=== PATIENT | female | born 2000 | race Caucasian/White ===

== ENCOUNTER 2023-01-20 19:03 | Emergency (ER) | payer MEDICAID, SELFPAY ==
[2023-01-20 19:04] VITALS: BP 133/85; PULSE 84; RESP 16; TEMP 36.4; O2SAT 100; BMI 35.6
--- NOTE | 2023-01-20 19:19 | EX.ED.DYSGE1 ---
HPI History of Present Illness Chief Complaint: Abd Pain Informant: patient Narrative Narrative: Patient presents with abdominal cramping for 2 days and positive home . Patient is currently G6, P3. She had 1 blighted ovum and 1 miscarriage. Her last menstrual period was about 21 December. She states she is taken multiple urine test at home that were positive. She has not yet seen her OB but is seeing Fara at [place]. She has had a virtual visit. She states for couple days she has been getting abdominal cramping. She points mostly to the epigastrium but then says she sometimes gets that lower also. No bleeding. No discharge. She does urinate frequently but it is not burning. She states that is typical with . She has some mild nausea off and on but is eating well and is not had any vomiting. No fevers. No back pain. PFSH PFSH Medical History no medical history Allergy/AdvReac Type Severity Reaction Status Date / Time latex Allergy Mild Hives Verified 01/20/23 19:06 Social History Smoking Status: Never smoker ROS ROS ED ROS Narrative A complete review of systems was performed and is negative except as documented in the history of present illness. Some specific details below. Constitutional: No recent fevers or chills. No malaise ENT: No difficulty swallowing. No swelling. No pain. No GERD symptoms. CV: No chest pain or palpitations. Respiratory: No dyspnea. No hemoptysis. No difficulty taking breaths. GI: Please see history of present illness. : She has had frequency but no dysuria or hematuria. Musculoskeletal: No recent trauma. No pains. Skin: No rash. Nondiaphoretic. Neuro: No weakness or numbness. Endocrine: No polyuria or polydipsia. EXAM Physical Exam Narrative Exam Narrative: CONSTITUTIONAL: Patient is nontoxic in appearance. The patient looks comfortable. She is looking at her phone while sitting on the bed when I walk in the room. HEENT: No notable trauma. Mucous membranes moist. No sinus tenderness. No indication of pain with swallowing. EYES: No conjunctival injection. No icterus. CARDIOVASCULAR: Regular rate. Regular rhythm. No notable murmur. No JVD. RESPIRATORY: No respiratory distress. Breathing is unlabored. No wheezes. No rhonchi. No rales. No pain with a deep breath. GASTROINTESTINAL: Not distended. Bowel sounds are normal. She has minimal to no epigastric tenderness but no rebound or guarding. No right upper quadrant tenderness. When I press in the epigastrium she mostly states that that is where it hurts but there is no objective indication of tenderness. She states right now she is not really having much symptoms. GENITOURINARY: No tenderness over the bladder. No CVA tenderness. I do not get any suprapubic tenderness. MUSCULOSKELETAL: Atraumatic. No peripheral edema. No cord. No tenderness along the deep venous system. No asymmetry. NEUROLOGICAL: Patient is alert and appropriate. SKIN: No noted rashes. No diaphoresis. PSYCHIATRIC: Patient is calm. Mood is appropriate. Const Vital Signs: 01/20/23 19:04 Temperature 97.5 F L Temperature Source Temporal Pulse Rate 84 Respiratory Rate 16 Blood Pressure 133/85 H Blood Pressure Mean 101 Pulse Ox 100 Oxygen Delivery Method Room Air MDM MDM MDM Narrative Medical decision making narrative: Patient's urinalysis shows no acute process. Her quantitative beta hCG was only 132. Her pelvic ultrasound showed a cyst on the right. Nothing in the uterus. This cannot rule out ectopic. Patient states she has had a cyst there forever. She is comfortable. I do not think she needs to come in for possible ectopic at this time. I think she needs a recheck of her quantitative hormone level and recheck in her doctor's office. She sees Dr. Radha lynch up in [place]. I recommend she call the office in the morning to be reseen within the next few days. We discussed reasons to return and signs to look for. Most of the patient's pain is actually epigastric. It waxes and wanes. This may very be gastritis. We discussed dietary changes Lab Data Labs: Laboratory Results - last 24 hr 01/20/23 01/20/23 20:00 20:05 HCG, Quant 132 H Urine Color Yellow Urine Clarity Sl. Cloudy Urine pH 6.0 Ur Specific [place] 1.025 Urine Protein 15 H Urine Glucose (UA) Normal Urine Ketones Negative Urine Occult Blood Negative Urine Nitrite Negative Urine Bilirubin 1 H Urine Urobilinogen 8 H Ur Leukocyte Esterase 100 H Urine RBC 0-5 SEEN Urine WBC 0-5 SEEN Ur Squamous Epith Cells 0-5 SEEN Urine Bacteria 1+ Urine Mucus 1+ Radiography Diagnostic Testing: Clinical Impression(s) from Imaging Studies Obstetrics Ultrasound 01/20/23 20:51 IMPRESSION: Possible small intrauterine gestational sac and a 3.5 cm simple cyst right ovary. Differential diagnosis includes an early intrauterine with a theca lutein cyst, ectopic with a pseudogestational sac, or incomplete . Correlation with serial beta hCG measurements is recommended. Electronically Signed: Forrest Hill MD at 21:59 EDT , Discharge Plan Triage Chief Complaint: Abd Pain ED Provider: Joey Urban Dx/Rx/DC Orders Clinical Impression: Early stage of , Abdominal pain Instructions: 1st Trimester, ED Abdominal Pain Unkn Cause Fem Primary Care Provider: YUMIKO SMITH Referrals: YUMIKO SMITH [Other] Activity Restrictions/Additional Instructions: Call your OB physician in the morning for recheck in the next few days. Disposition Disposition: Home, Self Care
[2023-01-20 20:14] LABS: Color, Urine Yellow (Yellow); Glucose, Dipstick Normal (Normal); Ketone-Dipstick Negative (Negative); Leukocyte Esterase-Dipstick 100 /ul (Negative); Nitrite-Dipstick Negative (Negative); Occult Blood-Urine Negative /ul (Negative); Protein-Dipstick 15 mg/dl (Negative); Specific Gravity, Urine 1.025 (1.002-1.030); Urine Clarity Sl. Cloudy (Clear); Urine Urobilinogen 8 mg/dl (Normal)
[2023-01-20 20:17] LABS: Urine Bilirubin Dipstick 1 mg/dL (Negative)
[2023-01-20 20:36] LABS: Bacteria 1+ /hpf (None Seen); Mucous, Urine 1+ /hpf (<or=2+); Red Blood Cells-Urine 0-5 SEEN /hpf (0-5); Squamous Epithelial Cells - UA 0-5 SEEN /hpf (5-10); White Blood Cells 0-5 SEEN /hpf (0-5)
[2023-01-20 20:46] LABS: hCG Titer Quant., Serum 132 mIU/mL (1-3)
--- NOTE | 2023-01-20 20:51 | US_ITS ---
STUDY: FIRST TRIMESTER OBSTETRICAL ULTRASOUND REASON FOR EXAM: Female, 22 years old cramps mild LMP: 12/21/2022 TECHNIQUE: Transvaginal TECHNICAL QUALITY: Adequate. PRIOR ULTRASOUND: None. FINDINGS: There is visualization of a single gestational sac in a normal intrauterine position. The mean sac diameter (MSD) measures 6 mm, indicating an estimated gestational age (EGA) of 5 weeks, 2 days. The gestational sac shape is within normal limits. There is no demonstrated yolk sac.. The placenta is non-visualized. There is no demonstrated embryo ( pole). m. The estimated gestation age (EGA) by LMP is 4 weeks, 2 days. The estimated date of delivery (ARYA) by LMP is 09/27/2023. The estimated gestation age (EGA) by US is 5 weeks, 2 days. The estimated date of delivery (ARYA) by US is 09/20/2023. The uterus measures 8.9 x 4.5 x 5.8 cm. There is no demonstrated uterine fibroid. The cervix is closed. The right ovary measures 4.0 x 3.3 x 3.8 cm. 3.5 cm oval anechoic mass with increased through transmission of the right ovary. There is no visualized right adnexal mass or complex lesion. The left ovary measures 3.4 x 2.4 x 2.2 cm. There is no left ovarian cyst. There is no visualized left adnexal mass or complex lesion. There is no fluid in the cul de sac. US/Transvaginal w/Preg US IMPRESSION: Possible small intrauterine gestational sac and a 3.5 cm simple cyst right ovary. Differential diagnosis includes an early intrauterine with a theca lutein cyst, ectopic with a pseudogestational sac, or incomplete . Correlation with serial beta hCG measurements is recommended. Electronically Signed: Forrest Hill MD at 21:59 EDT ,
== END 2023-01-20 22:48 | disposition home or self-care (01) ==
PROVIDERS: Emergency Provider Emergency Medicine; Visit Provider Emergency Medicine
DX: O99.891 Other specified diseases and conditions complicating pregnancy (principal); R10.9 Unspecified abdominal pain; Z3A.00 Weeks of gestation of pregnancy not specified
CPT/HCPCS: 76817; 81001; 84702; 99282; A4216

== ENCOUNTER → 2023-02-17 | Outpatient (CLI) | payer MEDICAID, SELFPAY ==
[2023-02-21 06:06] LABS: Chlamydia By Nucleic Acid AMP Negative (Negative); Gonococcus By Nucleic Acid AMP Negative (Negative)
[2023-02-25 10:04] LABS: HPV Reflexed? NOT INDICATED
== END | disposition home or self-care (01) ==
LOC: LABSPEC 16:22
PROVIDERS: Referring Provider Obstetrics & Gynecology; Visit Provider Obstetrics & Gynecology
DX: O09.90 Supervision of high risk pregnancy, unspecified, unspecified trimester (principal); Z3A.00 Weeks of gestation of pregnancy not specified
CPT/HCPCS: 87491; 87591; 88175; G0145

== ENCOUNTER → 2023-03-09 | Outpatient (CLI) | payer MEDICAID, SELFPAY ==
[2023-03-09 13:16] LABS: Absolute Lymphocyte Count 2.51 X10^3/uL (0.83-4.51); Absolute Neutrophil Count 6.7 X10^3/uL (2.0-7.7); Basophil# 0.03 X10^3/uL; Basophil% 0.3 % (0-1); Eosinophil# 0.29 X10^3/uL; Hematocrit 38.3 % (37-47); Hemoglobin 13.2 g/dL (12.0-15.0); Lymphocyte # 2.51 X10^3/ul (0.83-4.51); Lymphocyte % 25.6 % (19-41); Mean Corp Hgb Conc 34.5 g/dL (32-36); Mean Platelet Vol. 9.8 fl (6.2-12.0); Monocyte# 0.22 X10^3/uL; Monocyte% 2.2 % (0-10); NRBC Flagged by Analyzer 0 % (0-5); Neutrophil # 6.72 X10^3/uL (2.7-7.7); Neutrophil % 68.7 % (47-70); Platelet Count 307 K/mm3 (150-450); RBC Distribution Width CV 11.9 % (11.6-14.6); RBC Distribution Width SD 38.2 fl (35.1-43.9); White Blood Count 9.8 K/mm3 (4.4-11.0)
[2023-03-09 13:37] LABS: NATERA MAILED SPECIMEN
[2023-03-09 13:43] LABS: Glucose Challenge Gest 1H 50g 136 mg/dL (70-140)
[2023-03-09 14:22] LABS: HIV - WCH Non-Reactive (Nonreactive); Hepatitis B Surface Antigen Non-Reactive (Nonreactive); Hepatitis C Antibody Non-Reactive (Nonreactive); Rubella IgG Reactive (Nonreactive); Syphilis Antibodies Non-reactive
== END | disposition home or self-care (01) ==
LOC: LAB 11:31
PROVIDERS: Referring Provider Obstetrics & Gynecology; Visit Provider Obstetrics & Gynecology
DX: Z02.1 Encounter for pre-employment examination (principal); O09.299 Supervision of pregnancy with other poor reproductive or obstetric history, unspecified trimester; Z3A.00 Weeks of gestation of pregnancy not specified
CPT/HCPCS: 36415; 82950; 85025; 86703; 86762; 86780; 86803; 86850; 86900; 86901; 87340

== ENCOUNTER → 2023-03-18 | Outpatient (CLI) | payer MEDICAID, SELFPAY | END | disposition home or self-care (01) | LOC: LABSPEC 12:21 | PROVIDERS: Referring Provider Advanced Practice Midwife; Visit Provider Advanced Practice Midwife | DX: Z34.90 Encounter for supervision of normal pregnancy, unspecified, unspecified trimester (principal) | CPT/HCPCS: 87077; 87086; 87088 ==

== ENCOUNTER → 2023-03-21 | Outpatient (CLI) | payer MEDICAID, SELFPAY ==
[2023-03-21 10:45] LABS: Glucose GTT-Gestation. Fasting 89 mg/dL (<105)
[2023-03-21 11:54] LABS: Glucose GTT-Gestational 2 Hr 125 mg/dL (<165)
[2023-03-21 11:59] LABS: Glucose GTT-Gestational 1 Hr 141 mg/dL (<190)
[2023-03-21 13:14] LABS: Glucose GTT-Gestational 3 Hr 116 L (<145)
== END | disposition home or self-care (01) ==
PROVIDERS: Referring Provider Obstetrics & Gynecology; Visit Provider Obstetrics & Gynecology
DX: Z13.1 Encounter for screening for diabetes mellitus (principal)
CPT/HCPCS: 36415; 82951; 82952

== ENCOUNTER → 2023-06-08 | Outpatient (CLI) | payer MEDICAID, SELFPAY | END | disposition home or self-care (01) | PROVIDERS: Visit Provider Obstetrics & Gynecology | DX: N89.8 Other specified noninflammatory disorders of vagina (principal) | CPT/HCPCS: 87070; 87205 ==

== ENCOUNTER → 2023-07-07 | Outpatient (CLI) | payer MEDICAID, SELFPAY ==
--- OUTSIDE RECORDS SUMMARY | 2023-07-07 11:54 | XMS RPT_ITS | CCD ---
Author Name Unknown Address [address] [place] [address] Organization [facility] Care Team Providers Care Finance Administrator Name Role Phone SARAH AVILES Unavailable Unavailable AMEE PARKER Unavailable Unavailable AMEE PARKER Unavailable Unavailable MYLA STINSON Unavailable Unavailable MARIA DE JESUS BRANHAM Admitting Unavailable MARIA DE JESUS BRANHAM Attending Unavailable AA UNKNOWN PCP, UNKNOWN Primary Care Unavaila ble Kem Malik Primary Care Provider [phone] Kem Malik Primary Care Provider Kem Malik DO Primary Care Provider Unavailable Primary Care Provider Unavailabl e SILVERIO CARTER Attending Unavailable HOMER RICO Consulting Unavailable SILVERIO CARTER Admitting Unavailable DICK MARTINEZ Admitting Unavailable DICK MARTINEZ Attending Unavailable PROVIDER, UNKNOWN Referring Unavailable MARIBELL SAN Attending Unavailable No, PCP Primary Care Unavailable Rosemarie Mcmullen Attending Unavailable No, PCP Primary Care Unavailable PROVIDER, UNKNOWN Referring Unavailable PROVIDER, UNKNOWN Referring Unavailable No, PCP Primary Care Unavailable Anshu Bashir Attending Unavailable PROVIDER, UNKNOWN Referring Unavailable [facility] Attending Unavailable No, PCP Primary Care Unavailable No, PCP Primary Care Unavailable PROVIDER, UNKNOWN Referring Unavailable Usama Plata Attending Unavailable SOPHIA ARZATE Attending Unavailable No, PCP Primary Care Unavailable PROVIDER, UNKNOWN Referring Unavailable MARIBELL SAN Attending Unavailable No, PCP Primary Care Unavailable PROVIDER, UNKNOWN Referring Unavailable Abdulaziz ARMENTA MD, Stephen J Primary [facility] Provider Estella Herzog MD Unavailable Chucho Coburn Unavailable Unavailable Unavailable Nile Milan, Rafael Dane Jonh Referring Unava naeem Dowd Jr, Rafael Dane Jonh Attending Unava Dr. Chucho Strickland Primary Care Unavailable AUDU, [facility] Primary Care Unavailable SUBICHIN II, [facility] Primary Care Unavailab le AUDU, [facility] Primary Care Unavailable SUBICHIN II, [facility] Primary Care Unavailab le AUDU, [facility] Primary Care Unavailable VALENTIN CHAMBERS Referring Unavailable AUDU, [facility] Primary [facility]available [facility] Provider Estella Herzog MD Unavailable AUDU, YUMIKO Attending Unavailable AUDU, [facility] Primary Care Unavailable AUDU, YUMIKO Attending Unavailable AUDU, [facility] Primary Care Unavailable INA DENG Attending Unavailable INA DENG Attending Unavailable AUDU, [facility] Primary Care Unavailable AUDU, YUMIKO Attending Unavailable AUDU, [facility] Primary Care Unavailable ESTELLA HERZOG Attending Unavailable AUDU, [facility] Primary Care Unavailable LIZZIE SDALER Attending Unavailable AUDU, [facility] Primary Care Unavailable AUDU, YUMIKO Attending Unavailable AUDU, [facility] Primary Care Unavailable AUDU, YUMIKO Attending Unavailable AUDU, [facility] Primary Care Unavailable AUDU, YUMIKO Attending Unavailable AUDU, YUMIKO Referring Unavailable AUDU, [facility] Primary Care Unavailable SOPHIA ARZATE Attending Unavailable AUDU, [facility] Primary Care Unavailable Dennise Rehman Unavailable [phone] Emerson Jacinto MD Primary Care Provider [phone] NO PRIMARY CARE, Primary Care Unavailable HUNTER OZUNA Attending Unavailabl e DENNISE VIDES Referring Unavailable EMERSON JACINTO Primary Care Unavailable EMERSON JACINTO Attending Unavailable KATELYNN NIÑO Referring Unavailab le JACINTO, EMERSON A Primary Care Unavailable EMERSON JACINTO Attending Unavailable EMEROSN JACINTO Referring Unavailable NO PRIMARY CARE, Primary Care Unavailable JENNIFER DAY Attending Unavailable LENNY ROJAS Referring Unavailabl e NO PRIMARY CARE, Primary Care Unavailable LENNY ROJAS Referring Unavailabl e KATELYNN NIÑO Attending Unavailab le NO PRIMARY CARE, Primary Care Unavailable JENNIFER DAY Attending Unavailable DENNISE VIDES Referring Unavailable NO PRIMARY CARE, Primary Care Unavailable DENNISE VIDES Referring Unavailable STEVIE OZUNA Attending Unavailable Allergies Allergy Classification Reported Allergen(s) Allergy Type Date of Onset Reaction(s) Facility Cinnamon Preparation (1 source) Cinnamon Preparation Drug Allergy 2 Swelling [facility] Latex (1 source) Latex Substance Allergy 7 Hives [facility] (20 sources) cinnamon preparation; Translations: [CINNAMON] Drug Allergy 2 Swelling, Other: See Comments [facility] Repository (20 sources) Latex; Translations: [LATEX] Propensity to adverse reactions (disorder) 7 Hives, Anaphylaxis, Swelling [facility] Repository Medications Current Medications Medication Drug Class(es) Dates Sig (Normalized) Sig (Original) acetaminophen 325 mg oral tablet (4 sources) Start: 03-28-2022 acetaminophen (TYLENOL) tablet 650 mg Completed/Discontinued Medications Medication Drug Class(es) Dates Sig (Normalized) Sig (Original) [id number] 200 actuat albuterol 0.09 mg/actuat metered dose inhaler (3 sources) beta2-Adrenergic Agonist Start: 12-15-2021 take 2 puff(s) by inhalation every four hours as needed 2 puff, Inhalation, EVERY 4 HOURS PRN, Starting on Tue12/15/21 at 1657, Until Discontinued, Wheezing, Shortness of Breath, cough Initiate RT Bronchodilator Protocol: No Problems Active Problems Problem Classification Problem Date Documented Da te Episodic/Chronic Administrative/social admission (5 sources) Worried well; Translations: [Patient encounter status] Onset: 12-28-2022 12-28-2022 Episodic Anxiety disorders (3 sources) Anxiety disorder, unspecified; Translations: [Anxiety] Onset: 03-28-2022 Chronic Diabetes mellitus without complication (20 sources) Abnormal glucose level; Translations: [Abnormal glucose complicating ] Onset: 03-12-2020 Resolved: 09-08-2020 03-12-2020 Episodic Disorders of teeth and jaw (1 source) Infection of tooth; Translations: [Dental infection] Episodic External cause codes: Fall (1 source) Fall; Translations: [Fall, initial encounter] Headache; including migraine (2 sources) Headache; including migraine; Translations: [Headache, unspecified] Onset: 08-30-2021 Mood disorders (20 sources) Episodic mood disorder; Translations: [Unspecified mood [affective] disorder] Onset: 10-29-2014 Resolved: 08-04-2021 01-13-2021 Chronic Mood disorders (14 sources) Mood disorders; Translations: [Depression, unspecified] Onset: 09-07-2022 Resolved: 09-07-2022 OB-related trauma to perineum and vulva (2 sources) Second degree perineal laceration during delivery; Translations: [Second degree perineal laceration during delivery] Onset: 03-28-2022 Episodic Open wounds of extremities (3 sources) Puncture wound of left foot; Translations: [Puncture wound without foreign body, left foot, initial encounter] Onset: 04-25-2023 04-25-2023 Episodic Other complications of ; puerperium affecting management of mother (2 sources) Obesity complicating childbirth; Translations: [Obesity complicating childbirth] Onset: 03-28-2022 Chronic Other complications of ; puerperium affecting management of mother (2 sources) Abnormality in heart rate and rhythm complicating labor and delivery; Translations: [Abnlt in heart rate and rhythm comp labor and delivery] Onset: 03-28-2022 Episodic Other complications of ; puerperium affecting management of mother (2 sources) Smoking (tobacco) complicating childbirth; Translations: [Smoking (tobacco) complicating childbirth] Onset: 03-28-2022 Episodic Other complications of ; puerperium affecting management of mother (2 sources) Other mental disorders complicating childbirth; Translations: [Other mental disorders complicating childbirth] Onset: 03-28-2022 Episodic Other complications of (6 sources) Maternal obesity complicating , childbirth and the puerperium, antepartum; Translations: [Obesity affecting , antepartum] Onset: 03-10-2020 Resolved: 09-08-2020 03-10-2020 Episodic Other complications of (6 sources) Supervision of with other poor reproductive or obstetric history, unspecified trimester; Translations: [History of delivery by vacuum extraction, currently ] Onset: 03-10-2020 Resolved: 09-08-2020 03-10-2020 Episodic Other complications of (2 sources) Maternal care for abnormalities of the heart rate or rhythm, unspecified trimester, not applicable or unspecified; Translations: [Matern care for abnlt fetl hrt rate or rhym, unsp tri, unsp] Onset: 03-28-2022 Episodic Other complications of (2 sources) related conditions, unspecified, third trimester; Translations: [ related conditions, unspecified, third trimester] Onset: 02-28-2022 Episodic Other complications of (2 sources) Smoking (tobacco) complicating , third trimester; Translations: [Smoking (tobacco) complicating , third trimester] Onset: 02-28-2022 Episodic Other complications of (3 sources) Patient encounter status; Translations: [ with inconclusive viability, not applicable or unspecified] 02-03-2023 Episodic Other complications of (2 sources) with inconclusive viability, not applicable or unspecified; Translations: [ with inconclusive viability, not applicable or unspecified] Onset: 02-03-2023 Episodic Other complications of (1 source) ultrasound scan abnormal; Translations: [Abnormal ultrasonic finding on screening of mother] 06-27-2023 Episodic Other complications of (1 source) History of gynecological disorder; Translations: [Supervision of with other poor reproductive or obstetric history, unspecified trimester] Onset: 04-14-2023 04-19-2023 Episodic Other female genital disorders (4 sources) Abnormal uterine and vaginal bleeding, unspecified; Translations: [ABNORMAL UTERINE VAGINAL BLEED UNS] Onset: 01-08-2019 Chronic Other female genital disorders (1 source) Vaginal bleeding; Translations: [Abnormal uterine and vaginal bleeding, unspecified] Chronic Other female genital disorders (1 source) Vulval irritation; Translations: [Other specified noninflammatory disorders of vulva and perineum] Episodic Other female genital disorders (1 source) H/O: miscarriage; Translations: [Recurrent loss] Onset: 04-14-2023 04-14-2023 Episodic Other gastrointestinal disorders (2 sources) Irritable bowel syndrome without diarrhea; Translations: [Irritable bowel syndrome without diarrhea] Onset: 06-23-2021 Chronic Other nutritional; endocrine; and metabolic disorders (20 sources) Obesity; Translations: [Obesity, unspecified] Onset: 09-05-2012 01-13-2021 Chronic Other nutritional; endocrine; and metabolic disorders (2 sources) Body mass index (BMI) 35.0-35.9, adult; Translations: [Body mass index (BMI) 35.0-35.9, adult] Onset: 10-05-2022 Chronic Other upper respiratory disease (1 source) Pain in throat Onset: 10-28-2022 Episodic Other upper respiratory infections (6 sources) Sore throat symptom; Translations: [Acute pharyngitis, unspecified] Onset: 04-12-2023 Episodic Otitis media and related conditions (1 source) Acute secretory otitis media; Translations: [Other acute nonsuppurative otitis media, right ear] Episodic Residual codes; unclassified (2 sources) 38 weeks gestation of ; Translations: [38 weeks gestation of ] Onset: 03-28-2022 Episodic Residual codes; unclassified (2 sources) 34 weeks gestation of ; Translations: [34 weeks gestation of ] Onset: 02-28-2022 Episodic Residual codes; unclassified (1 source) Family history of stroke; Translations: [Family history of stroke] Episodic Residual codes; unclassified (2 sources) Gestation period, 16 weeks; Translations: [16 weeks gestation of ] Onset: 04-25-2023 04-25-2023 Episodic Residual codes; unclassified (1 source) 16 weeks gestation of ; Translations: [16 weeks gestation of ] Onset: 04-25-2023 Episodic Sprains and strains (1 source) Low back strain; Translations: [Strain of lumbar region, initial encounter] Episodic Substance-related disorders (20 sources) Smoker; Translations: [Nicotine dependence, unspecified, uncomplicated] Onset: 08-04-2021 08-04-2021 Chronic Superficial injury; contusion (1 source) Tick bite; Translations: [Insect bite (nonvenomous), right knee, initial encounter] Episodic Unclassified (1 source) Unknown / UNK(Unknown) Onset: 04-20-2017 Unclassified (2 sources) Error (VOID this visit); Translations: [Error (VOID this visit)] Onset: 10-15-2022 Unclassified (2 sources) New Patient; Translations: [New Patient] Onset: 10-15-2022 Urinary tract infections (5 sources) Urinary tract infectious disease; Translations: [Acute cystitis] Onset: 04-25-2021 Episodic Viral infection (2 sources) Viral disease; Translations: [Viral infection, unspecified] Onset: 10-29-2022 Episodic Past or Other Problems Problem Classification Problem Date Documented Date Episodic/Chronic Abdominal pain (10 sources) Right lower quadrant pain; Translations: [Left lower quadrant pain] Onset: 04-14-2016 Resolved: 09-08-2020 06-18-2017 Episodic Allergic reactions (4 sources) Latex allergy status; Translations: [Allergy to other foods] Onset: 06-23-2021 Episodic Biliary tract disease (20 sources) Common bile duct calculus; Translations: [Calculus of bile duct without cholangitis or cholecystitis without obstruction] Onset: 12-06-2012 Resolved: 08-04-2021 01-13-2021 Episodic Early or threatened labor (20 sources) False labor; Translations: [Threatened premature labor - not delivered ] Onset: 01-25-2022 Resolved: 06-10-2022 06-17-2017 Episodic Fluid and electrolyte disorders (2 sources) Dehydration; Translations: [Dehydration] Onset: 08-30-2021 Episodic Genitourinary symptoms and ill-defined conditions (1 source) Dysuria Onset: 04-20-2017 Episodic Hemorrhage during ; abruptio placenta; placenta previa (14 sources) Antepartum hemorrhage; Translations: [Antepartum hemorrhage, unspecified, unspecified trimester] Resolved: 09-08-2020 09-08-2020 Episodic Inflammatory diseases of female pelvic organs (3 sources) Bacterial vaginosis; Translations: [BV (bacterial vaginosis)] Resolved: 06-18-2017 06-18-2017 Episodic Mycoses (20 sources) Candidiasis; Translations: [Candidiasis, unspecified] Onset: 09-02-2021 09-02-2021 Episodic Nausea and vomiting (2 sources) Nausea; Translations: [Nausea] Onset: 08-30-2021 Episodic Nonmalignant breast conditions (3 sources) Lump in left breast; Translations: [Unspecified lump in the left breast, unspecified quadrant] Onset: 09-07-2022 Episodic Other aftercare (2 sources) Other detention (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; Translations: [Other detention (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] Onset: 08-30-2021 Episodic Other complications of ; puerperium affecting management of mother (1 source) Retained placenta and membranes; Translations: [Third-stage hemorrhage] Onset: 10-23-2020 10-23-2020 Episodic Other complications of ; puerperium affecting management of mother (12 sources) Third-stage hemorrhage; Translations: [Retained placenta without hemorrhage, delivered, with mention of complication] Onset: 10-23-2020 Resolved: 06-19-2021 10-23-2020 Episodic Other complications of (13 sources) Maternal obesity complicating , childbirth and the puerperium, antepartum; Translations: [Obesity complicating , unspecified trimester] Onset: 03-10-2020 Resolved: 09-08-2020 09-08-2020 Chronic Other complications of (20 sources) Obesity complicating , unspecified trimester; Translations: [Obesity complicating , childbirth, or the puerperium, antepartum condition or complication] Onset: 09-16-2021 Resolved: 06-10-2022 09-16-2021 Chronic Other complications of (20 sources) High risk ; Translations: [Supervision of young multigravida, first trimester] Onset: 03-21-2020 Resolved: 02-25-2022 04-21-2020 Episodic Other complications of (20 sources) H/O: previous delivery by vacuum extraction; Translations: [Supervision of with other poor reproductive or obstetric history, unspecified trimester] Onset: 03-10-2020 Resolved: 06-10-2022 09-08-2020 Episodic Other complications of (13 sources) Abdominal pain in ; Translations: [Other specified related conditions, second trimester] Resolved: 09-08-2020 09-08-2020 Episodic Other complications of (20 sources) Short cervical length in ; Translations: [Cervical shortening, second trimester] Onset: 12-18-2021 Resolved: 06-10-2022 Episodic Other complications of (15 sources) Heartburn; Translations: [Other specified related conditions, third trimester] Onset: 01-25-2022 Resolved: 06-10-2022 Episodic Other complications of (15 sources) Low maternal weight gain; Translations: [Low weight gain in , second trimester] Onset: 01-06-2022 Resolved: 06-10-2022 Episodic Other complications of (15 sources) Hyperemesis gravidarum; Translations: [Vomiting of , unspecified] Onset: 01-25-2022 Resolved: 06-10-2022 Episodic Other complications of (14 sources) Uterine size for dates discrepancy; Translations: [Uterine size-date discrepancy, third trimester] Onset: 01-06-2022 Resolved: 06-10-2022 01-06-2022 Episodic Other complications of (4 sources) Headache; Translations: [Other specified related conditions, second trimester] Onset: 01-06-2022 Resolved: 01-25-2022 01-25-2022 Episodic Other complications of (4 sources) Uterine contractions problem; Translations: [Other specified related conditions, unspecified trimester] Onset: 01-25-2022 Resolved: 01-25-2022 01-25-2022 Episodic Other complications of (12 sources) Hip pain; Translations: [Other specified related conditions, third trimester] Onset: 01-25-2022 Resolved: 06-10-2022 02-10-2022 Episodic Other complications of (12 sources) dysrhythmia; Translations: [Maternal care for abnormalities of the heart rate or rhythm, unspecified trimester, not applicable or unspecified] Onset: 03-28-2022 Resolved: 06-10-2022 Episodic Other complications of (2 sources) Cervical shortening, unspecified trimester; Translations: [Cervical shortening, unspecified trimester] Onset: 12-19-2021 Episodic Other complications of (2 sources) Cervical shortening, second trimester; Translations: [Cervical shortening, second trimester] Onset: 12-18-2021 Episodic Other complications of (2 sources) Other specified related conditions, first trimester; Translations: [Oth related conditions, first trimester] Onset: 08-30-2021 Episodic Other complications of (2 sources) Smoking (tobacco) complicating , first trimester; Translations: [Smoking (tobacco) complicating , first trimester] Onset: 08-30-2021 Episodic Other female genital disorders (20 sources) Abnormal uterine bleeding; Translations: [Abnormal uterine and vaginal bleeding, unspecified] Onset: 12-12-2018 Resolved: 09-08-2020 12-12-2018 Chronic Other female genital disorders (17 sources) Vaginal discharge; Translations: [Other specified noninflammatory disorders of vagina] Onset: 01-25-2022 Resolved: 06-10-2022 Episodic Other female genital disorders (20 sources) Finding of measures of cervix; Translations: [Incompetence of cervix uteri] Onset: 12-04-2021 Resolved: 06-10-2022 Episodic Other nutritional; endocrine; and metabolic disorders (9 sources) Weight loss; Translations: [Abnormal weight loss] Onset: 10-05-2022 10-05-2022 Episodic Other nutritional; endocrine; and metabolic disorders (2 sources) Abnormal weight gain; Translations: [Abnormal weight gain] Onset: 09-07-2022 Episodic Other and delivery including normal (20 sources) Term ; Translations: [Vaginal delivery] Onset: 06-17-2017 Resolved: 06-10-2022 06-17-2017 Episodic Ovarian cyst (14 sources) Cyst of left ovary; Translations: [Unspecified ovarian cyst, left side] Onset: 12-06-2012 Resolved: 06-19-2021 01-13-2021 Episodic Polyhydramnios and other problems of amniotic cavity (15 sources) Premature rupture of membranes; Translations: [Premature rupture of membranes, unspecified as to length of time between rupture and onset of labor, unspecified weeks of gestation] Onset: 09-07-2020 Resolved: 09-08-2020 09-08-2020 Episodic Residual codes; unclassified (3 sources) Past history of procedure; Translations: [Status post vacuum-assisted vaginal delivery] Onset: 06-18-2017 Resolved: 06-19-2017 06-19-2017 Episodic Residual codes; unclassified (17 sources) Gestation period, 30 weeks; Translations: [30 weeks gestation of ] Resolved: 09-08-2020 07-21-2020 Episodic Residual codes; unclassified (14 sources) Gestation period, 29 weeks; Translations: [29 weeks gestation of ] Onset: 01-28-2022 Resolved: 06-10-2022 Episodic Residual codes; unclassified (2 sources) 24 weeks gestation of ; Translations: [24 weeks gestation of ] Onset: 12-18-2021 Episodic Residual codes; unclassified (2 sources) 8 weeks gestation of ; Translations: [8 weeks gestation of ] Onset: 08-30-2021 Episodic Residual codes; unclassified (2 sources) Other specified postprocedural states; Translations: [Other specified postprocedural states] Onset: 06-23-2021 Episodic Residual codes; unclassified (2 sources) Acquired absence of other specified parts of digestive tract; Translations: [Acquired absence of other specified parts of digestive tract] Onset: 04-25-2021 Episodic Residual codes; unclassified (2 sources) Family history of ischemic heart disease and other diseases of the circulatory system; Translations: [Family history of ischemic heart disease and other diseases of the circulatory system] Onset: 09-07-2022 Episodic Unclassified (3 sources) Patient encounter status; Translations: [Screen for STD (sexually transmitted disease)] Onset: 12-12-2018 Resolved: 01-11-2019 01-11-2019 Results Test Name Value Interpretation Reference Range Facil ity Vital Signs Date Time Vital Sign Value Performing Clinician Doris pickard 04-25-2023 09:44-0400 Body height 157.5 cm Lizzie Aguero NP Work Phone: [facility] [employer] 04-25-2023 09:44-0400 Body mass index (BMI) [Ratio] 36.4 kg/m2 Lizzie Aguero NP Work Phone: [employer] 04-25-2023 09:44-0400 Body temperature 97.2 [degF] Lizzie Aguero NP Work Phone: [facility] [employer] 04-25-2023 09:44-0400 Body weight 90.27 kg Lizzie Aguero NP Work Phone: [facility] [employer] 04-25-2023 09:44-0400 Diastolic blood pressure 76 mm[Hg] Lizzie Payam ENTRY LEVEL PROJECT ENGINEER - [employer] EX[employer] OPERATIONS AGENT Work Phone: [facility] [employer] 04-25-2023 09:44-0400 Heart rate 91 /min Lizzie Payam ENTRY LEVEL PROJECT ENGINEER - [employer] OPERATIONS AGENT Work Phone: [facility] [employer] 04-25-2023 09:44-0400 SaO2% (BldA) [Mass fraction] 98 % Lizzie Payam ENTRY LEVEL PROJECT ENGINEER - [employer] EXPORT OPERATIONS AGENT Work Phone: [facility] [employer] 04-25-2023 09:44-0400 Systolic blood pressure 118 mm[Hg] Lizzie Payam ENTRY LEVEL PROJECT ENGINEER - [employer] EX[employer] OPERATIONS AGENT Work Phone: [facility] [employer] 04-12-2023 09:26-0400 Body height 157.5 cm Yumiko Mendez MD Work Phone: [facility] [employer] 04-12-2023 09:26-0400 Body mass index (BMI) [Ratio] 36.21 kg/m2 Yumiko Mendez MD Work Phone: [facility] [employer] 04-12-2023 09:26-0400 Body temperature 96.91 [degF] Yumiko Mendez MD Work Phone: [employer] 04-12-2023 09:26-0400 Body weight 89.81 kg Yumiko Mendez MD Work Phone: [facility] [employer] 04-12-2023 09:26-0400 Diastolic blood pressure 66 mm[Hg] Yumiko Mendez MD Work Phone: [facility] [employer] 04-12-2023 09:26-0400 Heart rate 106 /min Yumiko Mendez MD Work Phone: [employer] 04-12-2023 09:26-0400 Respiratory rate 16 /min Yumiko Mendez MD Work Phone: [facility] [employer] 04-12-2023 09:26-0400 SaO2% (BldA) [Mass fraction] 98 % Yumiko Mendez MD Work Phone: [facility] [employer] 04-12-2023 09:26-0400 Systolic blood pressure 121 mm[Hg] Yumiko Mendez MD Work Phone: [facility] [employer] 02-03-2023 13:02-0400 Body mass index (BMI) [Ratio] 36.65 kg/m2 [facility] Deng ENTRY LEVEL PROJECT ENGINEER - CNM Work Phone: [facility] [employer] 02-03-2023 13:02-0400 Body weight 90.9 kg Ina Deng ENTRY LEVEL PROJECT ENGINEER - CNM Work Phone: [facility] [employer] 02-03-2023 13:02-0400 Diastolic blood pressure 75 mm[Hg] Ina Deng ENTRY LEVEL PROJECT ENGINEER - CNM Work Phone: [facility] [employer] 02-03-2023 13:02-0400 Heart rate 101 /min Ina Deng ENTRY LEVEL PROJECT ENGINEER - CNM Work Phone: [facility] [employer] 02-03-2023 13:02-0400 Systolic blood pressure 106 mm[Hg] Ina Deng ENTRY LEVEL PROJECT ENGINEER - CNM Work Phone: [facility] [employer] 01-25-2023 11:13-0400 Body height 157.5 cm Yumiko Mendez MD Work Phone: [facility] [employer] 01-25-2023 11:13-0400 Body mass index (BMI) [Ratio] 36.43 kg/m2 Yumiko Mendez MD Work Phone: [facility] [employer] 01-25-2023 11:13-0400 Body temperature 97.7 [degF] Yumiko Mendez MD Work Phone: [facility] [employer] 01-25-2023 11:13-0400 Body weight 90.36 kg Yumiko Mendez MD Work Phone: [facility] [employer] 01-25-2023 11:13-0400 Diastolic blood pressure 80 mm[Hg] Yumiko Mendez MD Work Phone: [facility] [employer] 01-25-2023 11:13-0400 Heart rate 101 /min Yumiko Mendez MD Work Phone: [facility] 01-25-2023 11:13-0400 SaO2% (BldA) [Mass fraction] 96 % Yumiko Mendez MD Work Phone: [facility] [employer] 01-25-2023 11:13-0400 Systolic blood pressure 124 mm[Hg] Yumiko Mendez MD Work Phone: [facility] 12-28-2022 11:05-0400 Body mass index (BMI) [Ratio] 36.1 kg/m2 Yumiko Mendez MD Work Phone: [facility] [employer] 12-28-2022 11:05-0400 Body temperature 97.3 [degF] Yumiko Mendez MD Work Phone: [facility] [employer] 12-28-2022 11:05-0400 Body weight 89.54 kg Yumiko Mendez MD Work Phone: [facility] 12-28-2022 11:05-0400 Diastolic blood pressure 74 mm[Hg] Yumiko Mendez MD Work Phone: [facility] 12-28-2022 11:05-0400 Heart rate 103 /min Yumiko Mendez MD Work Phone: [facility] [employer] 12-28-2022 11:05-0400 SaO2% (BldA) [Mass fraction] 96 % Yumiko Mendez MD Work Phone: [facility] [employer] 12-28-2022 11:05-0400 Systolic blood pressure 104 mm[Hg] Yumiko Mendez MD Work Phone: [facility] [employer] 10-15-2022 11:42-0400 Body height 157.5 cm Estella Herzog MD Work Phone: [facility] [employer] 10-15-2022 11:42-0400 Body mass index (BMI) [Ratio] 36.23 kg/m2 Estella Herzog MD Work Phone: [facility] [employer] 10-15-2022 11:42-0400 Body temperature 95.9 [degF] Estella Herzog MD Work Phone: [facility] [employer] 04-07-2023 11:42-0400 Body weight 89.86 kg Estella Herzog MD Work Phone: [facility] [employer] 10-15-2022 11:42-0400 Diastolic blood pressure 66 mm[Hg] Estella Herzog MD Work Phone: [facility] [employer] 10-15-2022 11:42-0400 Heart rate 69 /min Estella Herzog MD Work Phone: [facility] [employer] 10-15-2022 11:42-0400 Respiratory rate 16 /min Estella Herzog MD Work Phone: [facility] [employer] 10-15-2022 11:42-0400 SaO2% (BldA) [Mass fraction] 99 % Estella Herzog MD Work Phone: [facility] [employer] 10-15-2022 11:42-0400 Systolic blood pressure 104 mm[Hg] Estella Herzog MD Work Phone: [facility] [employer] 09-29-2022 15:35-0400 Body height 157.5 cm Yumiko Mendez MD Work Phone: [facility] [employer] 09-29-2022 15:35-0400 Body mass index (BMI) [Ratio] 35.85 kg/m2 Yumiko Mendez MD Work Phone: [facility] [employer] 09-29-2022 15:35-0400 Body weight 88.91 kg Yumiko Mendez MD Work Phone: [facility] [employer] 03-29-2022 08:33-0400 Body temperature 97.7 [degF] Lee Chaudhari MD Work Phone: [facility] 03-29-2022 08:33-0400 Diastolic blood pressure 71 mm[Hg] Lee Chaudhari MD Work Phone: [facility] 03-29-2022 08:33-0400 Heart rate 84 /min Lee Chaudhari MD Work Phone: [facility] 03-29-2022 08:33-0400 Respiratory rate 18 /min Lee Chaudhari MD Work Phone: [facility] 03-29-2022 08:33-0400 Systolic blood pressure 97 mm[Hg] Lee Chaudhari MD Work Phone: [facility] 03-29-2022 05:47-0400 SaO2% (BldA) [Mass fraction] 99 % Lee Chaudhari MD Work Phone: [facility] 03-28-2022 06:10-0400 Body height 152.4 cm Lee Chaudhari MD Work Phone: [facility] 03-28-2022 06:10-0400 Body mass index (BMI) [Ratio] 39.06 kg/m2 Lee Chaudhari MD Work Phone: [facility] 03-28-2022 06:10-0400 Body weight 90.72 kg Lee Chaudhari MD Work Phone: [facility] 02-28-2022 20:10-0400 Body height 152.4 cm Sophiachelsey Cissell ENTRY LEVEL PROJECT ENGINEER - SESSIONS CLERK Work Phone: [facility] 02-28-2022 20:10-0400 Body mass index (BMI) [Ratio] 38.47 kg/m2 Sophia Olenafell ENTRY LEVEL PROJECT ENGINEER - SESSIONS CLERK Work Phone: [facility] 02-28-2022 20:10-0400 Body weight 89.36 kg Sophiachelsey Cissell ENTRY LEVEL PROJECT ENGINEER - SESSIONS CLERK Work Phone: [facility] 01-28-2022 17:56-0400 Body height 152.4 cm Silverio Carter MD Work Phone: [facility] [employer] 01-28-2022 17:56-0400 Body mass index (BMI) [Ratio] 37.89 kg/m2 Silverio Carter MD Work Phone: [facility] [employer] 01-28-2022 17:56-0400 Body temperature 98.1 [degF] Silverio Carter MD Work Phone: [facility] 01-28-2022 17:56-0400 Body weight 88 kg Silverio Carter MD Work Phone: [facility] [employer] 01-28-2022 17:56-0400 Diastolic blood pressure 54 mm[Hg] Silverio Carter MD Work Phone: [facility] [employer] 01-28-2022 17:56-0400 Heart rate 94 /min Silverio Carter MD Work Phone: [facility] [employer] 01-28-2022 17:56-0400 Respiratory rate 18 /min Silverio Carter MD Work Phone: [facility] [employer] 01-28-2022 17:56-0400 Systolic blood pressure 109 mm[Hg] Silverio Carter MD Work Phone: [facility] 01-25-2022 19:40-0400 Heart rate 82 /min Shala Noble MD Work Phone: [facility] 01-25-2022 16:28-0400 Body height 152.4 cm Shala Noble MD Work Phone: [facility] 01-25-2022 16:28-0400 Body mass index (BMI) [Ratio] 37.89 kg/m2 Shala Noble MD Work Phone: [facility] 01-25-2022 16:28-0400 Body temperature 98.2 [degF] Shala Noble MD Work Phone: [facility] 01-25-2022 16:28-0400 Body weight 88 kg Shala Noble MD Work Phone: [facility] 01-25-2022 16:28-0400 Diastolic blood pressure 67 mm[Hg] Shala Noble MD Work Phone: [facility] 01-25-2022 16:28-0400 Respiratory rate 18 /min Shala Noble MD Work Phone: [facility] 01-25-2022 16:28-0400 Systolic blood pressure 110 mm[Hg] Shala Noble MD Work Phone: [facility] 12-24-2021 18:03-0400 Body temperature 98.2 [degF] Dick Nance MD Work Phone: [facility] 12-24-2021 18:03-0400 Diastolic blood pressure 62 mm[Hg] Dick Nance MD Work Phone: [facility] 12-24-2021 18:03-0400 Heart rate 100 /min Dick Nance MD Work Phone: [facility] 12-24-2021 18:03-0400 Respiratory rate 18 /min Dick Nance MD Work Phone: [facility] 12-24-2021 18:03-0400 Systolic blood pressure 106 mm[Hg] Dick Nance MD Work Phone: [facility] 12-20-2021 22:00-0400 Heart rate 74 /min Lee Chaudhari MD Work Phone: [facility] 12-20-2021 20:52-0400 Body height 152.4 cm Lee Chaudhari MD Work Phone: [facility] 12-20-2021 20:52-0400 Body mass index (BMI) [Ratio] 36.91 kg/m2 Lee Chaudhari MD Work Phone: [facility] 12-20-2021 20:52-0400 Body temperature 98.6 [degF] Lee Chaudhari MD Work Phone: [facility] 12-20-2021 20:52-0400 Body weight 85.73 kg Lee Chaudhari MD Work Phone: [facility] 12-20-2021 20:52-0400 Diastolic blood pressure 61 mm[Hg] Lee Chaudhari MD Work Phone: [facility] 12-20-2021 20:52-0400 Respiratory rate 16 /min Lee Chaudhari MD Work Phone: [facility] 12-20-2021 20:52-0400 Systolic blood pressure 115 mm[Hg] Lee Chaudhari MD Work Phone: [facility] 12-19-2021 12:39-0400 Body temperature 97.9 [degF] Maribell San MD Work Phone: [facility] 12-19-2021 12:39-0400 Diastolic blood pressure 66 mm[Hg] Maribell San MD Work Phone: [facility] 12-19-2021 12:39-0400 Heart rate 110 /min Maribell San MD Work Phone: [facility] 12-19-2021 12:39-0400 Respiratory rate 20 /min Maribell San MD Work Phone: [facility] 12-19-2021 12:39-0400 SaO2% (BldA) [Mass fraction] 96 % Maribell San MD Work Phone: [facility] 12-19-2021 12:39-0400 Systolic blood pressure 119 mm[Hg] Maribell San MD Work Phone: [facility] 12-15-2021 16:14-0400 Body temperature 98.01 [degF] Stuart Barajas MD Work Phone: [facility] 12-15-2021 16:14-0400 Diastolic blood pressure 66 mm[Hg] Stuart Barajas MD Work Phone: [facility] 12-15-2021 16:14-0400 Heart rate 110 /min Stuart Barajas MD Work Phone: [facility] 12-15-2021 16:14-0400 Respiratory rate 16 /min Stuart Barajas MD Work Phone: [facility] 12-15-2021 16:14-0400 Systolic blood pressure 113 mm[Hg] Stuart Barajas MD Work Phone: [facility] 11-16-2021 23:19-0400 Body height 152.4 cm Sha Ramos MD Work Phone: [facility] 11-16-2021 23:19-0400 Body mass index (BMI) [Ratio] 37.5 kg/m2 Sha Ramos MD Work Phone: [facility] 11-16-2021 23:19-0400 Body temperature 97.39 [degF] Sha Ramos MD Work Phone: [facility] 11-16-2021 23:19-0400 Body weight 87.09 kg Sha Ramos MD Work Phone: [facility] 11-16-2021 23:19-0400 Diastolic blood pressure 68 mm[Hg] Sha Ramos MD Work Phone: [facility] 11-16-2021 23:19-0400 Heart rate 81 /min Sha Ramos MD Work Phone: [facility] 11-16-2021 23:19-0400 Respiratory rate 18 /min Sha Ramos MD Work Phone: [facility] 11-16-2021 23:19-0400 SaO2% (BldA) [Mass fraction] 100 % Sha Ramos MD Work Phone: [facility] 11-16-2021 23:19-0400 Systolic blood pressure 107 mm[Hg] Sha Ramos MD Work Phone: [facility] 06-23-2021 21:40-0500 Body temperature 98.71 [degF] Auroranavin West DO Work Phone: [facility] 06-23-2021 21:40-0500 Diastolic blood pressure 71 mm[Hg] Auroranavin West DO Work Phone: [facility] 06-23-2021 21:40-0500 Heart rate 86 /min Auroranavin West DO Work Phone: [facility] 06-23-2021 21:40-0500 Respiratory rate 14 /min Aurora West DO Work Phone: [facility] 06-23-2021 21:40-0500 SaO2% (BldA) [Mass fraction] 99 % Auroranavin West DO Work Phone: [facility] 06-23-2021 21:40-0500 Systolic blood pressure 102 mm[Hg] Aurora West DO Work Phone: [facility] 04-25-2021 21:14-0400 Diastolic blood pressure 67 mm[Hg] Usama Plata MD Work Phone: [facility] Work Phone: 04-25-2021 21:14-0400 Heart rate 61 /min Usama Plata MD Work Phone: [facility] Work Phone: 04-25-2021 21:14-0400 Respiratory rate 16 /min Usama Plata MD Work Phone: [facility] Work Phone: 04-25-2021 21:14-0400 SaO2% (BldA) [Mass fraction] 100 % Usama Plata MD Work Phone: [facility] Work Phone: 04-25-2021 21:14-0400 Systolic blood pressure 94 mm[Hg] Usama Plata MD Work Phone: [facility] Work Phone: 04-25-2021 20:15-0400 Body height 152.4 cm Usama Plata MD Work Phone: [facility] Work Phone: 04-25-2021 20:15-0400 Body mass index (BMI) [Ratio] 37.69 kg/m2 Usama Plata MD Work Phone: [facility] Work Phone: 04-25-2021 20:15-0400 Body temperature 98.01 [degF] Usama Plata MD Work Phone: [facility] Work Phone: 04-25-2021 20:15-0400 Body weight 87.54 kg Usama Plata MD Work Phone: [facility] Work Phone: 02-06-2021 20:38-0400 Body height 152.4 cm Sangita Rangel MD Work Phone: [facility] Work Phone: 02-06-2021 20:38-0400 Body mass index (BMI) [Ratio] 36.13 kg/m2 Sangita Rangel MD Work Phone: [facility] Work Phone: 02-06-2021 20:38-0400 Body temperature 98.01 [degF] Sangita Rangel MD Work Phone: [facility] Work Phone: 02-06-2021 20:38-0400 Body weight 83.92 kg Sangita Rangel MD Work Phone: [facility] Work Phone: 02-06-2021 20:38-0400 Diastolic blood pressure 69 mm[Hg] Sangita Rangel MD Work Phone: [facility] Work Phone: 02-06-2021 20:38-0400 Heart rate 93 /min Sangita Rangel MD Work Phone: [facility] Work Phone: 02-06-2021 20:38-0400 Respiratory rate 20 /min Sangita Rangel MD Work Phone: [facility] Work Phone: 02-06-2021 20:38-0400 SaO2% (BldA) [Mass fraction] 97 % Sangita Rangel MD Work Phone: [facility] Work Phone: 02-06-2021 20:38-0400 Systolic blood pressure 104 mm[Hg] Sangita Rangel MD Work Phone: [facility] Work Phone: 09-08-2020 08:06-0500 Body Temperature 98.49 [degF] Alexia Valeria [employer] Work Phone: 09-08-2020 08:06-0500 BP Diastolic 65 mm[Hg] Alexia O'Winchester [employer] Work Phone: 09-08-2020 08:06-0500 BP Systolic 104 mm[Hg] Alexia MOSS Work Phone: 09-08-2020 08:06-0500 Pulse (Heart Rate) 87 /min Alexia MOSS Work Phone: 09-08-2020 08:06-0500 Pulse Oximetry 97 % Alexia MOSS Work Phone: 09-08-2020 08:06-0500 Respiratory Rate 16 /min Alexia MOSS Work Phone: 09-07-2020 07:09-0500 BMI (Body Mass Index) 38.67 kg/m2 Alexia MOSS Work Phone: 09-07-2020 07:09-0500 Body weight 89.81 kg Alexia MOSS Work Phone: 09-07-2020 07:09-0500 Height 152.4 cm Alexia MOSS Work Phone: 09-06-2020 01:50-0500 BMI (Body Mass Index) 38.67 kg/m2 Amee HOOKSA Work Phone: 09-06-2020 01:50-0500 Body Temperature 98.2 [degF] Amee HOOKSA Work Phone: 09-06-2020 01:50-0500 Body weight 89.81 kg Amee HOOKSA Work Phone: 09-06-2020 01:50-0500 BP Diastolic 70 mm[Hg] Amee HOOKSA Work Phone: 09-06-2020 01:50-0500 BP Systolic 114 mm[Hg] Amee HOOKSA Work Phone: 09-06-2020 01:50-0500 Height 152.4 cm Amee HOOKSA Work Phone: 09-06-2020 01:50-0500 Pulse (Heart Rate) 105 /min Amee HOOKSA Work Phone: 09-06-2020 01:50-0500 Respiratory Rate 18 /min Amee MOSS Work Phone: 07-20-2020 23:05-0500 Body Temperature 97.9 [degF] [facility] [place] [place] 07-20-2020 23:05-0500 BP Diastolic 64 mm[Hg] [facility] [place] 07-20-2020 23:05-0500 BP Systolic 115 mm[Hg] [facility] [place] 07-20-2020 23:05-0500 Pulse (Heart Rate) 89 /min Robert Adame [employer] [facility] [place] 07-20-2020 23:05-0500 Respiratory Rate 16 /[facility] [place] [place] 07-20-2020 21:32-0500 BMI (Body Mass Index) 38.08 kg/m2 Robert Adame [facility] [place] 07-20-2020 21:32-0500 Body weight 88.45 kg [facility] 07-20-2020 21:32-0500 Height 152.4 cm [facility] [place] 07-20-2020 21:32-0500 Pulse Oximetry 99 % Robert Adame [facility] [place] 06-23-2020 15:25-0500 Pulse (Heart Rate) 92 /min Amee Nava [facility] [place] [place] 06-23-2020 14:52-0500 BP Diastolic 65 mm[Hg] [facility] [place] 06-23-2020 14:52-0500 BP Systolic 96 mm[Hg] Amee [facility] [place] 06-23-2020 14:51-0500 Body Temperature 97.9 [degF] Amee Adame [facility], [place] 06-23-2020 14:49-0500 BMI (Body Mass Index) 36.91 kg/m2 [facility]e [facility] [place] 06-23-2020 14:49-0500 Body weight 85.73 kg Amee Adame [facility] 06-23-2020 14:49-0500 Height 152.4 cm Ameekelly Parker [facility] 01-21-2020 02:03-0400 Pulse (Heart Rate) 52 /min [facility] [place] 01-20-2020 23:30-0400 BMI (Body Mass Index) 36.13 kg/m2 Kem Adame [facility] 01-20-2020 23:30-0400 Body weight 83.92 kg [facility] [place] 01-20-2020 23:30-0400 BP Diastolic 66 mm[Hg] [facility] [place] 01-20-2020 23:30-0400 BP Systolic 124 mm[Hg] [facility] [place] 01-20-2020 23:30-0400 Height 152.4 cm [facility] [place] 01-20-2020 23:29-0400 Body Temperature 97.7 [degF] [facility] [place] 01-20-2020 23:29-0400 Pulse Oximetry 98 % [facility] [place] 01-20-2020 23:29-0400 Respiratory Rate 16 /min [facility] [place] 03-28-2019 19:54-0400 BMI (Body Mass Index) 34.18 kg/m2 Kem Adame [facility], [place] 03-28-2019 19:54-0400 Body Temperature 98.01 [degF] [facility] [place] 03-28-2019 19:54-0400 Body weight 79.38 kg [facility] [place] 03-28-2019 19:54-0400 BP Diastolic 77 mm[Hg] [facility] [place] 03-28-2019 19:54-0400 BP Systolic 128 mm[Hg] [facility] [place] 03-28-2019 19:54-0400 Height 152.4 cm [facility] [place] [place] 03-28-2019 19:54-0400 Pulse (Heart Rate) 77 /min Kem Malik [facility], [place] 03-28-2019 19:54-0400 Pulse Oximetry 98 % Kem Adame [facility] , [place] 03-28-2019 19:54-0400 Respiratory Rate 16 /min Kem Adame [facility], [place] 03-08-2019 13:08-0400 BMI (Body Mass Index) 34.18 kg/m2 Lee Yin [facility] [place] 03-08-2019 13:08-0400 Body Temperature 97.39 [degF] Lee Yin [place], [place] 03-08-2019 13:08-0400 Body weight 79.38 kg Lee Yin [place], [place] 03-08-2019 13:08-0400 BP Diastolic 78 mm[Hg] [place] Yin [place] 03-08-2019 13:08-0400 BP Systolic 99 mm[Hg] Lee Yin [place] 03-08-2019 13:08-0400 Height 152.4 cm Lee [place] 03-08-2019 13:08-0400 Pulse (Heart Rate) 97 /min Lee Yin [place], [place] 03-08-2019 13:08-0400 Pulse Oximetry 97 % Lee Yin [place] 03-08-2019 13:08-0400 Respiratory Rate 16 /min Lee [place] Encounters Encounter Date Encounter Type Care Provider Facility Start: 06-27-2023 End: 06-28-2023 ambulatory [facility] Start: 06-27-2023 End: 06-27-2023 ambulatory [facility] Start: 06-27-2023 End: 06-27-2023 Subsequent hospital visit by physician Emerson Jacinto MD Work Phone: [facility] Procedures Date Procedure Procedure Detail Performing Clinician Start: 09-29-2022 Us breast uni real t cristina with image limited Yumiko Mendez MD Work Phone: Start: 07-09-2022 STREP A MOLECULAR (POC) Tarsha Garrett APRN.CNP Work Phone: Start: 03-28-2022 Antibody screen Lee Chaudhari MD Work Phone: Start: 03-28-2022 Blood count complete automated Shante Yanez DO Work Phone: Start: 03-28-2022 Blood typing serologic abo Shante Yanez DO Work Phone: Start: 03-28-2022 ADD ON LAB TEST Shante Yanez DO Work Phone: Start: 03-28-2022 Culture bacterial quanttative colony count urine Shante Yanez DO Work Phone: Start: 03-28-2022 Urnls dip stick/tabl et rgnt auto w/o microscopy Shante Yanez DO Work Phone: Start: 01-28-2022 DISCHARGE PATIENT PAO [facility] Start: 01-28-2022 MONITORING CHANDRAKANT CARTER Start: 01-28-2022 Iadna multiple organ isms amplified probe tq SILVERIO CARTER Start: 01-28-2022 PLACE IN OUTPATIENT IN A BED SILVERIO CARTER Start: 01-28-2022 IP CONSULT TO MATERN AL MEDICINE/ SILVERIO CARTER Start: 01-28-2022 Ftl fibronectin cerv icovag secretions semi-saad SILVERIO CARTER Start: 01-28-2022 Urinalysis microscop ic only SILVERIO CARTER Start: 01-28-2022 Urnls dip stick/tabl et rgnt auto w/o microscopy SILVERIO CARTER Start: 01-28-2022 Urinalysis microscop ic only Silverio Carter MD Work Phone: Start: 01-28-2022 Urnls dip stick/tabl et rgnt auto w/o microscopy Silverio Carter MD Work Phone: Start: 01-28-2022 POCT AMNISURE Silverio Elise MD Work Phone: Start: 01-28-2022 POCT AMNISURE SILVERIO ELISE Start: 12-20-2021 Urnls dip stick/tabl et rgnt auto w/o microscopy Kiara Drake MD Work Phone: Start: 06-24-2021 Us transvaginal Aurora West DO Work Phone: Start: 06-24-2021 Basic metabolic pane l calcium total Aurora West DO Work Phone: Start: 06-19-2021 Level iv surg pathol ogy gross&microscopic exam SILVERIO CARTER Start: 06-19-2021 DISCHARGE PATIENT PAO CARTER Start: 06-19-2021 DIET NPO SILVERIO CARTER Start: 06-19-2021 INSERT PERIPHERAL IV JA JUSTYNA [facility] Start: 06-19-2021 TREATMENT CONSENT PAO CARTER Start: 06-19-2021 Continuous pulse oximetry SILVERIO CARTER Start: 06-19-2021 BEDREST SILVERIO CARTER Start: 06-19-2021 ENCOURAGE DEEP BREAT RAMANDEEP AND COUGHING SILVERIO CARTER Start: 06-19-2021 INITIATE OXYGEN THER APY PROTOCOL SILVERIO SNYDERIEN Start: 06-19-2021 NOTIFY PHYSICIAN (SPECIFY) SILVERIO GOSIA Start: 06-19-2021 NURSING COMMUNICATION Lupe BUTTERFIELD GOSIA Start: 06-19-2021 VITAL SIGNS SILVERIO CARTER Start: 06-19-2021 Blood count complete automated SILVERIO CARTER Start: 06-19-2021 TYPE AND SCREEN SILVERIO CARTER Start: 06-19-2021 BEDREST SILVERIO CARTER Start: 06-19-2021 Continuous pulse oximetry SILVERIO CARTER Start: 06-19-2021 ENCOURAGE DEEP BREAT RAMANDEEP AND COUGHING SILVERIO SNYDERIEN Start: 06-19-2021 INITIATE OXYGEN THER APY PROTOCOL SILVERIO SNYDERIEN Start: 06-19-2021 NASAL CANNULA OXYGEN JA EGRRYXUAN [facility] Start: 06-19-2021 NOTIFY PHYSICIAN (SPECIFY) SILVERIO GOSIA Start: 06-19-2021 NURSING COMMUNICATION Lupe BUTTERFIELD GOSIA Start: 06-19-2021 VITAL SIGNS SILVERIO [facility] Start: 06-19-2021 COVID-19, RAPID SILVERIO [facility] Start: 04-25-2021 Blood count complete auto&auto difrntl wbc Usama Plata MD Work Phone: Start: 04-25-2021 Urnls dip stick/tabl et rgnt auto w/o microscopy Usama Plata MD Work Phone: Start: 02-06-2021 Urnls dip stick/tabl et rgnt auto w/o microscopy Sangita Rangel MD Work Phone: Start: 09-07-2020 Blood count complete automated Jai Cronin Work Phone: Start: 09-07-2020 Blood typing serologic abo Jai Cronin Work Phone: Start: 09-07-2020 US OB LIMITED - UNIT PERFORMED Jai Cronin Work Phone: Start: 08-28-2020 GBS, EXTERNAL RESULT Hi storical Provider Start: 01-29-2020 Microscopic observat ion [Identifier] in Cervix by Cyto stain Usama Plata MD Work Phone: Start: 01-21-2020 Blood count complete auto&auto difrntl wbc Sergio Barney Work Phone: Start: 01-21-2020 Comprehensive metabo lic panel Sergio Barney Work Phone: Start: 01-21-2020 Urinalysis microscop ic only Sergio Barney Work Phone: Start: 01-21-2020 Urnls dip stick/tabl et rgnt auto w/o microscopy Sergio Barney Work Phone: Start: 03-08-2019 Urine test visual color cmprsn meths Lee Yin Work Phone: Start: 03-08-2019 Urnls dip stick/tabl et rgnt auto w/o microscopy Lee Yin Work Phone: Plan of Treatment Date Care Activity Detail Author Start: 2048 Zoster Vaccines (1 of 2) Zoster Vaccines (1 of 2) [facility] Start: 02-11-2032 DTaP/Tdap/Td vaccine (10 - Td or Tdap) DTaP/Tdap/Td vaccine (10 - Td or Tdap) [facility] Start: 02-11-2032 DTaP/Tdap/Td Vaccines (10 - Td or Tdap) DTaP/Tdap/Td Vaccines (10 - Td or Tdap) [facility] Start: 08-07-2030 DTaP/Tdap/Td vaccine (9 - Td or Tdap) DTaP/Tdap/Td vaccine (9 - Td or Tdap) [facility] Start: 04-12-2027 DTaP/Tdap/Td vaccine (8 - Td) DTaP/Tdap/Td vaccine (8 - Td) [place], [place] Start: 04-07-2023 End: 04-07-2023 Patient encounter procedure 04/07/2023 Office Visit Internal Medicine Yumiko Mendez MD [address] [place] [address] [facility] Internal Medicine Start: 03-11-2023 Influenza vaccination [facility] Start: 03-07-2023 Depresssion Monitoring Depresssion Monitoring [facility] Start: 02-18-2023 End: 02-18-2023 Patient encounter procedure 02/18/2023 2:20 PM EDT Office Visit [facility] Obstetrics & Gynecology [address] [place] [id number] Sophia Arzate, ENTRY LEVEL PROJECT ENGINEER - SESSIONS CLERK [address] [place] [address] [facility] Obstetrics & Gynecology Start: 02-18-2023 End: 02-18-2023 Professional / ancillary services management 02/18/2023 1:30 PM EDT Ancillary Procedure [facility] Obstetrics & Gynecology [address] [place] [phone] [facility] Obstetrics & Gynecology Start: 02-03-2023 End: 02-04-2024 hCG, quantitative hCG, quantitative Lab Routine Encounter to determine viability of , single or unspecified fetus Expected: 02/03/2023 (Approximate), Expires: 02/04/[address] [facility] Work Phone: Immunizations Immunization Date Immunization Notes Care Provider Cade chaves 02-10-2022 tetanus toxoid, redu edinson diphtheria toxoid, and acellular pertussis vaccine, adsorbed Sophia Arzate ENTRY LEVEL PROJECT ENGINEER - SESSIONS CLERK Work Phone: [facility] 09-07-2020 diphtheria, tetanus toxoids and acellular pertussis vaccine, unspecified formulation [facility] Work Phone: 09-07-2020 measles, mumps and rubella virus vaccine [facility] Work Phone: 08-07-2020 tetanus toxoid, redu edinson diphtheria toxoid, and acellular pertussis vaccine, adsorbed Sangita Rangel MD Work Phone: [facility] Work Phone: 06-13-2020 influenza virus vaccine, unspecified formulation Sangita Rangel MD Work Phone: [facility] Work Phone: 04-12-2017 tetanus toxoid, redu edinson diphtheria toxoid, and acellular pertussis vaccine, adsorbed Sangita Rangel MD Work Phone: [facility] Work Phone: 01-01-2011 human papilloma viru s vaccine, quadrivalent Sangita Rangel MD Work Phone: [facility] Work Phone: 01-01-2011 meningococcal polysaccharide (groups A, C, Y and W-135) diphtheria toxoid conjugate vaccine (MCV4P) Sangita Rangel MD Work Phone: [facility] Work Phone: 01-01-2011 tetanus toxoid, redu edinson diphtheria toxoid, and acellular pertussis vaccine, adsorbed Sangita Rangel MD Work Phone: [facility] Work Phone: 01-01-2011 HPV, unspecified formulation Yumiko Mendez MD Work Phone: [facility] 03-18-2004 diphtheria, tetanus toxoids and acellular pertussis vaccine Sangita Rangel MD Work Phone: [facility] Work Phone: 03-18-2004 measles, mumps and rubella virus vaccine Sangita Rangle MD Work Phone: [facility] Work Phone: 03-18-2004 poliovirus vaccine, inactivated Sangita Rangel MD Work Phone: [facility] Work Phone: 04-18-2000 diphtheria, tetanus toxoids and acellular pertussis vaccine Emerson Jacinto MD Work Phone: [facility] 04-18-2000 diphtheria, tetanus toxoids and acellular pertussis vaccine, unspecified formulation Sangita Rangel MD Work Phone: [facility] Work Phone: 04-18-2000 haemophilus influenz ae type b vaccine, PRP-T conjugate Sangita Rangel MD Work Phone: [facility] Work Phone: 04-18-2000 hepatitis A vaccine, pediatric/adolescent dosage, 2 dose schedule Sangita Rangel MD Work Phone: [facility] Work Phone: 04-18-2000 hepatitis B vaccine, pediatric or pediatric/adolescent dosage Sangita Rangel MD Work Phone: [facility] Work Phone: 04-18-2000 hepatitis A and hepatitis B vaccine Yumiko Mendez MD Work Phone: [facility] 12-29-1999 measles, mumps and rubella virus vaccine Sangita Rangel MD Work Phone: [facility] Work Phone: 12-29-1999 varicella virus vaccine Ar Rangel MD Work Phone: [facility] Work Phone: 06-22-1999 diphtheria, tetanus toxoids and acellular pertussis vaccine Emerson Jacinto MD Work Phone: [facility] 06-22-1999 diphtheria, tetanus toxoids and acellular pertussis vaccine, unspecified formulation Sangita Rangel MD Work Phone: [facility] Work Phone: 06-22-1999 poliovirus vaccine, inactivated Sangita Rangel MD Work Phone: [facility] Work Phone: 05-12-1999 diphtheria, tetanus toxoids and acellular pertussis vaccine Emerson Jacinto MD Work Phone: [facility] 05-12-1999 diphtheria, tetanus toxoids and acellular pertussis vaccine, unspecified formulation Sangita Rangel MD Work Phone: [facility] Work Phone: 05-12-1999 haemophilus influenz ae type b vaccine, PRP-T conjugate Sangita Rangel MD Work Phone: [facility] Work Phone: 05-12-1999 poliovirus vaccine, inactivated Sangita Rangel MD Work Phone: [facility] Work Phone: 02-06-1999 diphtheria, tetanus toxoids and acellular pertussis vaccine Emerson Jacinto MD Work Phone: [facility] 02-06-1999 diphtheria, tetanus toxoids and acellular pertussis vaccine, unspecified formulation Sangita Rangel MD Work Phone: [facility] Work Phone: 02-06-1999 haemophilus influenz ae type b conjugate and Hepatitis B vaccine Sangita Rangel MD Work Phone: [facility] Work Phone: 02-06-1999 haemophilus influenz ae type b vaccine, PRP-T conjugate Sangita Rangel MD Work Phone: [facility] Work Phone: 02-06-1999 hepatitis B vaccine, pediatric or pediatric/adolescent dosage Sangita Rangel MD Work Phone: [facility] Work Phone: 02-06-1999 poliovirus vaccine, inactivated Sangita Rangel MD Work Phone: [facility] Work Phone: 1998 hepatitis B vaccine, pediatric or pediatric/adolescent dosage Sangita Rangel MD Work Phone: [facility] Work Phone: NEGATED: Highlighted row has not occurred!06-19-2017 measles, mumps and rubella virus vaccine Lee Yin [facility] Payers Date Payer Category Payer Private Health Insurance 2022 Private Health Insurance [id number] 2016 Medicaid [id number] 2016 Private Health Insurance [facility] xxxxxxxxx 2016-Present [phone] [address] [place] [address] xxxxxxxxx [id number] 2016 Private Health Insurance [facility] [id number] 2016-Present [phone] [address] [place] [address] [id number] 1998 Unknown [id number]. 598 1998 Unknown [id number] [id number]. 204 1998 Unknown [id number] [id number]. 204 1998 Unknown [id number] [id number]. 668 1998 Unknown [id number] 2.16.840.1.914689.3.579.2. 668 1998 Unknown [id number] 2.16.840.1.849423.3.579.2. 668 1998 Unknown [id number] [id number]. 668 1998 Unknown [id number] 2.16.840.1.754451.3.579.2. 1998 Unknown [id number] 2.16.840.1.646022.3.579.2. 668 1998 Unknown [id number] 2.16.840.1.199102.3.579.2. 1998 Unknown [id number] 2.16840.1.745006.3.579.2. 356 1998 Unknown [id number] 2.840.1.752985.3.579.2 1998 Unknown [id number] 2.16840.1.362697.3.579.2. 9 1998 Unknown [id number] 2.16840.1.441475.3.579.2. 1998 Unknown [id number] 2.16840.1.599533.3.579.2. 1998 Unknown [id number] 2.16840.1.831414.3.579.2. 1998 Unknown [id number] [id number]. 479 1998 Unknown [id number]. 479 1959 Medicaid [id number] Unknown [facility] Social History Date Type Detail Facility Start: 03-28-2019 End: 06-27-2023 Tobacco smoking status NHIS Current every day smoker [place], [place] Start: 06-07-2011 History of tobacco use Cigarette Smo ker [place] Start: 03-28-2019 End: 06-27-2023 Cigarettes smoked current (pack per day) [facility] Start: 03-28-2019 End: 06-27-2023 Alcohol intake No [place] Start: 1998 [facility] Assigned [facility] Start: 01-21-2020 End: 06-27-2023 Tobacco use and exposure [facility] Start: 01-21-2020 End: 04-25-2023 Alcohol intake Current non-drinker of alcohol (finding) [place] Start: 11-06-2021 End: 02-03-2023 Exposure to SARS-CoV-2 (event) Not sure [place] Start: 01-03-2020 Wendi [place] Start: 10-05-2021 History SDOH Alcohol Frequency 1 [employer] Work Phone: Start: 10-05-2021 History SDOH Social Connections Phone 5 [employer] Work Phone: Start: 10-05-2021 History SDOH Social Connections Adventism 3 [facility] Work Phone: Start: 10-05-2021 History SDOH Social Connections Membership 2 [facility] Work Phone: Start: 10-05-2021 History SDOH Social Connections Living 7 [facility] Work Phone: Start: 10-05-2021 History SDOH Physica l Activity DPW 0 [facility] Work Phone: Adolescent depressio n screening assessment 17 [facility] [employer] Within the last year , have you been afraid of your partner or ex-partner? No [facility] How often to you hav e a drink containing alcohol? Never [facility] How hard is it for y ou to pay for the very basics like food, housing, medical care, and heating Not very hard [facility] Do you feel stress - tense, restless, nervous, or anxious, or unable to sleep at night because your mind is troubled all the time - these days [OSQ] Not at all [facility] (I/We) worried wheth er (my/our) food would run out before (I/we) got money to buy more. Never true [facility] Start: 06-27-2023 Alcohol intake Ex-drinker (finding) [facility] Start: 10-29-2014 Alcohol Comment last use was awhile ago [facility] Clinical Notes 04-20-2017 to 04-25-2023 TIGRE Luciano NP - 04/25/2023 9:40 AM EDTPatient InstructionsSergio Mendez MD - 04/12/2023 9:40 AM Amando Deng APRN - [facility] - 02/03/2023 1:00 PM EDTPatient Instructions Note Date & Type Note Facility 04-25-2023 History of Presen t illness Narrative Images from the original note were not included. [facility] [facility] [facility] [address] [place] [facility] [address] Dept: [phone] Dept Loc: [phone] Subjective Lauren Chowdary is a 22 y.o. year old who presents to the office with the following complaint(s): Chief Complaint Patient presents with Foot Injury Stepped on something and went into left foot yesterday. Subjective HPI: A 22-year-old female who is 16 weeks comes in to be seen today with complaints of a puncture wound to the plantar surface of the left foot. Patient states that yesterday, she did buy a bed off of [employer] and when returning home, stepped on something that fell off the bed. The patient states she is not sure what it was but immediately wash the area with alcohol and applied Neosporin. Patient states it did bleed pretty well. She states the area is sore now. She was unsure if possibly she needed antibiotics. The patient is up-to-date on her tetanus shot. No other complaints at this time. Review of Systems Constitutional: Negative for activity change, chills and fever. Musculoskeletal: Negative for arthralgias and myalgias. Skin: Positive for wound. Neurological: Negative for weakness and numbness. Allergies Allergen Reactions Cinnamon Swelling Other reaction(s): Other: See Comments Throat swells Throat swelling Latex Anaphylaxis, Hives and Swelling Current Outpatient Medications on File Prior to Visit Medication Sig Dispense Refill Vit-Fe Fumarate-FA ( Vitamins) 28-0.8 MG tablet Take 1 tablet by mouth daily. 30 tablet 12 [DISCONTINUED] fluticasone (Flonase) 50 MCG/ACT nasal spray Administer 2 sprays into each nostril daily. Shake gently. Before first use, prime pump. After use, clean tip and replace cap. (Patient not taking: Reported on 04/25/2023) 16 g 5 [DISCONTINUED] guaiFENesin (Mucinex) 600 MG 12 hr tablet Take 2 tablets (1,200 mg) by mouth 2 times daily. Do not crush, chew, or split. (Patient not taking: Reported on 04/25/2023) 120 tablet 11 [DISCONTINUED] sertraline (Zoloft) 25 MG tablet Take 1 tablet (25 mg) by mouth daily. (Patient not taking: Reported on 04/25/2023) 30 tablet 11 No current facility-administered medications on file prior to visit. Patient Active Problem List Diagnosis Vaginal delivery Obesity, unspecified Chrissy infection Smoker Depression Weight loss Social History Tobacco Use Smoking status: Every Day Packs/day: .5 Types: Cigarettes Start date: 06/07/2011 Smokeless tobacco: Never Substance Use Topics Alcohol use: No Objective Objective BP 118/76 (BP Location: Left arm, Patient Position: Sitting, BP Cuff Size: Adult) Pulse 91 Temp 36.2 C (97.2 F) (Infrared) Ht 5' 2 (1.575 m) Wt 199 lb (90.3 kg) LMP 12/21/2022 (Exact Date) SpO2 98% BMI 36.40 kg/m Physical Exam Vitals and nursing note reviewed. Constitutional: General: She is awake. She is not in acute distress. Appearance: Normal appearance. She is not ill-appearing, toxic-appearing or diaphoretic. HENT: Head: Normocephalic and atraumatic. Eyes: Conjunctiva/sclera: Conjunctivae normal. Pulmonary: Effort: Pulmonary effort is normal. Musculoskeletal: General: Normal range of motion. Cervical back: Normal range of motion and neck supple. Feet: Skin: General: Skin is warm. Neurological: General: No focal deficit present. Mental Status: She is alert and oriented to person, place, and time. Psychiatric: Mood and Affect: Mood normal. Behavior: Behavior is cooperative. Assessment/Plan 1. Puncture wound of left foot, initial encounter - amoxicillin-clavulanate (Augmentin) 875-125 MG tablet; Take 1 tablet by mouth 2 times daily for 7 days., Starting Tue04/25/2023, Until Tue05/02/2023, Normal 2. 16 weeks gestation of Patient was informed that based on evaluation today, there is no signs of infection but we will send over prescription for Augmentin. Patient was advised to hold off on starting this medication right away for this may not need antibiotics. We did review signs of infection which if any of these do occur, she is to start the antibiotics. Patient was informed that it is normal for the area to be sore due to the fact that there was a puncture through soft tissue. Patient states understanding and agrees this plan of care. Patient given educational materials - see patient instructions. Discussed use, benefit, and side effects of prescribed medications. All patient questions answered. Pt voiced understanding and agrees with treatmentplan.Follow up as directed. Rolando was used to dictate this note. TIGRE Luciano NP 04/25/2023 10:06 AM documented in this encounter [facility] 04-25-2023 Instructions TIGRE Luciano NP - 04/25/2023 9:40 AM EDT In the medical field, there is always a level of diagnostic uncertainty, even if this uncertainty is low. For this reason, it is important to immediately go to the emergency department if you have any new symptoms, worsening symptoms, change of symptoms, or if you have any other concerns. They would be happy to evaluate you. Otherwise, please take your medications as prescribed and follow-up as recommended. The following attachments cannot be sent through Care Everywhere.Wound Care Discharge Instructions (Spanish)documented in this encounter [facility] 04-12-2023 History of Presen t illness Narrative Images from the original note were not included. . [facility] [address] [facility] [address] Dept: [phone] Dept Visit type: Established patient Reason for Visit: Illness (Sinus pressure, drainage, headache, sore throat since yesterday. About 14 weeks so wanted to get ahead of it.) Assessment and Plan 1. Viral upper respiratory tract infection - fluticasone (Flonase) 50 MCG/ACT nasal spray; Administer 2 sprays into each nostril daily. Shake gently. Before first use, prime pump. After use, clean tip and replace cap., Starting Tue04/12/2023, Until Tue04/11/2024, Normal - guaiFENesin (Mucinex) 600 MG 12 hr tablet; Take 2 tablets (1,200 mg) by mouth 2 times daily. Do not crush, chew, or split., Starting Tue04/12/2023, Until Tue04/11/2024, Normal Advised to cont with conservative measures including fluids and meds as above. If not improved in 7-10 days, may be bacterial in nature and may need abx. No follow-ups on file. Subjective Illness Associated symptoms include congestion, headaches and a sore throat. Pertinent negatives include no ear pain, rhinorrhea, fever, coughing, shortness of breath or wheezing. 22-year-old patient with past medical history as below presents with acute concerns of URI symptoms. URI symptoms -Patient is 14 weeks , currently having issues with sinus congestion, headache, sore throat. Not having any other major concerns otherwise. Review of systems as below. - hasn't been doing anything over the counter, no fevers, chills. Review of Systems Constitutional: Negative for chills and fever. HENT: Positive for congestion and sore throat. Negative for ear pain, postnasal drip, rhinorrhea, sneezing and trouble swallowing. Respiratory: Negative for cough, shortness of breath and wheezing. Neurological: Positive for headaches. All other systems reviewed and are negative. Allergies Allergen Reactions Cinnamon Swelling Other reaction(s): Other: See Comments Throat swells Throat swelling Latex Anaphylaxis, Hives and Swelling Outpatient Medications Prior to Visit Medication Sig Dispense Refill Vit-Fe Fumarate-FA ( Vitamins) 28-0.8 MG tablet Take 1 tablet by mouth daily. 30 tablet 12 sertraline (Zoloft) 25 MG tablet Take 1 tablet (25 mg) by mouth daily. 30 tablet 11 No facility-administered medications prior to visit. Past Medical History: Diagnosis Date Anxiety Blighted ovum 06/2021 for D/C 06/19/21 Choledocholithiasis 12/06/2012 Cholelithiases 12/06/2012 Depression 2014 Episodic mood disorder (HCC) 10/29/2014 IBS (irritable bowel syndrome) Social History Tobacco Use Smoking status: Every Day Packs/day: .5 Types: Cigarettes Start date: 06/07/2011 Smokeless tobacco: Never Substance Use Topics Alcohol use: No Past Surgical History: Procedure Laterality Date CHOLECYSTECTOMY 2012 DILATION AND CURETTAGE OF UTERUS N/A 06/19/2021 SUCTION DILATATION AND CURETTAGE performed by Dick Martinez MD at [facility] OR DILATION AND CURETTAGE OF UTERUS 06/19/21, 10/29 DILATION AND CURETTAGE OF UTERUS Family History Problem Relation Name Age of Onset Heart attack Mother Stroke Mother No Known Problems Father Breast cancer Other 50 Maternal great aunt Breast cancer Maternal Great-Grandmother 50 Breast cancer Paternal Great-Grandmother Objective BP 121/66 Pulse 106 Temp 36.1 C (96.9 F) Resp 16 Ht 5' 2 (1.575 m) Wt 198 lb (89.8 kg) LMP 12/21/2022 (Exact Date) SpO2 98% BMI 36.21 kg/m Physical Exam Vitals reviewed. Constitutional: General: She is not in acute distress. Appearance: Normal appearance. She is not ill-appearing or toxic-appearing. HENT: Head: Normocephalic. Right Ear: Ear canal and external ear normal. There is no impacted cerumen. Left Ear: Ear canal and external ear normal. There is no impacted cerumen. Ears: Comments: Retracted TM bilaterally Nose: Nose normal. No congestion. Mouth/Throat: Mouth: Mucous membranes are moist. Pharynx: Oropharynx is clear. No oropharyngeal exudate. Eyes: General: Right eye: No discharge. Left eye: No discharge. Cardiovascular: Rate and Rhythm: Normal rate. Pulmonary: Effort: Pulmonary effort is normal. No respiratory distress. Neurological: Mental Status: She is alert. Data Reviewed and Summarized Labs: Imaging/Testing: Yumiko Mendez MD documented in this encounter [facility] 02-03-2023 History of Presen t illness Narrative Lauren Chowdary 02/03/2025 22 y.o. 02/03/2023 HPI - She is here regarding no period and positive urine test at home. Patient's last menstrual period was 12/21/2022 (exact date). EDC based on LMP: 09/27/23 Estimated weeks gestation: 6.2 weeks Vaginal bleeding: no Pelvic pain: no Currently taking a vitamin: no, rx sent Has nausea and/or vomiting: yes, mid. Declines meds Fatigue: yes Breast tenderness: yes Smoking: yes, 1/2 ppd. Trying to to quit. Review of Systems Constitutional: Negative for activity change, appetite change and unexpected weight change. HENT: Negative for drooling and facial swelling. Gastrointestinal: Negative for abdominal distention, abdominal pain, constipation, diarrhea, nausea and vomiting. Genitourinary: Negative for menstrual problem, pelvic pain and vaginal bleeding. Skin: Negative for color change, pallor, rash and wound. Psychiatric/Behavioral: Negative for agitation, behavioral problems and confusion. Past Medical History: Diagnosis Date Anxiety Blighted ovum 06/2021 for D/C 06/19/21 Choledocholithiasis 12/06/2012 Cholelithiases 12/06/2012 Depression 2014 Episodic mood disorder (HCC) 10/29/2014 IBS (irritable bowel syndrome) Past Surgical History: Procedure Laterality Date CHOLECYSTECTOMY 2012 DILATION AND CURETTAGE OF UTERUS N/A 06/19/2021 SUCTION DILATATION AND CURETTAGE performed by Dick Martinez MD at [facility] OR DILATION AND CURETTAGE OF UTERUS 06/19/21, 10/29 DILATION AND CURETTAGE OF UTERUS MEDICATIONS: Current Outpatient Medications Medication Sig Dispense Refill Vit-Fe Fumarate-FA ( Vitamins) 28-0.8 MG tablet Take 1 tablet by mouth daily. 30 tablet 12 sertraline (Zoloft) 25 MG tablet Take 1 tablet (25 mg) by mouth daily. 30 tablet 11 No current facility-administered medications for this visit. ALLERGIES: Allergies as of 02/03/2023 - Reviewed 02/03/2023 Allergen Reaction Noted Cinnamon Swelling 06/15/2012 Latex Anaphylaxis, Hives, and Swelling 03/04/2017 PHYSICAL EXAM Vitals: 02/03/23 1302 BP: 106/75 BP Location: Left arm Patient Position: Sitting BP Cuff Size: Adult Pulse: 101 Weight: 200 lb 6.4 oz (90.9 kg) Body mass index is 36.65 kg/m . Physical Exam Constitutional: Appearance: She is well-developed. HENT: Head: Normocephalic. Pulmonary: Effort: Pulmonary effort is normal. Skin: General: Skin is warm and dry. Neurological: Mental Status: She is alert and oriented to person, place, and time. Psychiatric: Behavior: Behavior normal. Thought Content: Thought content normal. Judgment: Judgment normal. Assessment: Diagnosis Plan 1. Encounter to determine viability of , single or unspecified fetus hCG, quantitative US OB transvaginal Vit-Fe Fumarate-FA ( Vitamins) 28-0.8 MG tablet hCG, quantitative Plan: PNV recommended and prescribed if needed HCG ordered Dating and viability US ordered NOB process reviewed. Lauren was seen today for amenorrhea. Diagnoses and all orders for this visit: Encounter to determine viability of , single or unspecified fetus (Primary) - hCG, quantitative; Future - US OB transvaginal; Future - Vit-Fe Fumarate-FA ( Vitamins) 28-0.8 MG tablet; Take 1 tablet by mouth daily. - hCG, quantitative Follow up in about 2 weeks (around 02/17/2023) for Dating/Viability us and fu. documented in this encounter [facility] 01-25-2023 History of Presen t illness Narrative Images from the original note were not included. . [facility] [address] [place] [address] [address] [facility] [address] Dept: [phone] Dept Visit type: Established patient Reason for Visit: Follow-up Assessment and Plan 1. Depression, unspecified depression type - sertraline (Zoloft) 25 MG tablet; Take 1 tablet (25 mg) by mouth daily., Starting 01/25/2023, Normal We will continue Zoloft to 25 mg daily and discontinue Wellbutrin 150 mg daily given . Depression is currently well controlled we will continue to follow closely and advised patient to let us know if she starts to worsen and we can increase her Zoloft. No follow-ups on file. Subjective HPI 22-year-old here for follow-up of depression medications. Depression -Was doing well on the Wellbutrin as well as the Zoloft but stopped taking the Wellbutrin after she found out she was . No other concerns at this time. 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 Psychiatric/Behavioral: Negative for dysphoric mood. The patient is not nervous/anxious. Allergies Allergen Reactions Cinnamon Swelling Other reaction(s): Other: See Comments Throat swells Throat swelling Latex Anaphylaxis, Hives and Swelling Outpatient Medications Prior to Visit Medication Sig Dispense Refill sertraline (Zoloft) 25 MG tablet Take 1 tablet (25 mg) by mouth daily. 30 tablet 6 buPROPion XL (Wellbutrin XL) 150 MG 24 hr tablet Take 1 tablet (150 mg) by mouth every morning. Do not crush, chew, or split. (Patient not taking: Reported on 01/25/2023) 30 tablet 1 No facility-administered medications prior to visit. Past Medical History: Diagnosis Date Anxiety Blighted ovum 06/2021 for D/C 06/19/21 Choledocholithiasis 12/06/2012 Cholelithiases 12/06/2012 Depression 2014 Episodic mood disorder (HCC) 10/29/2014 IBS (irritable bowel syndrome) Social History Tobacco Use Smoking status: Every Day Packs/day: 0.50 Types: Cigarettes Start date: 06/07/2011 Smokeless tobacco: Never Substance Use Topics Alcohol use: No Past Surgical History: Procedure Laterality Date CHOLECYSTECTOMY 2012 DILATION AND CURETTAGE OF UTERUS N/A 06/19/2021 SUCTION DILATATION AND CURETTAGE performed by Dick Martinez MD at [facility] OR DILATION AND CURETTAGE OF UTERUS 06/19/21, 10/29 DILATION AND CURETTAGE OF UTERUS Family History Problem Relation Name Age of Onset Heart attack Mother Stroke Mother No Known Problems Father Breast cancer Other 50 Maternal great aunt Breast cancer Maternal Great-Grandmother 50 Breast cancer Paternal Great-Grandmother Objective BP 124/80 (BP Location: Left arm, Patient Position: Sitting, BP Cuff Size: Adult) Pulse 101 Temp 36.5 C (97.7 F) Ht 5' 2 (1.575 m) Wt 199 lb 3.2 oz (90.4 kg) SpO2 96% BMI 36.43 kg/m Physical Exam Vitals reviewed. Constitutional: General: She is not in acute distress. Appearance: Normal appearance. HENT: Head: Normocephalic and atraumatic. Right Ear: External ear normal. Left Ear: External ear normal. Cardiovascular: Rate and Rhythm: Normal rate. Pulmonary: Effort: Pulmonary effort is normal. No respiratory distress. Musculoskeletal: General: No deformity. Normal range of motion. Cervical back: Normal range of motion. No rigidity. Skin: General: Skin is warm and dry. Neurological: Mental Status: She is alert. Psychiatric: Mood and Affect: Mood normal. Behavior: Behavior normal. Thought Content: Thought content normal. Judgment: Judgment normal. Data Reviewed and Summarized Labs: Imaging/Testing: Yumiko Mendez MD documented in this encounter [facility] 12-28-2022 History of Presen t illness Narrative Images from the original note were not included. . [facility] [address] [place] [address] [address] [facility] [address] Dept: [phone] Dept Visit type: Established patient Reason for Visit: Follow-up (6 month follow up/ work physical ) Assessment and Plan 1. Physical exam, pre-employment 2. Persistent depressive disorder - buPROPion XL (Wellbutrin XL) 150 MG 24 hr tablet; Take 1 tablet (150 mg) by mouth every morning. Do not crush, chew, or split., Starting 12/28/2022, Until 02/26/2023, Normal Preemployment physical completed. Patient's paperwork was filled out. Borderline controlled depression, will change patient to Wellbutrin 150 mg daily and have her follow-up in 4 weeks. Wellbutrin was the best option at this point for the patient given patient's desire to lose weight as well as desire to cease using tobacco products. And over possible side effects to monitor for and will see patient in 4 weeks and adjust accordingly. Follow up in about 4 weeks (around 01/25/2023). Subjective HPI 22-year-old patient with past medical history as below presents today to discuss preemployment physical and also wants to discuss her depression. Preemployment physical Patient is up-to-date on her MMR, Tdap as well as her TB screen. Depression Patient states that is currently uncontrolled on Zoloft 25 mg daily and she would like to try something else at this time. Patient is also a smoker and would like to cut back and is also working on lifestyle modification to help her lose weight. Review of Systems Constitutional: Negative for activity change, appetite change, fatigue and unexpected weight change. Respiratory: Negative for cough and shortness of breath. Psychiatric/Behavioral: Positive for dysphoric mood. Negative for sleep disturbance. The patient is not nervous/anxious. Allergies Allergen Reactions Cinnamon Swelling Other reaction(s): Other: See Comments Throat swells Throat swelling Latex Anaphylaxis, Hives and Swelling Outpatient Medications Prior to Visit Medication Sig Dispense Refill sertraline (Zoloft) 25 MG tablet Take 1 tablet (25 mg) by mouth daily. 30 tablet 6 No facility-administered medications prior to visit. Past Medical History: Diagnosis Date Anxiety Blighted ovum 06/2021 for D/C 06/19/21 Choledocholithiasis 12/06/2012 Cholelithiases 12/06/2012 Depression 2014 Episodic mood disorder (HCC) 10/29/2014 IBS (irritable bowel syndrome) Social History Tobacco Use Smoking status: Every Day Packs/day: 0.50 Types: Cigarettes Start date: 06/07/2011 Smokeless tobacco: Never Substance Use Topics Alcohol use: No Past Surgical History: Procedure Laterality Date CHOLECYSTECTOMY 2012 DILATION AND CURETTAGE OF UTERUS N/A 06/19/2021 SUCTION DILATATION AND CURETTAGE performed by Dick Martinez MD at [facility] OR DILATION AND CURETTAGE OF UTERUS 06/19/21, 10/29 DILATION AND CURETTAGE OF UTERUS Family History Problem Relation Name Age of Onset Heart attack Mother Stroke Mother No Known Problems Father Breast cancer Other 50 Maternal great aunt Breast cancer Maternal Great-Grandmother 50 Breast cancer Paternal Great-Grandmother Objective BP 104/74 (BP Location: Right arm, Patient Position: Sitting, BP Cuff Size: Large adult) Pulse 103 Temp 36.3 C (97.3 F) Wt 197 lb 6.4 oz (89.5 kg) SpO2 96% BMI 36.10 kg/m Physical Exam Vitals reviewed. Constitutional: General: She is not in acute distress. Appearance: Normal appearance. She is not ill-appearing or toxic-appearing. HENT: Head: Normocephalic and atraumatic. Right Ear: External ear normal. Left Ear: External ear normal. Cardiovascular: Rate and Rhythm: Normal rate. Pulmonary: Effort: Pulmonary effort is normal. No respiratory distress. Musculoskeletal: General: No deformity. Normal range of motion. Cervical back: Normal range of motion. No rigidity. Skin: General: Skin is warm and dry. Neurological: Mental Status: She is alert. Psychiatric: Mood and Affect: Mood normal. Behavior: Behavior normal. Thought Content: Thought content normal. Judgment: Judgment normal. Data Reviewed and Summarized Labs: Imaging/Testing: Yumiko Mendez MD documented in this encounter [facility] 12-04-2022 Note HNO ID: [id number] Author: Aurora Pablo PA-C Service: ? Author Type: Physician Carpentry Instructor Type: Progress Notes Filed: 12/04/2022 12:16 PM Note Text: This note was created using Xetalriter. Subjective Lauren Chowdary is a 22 year old female. HPI Patient presents with an abscess on her right inner thigh over the past 2 weeks. She states she has tried boil ease and it has not been improving. Denies any history of MRSA. No drainage from the area. Has become more painful. No fever. Review of Systems Skin: Right inner thigh abscess All other systems reviewed and are negative. PAST MEDICAL HISTORY Diagnosis Date IBS (irritable bowel syndrome) NEGATIVE MEDICAL HISTORY Current Outpatient Medications Medication Sig Dispense Refill sertraline (ZOLOFT) 25 mg tablet Take 25 mg by mouth. sulfamethoxazole-trimethoprim (BACTRIM DS) 800-160 mg per tablet Take 1 tablet by mouth twice daily for 7 days. 14 tablet 0 21/IRON FU/FOLIC ACID ( COMPLETE ORAL) Take 1 tablet by mouth once daily. (Patient not taking: Reported on 07/09/2022) No current facility-administered medications for this visit. PAST SURGICAL HISTORY Procedure Laterality Date CHOLECYSTECTOMY 2013 CHOLECYSTECTOMY HX NONE FAMILY HISTORY Family history unknown: Yes Social History Tobacco Use Smoking status: Every Day Packs/day: 0.50 Years: 7.00 Pack years: 3.50 Types: Cigarettes Smokeless tobacco: Never Vaping Use Vaping Use: Never used Substance Use Topics Alcohol use: No Drug use: No Objective BP 108/64 Pulse 67 Temp 37 ?C (98.6 ?F) (Tympanic) Resp 16 Wt 89.5 kg (197 lb 6.4 oz) LMP 11/22/2022 (Exact Date) SpO2 95% BMI 36.10 kg/m? Physical Exam Vitals reviewed. Constitutional: Appearance: Normal appearance. HENT: Head: Normocephalic and atraumatic. Genitourinary: Comments: Patient has an area of fluctuance and erythema with tenderness to palpation to the right inner thigh. No drainage. No lymphangitic streaking. Neurological: Mental Status: She is alert. Procedure: Abscess IANDD Verbal permission given after discussing risk and benefit with patient 5 cc of 0.25% bupivacaine injected locally to provide anesthetic. 2 cm incision with an 11 blade scalpel made in the area of most fluctuance. Copious amount of purulent drainage expressed. Irrigated with normal saline. Area prodded with blunt dissection to break loculations. Covered with gauze and Coban. Patient tolerated procedure well, no immediate complications. Assessment and Plan ASSESSMENT/PLAN: 1. Abscess - ICD9: 682.9, ICD10: L02.91 -Area was drained thoroughly here. Placed on Bactrim for 7 days. Discussed warm soaks over the next several days. If not improving follow-up with PCP. Patient agreeable. - ABSCESS AND WOUND CULTURE WITH GRAM STAIN Aurora Pablo PA-C [facility] 11-25-2022 Note HNO ID: [id number] Author: Valentin Chambers APRN.SESSIONS CLERK Service: ? Author Type: Nurse Practitioner Type: Progress Notes Filed: 11/25/2022 6:40 PM Note Text: Subjective HPI HPI Lauren Chowdary is a 21 year old female who presents today for CC of left leg pain, lump. This started 1 day ago. Has tried noting for relief. Symptoms are worsened by touching area. Risk factors strong fam hx of blood clots, patient is a smoker. Denies numbness/tingling of left leg. Denies injury. .Patient presents with: Pain: Pt reported (LT) upper leg pain, swelling x 1 day, denied injury. PAST MEDICAL HISTORY Diagnosis Date IBS (irritable bowel syndrome) NEGATIVE MEDICAL HISTORY PAST SURGICAL HISTORY Procedure Laterality Date CHOLECYSTECTOMY 2013 CHOLECYSTECTOMY HX NONE ALLERGIES Cinnamon and Latex MEDICATIONS sertraline (ZOLOFT) 25 mg tablet Take 25 mg by mouth. 21/IRON FU/FOLIC ACID ( COMPLETE ORAL) Take 1 tablet by mouth once daily. (Patient not taking: Reported on 07/09/2022) FAMILY HISTORY Family history unknown: Yes Social History Tobacco Use Smoking status: Every Day Packs/day: 0.50 Years: 7.00 Pack years: 3.50 Types: Cigarettes Smokeless tobacco: Never Vaping Use Vaping Use: Never used Substance Use Topics Alcohol use: No Drug use: No Review of Systems Constitutional: Negative for fever. Gastrointestinal: Negative for nausea and vomiting. Skin: Negative for itching and rash. Objective Blood pressure 126/70, pulse 78, temperature 36.7 ?C (98.1 ?F), temperature source Tympanic, resp. rate 18, weight 89.4 kg (197 lb), last menstrual period 11/22/2022, SpO2 97 %, not currently . Physical Exam Constitutional: General: She is not in acute distress. Appearance: She is not toxic-appearing or diaphoretic. HENT: Head: Normocephalic and atraumatic. Cardiovascular: Pulses: Dorsalis pedis pulses are 2+ on the left side. Posterior tibial pulses are 2+ on the left side. Pulmonary: Effort: Pulmonary effort is normal. No accessory muscle usage or respiratory distress. Musculoskeletal: Legs: Neurological: Mental Status: She is alert and oriented to person, place, and time. ASSESSMENT/PLAN: 1. Leg pain, posterior, left - ICD9: 729.5, ICD10: M79.605 (primary diagnosis) Ultrasound negative F/u with pcp if s/s persist. - US LEG VEIN DVT UNL VAS LAB 2. Family history of DVT - ICD9: V17.49, ICD10: Z82.49 Negative today - US LEG VEIN DVT UNL VAS LAB Valentin Chambers APRN.NYLA [facility] 10-20-2022 History of Presen t illness Narrative Patient complains of sore throat times concern for last 2 to 3 days. No sick contacts, no complaints of fever, cough, chest pain, shortness of breath, nausea or vomiting. [facility] Work Phone: 10-15-2022 History of Presen t illness Narrative Patient ID: Lauren Chowdary is a 21 y.o. female. Referring Physician: No referring provider defined for this encounter. Primary Care Provider: Yumiko Mendez MD Assessment and plan 21W, has given three times, most recently 917 2021. No personal history of thrombosis or anti coagulation. Highly unlikely patient has thrombophilia, so would not recommend thrombophilia testing or anti coagulation in this setting. Can see patient anytime if there are additional questions. FU pending. I wore a face mask and goggle and gloves for the entire interview. 31 minutes reviewing previous notes, test results and face to face with the patient discussing the diagnosis and importance of compliance with the treatment plan as well as documenting on the day of the visit. Subjective HPI 21W referred by Wayne Mendez 227 2022 in regards to family history of thrombosis. Was told she needed tests done Of note, gave three times, most recently 917 2021. Also 2020 and 2016. Discussed at length with the patient, no antecedent hematologic or oncologic history. Has never been on anti coagulation. Of note left sided breast us 321 2022 was wnl. 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 Tobacco use. Has mother's brca 1/2 testing in regards to mother's maternal great aunt with history of breast cancer in her 30s - no mutations. Mother also had cryptogenic cva as per screen shot on patient's phone. Son Deborah is with her today. Review of Systems Constitutional: Negative. HENT: Negative. Eyes: Negative. Respiratory: Negative. Cardiovascular: Negative. Endocrine: Negative. Genitourinary: Negative. Neurological: Negative. Hematological: Negative. Objective BSA: There is no height or weight on file to calculate BSA. LMP 09/27/2022 Physical Exam Constitutional: Appearance: Normal appearance. HENT: Head: Normocephalic and atraumatic. Nose: Nose normal. Mouth/Throat: Pharynx: Oropharynx is clear. Eyes: Extraocular Movements: Extraocular movements intact. Pupils: Pupils are equal, round, and reactive to light. Cardiovascular: Rate and Rhythm: Normal rate. Pulses: Normal pulses. Heart sounds: Normal heart sounds. Pulmonary: Effort: Pulmonary effort is normal. Abdominal: General: Abdomen is flat. Palpations: Abdomen is soft. Musculoskeletal: General: Normal range of motion. Cervical back: Normal range of motion. Skin: General: Skin is warm and dry. Neurological: General: No focal deficit present. Mental Status: She is alert. Performance Status: Asymptomatic Pain Scale: 0 Lab Results Component Value Date WBC 11.3 (H) 03/28/2022 HGB 12.4 03/28/2022 CREATININE 0.41 (L) 08/30/2021 AST 23 08/30/2021 Assessment/Plan Cancer Staging No matching staging information was found for the patient. There are no diagnoses linked to this encounter. [No matching plan found] documented in this encounter [facility] 09-29-2022 Telephone encount er Note thanks [facility] 09-29-2022 Miscellaneous Notes Formattin g of this note might be different from the original. thanks Order change Name of caller: Susy Contact phone number: [phone] Relationship to Patient: [facility] Provider: Dr. Mendez Practice: [facility] Chief Complaint/Reason for Call: Susy states she would like the patient's US BREAST LIMITED (L) orders revised and refaxed to her at fax number: [phone] by this afternoon, 09/29/22. Susy states the patient's orders are written for Mass of (L) Breast, Unspecified Quadrant; however, the patient has Medicaid insurance. Susy states it is a Medicaid requirement the patient's orders be written for a specific quadrant or abnormal mammogram. Susy states the patient is scheduled to come in today, 09/29/22, at 3:00p. Please contact Susy and advise. Best time of day caller can be reached: Any Patient advised that office/PCP has 24-48 business hours to return their call: No documented in this encounter [facility] 09-29-2022 Telephone encount er Note Order change [facility] 09-29-2022 Telephone encount er Note Name of caller: Susy Contact phone number: [phone] Relationship to Patient: [facility] Provider: Dr. Mendez Practice: [facility] Chief Complaint/Reason for Call: Susy states she would like the patient's BI US BREAST LIMITED (L) orders revised and refaxed to her at fax number: [phone] by this afternoon, 09/29/22. Susy states the patient's orders are written for Mass of (L) Breast, Unspecified Quadrant; however, the patient has Medicaid insurance. Susy states it is a Medicaid requirement the patient's orders be written for a specific quadrant or abnormal mammogram. Susy states the patient is scheduled to come in today, 09/29/22, at 3:00p. Please contact Susy and advise. Best time of day caller can be reached: Any Patient advised that office/PCP has 24-48 business hours to return their call: No [facility] 07-09-2022 Note HNO ID: [id number] Author: Tarsha Garrett APRN.SESSIONS CLERK Service: ? Author Type: Nurse Practitioner Type: Progress Notes Filed: 07/09/2022 2:29 PM Note Text: Subjective Sore Throat Associated symptoms include abdominal pain, congestion and headaches. Pertinent negatives include no diarrhea or vomiting. Lauren Chowdary is a 21 year old female who presents with 2 days of nausea, sore throat, stomach ache, headache. She has not had a fever. She has not taken any medication. She has a daughter who is ill currently, and son with viral URI symptoms. Review of Systems Constitutional: Negative for chills and fever. HENT: Positive for congestion and sore throat. Respiratory: Negative. Cardiovascular: Negative. Gastrointestinal: Positive for abdominal pain and nausea. Negative for diarrhea and vomiting. Skin: Negative. Neurological: Positive for headaches. There were no vitals taken for this visit. PAST MEDICAL HISTORY Diagnosis Date NEGATIVE MEDICAL HISTORY PAST SURGICAL HISTORY Procedure Laterality Date CHOLECYSTECTOMY 2012 NONE ALLERGIES Cinnamon and Latex MEDICATIONS amoxicillin (AMOXIL) 875 mg tablet Take 1 tablet by mouth twice daily for 7 days. 21/IRON FU/FOLIC ACID ( COMPLETE ORAL) Take 1 tablet by mouth once daily. (Patient not taking: Reported on 07/09/2022) FAMILY HISTORY Family history unknown: Yes Social History Tobacco Use Smoking status: Every Day Packs/day: 0.50 Years: 7.00 Pack years: 3.50 Types: Cigarettes Smokeless tobacco: Never Substance Use Topics Alcohol use: No Drug use: No Objective Physical Exam Vitals and nursing note reviewed. Constitutional: Appearance: She is obese. HENT: Right Ear: Ear canal and external ear normal. Tympanic membrane is injected and erythematous. Left Ear: Tympanic membrane, ear canal and external ear normal. Nose: Nose normal. Mouth/Throat: Pharynx: Uvula midline. No oropharyngeal exudate or posterior oropharyngeal erythema. Cardiovascular: Rate and Rhythm: Normal rate and regular rhythm. Heart sounds: Normal heart sounds. Pulmonary: Effort: Pulmonary effort is normal. No respiratory distress. Breath sounds: Normal breath sounds. No wheezing or rales. Skin: General: Skin is warm and dry. Findings: No erythema or rash. Neurological: Mental Status: She is alert. ASSESSMENT/PLAN: 1. Sore throat - ICD9: 462, ICD10: J02.9 (primary diagnosis) - suspect viral - Alere Strep Test NEGATIVE, no culture pending - Discussed supportive care treatment with fluids, rest and analgesia. - STREP A MOLECULAR (POC) 2. Other acute nonsuppurative otitis media of right ear, recurrence not specified - ICD9: 381.00, ICD10: H65.191 - Will begin treatment with as per antibiotic as written, see orders - Supportive care with plenty of fluids, rest, and analgesia prn. - AMOXICILLIN 875 MG TABLET 3. Viral illness - ICD9: 079.99, ICD10: B34.9 - Discussed viral etiology and rationale for treatment. - Symptomatic treatment with prn analgesia - Supportive care with fluids and rest - Follow-up with your PCP in 3-5 days if symptoms have not improved or sooner if symptoms worsen - Discussed red flags and need for immediate medical evaluation if any occur. - Discussed supportive care treatment with fluids, rest and analgesia. - Discussed expected course of illness Tarsha Garrett APRN.[facility] 07-09-2022 History of Presen t illness Narrative Subjective Sore Throat Associated symptoms include abdominal pain, congestion and headaches. Pertinent negatives include no diarrhea or vomiting. Lauren Chowdary is a 21 year old female who presents with 2 days of nausea, sore throat, stomach ache, headache. She has not had a fever. She has not taken any medication. She has a daughter who is ill currently, and son with viral URI symptoms. Review of Systems Constitutional: Negative for chills and fever. HENT: Positive for congestion and sore throat. Respiratory: Negative. Cardiovascular: Negative. Gastrointestinal: Positive for abdominal pain and nausea. Negative for diarrhea and vomiting. Skin: Negative. Neurological: Positive for headaches. There were no vitals taken for this visit. PAST MEDICAL HISTORY Diagnosis Date NEGATIVE MEDICAL HISTORY PAST SURGICAL HISTORY Procedure Laterality Date CHOLECYSTECTOMY 2012 NONE ALLERGIES Cinnamon and Latex MEDICATIONS amoxicillin (AMOXIL) 875 mg tablet Take 1 tablet by mouth twice daily for 7 days. 21/IRON FU/FOLIC ACID ( COMPLETE ORAL) Take 1 tablet by mouth once daily. (Patient not taking: Reported on 07/09/2022) FAMILY HISTORY Family history unknown: Yes Social History Tobacco Use Smoking status: Every Day Packs/day: 0.50 Years: 7.00 Pack years: 3.50 Types: Cigarettes Smokeless tobacco: Never Substance Use Topics Alcohol use: No Drug use: No Objective Physical Exam Vitals and nursing note reviewed. Constitutional: Appearance: She is obese. HENT: Right Ear: Ear canal and external ear normal. Tympanic membrane is injected and erythematous. Left Ear: Tympanic membrane, ear canal and external ear normal. Nose: Nose normal. Mouth/Throat: Pharynx: Uvula midline. No oropharyngeal exudate or posterior oropharyngeal erythema. Cardiovascular: Rate and Rhythm: Normal rate and regular rhythm. Heart sounds: Normal heart sounds. Pulmonary: Effort: Pulmonary effort is normal. No respiratory distress. Breath sounds: Normal breath sounds. No wheezing or rales. Skin: General: Skin is warm and dry. Findings: No erythema or rash. Neurological: Mental Status: She is alert. ASSESSMENT/PLAN: 1. Sore throat - ICD9: 462, ICD10: J02.9 (primary diagnosis) - suspect viral - Alere Strep Test NEGATIVE, no culture pending - Discussed supportive care treatment with fluids, rest and analgesia. - STREP A MOLECULAR (POC) 2. Other acute nonsuppurative otitis media of right ear, recurrence not specified - ICD9: 381.00, ICD10: H65.191 - Will begin treatment with as per antibiotic as written, see orders - Supportive care with plenty of fluids, rest, and analgesia prn. - AMOXICILLIN 875 MG TABLET 3. Viral illness - ICD9: 079.99, ICD10: B34.9 - Discussed viral etiology and rationale for treatment. - Symptomatic treatment with prn analgesia - Supportive care with fluids and rest - Follow-up with your PCP in 3-5 days if symptoms have not improved or sooner if symptoms worsen - Discussed red flags and need for immediate medical evaluation if any occur. - Discussed supportive care treatment with fluids, rest and analgesia. - Discussed expected course of illness Tarsha Garrett APRN.SESSIONS CLERK documented in this encounter [facility] 07-09-2022 Instructions Tarsha Garrett APRN.NYLA - 07/09/2022 2:05 PM EST ASSESSMENT/PLAN: 1. Sore throat - ICD9: 462, ICD10: J02.9 (primary diagnosis) - suspect viral - Alere Strep Test NEGATIVE, no culture pending - Discussed supportive care treatment with fluids, rest and analgesia. - STREP A MOLECULAR (POC) 2. Other acute nonsuppurative otitis media of right ear, recurrence not specified - ICD9: 381.00, ICD10: H65.191 - Will begin treatment with as per antibiotic as written, see orders - Supportive care with plenty of fluids, rest, and analgesia prn. - AMOXICILLIN 875 MG TABLET 3. Viral illness - ICD9: 079.99, ICD10: B34.9 - Discussed viral etiology and rationale for treatment. - Symptomatic treatment with prn analgesia - Supportive care with fluids and rest - offered COVID/flu testing, patient declined. - Follow-up with your PCP in 3-5 days if symptoms have not improved or sooner if symptoms worsen - Discussed red flags and need for immediate medical evaluation if any occur. - Discussed supportive care treatment with fluids, rest and analgesia. - Discussed expected course of illness Tarsha Garrett, TIGRE.SESSIONS CLERK OTITIS MEDIA GENERAL INFORMATION: Otitis media is an infection of the middle ear. The middle ear sits behind the eardrum. This infection may be caused by a virus or bacteria and often follows a cold. Children often have repeat ear infections. Otitis media is not contagious. INSTRUCTIONS: 1. An antibiotic has been prescribed. It should be taken exactly as prescribed. Do not stop the medicine even if the symptoms go away. 2. Cgwb-[id number]-[id number] pain medication may be taken or other pain medication as prescribed by the doctor. 3. Nothing should be placed in the ear unless instructed by your doctor. 4. The patient may return to school/daycare or work when the temperature is normal (98.6 F or 37 C). 5. The patient should not swim while the ear is infected. CONTACT YOUR DOCTOR IF YOU OR YOUR CHILD: 1. Does not feel better within 36 hours. 2. Develops a temperature over 102E F (39E C). 3. Starts vomiting or has diarrhea. 4. Develops drainage from the affected ear. 5. Has any new problem that may be related to the medicine prescribed. RETURN TO THE ED IF: 1. You or your child has a severe headache or pain around the ear. 2. You or your child notice swelling around the ear. 3. You or your child has a seizure (convulsion), twitching of the facial muscles, or passes out. 4. You or your child is dizzy, has a stiff neck, or cannot walk or talk normally. 5. Your child becomes more irritable or listless (not interested in his or her surroundings, does not get soothed by you holding him or her). documented in this encounter [facility] 03-29-2022 Note Obstetric Discharge Summary Admitting Diagnosis IUP 38 weeks OB History 5 Para 3 Term 3 0 AB 2 Living 3 SAB 2 IAB 0 Ectopic 0 Molar Multiple 0 Live Births 3 Reasons for Admission on 03/28/2022 5:55 AM Abnormal heart rate affecting [[id number]] No comment available Induction of Labor Procedures None Intrapartum Procedures Delivery Date: 03/28/22 Delivery Time: 1754 Delivery Method: Vaginal, Spontaneous Spontaneous Vaginal Delivery: See Labor and Delivery Summary Procedures None /Operative Complications Complications: None Data This patient has no babies on file. Discharge With Mother Complications: No Discharge Diagnosis Term delivered vaginally Discharge Information Discharge Medication List as of 03/29/2022 6:44 PM START taking these medications Details ibuprofen (ADVIL;MOTRIN) 600 MG tablet Take 1 tablet by mouth every 8 hours as needed for Pain, Disp-50 tablet, R-1Normal CONTINUE these medications which have NOT CHANGED Details [facility] Bel[facility] Starting 02/10/2022, Disp-1 each, R-0, Print famotidine (PEPCID) 20 MG tablet Take 1 tablet by mouth in the morning and 1 tablet before bedtime., Disp-60 tablet, R-3Normal Progesterone [address] 200 mg vaginally daily, Disp-30 suppository, R-2Normal metoclopramide (REGLAN) 10 MG tablet Take 1 tablet by mouth every 6 hours as needed (headache), Disp-30 tablet, R-0Normal MV & Min w/FA-DHA ( ADULT GUMMY/DHA/FA) 0.4-25 MG CHEW Take by mouth daily 1 gummy Historical Med No discharge procedures on file. Discharge to: Home Follow up in 2 weeks at office. Accompanied by . Discharge Date: 03/29/22 Time: Comments [facility] 03-29-2022 History of Presen t illness Narrative Discharge instructions given to patient and family member. No questions at this time. Patient comfortable, discharged via wheelchair. Department of Obstetrics and Gynecology Labor and Delivery Attending Post Progress Note SUBJECTIVE: No complaints OBJECTIVE: Vitals: BP 97/71 Pulse 84 Temp 97.7 F (36.5 C) (Oral) Resp 18 Ht 5' (1.524 m) Wt 200 lb (90.7 kg) LMP (LMP Unknown) SpO2 99% Unknown BMI 39.06 kg/m DATA: CBC: Lab Results Component Value Date/Time WBC 11.3 03/28/2022 06:54 AM WBC 9.3 06/19/2021 02:45 PM RBC 3.99 03/28/2022 06:54 AM HGB 12.4 03/28/2022 06:54 AM HCT 35.7 03/28/2022 06:54 AM MCV 89.4 03/28/2022 06:54 AM RDW 13.7 03/28/2022 06:54 AM PLT 181 03/28/2022 06:54 AM ASSESSMENT & PLAN: Active Problems: Abnormal heart rate affecting Vaginal delivery Plan: PPD #1 s/p Patient viewed [facility] discharge / education video. Oriented to A Guide to Caring for Yourself and Baby booklet. Verbalizes understanding of video content and denies any questions. Comfortable without epidural Cat one tracing Contractions q 3-4 minutes 3cm 80 -2 vertex Amniotomy clear fluid Epidural prn Continue care documented in this encounter [facility] Work Phone: 02-28-2022 History of Presen t illness Narrative Images from the original note were not included. Department of Obstetrics and Gynecology Labor and Delivery Triage Note CHIEF COMPLAINT:Contractions HISTORY OF PRESENT ILLNESS: The patient is a 21 y.o. 34w2d. OB History 6 Para 2 Term 2 0 AB 2 Living 2 SAB 2 IAB 0 Ectopic 0 Molar Multiple 0 Live Births 2 Patient presents with a chief complaint as above. denies DFM/VB/LOF/CTX Estimated Due Date: Estimated Date of Delivery: 04/09/22 PAST MEDICAL HISTORY: Past Medical History: Diagnosis Date Anxiety Blighted ovum 06/2021 for D/C 06/19/21 Choledocholithiasis 12/06/2012 Cholelithiases 12/06/2012 Depression 2014 Episodic mood disorder (HCC) 10/29/2014 IBS (irritable bowel syndrome) PAST SURGICAL HISTORY: Past Surgical History: Procedure Laterality Date CHOLECYSTECTOMY 2012 DILATION AND CURETTAGE 06/19/21, 10/29 DILATION AND CURETTAGE OF UTERUS DILATION AND CURETTAGE OF UTERUS N/A 06/19/2021 SUCTION DILATATION AND CURETTAGE performed by Dick Martinez MD at [facility] OR SOCIAL HISTORY: reports that she has been smoking cigarettes. She started smoking about 10 years ago. She has a 5.00 pack-year smoking history. She has never used smokeless tobacco. She reports that she does not drink alcohol and does not use drugs. MEDICATIONS: Prior to Admission medications Medication Sig Start Date End Date Taking? Authorizing Provider Mom to be Belts MISC by Does not apply route 02/10/22 TIGRE Jason CNP famotidine (PEPCID) 20 MG tablet Take 1 tablet by mouth in the morning and 1 tablet before bedtime. 01/25/22 TIGRE Jason CNP Progesterone [address] 200 mg vaginally daily 01/25/22 TIGRE Jason CNP metoclopramide (REGLAN) 10 MG tablet Take 1 tablet by mouth every 6 hours as needed (headache) 01/06/22 TIGRE Jason CNP MV & Min w/FA-DHA ( ADULT GUMMY/DHA/FA) 0.4-25 MG CHEW Take by mouth daily 1 safia Calixto MD CARE: Complicated by: see above REVIEW OF SYSTEMS: Pertinent items are noted in HPI. APPEARANCE: Pain: no PHYSICAL EXAM: Vital Signs: VS wnl-reviewed/Respirations normal effort Vitals: 02/28/222009 Weight: 197 lb (89.4 kg) Height: 5' (1.524 m) Abdomen/Uterus: gravid/non-tender heart rate: Category I Cervix: 1-2, 50% Contraction frequency: 0 minutes Membranes: Intact GENERAL LABS: No results found for this or any previous visit (from the past 24 hour(s)). TRIAGE COURSE: pt watched for 1hr 45 m, no change; no contractions seen on monitor; pt wishes to go home IMPRESSION: Not in labor DISCUSSED WITH PNC PROVIDER: Dr. Boss DISPOSITION: Discharge to Home documented in this encounter [facility] Work Phone: 02-28-2022 Hospital Discharg e instructions Rachelle Stewart RN - 02/28/2022 10:41 PM EDT Discharge instructions: Antepartum (Before Labor) Call your doctor if you experience: Signs of Labor: Uterine contractions that are regular (you can time them and they don't stop after an hour) and 5 minutes apart if this is your first baby or 10 minutes apart if you have had a baby before. Leaking water or gush of fluid from vagina. Intermittent low backache that is not relieved with rest/heat/ice. Abdominal or menstrual like cramping that is constant or heavier and comes and goes. Vaginal pressure. Signs of Infection: Chills and/or fever (temperature greater than 100.4). Abnormal vaginal discharge with or without an odor. Burning, pain or difficulty with urination. Abdominal tenderness or pain. Flank Pain (pain on one side of the body between the upper belly area (abdomen) and the back). Signs of Distress: Any vaginal bleeding that is heavier than a menstrual period or bleeding like the first day of your period. Decrease or absence of baby movement/kicks. Increase or change in vaginal discharge. Vomiting or diarrhea for several hours. Signs of Pre-Eclampsia: Call if headache not relieved by rest/tylenol. Blurred vision or spots in vision. Nausea, or pain in right upper or middle abdomen. Swelling of face, hands, legs or feet not decreased with rest on left side. Your Care Instructions: Increase water 10 -12 glasses a day. Keep office appointment as scheduled. Count Your Baby's Kicks A common method of checking your baby's movement is to count the number of kicks or moves you feel in 1 hour. Ten movements (such as kicks, flutters, or rolls) in 1 hour are normal. Some doctors suggest that you count in the morning until you get to 10 movements. Then you can quit for that day and start again the next day. Pick your baby's most active time of day to count. This may be any time from morning to evening. If you do not feel 10 movements in an hour, your baby may be sleeping. Wait for the next hour and count again. Call your doctor now or seek immediate medical care if you feel fewer than 10 movements in a 2-hour period, depending on when you usually feel the baby move the most. Pelvic rest {IS:} recommended: No sexual intercourse. No lifting. Nothing is to be inserted into the vagina (tampons/douching/sex). No nipple stimulation. Failure to comply may lead to an increased risk of (early) delivery, and a premature baby. documented in this encounter [employer] Work Phone: 01-28-2022 History of Presen t illness Narrative Care of patient taken over. Patient still wanting to leave even after speaking with Dr Barlow. AMA papers signed. Discharge instructions explained in detail and patient understood. Patient ambulated off the floor independently with her . Called to see the patient regarding her desire to sign out AMA. She reports her children are over an hour away and she cannot leave them overnight with anyone else. She had presented initially with some cramping and a yellow discharge. She is known to have a short cervix was on progesterone but stopped it because she could not tolerate it. She has been instructed to present to the hospital immediately if she has any changes in contractions, bleeding, leaking of fluid. She expressed understanding and wishes to leave. Pt notes she can not stay, she lives an hour away and her mother has her children and she must go get them. Talked with dr barlow pt wanting to leave ama. She went in to talk with pt. Pt off efm 13 min broken tracing adjust efm PT HERE WITH C/O ABD PAIN ACROSS LOWER ABD AND LOWER BACK CONSTANT. 12/18 PT 29 WEEKS PREV VAGINAL DELIVERY, PT HAS SHORT CERVIX AND HAS YELLOW MUCOUS NOTED TODAY. BABY MOVING ,NO BLEEDING NOTED documented in this encounter [employer] Phone: 01-28-2022 Hospital Discharg e instructions Jana Dubois RN - 01/28/2022 7:46 PM EDT Drink plenty of fluids Resume normal activity unless otherwise instructed Call your physician if you experience any of the following: Leakage of fluid Vaginal bleeding Cramping/ Contractions Decreased movement Your baby should move at least 10 times in 2 hours documented in this encounter [employer] Phone: 01-25-2022 History of Presen t illness Narrative Images from the original note were not included. Department of Obstetrics and Gynecology Labor and Delivery Triage Note CHIEF COMPLAINT: r/o PTL HISTORY OF PRESENT ILLNESS: The patient is a 21 y.o. 29w3d. OB History 5 Para 2 Term 2 0 AB 2 Living 2 SAB 2 IAB 0 Ectopic 0 Molar Multiple 0 Live Births 2 Patient presents with a chief complaint as above. Patient states that she was seen at OB office today and cervix was dilated to 0-1 from closed 01/06. Patient states she has had intermittent cramping, but doesn't feel like contractions. Denies DFM/VB/LOF/CTX Estimated Due Date: Estimated Date of Delivery: 04/09/22 PAST MEDICAL HISTORY: Past Medical History: Diagnosis Date Anxiety Blighted ovum 06/2021 for D/C 06/19/21 Choledocholithiasis 12/06/2012 Cholelithiases 12/06/2012 Depression 2014 Episodic mood disorder (HCC) 10/29/2014 IBS (irritable bowel syndrome) PAST SURGICAL HISTORY: Past Surgical History: Procedure Laterality Date CHOLECYSTECTOMY 2012 DILATION AND CURETTAGE 06/19/21, 10/29 DILATION AND CURETTAGE OF UTERUS DILATION AND CURETTAGE OF UTERUS N/A 06/19/2021 SUCTION DILATATION AND CURETTAGE performed by Dick Martinez MD at [facility] OR SOCIAL HISTORY: reports that she has been smoking cigarettes. She started smoking about 10 years ago. She has a 5.00 pack-year smoking history. She has never used smokeless tobacco. She reports that she does not drink alcohol and does not use drugs. MEDICATIONS: Prior to Admission medications Medication Sig Start Date End Date Taking? Authorizing Provider famotidine (PEPCID) 20 MG tablet Take 1 tablet by mouth in the morning and 1 tablet before bedtime. Patient not taking: Reported on 01/25/2022 01/25/22 TIGRE Jason CNP Progesterone [address] 200 mg vaginally daily 01/25/22 TIGRE Jason CNP metoclopramide (REGLAN) 10 MG tablet Take 1 tablet by mouth every 6 hours as needed (headache) Patient not taking: No sig reported 01/06/22 TIGRE Jason CNP Mom to be Belts MISC by Does not apply route Patient not taking: No sig reported 12/20/21 Kiara Drake MD MV & Min w/FA-DHA ( ADULT GUMMY/DHA/FA) 0.4-25 MG CHEW Take by mouth daily 1 safia Historical MD [place] CARE: Complicated by: Short cervix - on progesterone, hasn't taken for a few days Poor weight gain Obesity Smoker Hx VAVD REVIEW OF SYSTEMS: Pertinent items are noted in HPI. APPEARANCE: Pain: No PHYSICAL EXAM: Vital Signs: VS wnl-reviewed/Respirations normal effort Vitals: 01/25/22 1628 BP: 110/67 Pulse: 93 Resp: 18 Temp: 98.2 F (36.8 C) TempSrc: Oral Weight: 194 lb (88 kg) Height: 5' (1.524 m) Abdomen: soft, NT, ND, no rebound/guarding Uterus: gravid/non-tender LE Edema: trace Speculum Exam: no pooling of fluid seen, Nitrizine test is negative, Ferning test is negative, vaginal discharge clear-yellow, wet prep results: no pathogens heart rate: Category I Cervix: 1/60/-3 Contraction frequency: irritability Membranes: Intact RESULTS: GENERAL LABS: Recent Results (from the past 24 hour(s)) POCT Urinalysis no Micro Collection Time: 01/25/22 2:07 PM Result Value Ref Range Color, UA dark yellow Clarity, UA clear Glucose, UA POC negative Bilirubin, UA negative Ketones, UA negative Spec Grav, UA 1.020 Blood, UA POC negative pH, UA 7.0 Protein, UA POC negative Urobilinogen, UA 0.2 Leukocytes, UA trace Nitrite, UA negative TRIAGE COURSE: Spec exam neg x3 for ROM. Cx /60/-3. Vtx per US. Will recheck in 2 hours as patient is changed from office exam and from exam in office 01/06. As well as hx of short cervix. On recheck, SVE remains 0-1cm and pt comfortable. FHT cat I on monitor. Will discharge home with strict return precautions. IMPRESSION: Threatened Pre-Term Labor Pain assessment and plan: None DISCUSSED WITH PNC PROVIDER: Dr. Aide DISPOSITION: Discharge to Home Associated attestation - Darline Gould DO - 01/25/2022 8:21 PM EDT Hospital Care (Independent): I independently saw and evaluated the patient. I agree with the findings and plan of care as documented in the resident's note. documented in this encounter [facility] Work Phone: 12-24-2021 Hospital Discharg e Kiara Stovall MD - 12/24/2021 Follow up appointment with your doctor/pyrotechnics press tender - Call office for appointment tomorrow Activity - Normal Activity Call your doctor/pyrotechnics press tender if you have: - leaking fluid - vaginal bleeding - regular contractions: More than 6 contractions in one hour - decreased movement - worsening abdominal (belly) pain - headache, blurry vision, increased swelling, upper abdominal pain If you are going home with contractions that are uncomfortable/painful- we recommend these coping strategies: rhythmic breathing, hydrotherapy, imagery or visualization, gentle massage, walking and changing your position. Treatment Verification: Lauren Chowdary was assessed on Labor and Delivery for a related visit on 12/24/21. Kiara Drake MD [facility] documented in this encounter [facility] Work Phone: 12-18-2021 History of Presen t illness Narrative Images from the original note were not included. Department of Obstetrics and Gynecology Labor and Delivery Triage Note CHIEF COMPLAINT: Sent over from office for celestone shot HISTORY OF PRESENT ILLNESS: The patient is a 21 y.o. 24w0d. OB History 5 Para 2 Term 2 0 AB 2 Living 2 SAB 2 IAB 0 Ectopic 0 Molar Multiple 0 Live Births 2 Patient presents with a chief complaint as above. Denies DFM/VB/LOF/CTX Estimated Due Date: Estimated Date of Delivery: 04/09/22 PAST MEDICAL HISTORY: Past Medical History: Diagnosis Date Anxiety Blighted ovum 06/2021 for D/C 12/10/21 Choledocholithiasis 12/06/2012 Cholelithiases 12/06/2012 Depression 2014 Episodic mood disorder (HCC) 10/29/2014 IBS (irritable bowel syndrome) PAST SURGICAL HISTORY: Past Surgical History: Procedure Laterality Date CHOLECYSTECTOMY 2013 DILATION AND CURETTAGE 06/19/21, 10/29 DILATION AND CURETTAGE OF UTERUS DILATION AND CURETTAGE OF UTERUS N/A 06/19/2021 SUCTION DILATATION AND CURETTAGE performed by Dick Martinez MD at [facility] OR SOCIAL HISTORY: reports that she has been smoking cigarettes. She started smoking about 10 years ago. She has a 5.00 pack-year smoking history. She has never used smokeless tobacco. She reports that she does not drink alcohol and does not use drugs. MEDICATIONS: Prior to Admission medications Medication Sig Start Date End Date Taking? Authorizing Provider Progesterone [address] 200 mg vaginally daily 12/18/21 Yes Maribell San MD MV & Min w/FA-DHA ( ADULT GUMMY/DHA/FA) 0.4-25 MG CHEW Take by mouth daily 1 safia Calixto MD CARE: Complicated by: none REVIEW OF SYSTEMS: Respiratory: negative Cardiovascular: negative Gastrointestinal: negative Genitourinary:negative APPEARANCE: Pain: no PHYSICAL EXAM: Vital Signs: VS wnl-reviewed/Respirations normal effort LMP 07/03/2021 Abdomen: soft, NT, ND, no rebound/guarding Uterus: gravid/non-tender LE Edema: trace heart rate: Category I Cervix: Not examnied Contraction frequency: none Membranes: Intact RESULTS: NST: Reactive for gestational age GENERAL LABS: No results found for this or any previous visit (from the past 24 hour(s)). TRIAGE COURSE: Pt stable betamethasone 12 mg given IM, FHR reactive for gestational age. No contractions on monitor IMPRESSION: 1. IUP at 24w0d 2. H/o of shortened cervix DISCUSSED WITH PNC PROVIDER: DISPOSITION: Discharge to Home Keep appointment with OB provider Discharge Information Current Discharge Medication List START taking these medications Details Progesterone [address] 200 mg vaginally daily Qty: 30 suppository, Refills: 6 CONTINUE these medications which have NOT CHANGED Details MV & Min w/FA-DHA ( ADULT GUMMY/DHA/FA) 0.4-25 MG CHEW Take by mouth daily 1 gummy STOP taking these medications progesterone (PROMETRIUM) 200 MG CAPS capsule Comments: Reason for Stopping: Pt instructed to return if: - Leaking fluid - Vaginal bleeding - Regular contractions: Every 5 minutes or closer for one hour - Decreased movement - Worsening abdominal (belly) pain - Headache, blurry vision, increased swelling, upper abdominal pain Gurjit Strong DO, JOVAN, FACOOG, FACOG December 18, 2021 11:02 AM documented in this encounter [facility] Work Phone: 12-16-2021 Note MFM Discharge Summar y Patient Name: Lauren Chowdary Patient : 2000 Primary Care Physician: No primary care provider on file. Admit Date: 12/15/2021 Attending Provider: Maribell San MD Principal Diagnosis: Short cervical length Other Diagnosis: Short cervix [N88.3] Patient Active Problem List Diagnosis ? Obesity, unspecified ? Smoker ? Chrissy infection ? care, antepartum ? Maternal obesity, antepartum ? History of delivery by vacuum extraction, currently ? High risk due to smoking in first trimester ? Short cervix Surgical Operations & Procedures: None Consultations: MFM Pertinent Findings & Procedures: Lauren Chowdary is a 21 y.o. female , the patient was previously seen at [facility] for short cervix but went home prior to getting a cerclage placed. She returned for repeat US and possible cervical cerclage. After the ultrasound (12/16) findings and treatment options including cerclage were reviewed with the patient by [facility] the patient elected to proceed with vaginal progesterone only. Hospital course normal. Discharge instructions reviewed and questions answered. Course of patient: normal Discharge to: Home Recommendations on Discharge: Medications: Medication List CONTINUE taking these medications Adult Gummy/DHA/FA 0.4-25 MG Chew progesterone 200 MG Caps capsule Commonly known as: Prometrium Take 1 capsule by mouth nightly STOP taking these medications azithromycin 250 MG tablet Commonly known as: Zithromax Z-Colleen fluconazole 150 MG tablet Commonly known as: DIFLUCAN Activity: activity as tolerated Diet: regular diet Follow up: This week with Dr San Condition on discharge: good and stable Discharge Date: 12/16/21 Comments: Home care, Follow-up care, restrictions reviewed. Demetrius Mendoza MD 12/16/2021, 11:55 AM [facility] 12-15-2021 Note Department of Obstet rics and Gynecology Antepartum Discharge Summary Admission on 12/15/2021 3:54 PM Reason for admission: short cervix Antepartum Course: This is a 21 y.o. female at 23w4d who was admitted for evaluation of short cervix. She was seen in the office and had a follow up TVUS 12/15 that showed 1.0cm cervix. Her cervix was previously 2.11cm on 11/10 and she has been on vaginal progesterone. Recommended admission for repeat CL with MFM in the morning and likely cerclage placement if cervix remains short. Due problems with housekeeper child care, patient would like to leave and return later for admission. FHT cat I. No contractions on toco. She was given diflucan for yeast infection. Cervix otherwise closed and negative for ROM on SSE. Pt counseled on the fact that she has up until 24 weeks to get cerclage and will be unlikely to be completed if she does not return. Counseled on risk of PTB with short cervix. Pt demonstrates understanding and would like to be discharged. Meds: Medication List ASK your doctor about these medications albuterol sulfate HFA 108 (90 Base) MCG/ACT inhaler Commonly known as: PROVENTIL;VENTOLIN;PROAIR Inhale 2 puffs into the lungs every 4 hours as needed for Wheezing or Shortness of Breath (cough) azithromycin 250 MG tablet Commonly known as: Zithromax Z-Colleen Take as directed: 2 tablets once daily on day one, then 1 tablet once daily on days two through five Adult Gummy/DHA/FA 0.4-25 MG Chew Activity: Activity as tolerated Diet: Regular diet Follow up Care: Follow up with OB as scheduled Condition on discharge: Stable Discharge to: Home Discharge date: 12/15/21 Discharge Dx: short cervix Instructions to Patient:: Call your doctor/pyrotechnics press tender if you have: - leaking fluid - vaginal bleeding - regular contractions: More than 6 contractions in one hour - decreased movement - worsening abdominal (belly) pain - headache, blurry vision, increased swelling, upper abdominal pain Short cervix [N88.3] Patient Active Problem List Diagnosis ? Obesity, unspecified ? Smoker ? Chrissy infection ? care, antepartum ? Maternal obesity, antepartum ? History of delivery by vacuum extraction, currently ? High risk due to smoking in first trimester ? Short cervix Sandi Mcpherson, DO on 12/15/2021 at 6:11 PM [facility] 12-15-2021 Hospital course Narrative Images from the original note were not included. Department of Obstetrics and Gynecology Antepartum Discharge Summary Admission on 12/15/2021 3:54 PM Reason for admission: short cervix Antepartum Course: This is a 21 y.o. female at 23w4d who was admitted for evaluation of short cervix. She was seen in the office and had a follow up TVUS 12/15 that showed 1.0cm cervix. Her cervix was previously 2.11cm on 11/10 and she has been on vaginal progesterone. Recommended admission for repeat CL with MFM in the morning and likely cerclage placement if cervix remains short. Due problems with housekeeper child care, patient would like to leave and return later for admission. FHT cat I. No contractions on toco. She was given diflucan for yeast infection. Cervix otherwise closed and negative for ROM on SSE. Pt counseled on the fact that she has up until 24 weeks to get cerclage and will be unlikely to be completed if she does not return. Counseled on risk of PTB with short cervix. Pt demonstrates understanding and would like to be discharged. Meds: Medication List ASK your doctor about these medications albuterol sulfate HFA 108 (90 Base) MCG/ACT inhaler Commonly known as: PROVENTIL;VENTOLIN;PROAIR Inhale 2 puffs into the lungs every 4 hours as needed for Wheezing or Shortness of Breath (cough) azithromycin 250 MG tablet Commonly known as: Zithromax Z-Colleen Take as directed: 2 tablets once daily on day one, then 1 tablet once daily on days two through five Adult Gummy/DHA/FA 0.4-25 MG Chew Activity: Activity as tolerated Diet: Regular diet Follow up Care: Follow up with OB as scheduled Condition on discharge: Stable Discharge to: Home Discharge date: 12/15/21 Discharge Dx: short cervix Instructions to Patient:: Call your doctor/pyrotechnics press tender if you have: - leaking fluid - vaginal bleeding - regular contractions: More than 6 contractions in one hour - decreased movement - worsening abdominal (belly) pain - headache, blurry vision, increased swelling, upper abdominal pain Short cervix [N88.3] Patient Active Problem List Diagnosis Obesity, unspecified Smoker Chrissy infection care, antepartum Maternal obesity, antepartum History of delivery by vacuum extraction, currently High risk due to smoking in first trimester Short cervix Sandi Mcpherson DO on 12/15/2021 at 6:11 PM documented in this encounter [facility] Work Phone: 12-15-2021 History of Presen t illness Narrative Images from the original note were not included. Department of Obstetrics and Gynecology Labor and Delivery Triage Note CHIEF COMPLAINT: Incidental short cervix HISTORY OF PRESENT ILLNESS: The patient is a 21 y.o. 23w4d. OB History 5 Para 2 Term 2 0 AB 2 Living 2 SAB 2 IAB 0 Ectopic 0 Molar Multiple 0 Live Births 2 Patient presents with a chief complaint as above. Was evaluated in US today and found to have a 1cm cervix. She was sent in for cerclage evaluation. Patient denies contractions but does say that she has had vaginal pressure the last few days. Denies DFM/VB/LOF/CTX Estimated Due Date: Estimated Date of Delivery: 04/09/22 PAST MEDICAL HISTORY: Past Medical History: Diagnosis Date Anxiety Blighted ovum 06/2021 for D/C 06/19/21 Choledocholithiasis 12/06/2012 Cholelithiases 12/06/2012 Depression 2014 Episodic mood disorder (HCC) 10/29/2014 IBS (irritable bowel syndrome) PAST SURGICAL HISTORY: Past Surgical History: Procedure Laterality Date CHOLECYSTECTOMY 2012 DILATION AND CURETTAGE 06/19/21, 10/29 DILATION AND CURETTAGE OF UTERUS DILATION AND CURETTAGE OF UTERUS N/A 06/19/2021 SUCTION DILATATION AND CURETTAGE performed by Dick Martinez MD at [facility] OR SOCIAL HISTORY: reports that she has been smoking cigarettes. She started smoking about 10 years ago. She has a 5.00 pack-year smoking history. She has never used smokeless tobacco. She reports that she does not drink alcohol and does not use drugs. MEDICATIONS: Prior to Admission medications Medication Sig Start Date End Date Taking? Authorizing Provider albuterol sulfate HFA 108 (90 Base) MCG/ACT inhaler Inhale 2 puffs into the lungs every 4 hours as needed for Wheezing or Shortness of Breath (cough) 11/20/21 Taco Villalba APRN - [facility] azithromycin (ZITHROMAX Z-COLLEEN) 250 MG tablet Take as directed: 2 tablets once daily on day one, then 1 tablet once daily on days two through five 11/03/21 Leo Sanchez APRN - SESSIONS CLERK MV & Min w/FA-DHA ( ADULT GUMMY/DHA/FA) 0.4-25 MG CHEW Take by mouth daily 1 gummy Historical Provider, CARE: Complicated by: Obesity Tobacco use Hx VAVD REVIEW OF SYSTEMS: Pertinent items are noted in HPI. APPEARANCE: Pain: No PHYSICAL EXAM: Vital Signs: VS wnl-reviewed/Respirations normal effort Vitals: 12/15/21 1614 BP: 113/66 Pulse: (!) 110 Resp: 16 Temp: 98 F (36.7 C) Abdomen: soft, NT, ND, no rebound/guarding Uterus: gravid/non-tender LE Edema: trace Speculum Exam: no pooling of fluid seen, wet prep results: positive hyphae, white clumpy discharge heart rate: Category I Cervix: 0/50/-3 Contraction frequency: none Membranes: Intact GENERAL LABS: No results found for this or any previous visit (from the past 24 hour(s)). TRIAGE COURSE: Pt sent in from the office where she was found to have a 1cm cervix. On exam, she is comfortable appearing. SSE performed and no visible membranes. We prep positive for yeast infection. Plan to admit for observation and MFM consultation. Assessment/Plan: Short cervix - found to have incidental short cervix on TVUS 12/15 - no history of short cervix or PTB - wet prep + yeast, Rx sent for pharmacy for Diflucan 150mg x1 - Patient recommended to stay tonight for observation, repeat CL tomorrow and possible cerclage. Discussed with patient at length and patient allowed to ask questions freely. All answered to best of my ability. Patient cannot stay tonight due to housekeeper child care but will try to drive her daughter to her mother's house and return tonight for admission. If patient unable to return tonight, will attempt to have patient follow up in outpatient setting [facility]. Patient understands that cerclage cannot be done after 24 wks. Plan discussed with MFM attending, Dr. Blair as well as Dr. San. 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 San, Dr. Blair DISPOSITION: Discharge to Home Associated attestation - Susie Mccauley MD - 12/15/2021 7:15 PM EDT Hospital Care (Independent): I independently saw and evaluated the patient. I agree with the findings and plan of care as documented in the resident's note. documented in this encounter [facility] Work Phone: 12-15-2021 Hospital Discharg e instructions Lynda Patton DO - 12/15/2021 Follow up appointment with your doctor/pyrotechnics press tender - Keep next scheduled appointment Activity - Normal Activity Call your doctor/pyrotechnics press tender if you have: - leaking fluid - vaginal bleeding - regular contractions: More than 6 contractions in one hour - decreased movement - worsening abdominal (belly) pain - headache, blurry vision, increased swelling, upper abdominal pain If you are going home with contractions that are uncomfortable/painful- we recommend these coping strategies: rhythmic breathing, hydrotherapy, imagery or visualization, gentle massage, walking and changing your position. Treatment Verification: Lauren Chowdary was assessed on Labor and Delivery for a related visit on 12/15/21. Lynda Patton DO [facility] documented in this encounter [facility] Work Phone: 04-25-2021 Hospital Discharg e Usama Reinoso MD - 04/25/2021 Return for fever or vomiting The following attachments cannot be sent through Care Everywhere.UTI (Urinary Tract Infection): Female (Spanish)documented in this encounter [facility] Work Phone: documented as of this encounter (statuses as of 07/14/2022) [facility] Labial irritation- Primary Other specified noninflammatory disorder of vulva and perineum Vaginal discharge Leukorrhea, not specified as infective documented in this encounter [facility] Work Phone: Evaluation note* Diagnosis Acute cystitis without hematuria- Primary Acute cystitis documented in this encounter [facility] Work Phone: Evaluation note* Diagnosis Vaginal bleeding- Primary Other specified noninflammatory disorder of vagina documented in this encounter [facility] Work Phone: Evaluation note* Diagnosis Tick bite of right knee, initial encounter- Primary documented in this encounter [facility] Work Phone: Evaluation note* Diagnosis History of delivery by vacuum extraction, currently with other poor obstetric history Maternal obesity, antepartum Edema or excessive weight gain, antepartum care, antepartum High risk due to smoking in first trimester Chrissy infection Candidiasis of unspecified site Short cervix documented in this encounter [facility] Work Phone: Evaluation note* Diagnosis Short cervix during in second trimester documented in this encounter [facility] Work Phone: Evaluation note* Diagnosis Threatened premature labor in second trimester documented in this encounter [facility] Work Phone: Evaluation note* Diagnosis History of delivery by vacuum extraction, currently with other poor obstetric history Maternal obesity, antepartum Edema or excessive weight gain, antepartum care, antepartum High risk due to smoking in first trimester Chrissy infection Candidiasis of unspecified site documented in this encounter [facility] Work Phone: Evaluation note* Diagnosis Vaginal discharge during in third trimester- Primary Heartburn during in third trimester Poor weight gain of , second trimester Short cervix during in second trimester Short cervix History of delivery by vacuum extraction, currently with other poor obstetric history Maternal obesity, antepartum Edema or excessive weight gain, antepartum care, antepartum High risk due to smoking in first trimester Chrissy infection Candidiasis of unspecified site Nausea and vomiting of , antepartum Unspecified vomiting of , antepartum documented in this encounter [facility] Work Phone: Evaluation note* Diagnosis with 29 completed weeks gestation- Primary documented in this encounter [facility] Work Phone: evaluation note* Diagnosis Abnormal heart rate affecting Vaginal delivery Normal delivery documented in this encounter [facility] Work Phone: Evaluation note* Diagnosis Sore throat- Primary Acute pharyngitis Other acute nonsuppurative otitis media of right ear, recurrence not specified Viral illness Unspecified viral infection, in conditions classified elsewhere and of unspecified site [facility] Diagnosis Mass of left breast, unspecified quadrant [facility] Diagnosis Family history of CVA- Primary [facility] Diagnosis Physical exam, pre-employment- Primary Health examination of defined subpopulation Persistent depressive disorder [facility] Diagnosis Depression, unspecified depression type [facility] Diagnosis Encounter to determine viability of , single or unspecified fetus- Primary [facility] Diagnosis Viral upper respiratory tract infection- Primary Acute upper respiratory infections of unspecified site [facility] Diagnosis Puncture wound of left foot, initial encounter- Primary 16 weeks gestation of [facility] Diagnosis Screening, , for malformation by ultrasound Encounter for routine screening for malformation using ultrasonics Abnormal ultrasound Abnormal findings on screening [facility] Attachments The following attachments cannot be sent through Care Everywhere. * Tick Bite (Spanish) [facility] Work [facility]: Hospital Discharge instructions* Attachments The following attachments cannot be sent through Care Everywhere. * (Spanish) * : Vaginal Delivery (Spanish) documented in this [facility] Work Phone: Summary Purpose Family History No Family History Records FoundNo Family History Records FoundNo Family History Records FoundNo Family History Records FoundNo Family History Records FoundNo Family History Records FoundNo Family History Records FoundNo Family History Records FoundNo Family History Records FoundNo Family History Records FoundNo Family History Records FoundNo Family History Records FoundNo Family History Records Found Advance Directives No Advanced Directives Records FoundDocuments on File Type Date Recorded 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 ACP-Advance Directive 01/09/2017 2:54 PM Latest Code Status on File Code Status Date Activated Date Inactivated Comments Full Code 12/18/2021 11:02 AM 12/18/2021 2:20 PM Full Code 12/16/2021 12:11 AM 12/16/2021 3:44 PM Full Code 12/15/2021 5:00 PM 12/15/2021 9:18 PM Full Code 10/23/2020 1:02 PM 10/23/2020 6:07 PM Full Code 09/07/2020 6:56 PM 09/08/2020 10:07 PM Documents on File Type Date Recorded 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 Advance Directives and Livin g Will Advance Directives and Livin g Will 01/09/2017 2:54 PM Power of Teacher Kindergarten Latest Code Status on File Code Status Date Activated Date Inactivated Comments Full Code 06/17/2017 6:43 PM 06/19/2017 3:25 PM Full Code 06/17/2017 12:16 AM 06/17/2017 6:43 PM Documents on File Type Date Recorded 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 ACP-Advance Directive ACP-Advance Directive 01/09/2017 2:54 PM ACP-Power of Teacher Kindergarten Latest Code Status on File Code Status Date Activated Date Inactivated Comments Full Code 09/07/2020 6:56 PM Full Code 09/07/2020 6:37 AM 09/07/2020 6:56 PM Full Code 06/17/2017 6:43 PM 06/19/2017 3:25 PM Documents on File Type Date Recorded 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 ACP-Advance Directive ACP-Power of Teacher Kindergarten ACP-Advance Directive 01/09/2017 2:54 PM Latest Code Status on File Code Status Date Activated Date Inactivated Comments Full Code 10/23/2020 1:02 PM 10/23/2020 6:07 PM Latest Code Status on File Code Status Date Activated Date Inactivated Comments Full Code 12/15/2021 5:00 PM Latest Code Status on File Code Status Date Activated Date Inactivated Comments Full Code 12/18/2021 11:02 AM Latest Code Status on File Code Status Date Activated Date Inactivated Comments Full Code 03/28/2022 8:31 AM Full Code 12/18/2021 11:02 AM 12/18/2021 2:20 PM Discharge Instructions * Attachments The following attachments cannot be sent through Care Everywhere. * Tooth: Abscessed (Spanish) documented in this encounter* Attachments The following attachments cannot be sent through Care Everywhere. * : Weeks 6 to 10 (Spanish) documented in this encounter* Instructions* Radha Fitzgerald MD - 06/23/2020 Follow up appointment with your doctor/pyrotechnics press tender - Keep next scheduled appointment Activity - Normal Activity Call your doctor/pyrotechnics press tender if you have: - leaking fluid - vaginal bleeding - regular contractions: More than 6 contractions in one hour - decreased movement - worsening abdominal (belly) pain - headache, blurry vision, increased swelling, upper abdominal pain If you are going home with contractions that are uncomfortable/painful- we recommend these coping strategies: rhythmic breathing, hydrotherapy, imagery or visualization, gentle massage, walking and changing your position. Treatment Verification: Lauren Chowdary was assessed on Labor and Delivery for a related visit on 06/23/20. Radha Fitzgerald MD [facility] If you are Covid-19 positive or a Person Under Investigation (PUI): If you are in labor and you have, or think you may have COVID-19, call your OB care provider and the hospital birthing unit before you go, so the staff can properly prepare and protect you, your babyand others from being infected. Wear a mask when you leave your home, as you will be asked to continue to wear a mask during your time in the hospital. Prevention steps for People with confirmed or suspected COVID-19 (including persons under investigation) who do not need to be hospitalized and People with confirmed COVID-19 who were hospitalized and determined to be medically stable to go home Your healthcare provider and public health staff will evaluate whe ther you can be cared for at home. If it is determined that you do not need to be hospitalized and can be isolated at home, you willbe monitored by staff from your local or state health department. You should follow the prevention steps below until a healthcare provider or local or [facility] department says you can return to your normal activities. Stay home except to get medical care People who are mildly ill with COVID-19 are able to isolate at home during their illness. You should restrict activities outside your home, except for getting medical care. Do not go to work, school,or public areas. Avoid using public transportation, ride-sharing, or taxis. Separate yourself from other people and animals in your home People: As much as possible, you should stay in a specific room and away from other people in your home. Also, you should use a separate bathroom, if available. Animals: You should restrict contact with pets and other animals while you are sick with COVID-19, just like you would around other people. Although there have not been reports of pets or other animals becoming sick with COVID-19, it is still recommended that people sick with COVID-19 limit contactwith animals until more information is known about the virus. When possible, have another member ofyour household care for your animals while you are sick. If you are sick with COVID-19, avoid contact with your pet, including petting, snuggling, being kissed or licked, and sharing food. If you must care for your pet or be around animals while you are sick, wash your hands before and after you interact with pets and wear a facemask. Call ahead before visiting your doctor If you have a medical appointment, call the healthcare provider and tell them that you have or may have COVID-19. This will help the healthcare provider's office take steps to keep other people from getting infected or exposed. Wear a facemask You should wear a facemask when you are around other people (e.g., sharing a room or vehicle) or pets and before you enter a healthcare provider's office. If you are not able to wear a facemask (for example, because it causes trouble breathing), then people who live with you should not stay in the same room with you, or they should wear a facemask if they enter your room. Cover your coughs and sneezes Cover your mouth and nose with a tissue when you cough or sneeze. Throw used tissues in a lined trash can. Immediately wash your hands with soap and water for at least 20 seconds or, if soap and water are not available, clean your hands with an alcohol-based hand stationary boiler fireman that contains at least 60% alcohol. Clean your hands often Wash your hands often with soap and water for at least 20 seconds, especially after blowing your nose, coughing, or sneezing; going to the bathroom; and before eating or preparing food. If soap and water are not readily available, use an alcohol-based hand stationary boiler fireman with at least 60% alcohol, covering all surfaces of your hands and rubbing them together until they feel dry. Soap and water are the best option if hands are visibly dirty. Avoid touching your eyes, nose, and mouth with unwashed hands. Avoid sharing personal household items You should not share dishes, drinking glasses, cups, eating utensils, towels, or bedding with otherpeople or pets in your home. After using these items, they should be washed thoroughly with soap and water. Clean all high-touch surfaces everyday High touch surfaces include counters, tabletops, doorknobs, bathroom fixtures, toilets, phones, keyboards, tablets, and bedside tables. Also, clean any surfaces that may have blood, stool, or body fluids on them. Use a household cleaning spray or wipe, according to the label instructions. Labels contain instructions for safe and effective use of the cleaning product including precautions you should take when applying the product, such as wearing gloves and making sure you have good ventilation during use of the product. Monitor your symptoms Seek prompt medical attention if your illness is worsening (e.g., difficulty breathing). Before seeking care, call your healthcare provider and tell them that you have, or are being evaluated for, COVID-19. Put on a facemask before you enter the facility. These steps will help the healthcare provider's office to keep other people in the office or waiting room from getting infected or exposed. Askyour healthcare provider to call the local or state health department. Persons who are placed underactive monitoring or facilitated self- monitoring should follow instructions provided by their localhealth department or occupational health professionals, as appropriate. When working with your local health department check their available hours. If you have a medical emergency and need to call 911, notify the dispatch personnel that you have, or are being evaluated for COVID-19. If possible, put on a facemask before emergency medical services arrive. Discontinuing home isolation Patients with confirmed COVID-19 should remain under home isolation precautions until the risk of secondary transmission to others is thought to be low. The decision to discontinue home isolation precautions should be made on a epwo-pf-tvzh basis, in consultation with healthcare providers and [facility]. Information on Covid-19 for all patients Call your provider before your next appointment if you develop any of the following symptoms: fever, cough, fatigue, anorexia, shortness of breath, sputum production, and muscle pains. Headache, confusion, rhinorrhea, sore throat, hemoptysis, vomiting, and diarrhea have been reported but are less common. Some persons with COVID-19 have experienced gastrointestinal symptoms such as diarrhea and nausea prior to developing fever and lower respiratory tract signs and symptoms. Ways to [place] with Anxiety & Stress It is normal to feel anxious or worried about COVID-19. You might feel sad about canceling celebrations and staying away from family and friends. Keep in mind that most people do not get severely ill from COVID-19. It is important to have a planin case you get sick to prevent spreading the disease to others including an Advanced Care Plan (communicating and documenting your desired health care plan with family and healthcare team). You can take care of yourself by: ? Taking a break from watching the news ? Take deep breaths, stretch or meditate ? Getting exercise, eating healthy foods, and drinking plenty of water ? Finding activities you can enjoy inside your home ? Staying in touch with your family and friends. Tell your partner, family, and friends how you arefeeling. Advance Care Planning People with COVID-19 may have no symptoms, mild symptoms, such as fever, cough, and shortness of breath or they may have more severe illness, developing severe and fatal pneumonia. As a result, Advance Care Planning with attention to naming a health care decision maker (someone you trust to make healthcare decisions for you if you could not speak for yourself) and sharing other health care preferences is important BEFORE a possible health crisis. Please contact your Primary Care Provider to discuss Advance Care Planning. Learning About Coronavirus (COVID-19) Coronavirus (COVID-19): Overview What is coronavirus (COVID-19)? The coronavirus disease (COVID-19) is caused by a virus. It is an illness that was first found in [facility], in June 2019. It has since spread worldwide. The virus can cause fever, cough, and trouble breathing. In severe cases, it can cause pneumonia and make it hard to breathe without help. It can cause . Coronaviruses are a large group of viruses. They cause the common cold. They also cause more serious illnesses like [place] respiratory syndrome (MERS) and severe acute respiratory syndrome (SARS). COVID-19 is caused by a novel coronavirus. That means it's a new type that has not been seen in people before. This virus spreads forqrk-uc-zrpmia through droplets from coughing and sneezing. It can also spreadwhen you are close to someone who is infected. And it can spread when you touch something that has the virus on it, such as a doorknob or a tabletop. What can you do to protect yourself from coronavirus (COVID-19)? The best way to protect yourself from getting sick is to: Avoid areas where there is an outbreak. Avoid contact with people who may be infected. Wash your hands often with soap or alcohol-based hand sanitizers. Avoid crowds and try to stay at least 6 feet away from other people. Wash your hands often, especially after you cough or sneeze. Use soap and water, and scrub for at least 20 seconds. If soap and water aren't available, use an alcohol-based hand stationary boiler fireman. Call 911 anytime you think you may need emergency care. For example, call if: You have severe trouble breathing. (You can't talk at all.) You have constant chest pain or pressure. You are severely dizzy or lightheaded. You are confused or can't think clearly. Your face and lips have a blue color. You pass out (lose consciousness) or are very hard to wake up. Call your doctor now if you develop symptoms such as: Shortness of breath. Fever. Cough. If you need to get care, call ahead to the doctor's office for instructions before you go. Make sure you wear a face mask, if you have one, to prevent exposing other people to the virus. Where can you get the latest information? The following health organizations are tracking and studying this virus. Their websites contain themost up-to-date information. You'll also learn what to do if you think you may have been exposed tothe virus. U.S. Centers for Disease Control and Prevention (CDC): The CDC provides updated news about the disease and travel advice. The website also tells you how to prevent the spread of infection. www.cdc.gov World Health Organization (WHO): WHO offers information about the virus outbreaks. WHO also has travel advice. www.who.int Current as of: October 10, 2019 Content Version: 12. [employer]. Care instructions adapted under license by your healthcare professional. If you have questions about a medical condition or this instruction, always ask your healthcare professional. [employer] disclaims any warranty or liability for your use of this information. General Recommendations for Routine Cleaning and Disinfection of Households Community members can practice routine cleaning of frequently touched surfaces (for example: tables, doorknobs, light switches, handles, desks, toilets, faucets, sinks) with household patch machine operator and EPA-registered disinfectants that are appropriate for the surface, following label instructions. Labels contain instructions for safe and effective use of the cleaning product including precautions you should take when applying the product, such as wearing gloves and making sure you have good ventilation during use of the product. These guidelines are focused on household settings and are meant for the general public. ? Cleaning refers to the removal of germs, dirt, and impurities from surfaces. Cleaning does not kill germs, but by removing them, it lowers their numbers and the risk of spreading infection. ? Disinfecting refers to using chemicals to kill germs on surfaces. This process does not necessarily clean dirty surfaces or remove germs, but by killing germs on a surface after cleaning, it can further lower the risk of spreading infection. General Recommendations for Cleaning and Disinfection of Households with People Isolated in Home Care - Confirmed or suspected COVID 19 ? Household members should educate themselves about COVID-19 symptoms and preventing the spread of COVID-19 in homes. ? Clean and disinfect high-touch surfaces daily in household common areas (e.g. tables, hard-backedchairs, doorknobs, light switches, remotes, handles, desks, toilets, sinks) o In the bedroom/bathroom dedicated for an ill person: consider reducing cleaning frequency to as-needed (e.g., soiled items and surfaces) to avoid unnecessary contact with the ill person. ? As much as possible, an ill person should stay in a specific room and away from other people in their home. ? The caregiver can provide personal cleaning supplies for an ill person's room and bathroom, unless the room is occupied by child or another person for whom such supplies would not be appropriate. These supplies include tissues, paper towels, patch machine operator and EPA-registered disinfectants (see list link at CDC website). ? If a separate bathroom is not available, the bathroom should be cleaned and disinfected after each use by an ill person. If this is not possible, the caregiver should wait as long as practical after use by an ill person to clean and disinfect the high-touch surfaces. How to clean and disinfect: Hard Surfaces ? Wear disposable gloves when cleaning and disinfecting surfaces. Gloves should be discarded after each cleaning. If reusable gloves are used, those gloves should be dedicated for cleaning and disinfection of surfaces for COVID-19 and should not be used for other purposes. Consult the animal geneticist's instructions for cleaning and disinfection products used. Clean hands immediately after gloves areremoved. ? If surfaces are dirty, they should be cleaned using a detergent or soap and water prior to disinfection. ? For disinfection, diluted household bleach solutions, alcohol solutions with at least 70% alcohol, and most common EPA-registered household disinfectants should be effective. o Diluted household bleach solutions can be used if appropriate for the surface. Follow animal geneticist's instructions for application and proper ventilation. Check to ensure the product is not past itsexpiration date. Never mix household bleach with ammonia or any other cleanser. Unexpired householdbleach will be effective against coronaviruses when properly diluted. ? Prepare a bleach solution by mixing: ? 5 tablespoons (1/3rd cup) bleach per gallon of water or ? 4 teaspoons bleach per quart of water o Products with EPA-approved emerging viral pathogens [facility] ic[facility]ternal icon are expected to be effective against COVID-19 based on data for harder to kill viruses. Follow the animal geneticist's instructions for all cleaning and disinfection products (e.g., concentration, application method and contact time, etc.). Soft (porous) surfaces such as carpeted floor, rugs, and drapes Remove visible contamination if present and clean with appropriate patch machine operator indicated for use on these surfaces. After cleaning: Launder items as appropriate in accordance with the animal geneticist's instructions. If possible, launder items using the warmest appropriate water setting for the items and dry items completely, or Clothing, towels, linens and other items that go in the laundry ? Wear disposable gloves when handling dirty laundry from an ill person and then discard after eachuse. If using reusable gloves, those gloves should be dedicated for cleaning and disinfection of surfaces for COVID-19 and should not be used for other household purposes. Clean hands immediately after gloves are removed. o If no gloves are used when handling dirty laundry, be sure to wash hands afterwards. o If possible, do not shake dirty laundry. This will minimize the possibility of dispersing virus through the air. o Launder items as appropriate in accordance with the animal geneticist's instructions. If possible, launder items using the warmest appropriate water setting for the items and dry items completely. Dirtylaundry from an ill person can be washed with other people's items. o Clean and disinfect clothes hampers according to guidance above for surfaces. If possible, consider placing a bagman/woman that is either disposable (can be thrown away) or can be laundered. [facility] has a list of EPA approved cleaning products on their website - https://www.cdc.gov/coronavirus/ 2019-ncov/community/home/cleaning-disinfection.html https://www.Tasspass.EMBI/Jjfsn-Krfysvztpyl-Wlwinxxe-Products-List.pdf [employer] with delivery and brick picker services: [employer]: Free brick picker at locations Delivery is $12.95 a month Website - [employer] [place]: Pedodontist $2.95 (1st order is free) Delivery is $14.95 Website - [employer] [place]: customer support agent is free Delivery is $5.95 [employer]: customer support agent is $4.95 Delivery is $9.95 Website [employer]: customer support agent is $4.95 Delivery is $9.95 [employer]: Can be ordered for delivery and brick picker with [employer] Website - www.[employer]: Free deliver for first 3 orders of $35 or more Website [employer] Will deliver from [facility], [employer], [employer], and [employer]. Annual membership is $99 Monthly membership is $14 boudreaux documented in this encounter* Instructions* Kiara Drake MD - 09/06/2020 Follow up appointment with your doctor/pyrotechnics press tender - Keep next scheduled appointment Activity - Normal Activity Call your doctor/pyrotechnics press tender if you have: - leaking fluid - vaginal bleeding - regular contractions: Every 5 minutes or closer for one hour - decreased movement - worsening abdominal (belly) pain - headache, blurry vision, increased swelling, upper abdominal pain If you are going home with contractions that are uncomfortable/painful- we recommend these coping strategies: rhythmic breathing, hydrotherapy, imagery or visualization, gentle massage, walking and changing your position. Treatment Verification: Lauren Chowdary was assessed on Labor and Delivery for a related visit on 09/06/20. Kiara Drake MD [facility] If you are Covid-19 positive or a Person Under Investigation (PUI): If you are in labor and you have, or think you may have COVID-19, call your OB care provider and the hospital birthing unit before you go, so the staff can properly prepare and protect you, your babyand others from being infected. Wear a mask when you leave your home, as you will be asked to continue to wear a mask during your time in the hospital. Prevention steps for People with confirmed or suspected COVID-19 (including persons under investigation) who do not need to be hospitalized and People with confirmed COVID-19 who were hospitalized and determined to be medically stable to go home Your healthcare provider and public health staff will evaluate whe ther you can be cared for at home. If it is determined that you do not need to be hospitalized and can be isolated at home, you willbe monitored by staff from your local or state health department. You should follow the prevention steps below until a healthcare provider or local or state health department says you can return to your normal activities. Stay home except to get medical care People who are mildly ill with COVID-19 are able to isolate at home during their illness. You should restrict activities outside your home, except for getting medical care. Do not go to work, school,or public areas. Avoid using public transportation, ride-sharing, or taxis. Separate yourself from other people and animals in your home People: As much as possible, you should stay in a specific room and away from other people in your home. Also, you should use a separate bathroom, if available. Animals: You should restrict contact with pets and other animals while you are sick with COVID-19, just like you would around other people. Although there have not been reports of pets or other animals becoming sick with COVID-19, it is still recommended that people sick with COVID-19 limit contactwith animals until more information is known about the virus. When possible, have another member ofyour household care for your animals while you are sick. If you are sick with COVID-19, avoid contact with your pet, including petting, snuggling, being kissed or licked, and sharing food. If you must care for your pet or be around animals while you are sick, wash your hands before and after you interact with pets and wear a facemask. Call ahead before visiting your doctor If you have a medical appointment, call the healthcare provider and tell them that you have or may have COVID-19. This will help the healthcare provider's office take steps to keep other people from getting infected or exposed. Wear a facemask You should wear a facemask when you are around other people (e.g., sharing a room or vehicle) or pets and before you enter a healthcare provider's office. If you are not able to wear a facemask (for example, because it causes trouble breathing), then people who live with you should not stay in the same room with you, or they should wear a facemask if they enter your room. Cover your coughs and sneezes Cover your mouth and nose with a tissue when you cough or sneeze. Throw used tissues in a lined trash can. Immediately wash your hands with soap and water for at least 20 seconds or, if soap and water are not available, clean your hands with an alcohol-based hand stationary boiler fireman that contains at least 60% alcohol. Clean your hands often Wash your hands often with soap and water for at least 20 seconds, especially after blowing your nose, coughing, or sneezing; going to the bathroom; and before eating or preparing food. If soap and water are not readily available, use an alcohol-based hand stationary boiler fireman with at least 60% alcohol, covering all surfaces of your hands and rubbing them together until they feel dry. Soap and water are the best option if hands are visibly dirty. Avoid touching your eyes, nose, and mouth with unwashed hands. Avoid sharing personal household items You should not share dishes, drinking glasses, cups, eating utensils, towels, or bedding with otherpeople or pets in your home. After using these items, they should be washed thoroughly with soap and water. Clean all high-touch surfaces everyday High touch surfaces include counters, tabletops, doorknobs, bathroom fixtures, toilets, phones, keyboards, tablets, and bedside tables. Also, clean any surfaces that may have blood, stool, or body fluids on them. Use a household cleaning spray or wipe, according to the label instructions. Labels contain instructions for safe and effective use of the cleaning product including precautions you should take when applying the product, such as wearing gloves and making sure you have good ventilation during use of the product. Monitor your symptoms Seek prompt medical attention if your illness is worsening (e.g., difficulty breathing). Before seeking care, call your healthcare provider and tell them that you have, or are being evaluated for, COVID-19. Put on a facemask before you enter the facility. These steps will help the healthcare provider's office to keep other people in the office or waiting room from getting infected or exposed. Askyour healthcare provider to call the local or state health department. Persons who are placed underactive monitoring or facilitated self- monitoring should follow instructions provided by their localhealth department or occupational health professionals, as appropriate. When working with your local health department check their available hours. If you have a medical emergency and need to call 911, notify the dispatch personnel that you have, or are being evaluated for COVID-19. If possible, put on a facemask before emergency medical services arrive. Discontinuing home isolation Patients with confirmed COVID-19 should remain under home isolation precautions until the risk of secondary transmission to others is thought to be low. The decision to discontinue home isolation precautions should be made on a sqjy-sj-iuju basis, in consultation with healthcare providers and [facility] health departments. Information on Covid-19 for all patients Call your provider before your next appointment if you develop any of the following symptoms: fever, cough, fatigue, anorexia, shortness of breath, sputum production, and muscle pains. Headache, confusion, rhinorrhea, sore throat, hemoptysis, vomiting, and diarrhea have been reported but are less common. Some persons with COVID-19 have experienced gastrointestinal symptoms such as diarrhea and nausea prior to developing fever and lower respiratory tract signs and symptoms. Ways to [place] with Anxiety & Stress It is normal to feel anxious or worried about COVID-19. You might feel sad about canceling celebrations and staying away from family and friends. Keep in mind that most people do not get severely ill from COVID-19. It is important to have a planin case you get sick to prevent spreading the disease to others including an Advanced Care Plan (communicating and documenting your desired health care plan with family and healthcare team). You can take care of yourself by: ? Taking a break from watching the news ? Take deep breaths, stretch or meditate ? Getting exercise, eating healthy foods, and drinking plenty of water ? Finding activities you can enjoy inside your home ? Staying in touch with your family and friends. Tell your partner, family, and friends how you arefeeling. Advance Care Planning People with COVID-19 may have no symptoms, mild symptoms, such as fever, cough, and shortness of breath or they may have more severe illness, developing severe and fatal pneumonia. As a result, Advance Care Planning with attention to naming a health care decision maker (someone you trust to make healthcare decisions for you if you could not speak for yourself) and sharing other health care preferences is important BEFORE a possible health crisis. Please contact your Primary Care Provider to discuss Advance Care Planning. Learning About Coronavirus (COVID-19) Coronavirus (COVID-19): Overview What is coronavirus (COVID-19)? The coronavirus disease (COVID-19) is caused by a virus. It is an illness that was first found in [facility], in June 2019. It has since spread worldwide. The virus can cause fever, cough, and trouble breathing. In severe cases, it can cause pneumonia and make it hard to breathe without help. It can cause . Coronaviruses are a large group of viruses. They cause the common cold. They also cause more serious illnesses like [place] respiratory syndrome (MERS) and severe acute respiratory syndrome (SARS). COVID-19 is caused by a novel coronavirus. That means it's a new type that has not been seen in people before. This virus spreads [id number]-[id number] through droplets from coughing and sneezing. It can also spreadwhen you are close to someone who is infected. And it can spread when you touch something that has the virus on it, such as a doorknob or a tabletop. What can you do to protect yourself from coronavirus (COVID-19)? The best way to protect yourself from getting sick is to: Avoid areas where there is an outbreak. Avoid contact with people who may be infected. Wash your hands often with soap or alcohol-based hand sanitizers. Avoid crowds and try to stay at least 6 feet away from other people. Wash your hands often, especially after you cough or sneeze. Use soap and water, and scrub for at least 20 seconds. If soap and water aren't available, use an alcohol-based hand stationary boiler fireman. Call 911 anytime you think you may need emergency care. For example, call if: You have severe trouble breathing. (You can't talk at all.) You have constant chest pain or pressure. You are severely dizzy or lightheaded. You are confused or can't think clearly. Your face and lips have a blue color. You pass out (lose consciousness) or are very hard to wake up. Call your doctor now if you develop symptoms such as: Shortness of breath. Fever. Cough. If you need to get care, call ahead to the doctor's office for instructions before you go. Make sure you wear a face mask, if you have one, to prevent exposing other people to the virus. Where can you get the latest information? The following health organizations are tracking and studying this virus. Their websites contain themost up-to-date information. You'll also learn what to do if you think you may have been exposed tothe virus. U.S. Centers for Disease Control and Prevention (CDC): The CDC provides updated news about the disease and travel advice. The website also tells you how to prevent the spread of infection. www.cdc.gov World Health Organization (WHO): WHO offers information about the virus outbreaks. WHO also has travel advice. www.who.int Current as of: October 10, 2019 Content Version: 12. [employer]. Care instructions adapted under license by your healthcare professional. If you have questions about a medical condition or this instruction, always ask your healthcare professional. [employer] disclaims any warranty or liability for your use of this information. General Recommendations for Routine Cleaning and Disinfection of Households Community members can practice routine cleaning of frequently touched surfaces (for example: tables, doorknobs, light switches, handles, desks, toilets, faucets, sinks) with household patch machine operator and EPA-registered disinfectants that are appropriate for the surface, following label instructions. Labels contain instructions for safe and effective use of the cleaning product including precautions you should take when applying the product, such as wearing gloves and making sure you have good ventilation during use of the product. These guidelines are focused on household settings and are meant for the general public. ? Cleaning refers to the removal of germs, dirt, and impurities from surfaces. Cleaning does not kill germs, but by removing them, it lowers their numbers and the risk of spreading infection. ? Disinfecting refers to using chemicals to kill germs on surfaces. This process does not necessarily clean dirty surfaces or remove germs, but by killing germs on a surface after cleaning, it can further lower the risk of spreading infection. General Recommendations for Cleaning and Disinfection of Households with People Isolated in Home Care - Confirmed or suspected COVID 19 ? Household members should educate themselves about COVID-19 symptoms and preventing the spread of COVID-19 in homes. ? Clean and disinfect high-touch surfaces daily in household common areas (e.g. tables, hard-backedchairs, doorknobs, light switches, remotes, handles, desks, toilets, sinks) o In the bedroom/bathroom dedicated for an ill person: consider reducing cleaning frequency to as-needed (e.g., soiled items and surfaces) to avoid unnecessary contact with the ill person. ? As much as possible, an ill person should stay in a specific room and away from other people in their home. ? The caregiver can provide personal cleaning supplies for an ill person's room and bathroom, unless the room is occupied by child or another person for whom such supplies would not be appropriate. These supplies include tissues, paper towels, patch machine operator and EPA-registered disinfectants (see list link at [facility] website). ? If a separate bathroom is not available, the bathroom should be cleaned and disinfected after each use by an ill person. If this is not possible, the caregiver should wait as long as practical after use by an ill person to clean and disinfect the high-touch surfaces. How to clean and disinfect: Hard Surfaces ? Wear disposable gloves when cleaning and disinfecting surfaces. Gloves should be discarded after each cleaning. If reusable gloves are used, those gloves should be dedicated for cleaning and disinfection of surfaces for COVID-19 and should not be used for other purposes. Consult the animal geneticist's instructions for cleaning and disinfection products used. Clean hands immediately after gloves areremoved. ? If surfaces are dirty, they should be cleaned using a detergent or soap and water prior to disinfection. ? For disinfection, diluted household bleach solutions, alcohol solutions with at least 70% alcohol, and most common EPA-registered household disinfectants should be effective. o Diluted household bleach solutions can be used if appropriate for the surface. Follow animal geneticist's instructions for application and proper ventilation. Check to ensure the product is not past itsexpiration date. Never mix household bleach with ammonia or any other cleanser. Unexpired householdbleach will be effective against coronaviruses when properly diluted. ? Prepare a bleach solution by mixing: ? 5 tablespoons (1/3rd cup) bleach per gallon of water or ? 4 teaspoons bleach per quart of water o Products with EPA-approved emerging viral pathogens [facility] ic[facility]ternal icon are expected to be effective against COVID-19 based on data for harder to kill viruses. Follow the animal geneticist's instructions for all cleaning and disinfection products (e.g., concentration, application method and contact time, etc.). Soft (porous) surfaces such as carpeted floor, rugs, and drapes Remove visible contamination if present and clean with appropriate patch machine operator indicated for use on these surfaces. After cleaning: Launder items as appropriate in accordance with the animal geneticist's instructions. If possible, launder items using the warmest appropriate water setting for the items and dry items completely, or Clothing, towels, linens and other items that go in the laundry ? Wear disposable gloves when handling dirty laundry from an ill person and then discard after eachuse. If using reusable gloves, those gloves should be dedicated for cleaning and disinfection of surfaces for COVID-19 and should not be used for other household purposes. Clean hands immediately after gloves are removed. o If no gloves are used when handling dirty laundry, be sure to wash hands afterwards. o If possible, do not shake dirty laundry. This will minimize the possibility of dispersing virus through the air. o Launder items as appropriate in accordance with the animal geneticist's instructions. If possible, launder items using the warmest appropriate water setting for the items and dry items completely. Dirtylaundry from an ill person can be washed with other people's items. o Clean and disinfect clothes hampers according to guidance above for surfaces. If possible, consider placing a bagman/woman that is either disposable (can be thrown away) or can be laundered. CDC has a list of EPA approved cleaning products on their website - https://www.cdc.gov/coronavirus/ 2019-ncov/community/home/cleaning-disinfection.html https://www.Tasspass.EMBI/Vfelk-Uwrndactahy-Axyoakcm-Products-List.pdf Click[employer] with delivery and brick picker services: [facility]: Free brick picker at locations Delivery is $12.95 a month Website - [employer] [place]: Pedodontist $2.95 (1st order is free) Delivery is $14.95 Website - [employer] [place]: customer support agent is free Delivery is $5.95 Website [employer]: customer support agent is $4.95 Delivery is $9.95 Website [employer] [facility]: customer support agent is $4.95 Delivery is $9.95 [employer]: Can be ordered for delivery and brick picker with [employer] Website - [employer]: Free deliver for first 3 orders of $35 or more Website [employer] Will deliver from [facility], [facility], [employer], and [employer]. Annual membership is $99 Monthly membership is $14 boudreaux documented in this encounter* Attachments The following attachments cannot be sent through Care Everywhere. * UTI (Urinary Tract Infection): Female (Spanish) * Vaginitis (Spanish) documented in this encounter* Instructions* Amee Parker MD - 09/08/2020 After Your Delivery (the Period): Your Care Instructions Thank you for allowing us to care of you at [facility]. This time can be one of many emotional ups and downs and many changes in your life. In these first weeks try to take good care of yourself because you will likely feel very tired. It may take 4 to 6 weeks to feel like yourself again, and possibly longer if you had a . FOLLOW-UP: Your follow-up care is a burkett part of your treatment and safety. Follow-up with your OB providerin 4weeks or as specified by your OB provider. If you had high blood pressure, visit your OB provider within 3-5 days after being home. Most women's blood pressure will return to pre- levels after delivery. However, some patients continueto have problems with their blood pressure, and some even get worse. Very high blood pressure can lead to seizures or stroke which can be life threatening. If ordered by your provider, take your blood pressure at home and call your OB provider if you have a high reading. Your OB provider can write you a prescription for a blood pressure monitor if you do not have one. Be sure to make and go to all appointments, and call your OB provider if you are having problems. It's also a good idea to know your test results and keep a list of the medicines you take. BLEEDING Vaginal bleeding will decrease in amount over the next few weeks. Bleeding may brick picker and then decrease again around 7-10 days . Use pads instead of tampons for the bloody flow that may last as long as 2 weeks. You will notice that as your activity increases, your flow may increase. Call your provider if you are saturating one maxi pad in an hour & passing large clots for 3 hours or more. ACTIVITY NO SEXUAL activity for 6 weeks or until advised by your OB provider; Nothing in vagina: intercourse, tampons, or douching. Begin to think about your reproductive life plan. Talk to your OB provider about if and when you would like another baby in the future. The recommendation for safe spacing is 18-24 months. Showering is okay; NO tub baths, swimming, or hot tubs. Gradually increase your activity. Resume exercise regimen only after advised by your )OB provider. Avoid lifting anything heavier than ten pounds or a gallon of milk for six weeks. Avoid driving 1 week for vaginal delivery and 2 weeks for section, or longer if you are onprescription pain medicine unless otherwise instructed by your OB provider . Rise slowly from a lying to sitting and then a standing position. Climb stairs carefully. You may feel tired or have a lack of energy. You may continue your vitamin to replenish nutrients post-delivery. Nap when whenever you can to catch up on sleep. EMOTIONS You may feel agrawal, sad, teary, & overwhelmed for the first 2 weeks ; however, feelings of depression may occur any time within the first year after delivery. Contact your OBprovider if you feel you may be showing signs of depression, or have thoughts of harmingyourself or or anyone.. WOUND CARE For Vaginal Delivery: Shower daily, and cleanse your perineum (bottom) with mild soap from front to back. Use the plasticsquirt bottle until bleeding stops each time you use the restroom instead of wiping with toilet paper. Ease soreness of hemorrhoids and the area between your vagina and rectum with ice compresses or witch gladis pads. If used, stitches will dissolve in 4-6 weeks on their own. You may use a sitz bath or soak in a clean tub with drain open and water running for comfort. Kegel exercises will help restore bladder control. To do these tighten your muscles as if you were stopping your urine flow. Hold for a few seconds and then relax. Do these throughout the day. For Section Delivery: Keep your incision clean and dry. If you had steri-strips you may remove these once they start falling off. If you have xu they need to be removed 3-10 daysafter delivery. If you have steri-strips, remove after 7 - 10 days. Do not wear clothing that irritates the incision line. If your incision is in a crease that is not dry, use a hair-dryer to dry the area 3 times a day. If you develop fever, shaking chills, redness, swelling, drainage or discharge from your wound, or if your wound looks like it is coming apart call your provider immediately. BREAST CARE If you develop a warm, red, tender area on your breast or develop a fever contact your OB provider.If your breasts become engorged ask your provider because treatment can vary according to your needs. DIET & CONSTIPATION Eat a well-balanced diet focusing on foods high in fiber and protein such as: whole grain cereals and breads, fruits and vegetables and legumes (eg, beans, lentils) Drink 8-10 glasses of fluids daily, especially water. Limit caffeine. To avoid constipation you may take a mild enat-pfc-ttwhyqf stool softener (such as colace) as recommended by your OB provider. SWELLING Try to keep your legs elevated when you are sitting or lying down. Stay hydrated and take walks. If you had high blood pressure, weigh yourself at the same time each day. Write down your weight and take the record to your OB provider appointment. MEDICATIONS Take all medications prescribed for you exactly as ordered. Don't take any drugs not prescribed to you or over the counter medicines unless recommended by yourprovider. Don't smoke. WHEN TO CALL THE OB PROVIDER Signs of infection, including fever and chills Increased bleeding: soaking more than one pad an hour or passing clots the size of an egg or larger. Wounds that become red, swollen or drain pus Vaginal discharge that smells foul New pain, swelling, or tenderness in your legs Pain that you can't control with the medications you've been given Pain, burning, urgency or frequency of urination, or persistent bleeding in the urine Cough, shortness of breath, or serious difficulty catching your breath Chest pain or pain in the upper right area of your belly Headache (very painful) or vision changes like blurry or double vision, seeing spots or 'auras' Swelling that is worse or weight gain of more than 3 pounds in 3 days Depression, suicidal thoughts, or feelings of harming someone else Breasts that are hot, red and accompanied by fever Any cracking or bleeding from the nipple or areola (the dark-colored area of the breast) You may have been given a magnet like this: If so, we encourage you to use it on your refrigerator as a reminder of when to call your OB provider. IIn case of an emergency, call 911 immediately. If you are Covid-19 positive or a Person Under Investigation (PUI) These could be signs that your COVID-19 symptoms are worsening and you may need emergency care: You are severely dizzy or lightheaded. You are confused or can't think clearly. Your face and lips have a blue color. You are unable to respond to others or are very hard to wake up. Prevention steps for People with confirmed or suspected COVID-19 (including persons under investigation) who do not need to be hospitalized and People with confirmed COVID-19 who were hospitalized and determined to be medically stable to go home Your healthcare provider and public health staff will evaluate whe ther you can be cared for at home. If it is determined that you do not need to be hospitalized and can be isolated at home, you willbe monitored by staff from your local or state health department. You should follow the prevention steps below until a healthcare provider or local or state health department says you can return to your normal activities. Stay home except to get medical care People who are mildly ill with COVID-19 are able to isolate at home during their illness. You should restrict activities outside your home, except for getting medical care. Do not go to work, school,or public areas. Avoid using public transportation, ride-sharing, or taxis. Separate yourself from other people and animals in your home People: As much as possible, you should stay in a specific room and away from other people in your home. Also, you should use a separate bathroom, if available. Animals: You should restrict contact with pets and other animals while you are sick with COVID-19, just like you would around other people. Although there have not been reports of pets or other animals becoming sick with COVID-19, it is still recommended that people sick with COVID-19 limit contactwith animals until more information is known about the virus. When possible, have another member ofyour household care for your animals while you are sick. If you are sick with COVID-19, avoid contact with your pet, including petting, snuggling, being kissed or licked, and sharing food. If you must care for your pet or be around animals while you are sick, wash your hands before and after you interact with pets and wear a facemask. Call ahead before visiting your provider If you have a medical appointment, call the healthcare provider and tell them that you have or may have COVID-19. This will help the healthcare provider's office take steps to keep other people from getting infected or exposed. Wear a facemask You should wear a facemask when you are around other people (e.g., sharing a room or vehicle) or pets and before you enter a healthcare provider's office. If you are not able to wear a facemask (for example, because it causes trouble breathing), then people who live with you should not stay in the same room with you, or they should wear a facemask if they enter your room. Cover your coughs and sneezes Cover your mouth and nose with a tissue when you cough or sneeze. Throw used tissues in a lined trash can. Immediately wash your hands with soap and water for at least 20 seconds or, if soap and water are not available, clean your hands with an alcohol-based hand stationary boiler fireman that contains at least 60% alcohol. Clean your hands often Wash your hands often with soap and water for at least 20 seconds, especially after blowing your nose, coughing, or sneezing; going to the bathroom; and before eating or preparing food. If soap and water are not readily available, use an alcohol-based hand stationary boiler fireman with at least 60% alcohol, covering all surfaces of your hands and rubbing them together until they feel dry. Soap and water are the best option if hands are visibly dirty. Avoid touching your eyes, nose, and mouth with unwashed hands. Avoid sharing personal household items You should not share dishes, drinking glasses, cups, eating utensils, towels, or bedding with otherpeople or pets in your home. After using these items, they should be washed thoroughly with soap and water. Clean all high-touch surfaces everyday High touch surfaces include counters, tabletops, doorknobs, bathroom fixtures, toilets, phones, keyboards, tablets, and bedside tables. Also, clean any surfaces that may have blood, stool, or body fluids on them. Use a household cleaning spray or wipe, according to the label instructions. Labels contain instructions for safe and effective use of the cleaning product including precautions you should take when applying the product, such as wearing gloves and making sure you have good ventilation during use of the product. Monitor your symptoms Seek prompt medical attention if your illness is worsening (e.g., difficulty breathing). Before seeking care, call your healthcare provider and tell them that you have, or are being evaluated for, COVID-19. Put on a facemask before you enter the facility. These steps will help the healthcare provider's office to keep other people in the office or waiting room from getting infected or exposed. Askyour healthcare provider to call the local or [facility] health department. Persons who are placed underactive monitoring or facilitated self- monitoring should follow instructions provided by their localhealth department or occupational health professionals, as appropriate. When working with your local health department check their available hours. If you have a medical emergency and need to call 911, notify the dispatch personnel that you have, or are being evaluated for COVID-19. If possible, put on a facemask before emergency medical services arrive. Discontinuing home isolation Patients with confirmed COVID-19 should remain under home isolation precautions until the risk of secondary transmission to others is thought to be low. The decision to discontinue home isolation precautions should be made on a cexd-ru-obya basis, in consultation with healthcare providers and [facility] departments. Information on COVID-19 for all patients Call your provider before your next appointment if you develop any of the following symptoms: fever, cough, fatigue, anorexia, shortness of breath, sputum production, and muscle pains. Headache, confusion, rhinorrhea, sore throat, hemoptysis, vomiting, and diarrhea have been reported but are less common. Some persons with COVID-19 have experienced gastrointestinal symptoms such as diarrhea and nausea prior to developing fever and lower respiratory tract signs and symptoms. Ways to [place] with Anxiety & Stress It is normal to feel anxious or worried about COVID-19. You might feel sad about canceling celebrations and staying away from family and friends. Keep in mind that most people do not get severely ill from COVID-19. It is important to have a planin case you get sick to prevent spreading the disease to others including an Advanced Care Plan (communicating and documenting your desired health care plan with family and healthcare team). You can take care of yourself by: ? Taking a break from watching the news ? Take deep breaths, stretch or meditate ? Getting exercise, eating healthy foods, and drinking plenty of water ? Finding activities you can enjoy inside your home ? Staying in touch with your family and friends. Tell your partner, family, and friends how you arefeeling. Advance Care Planning People with COVID-19 may have no symptoms, mild symptoms, such as fever, cough, and shortness of breath or they may have more severe illness, developing severe and fatal pneumonia. As a result, Advance Care Planning with attention to naming a health care decision maker (someone you trust to make healthcare decisions for you if you could not speak for yourself) and sharing other health care preferences is important BEFORE a possible health crisis. Please contact your Primary Care Provider to discuss Advance Care Planning. Learning About Coronavirus (COVID-19) Coronavirus (COVID-19): Overview What is coronavirus (COVID-19)? The coronavirus disease (COVID-19) is caused by a virus. It is an illness that was first found in [facility], in June 2019. It has since spread worldwide. The virus can cause fever, cough, and trouble breathing. In severe cases, it can cause pneumonia and make it hard to breathe without help. It can cause . Coronaviruses are a large group of viruses. They cause the common cold. They also cause more serious illnesses like [place] respiratory syndrome (MERS) and severe acute respiratory syndrome (SARS). COVID-19 is caused by a novel coronavirus. That means it's a new type that has not been seen in people before. This virus spreads yhtnof-hl-lmvjen through droplets from coughing and sneezing. It can also spreadwhen you are close to someone who is infected. It is always good practice to clean high touch surfaces frequently and avoid touching your mouth, nose and eyes until you have washed your hands if you touched these areas. What can you do to protect yourself from coronavirus (COVID-19)? The best way to protect yourself from getting sick is to: Wear a face mask. Avoid areas where there is an outbreak. Avoid contact with people who may be infected. Wash your hands often with soap or alcohol-based hand sanitizers. Avoid crowds and try to stay at least 6 feet away from other people. Wash your hands often, especially after you cough or sneeze. Use soap and water, and scrub for at least 20 seconds. If soap and water aren't available, use an alcohol-based hand stationary boiler fireman. Call 911 anytime you think you may need emergency care. For example, call if: You have severe trouble breathing. (You can't talk at all.) You have constant chest pain or pressure. You are severely dizzy or lightheaded. You are confused or can't think clearly. Your face and lips have a blue color. You pass out (lose consciousness) or are very hard to wake up. Call your OB Provider now if you develop symptoms such as: Shortness of breath. Fever. Cough. If you need to get care, call ahead to the provider's office for instructions before you go. Make sure you wear a face mask, to prevent exposing other people to the virus. Where can you get the latest information? The following health organizations are tracking and studying this virus. Their websites contain themost up-to-date information. You'll also learn what to do if you think you may have been exposed tothe virus. U.S. Centers for Disease Control and Prevention (CDC): The CDC provides updated news about the disease and travel advice. The website also tells you how to prevent the spread of infection. www.cdc.gov World Health Organization (WHO): WHO offers information about the virus outbreaks. WHO also has travel advice. www.who.int Current as of: October 10, 2019 Content Version: 12.4 [employer]. Care instructions adapted under license by your healthcare professional. If you have questions about a medical condition or this instruction, always ask your healthcare professional. [employer] disclaims any warranty or liability for your use of this information. General Recommendations for Routine Cleaning and Disinfection of Households Community members can practice routine cleaning of frequently touched surfaces (for example: tables, doorknobs, light switches, handles, desks, toilets, faucets, sinks) with household patch machine operator and EPA-registered disinfectants that are appropriate for the surface, following label instructions. Labels contain instructions for safe and effective use of the cleaning product including precautions you should take when applying the product, such as wearing gloves and making sure you have good ventilation during use of the product. These guidelines are focused on household settings and are meant for the general public. ? Cleaning refers to the removal of germs, dirt, and impurities from surfaces. Cleaning does not kill germs, but by removing them, it lowers their numbers and the risk of spreading infection. ? Disinfecting refers to using chemicals to kill germs on surfaces. This process does not necessarily clean dirty surfaces or remove germs, but by killing germs on a surface after cleaning, it can further lower the risk of spreading infection. General Recommendations for Cleaning and Disinfection of Households with People Isolated in Home Care - Confirmed or suspected COVID 19 ? Household members should educate themselves about COVID-19 symptoms and preventing the spread of COVID-19 in homes. ? Clean and disinfect high-touch surfaces daily in household common areas (e.g. tables, hard-backedchairs, doorknobs, light switches, remotes, handles, desks, toilets, sinks) o In the bedroom/bathroom dedicated for an ill person: consider reducing cleaning frequency to as-needed (e.g., soiled items and surfaces) to avoid unnecessary contact with the ill person. ? As much as possible, an ill person should stay in a specific room and away from other people in their home. ? The caregiver can provide personal cleaning supplies for an ill person's room and bathroom, unless the room is occupied by child or another person for whom such supplies would not be appropriate. These supplies include tissues, paper towels, patch machine operator and EPA-registered disinfectants (see list link at CDC website). ? If a separate bathroom is not available, the bathroom should be cleaned and disinfected after each use by an ill person. If this is not possible, the caregiver should wait as long as practical after use by an ill person to clean and disinfect the high-touch surfaces. How to clean and disinfect: Hard Surfaces ? Wear disposable gloves when cleaning and disinfecting surfaces. Gloves should be discarded after each cleaning. If reusable gloves are used, those gloves should be dedicated for cleaning and disinfection of surfaces for COVID-19 and should not be used for other purposes. Consult the animal geneticist's instructions for cleaning and disinfection products used. Clean hands immediately after gloves areremoved. ? If surfaces are dirty, they should be cleaned using a detergent or soap and water prior to disinfection. ? For disinfection, diluted household bleach solutions, alcohol solutions with at least 70% alcohol, and most common EPA-registered household disinfectants should be effective. o Diluted household bleach solutions can be used if appropriate for the surface. Follow animal geneticist's instructions for application and proper ventilation. Check to ensure the product is not past itsexpiration date. Never mix household bleach with ammonia or any other cleanser. Unexpired householdbleach will be effective against coronaviruses when properly diluted. ? Prepare a bleach solution by mixing: ? 5 tablespoons (1/3rd cup) bleach per gallon of water or ? 4 teaspoons bleach per quart of water o Products with EPA-approved emerging viral pathogens [facility] ic[facility]xternal icon are expected to be effective against COVID-19 based on data for harder to kill viruses. Follow the animal geneticist's instructions for all cleaning and disinfection products (e.g., concentration, application method and contact time, etc.). Soft (porous) surfaces such as carpeted floor, rugs, and drapes Remove visible contamination if present and clean with appropriate patch machine operator indicated for use on these surfaces. After cleaning: Launder items as appropriate in accordance with the animal geneticist's instructions. If possible, launder items using the warmest appropriate water setting for the items and dry items completely, or Clothing, towels, linens and other items that go in the laundry ? Wear disposable gloves when handling dirty laundry from an ill person and then discard after eachuse. If using reusable gloves, those gloves should be dedicated for cleaning and disinfection of surfaces for COVID-19 and should not be used for other household purposes. Clean hands immediately after gloves are removed. o If no gloves are used when handling dirty laundry, be sure to wash hands afterwards. o If possible, do not shake dirty laundry. This will minimize the possibility of dispersing virus through the air. o Launder items as appropriate in accordance with the animal geneticist's instructions. If possible, launder items using the warmest appropriate water setting for the items and dry items completely. Dirtylaundry from an ill person can be washed with other people's items. o Clean and disinfect clothes hampers according to guidance above for surfaces. If possible, consider placing a bagman/woman that is either disposable (can be thrown away) or can be laundered. CDC has a list of EPA approved cleaning products on their website - https://www.cdc.gov/coronavirus/ 2019-ncov/community/home/cleaning-disinfection.html https://www.[employer]/Yhayz-Cvqumqvlfmw-Inwxhhkg-Products-List.pdf Grocery Stores with delivery and brick picker services: [employer]: Free brick picker at locations Delivery is $12.95 a month Website - [employer] [place]: Pedodontist $2.95 (1st order is free) Delivery is $14.95 Website - [employer]: customer support agent is free Delivery is $5.95 Website [employer]: customer support agent is $4.95 Delivery is $9.95 Website [employer]: customer support agent is $4.95 Delivery is $9.95 Website [employer]: Can be ordered for delivery and brick picker with [employer] Website - [employer]: Free deliver for first 3 orders of $35 or more Website [employer] Will deliver from [facility], [employer], [employer], and [employer]. Annual membership is $99 Monthly membership is $14 documented in this encounter Assessments Diagnosis Dental infection- Primary Acute apical periodontitis of pulpal origin Diagnosis Person with feared complaint in whom no diagnosis is made Person with feared complaint in whom no diagnosis was made Diagnosis High-risk , young multigravida in first trimester Abnormal glucose affecting Obesity affecting , antepartum History of delivery by vacuum extraction, currently with other poor obstetric history Diagnosis 30 weeks gestation of - Primary state, incidental Fall, initial encounter Strain of lumbar region, initial encounter Diagnosis Vaginal discharge- Primary Leukorrhea, not specified as infective Urinary tract infection without hematuria, site unspecified Diagnosis High-risk , young multigravida in first trimester Abnormal glucose affecting Obesity affecting , antepartum History of delivery by vacuum extraction, currently with other poor obstetric history PROM (premature rupture of membranes) Premature rupture of membranes in , unspecified as to episode of care (spontaneous vaginal delivery) Normal delivery History of Present Illness * Susie Mccauley MD - 07/20/2020 10:56 PM EST Department of Obstetrics and Gynecology Labor and Delivery Triage Note CHIEF COMPLAINT: Fall HISTORY OF PRESENT ILLNESS: The patient is a 19 y.o. 30w3d. OB History 3 Para 1 Term 1 0 AB 1 Living 0 SAB 1 TAB 0 Ectopic 0 Molar Multiple 0 Live Births Patient presents with a chief complaint as above. Patient reports sitting in recliner and someone leaned over to grab something, flipped the recliner over, and fell on top of her landing on her legs.This occurred around 1700 07/20. She endorses some mild back pain, but is not currently interested in taking any medications for pain. denies DFM/VB/LOF/CTX Estimated Due Date: Estimated Date of Delivery: 09/25/20 PAST MEDICAL HISTORY: Past Medical History: Diagnosis Date Anxiety IBS (irritable bowel syndrome) PAST SURGICAL HISTORY: Past Surgical History: Procedure Laterality Date CHOLECYSTECTOMY SOCIAL HISTORY: reports that she has been smoking cigarettes. She started smoking about 9 years ago. She has been smoking about 0.25 packs per day. She has never used smokeless tobacco. She reports that she does notdrink alcohol or use drugs. MEDICATIONS: Prior to Admission medications Medication Sig Start Date End Date Taking? Authorizing Provider multivitamin (ANIMAL SHAPES) with C & FA CHEW chewable tablet Take 1 tablet by mouth 2 times daily 03/10/20 Yvonne Levineemilianoyoon, ENTRY LEVEL PROJECT ENGINEER - CNM CARE: Complicated by: Obesity, Hx Vaccuum extraction REVIEW OF SYSTEMS: Pertinent items are noted in HPI. APPEARANCE: Pain: no PHYSICAL EXAM: Vital Signs: VS wnl-reviewed/Respirations normal effort Vitals: 07/20/20 2132 07/20/20 2305 BP: 115/60 115/64 Pulse: 99 89 Resp: 16 16 Temp: 97.5 F (36.4 C) 97.9 F (36.6 C) TempSrc: Oral Oral SpO2: 99% Weight: 195 lb (88.5 kg) Height: 5' (1.524 m) Abdomen: soft, NT, ND, no rebound/guarding Uterus: gravid/non-tender LE Edema: trace heart rate: Category I Contraction frequency: none Membranes: Intact RESULTS: NST: Reactive GENERAL LABS: No results found for this or any previous visit (from the past 24 hour(s)). TRIAGE COURSE: Patient presented to triage after being transferred from the [place] ED. Please see HPI for events of injury. Monitoring has been Cat I. Patient denies VB, abdominal pain, LOF, DFM. Due to hx and physical exam patient does not appear to have placental abruption or injury to fetus. Patient will continue on monitor for an hour then be discharged home with plan to follow up at scheduled appointment on 07/24. Cat I on monitor for 1 hour. No contractions identified. RH+, will not require rhogam. Patient asymptomatic and given reassurance with return precautions. IMPRESSION: Maternal Injury DISCUSSED WITH [facility] PROVIDER: Dr. Elizabeth DISPOSITION: Discharge to Home documented in this encounter* Ashley Null MS, JOHNNIE, URBANO - 09/08/2020 12:03 PM EST Nutrition Note PPD # 1 s/p . Currently on General diet and tolerating well. RD sign off to DT. Contact: pager [phone] * Amee Parker MD - 09/08/2020 6:17 AM EST I reviewed and agree with the care provided by the resident during or immediately following the visit including the patient's medical history, the resident's findings in the physical exam, patient's diagnosis and treatment plan. Doing very well, desires d/c home today. DAY # 1 Lauren Chowdary, 19 y.o. This patient was seen & examined today. Her was complicated by: Patient Active Problem List Diagnosis Abnormal uterine bleeding (AUB) Obesity affecting , antepartum History of delivery by vacuum extraction, currently Abnormal glucose affecting High-risk , young multigravida in first trimester Abdominal pain during in second trimester 30 weeks gestation of Antepartum hemorrhage PROM (premature rupture of membranes) (spontaneous vaginal delivery) Today she is doing well without any chief complaint. Her lochia is light. She denies headache and blurred vision. She is ambulating well. She is tolerating solids. Vital Signs: Vitals: 09/07/20 0641 09/07/20 0709 09/07/20 1901 09/07/20 1946 BP: 110/69 118/68 129/65 Pulse: 100 82 65 Resp: 18 16 18 Temp: 98.1 F (36.7 C) 98 F (36.7 C) 98.6 F (37 C) TempSrc: Oral Temporal Temporal SpO2: 96% 96% Weight: 198 lb (89.8 kg) 198 lb (89.8 kg) Height: 5' (1.524 m) 5' (1.524 m) Physical Exam: General: no apparent distress, alert and cooperative Affect: appropriate Lungs: No increased work of breathing, good air exchange Abdomen: abdomen soft, non-distended, non-tender Fundus: non-tender, normal size, firm, below umbilicus Extremities: no calf tenderness, non edematous Lab: Lab Results Component Value Date HGB 11.4 (L) 09/07/2020 Lab Results Component Value Date HCT 32.8 (L) 09/07/2020 O POS Antibody Screen: Antibody Screen Date Value Ref Range Status 09/07/2020 NEG NA Final Lab Results Component Value Date RUBELLAIGG immune 11/02/2016 LABOR DELIVERY ??? SCD's ONLY (labor through ambulation) SCD's PLUS Prophylactic Anticoagulation until discharge SCD's PLUS Prophylactic Anticoagulation for 6 weeks SCD's PLUS Therapeutic Anticoagulation for 6 weeks Vaginal Delivery [] BMI ? 40 kg/m2 Delivery All patients Vaginal Delivery [] BMI ? 40 kg/m2 AND [] Antepartum hospitalization ? 72 hours within the past month Delivery 1 Major Risk Factor: [] BMI ? 35 kg/m2 [] Low Risk Thrombophilia [] PPH+RBCs, IR, or operation [] Infection+Antibiotics [] Antepartum hospitalization ? 72 hours within the past month [] PMH: Sickle Cell, SLE, Cardiac Dz, Active IBD, Active Cancer, Nephrotic Syndrome OR 2 Minor Risk Factors: [] Multiple gestation [] Age > 40 [] PPH ? 1,000cc [] (+)FMH of VTE [] Smoker [] Preeclampsia [] BMI ? 40 kg/m2 AND [] Low Risk Thrombophilia OR ANY OF THE FOLLOWING: [] High Risk Thrombophilia without prior VTE [] Low Risk Thrombophilia with (+)FMH of VTE [] Any single prior VTE ANY OF THE FOLLOWING: [] Already on LMWH/UFH [] Multiple prior VTE [] High Risk Thrombophilia with prior VTE Low Risk Thrombophilia: FVL (heterozygous), Prothrombin (heterozygous), Protein C, Protein S High Risk Thrombophilia: FVL (homozygous), Prothrombin (homozygous), FVL+Prothrombin (heterozygous), Antithrombin III, APLS Assessment/Plan: Lauren Chowdary is PPD # 1 s/p 1. Care - Doing well, VSS - Female - Breast feeding - Contraception: Per private attending - Encourage ambulation - VTE Prophylaxis: Not Indicated 2. Obesity - BMI 38 3. Disposition: Continue current care. Based on my clinical assessment, this patient is safe for self discharge (does not need transport by wheelchair) if she so chooses. Provider's Name: MD Radha Alfonso MD 09/08/2020, 6:17 AM * Kiara Drake MD - 09/07/2020 7:37 AM EST Labor Progress Note Date: 09/07/2020 Time: 7:37 AM Subjective: Lauren Chowdary is a 19 y.o. female at 37w3d admitted for AOL-PROM - GBS negative - Desires epidural - Declines LARC Cx: -3 FHP: defer FHT: cat I [place]: none A/P: 1. AOL-PROM. Patient comfortable. Plan to start pitocin for augmentation. BP's normotensive. CCM. Cx: defer FHP: defer FHT: cat I [place]: q 2-3 min A/P: 1. AOL-PROM. Pit at 8cc/hr, continue to titrate per protocol. BP's normotensive. CCM. Cx: Unchanged FHP: defer FHT: cat I [place]: q 2 min A/P: 1. AOL-PROM. Pit at 14cc/hr, continue to titrate per protocol. Patient overall comfortable. BP's normotensive. CCM. Cx: defer FHT: Cat I [place]: q2-3m A/P: 1. AOL-PROM. Pit at 16cc/hr, have had difficulty titrating due to frequency of contractions. If unchanged at next exam, will place IUPC. Patient now s/p epidural. VSS and wnl. Cx: 10/100/0 FHP: defer FHT: cat II [place]: q 1-3 min A/P: 1. AOL-PROM. Pit at 18cc/hr, continue to titrate per protocol. FHT cat II for intermittent variable decels. Overall reassuring with moderate variability and accels. Dr. Shaw updated at this time but in a delivery at [facility]. Will try to hold off but patient very uncomfortable and wanting to push. CCM. Patient delivered. See L&D delivery summary. documented in this encounter Hospital Course * Amee Parker MD - 09/08/2020 12:05 PM EST Department of Obstetrics and Gynecology Delivery Discharge Summary Admission on 09/07/2020 6:16 AM Reason for admission: ruptured membranes Intrapartum Course: uncomplicated 37w3d PC-01 Indications for Delivery: Was patient delivered between 37w0d - 98w9riknet? YES: This patient delivered between 35f1g-62k7i for the following acceptable indication(s) for delivery: (keily all that apply) OBSTETRIC INDICATIONS: Full term PROM: onset of labor within 24 hours ofrupture, INDICATIONS: N/A: indications not applicable to this patient. See obstetrical or maternal, MATERNAL INDICATIONS: N/A: maternal indications not applicable for this patient. See or obstetrical Surgical Operations & Procedures: Date of delivery: 09/07/2020 Delivery Type: spontaneous vaginal Anesthesia: Epidural anesthesia Laceration(s): 2nd degree Delivery Complications: none Pertinent Findings & Procedures: Information for the patient's : Aida Chowdary [[id number]] female Weight: 6 lb 13.4 oz (3.1 kg) Apgars: Information for the patient's : Aida Chowdary [[id number]] One Minute : 8 Five Minute : 9 Course: Uncomplicated : Female infant Blood Type/Rh: O POS Antibody Screen: Antibody Screen Date Value Ref Range Status 09/07/2020 NEG NA Final Rubella: Lab Results Component Value Date RUBELLAIGG immune 11/02/2016 Contraception: to be discussed at appointment : yes VTE Prophylaxis: Not Indicated Meds: Lauren Chowdary Home Medication Instructions ELDA:[id number] Printed on:09/08/20 1206 Medication Information ibuprofen (ADVIL;MOTRIN) 600 MG tablet Take 1 tablet by mouth every 6 hours multivitamin (ANIMAL SHAPES) with C & FA CHEW chewable tablet Take 1 tablet by mouth 2 times daily Activity: Activity as tolerated Diet: Regular diet Follow up Care: Follow up appointment in 6 weeks with [facility] Condition on discharge: Stable Discharge to: Home Discharge date: 09/08/2020 Discharge Dx: spontaneous vaginal delivery Instructions to Patient:: Pelvic Rest (no intercourse, tampons, douching, etc) x 6 weeks Specific discharge instruction printed PROM (premature rupture of membranes) [O42.90] Patient Active Problem List Diagnosis (none) - all problems resolved or deleted Comments: Home care, Follow-up care and control were reviewed. Signs and symptoms of mastitis and Post Depression were reviewed. The patient is to notify her physician if any of these occur. Amee Parker MD on 09/08/2020 at 12:06 PM documented in this encounter Chief Complaint Sore throat Additional Source Comments INFORMATION SOURCE (unrecogn ized section and content) DATE CREATED AUTHOR AUTHOR'S ORGANIZ ATION 01/03/2018 [facility] DATE CREATED AUTHOR AUTHOR'S ORGANIZ ATION 03/03/2019 [facility] DATE CREATED AUTHOR AUTHOR'S ORGANIZ ATION 02/02/2020 [facility] DATE CREATED AUTHOR AUTHOR'S ORGANIZ ATION 01/30/2022 [facility] DATE CREATED AUTHOR AUTHOR'S ORGANIZ ATION 03/04/2022 [facility] DATE CREATED AUTHOR AUTHOR'S ORGANIZ ATION 04/13/2022 [facility] DATE CREATED AUTHOR AUTHOR'S ORGANIZ ATION 10/22/2022 [facility] DATE CREATED AUTHOR AUTHOR'S ORGANIZ ATION 10/22/2022 [facility] DATE CREATED AUTHOR AUTHOR'S ORGANIZ ATION 10/30/2022 [facility] DATE CREATED AUTHOR AUTHOR'S ORGANIZ ATION 12/17/2022 [facility] DATE CREATED AUTHOR AUTHOR'S ORGANIZ ATION 04/26/2023 [facility] DATE CREATED AUTHOR AUTHOR'S ORGANIZ ATION 07/03/2023 [facility] Reason for Visit (unrecogniz ed section and content) Reason Comments Abdominal Pain 6 weeks , ki cked in abd. Left sided abd pain Reason Comments Abdominal Pain Reason Comments Fall 30 weeks preg-back-a bd pain Reason Comments Abdominal Cramping Vaginal Bleeding Reason Comments Vaginal Discharge STD check Reason Comments Rupture of Membranes Reason Comments Exposure to STD Reason Comments Post-op Problem D&C Reason Comments Tick Removal Pt concerned for tic k to the back of her RIGHT knee. Pt states felt the pain tonight. Pt is 19 weeks , no issues with , ARYA 04/09/22, Reason Comments Other Reason Comments Injections celestone injection Reason Comments Injections celestone #2 injecti on Reason Comments Abdominal Pain r/o PTL Reason Comments Abdominal Pain Started at 1400 Reason Comments Contractions Reason Comments Sore Throat ST, nausea and stoma ch hurts x 2 days Reason Comments New Patient Reason Comments Follow-up 6 month follow up/ w ork physical Reason Comments Follow-up Reason Comments Amenorrhea Lmp 12/22/22 exact 6 w2d doesn't want anything for nausea at this time. Needs prenatals Reason Comments Illness Sinus pressure, drai nage, headache, sore throat since yesterday. About 14 weeks so wanted to get ahead of it. Reason Comments Foot Injury Stepped on something and went into left foot yesterday. Specialty Diagnoses / Procedures Referred By Contac t Referred To Contact Lab Diagnoses Screening, , for malformation by ultrasound Abnormal ultrasound Procedures [facility] Emerson Jacinto MD [address] [facility] [address] [place] [address] Referral ID Status Reason Start Date Expiration Date Visits Re quested Visits Authorized [id number] Open 06/27/2023 06/26/2024 1 1 Ordered Prescriptions (unrec ognized section and content) Prescription Sig Dispensed Refills Start Date End Da te nitrofurantoin, macrocrystal-monohydrate , (MACROBID) 100 MG capsule Take 1 capsule by mouth 2 times daily for 10 days 20 capsule 0 04/25/2021 05/05/2021 Prescription Sig Dispensed Refills Start Date End Da te progesterone (PROMETRIUM) 200 MG CAPS capsule Take 1 capsule by mouth nightly 20 capsule 5 12/15/2021 fluconazole (DIFLUCAN) 150 MG tablet Take 1 tablet by mouth once for 1 dose 1 tablet 0 12/15/2021 12/15/2021 Prescription Sig Dispensed Refills Start Date End Da te Progesterone [address] 200 mg vaginally daily 30 suppository 6 12/18/2021 Prescription Sig Dispensed Refills Start Date End Da te ibuprofen (ADVIL;MOTRIN) 600 MG tablet Take 1 tablet by mouth every 8 hours as needed for Pain 50 tablet 1 03/29/2022 Scheduled Active and Recently Administ ered Medications (unrecognized section and content) Linked Groups Order Group 1: Saline lock IV (COMPLETED) Routine, CONTINUOUS, Starting on 04/25/21 at 2030, Until Specified And sodium chloride flush 0.9 % injection 3 mLJump to med 3 mL, IntraVENous, EVERY 8 HOURS, First dose on 04/25/21 at 2019
Flush line with 3-5 mL
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 173 (Due) vitamin 27-1 MG tablet 1 tablet 1 tablet, Oral, DAILY, First dose on Tue12/15/21 at 1730, Until Discontinued 1730 (Due) sodium chloride flush 0.9 % injection 10 mL 10 mL, IntraVENous, EVERY 12 HOURS SCHEDULED (2 times per day), First dose on Tue12/15/21 at 2100, Until Discontinued 2100 (Due) Continuous Medication Order 12/13/2021 12/14/2021 12/15/2021 lactated ringers infusion IntraVENous, at 125 mL/hr, CONTINUOUS, Starting on Tue12/15/21 at 1730 1730 (Due) PRN Medication Order 12/13/2021 12/14/2021 12/15/2021 0.9 % sodium chloride infusion IntraVENous, at 5-250 mL/hr, PRN, if patient receiving piggyback infusions and maintenance fluids are not ordered OR KVO fluids to protect IV site / prevent frequent line interruptions/ long duration, Starting on Tue12/15/21 at 1657, For piggyback infusion, administer at same rate as piggyback for a total of 25 mL. Enter 25 mL into dose field and piggyback rate into rate field of order. If piggyback is infusing at a rate less than 100 mL/hr, enter 25 mL into dose field and 100 mL/hr into rate field of order. For KVO fluids, enter rate of 20 mL/hr or less into rate field of order. acetaminophen (TYLENOL) suppository 650 mg(Linked Group 1) 650 mg, Rectal, EVERY 4 HOURS PRN, Starting on Tue12/15/21 at 1657, Until Discontinued, Pain Mild (1-3), Fever, Fever >100.5 (38 C), Use suppository if NPO or unable to tolerate oral medications. acetaminophen (TYLENOL) tablet 650 mg(Linked Group 1) 650 mg, Oral, EVERY 4 HOURS PRN, Starting on Tue12/15/21 at 1657, Until Discontinued, Pain Mild (1-3), Fever, Fever >100.5 (38 C), Do not use if NPO. albuterol sulfate HFA (PROVENTIL;VENTOLIN;PROAIR) 108 (90 Base) MCG/ACT inhaler 2 puff 2 puff, Inhalation, EVERY 4 HOURS PRN, Starting on Tue12/15/21 at 1657, Until Discontinued, Wheezing, Shortness of Breath, cough, Initiate RT Bronchodilator Protocol: No docusate sodium (COLACE) capsule 100 mg 100 mg, Oral, 2 TIMES DAILY PRN, Starting on Tue12/15/21 at 1657, Until Discontinued, Constipation, Do not crush or break. ondansetron (ZOFRAN) injection 4 mg(Linked Group 2) 4 mg, IntraVENous, EVERY 6 HOURS PRN, Starting on Tue12/15/21 at 1657, Until Discontinued, Nausea, Vomiting, Administer if oral route cannot be used. ondansetron (ZOFRAN-ODT) disintegrating tablet 4 mg(Linked Group 2) 4 mg, Oral, EVERY 8 HOURS PRN, Starting on Tue12/15/21 at 1657, Until Discontinued, Nausea, Vomiting sodium chloride flush 0.9 % injection 10 mL 10 mL, IntraVENous, PRN, Starting on Tue12/15/21 at 1656, Until Discontinued, Line Care, After every IV line use Linked Groups Order Group 1: acetaminophen (TYLENOL) tablet 650 mgJump to med 650 mg, Oral, EVERY 4 HOURS PRN, Starting on Tue12/15/21 at 1657, Until Discontinued, Pain Mild (1-3), Fever, Fever >100.5 (38 C)
Do not use if NPO.
Or acetaminophen (TYLENOL) suppository 650 mgJump to med 650 mg, Rectal, EVERY 4 HOURS PRN, Starting on Tue12/15/21 at 1657, Until Discontinued, Pain Mild (1-3), Fever, Fever >100.5 (38 C)
Use suppository if NPO or unable to tolerate oral medications.
Group 2: ondansetron (ZOFRAN-ODT) disintegrating tablet 4 mgJump to med 4 mg, Oral, EVERY 8 HOURS PRN, Starting on Tue12/15/21 at 1657, Until Discontinued, Nausea, Vomiting Or ondansetron (ZOFRAN) injection 4 mgJump to med 4 mg, IntraVENous, EVERY 6 HOURS PRN, Starting on Tue12/15/21 at 1657, Until Discontinued, Nausea, Vomiting
Administer if oral route cannot be used.
Scheduled Medication Order 12/16/2021 12/17/2021 12/18/2021 betamethasone acetate-betamethasone sodium phosphate (CELESTONE) injection 12 mg (COMPLETED) 12 mg, IntraMUSCular, ONCE, 1 dose, On Tue12/18/21 at 1130, For labor 1124 (Given - Provid er: Dyana Syed RN) Scheduled Medication Order 12/17/2021 12/18/2021 12/19/2021 betamethasone acetate-betamethasone sodium phosphate (CELESTONE) injection 12 mg (COMPLETED) 12 mg, IntraMUSCular, ONCE, 1 dose, On Tue12/19/21 at 1315, For labor >> 2nd Dose <<, 2nd Dose 1314 (Given - Provid er: Zaina Chilel RN) Scheduled Medication Order 01/26/2022 01/27/2022 01/28/2022 lactated ringers bolus 300 mL, IntraVENous, at 300 mL/hr, Administer over 1 Hours, ONCE, On [place] 01/28/22 at 1945, For 1 dose 194 (Due) Continuous Medication Order 01/26/2022 01/27/2022 01/28/2022 lactated ringers infusion IntraVENous, at 100 mL/hr, CONTINUOUS, Starting on Wendy 01/28/22 at 1945 1945 (Due) lactated ringers infusion IntraVENous, at 125 mL/hr, CONTINUOUS, Starting on Wendy 01/28/22 at 1945 1945 (Due) Scheduled Medication Order 03/27/2022 03/28/2022 03/29/2022 ibuprofen (ADVIL;MOTRIN) tablet 600 mg (COMPLETED) 600 mg, Oral, ONCE, 1 dose, On 03/28/22 at 0900, IMMEDIATE . Do not crush or chew. DO NOT GIVE IBUPROFEN PRIOR TO DELIVERY., Post Delivery 193 (Given - Provider: Mary Castro RN) lactated ringers bolus (COMPLETED) 1,000 mL, IntraVENous, at 1,000 mL/hr, Administer over 1 Hours, ONCE, On [place] 03/28/22 at 0645, For 1 dose 0701 (New Bag - Provider: Maribell Finnegan RN)09 (Stopped - Provider: Dyana Syed RN) sodium chloride flush 0.9 % injection 5-40 mL 5-40 mL, IntraVENous, EVERY 12 HOURS SCHEDULED (2 times per day), First dose on 03/28/22 at 2100, Until Discontinued, For Line Patency: Peripheral IV = 5 mL; Midline or Central Line = 10 mL/lumen. If following IV push medication, administer flush at same rate as the IV push. Flush volume is determined by type of infusion therapy being given. For non-viscous solutions use: Peripheral IV = 5 mL Midline or Central Line = 10 mL/lumen For viscous solutions (i.e. blood components, parenteral nutrition, contrast media, or after obtaining blood sample) use: Peripheral IV = 10 mL Midline or Central Line = 20 mL/lumen, 2131 (Not Given - Provider: Mary Castro RN - Reason: IV Fluid Infusing) 727 (Not Given - Provider: Zaina Chilel RN - Reason: Loss of IV access)2100 (Due) Continuous Medication Order 03/27/2022 03/28/2022 03/29/2022 lactated ringers infusion IntraVENous, at 125 mL/hr, CONTINUOUS, Starting on 03/28/22 at 0900, Labor and Delivery 0801 (New Bag - Provider: Dyana Syed, TEJINDER)175 (Stopped - Provider: Lynda Elizabeth RN) oxytocin (PITOCIN) 10 unit bolus from the bag 500 mL (30 Units), IntraVENous, TITRATED, Starting on 03/28/22 at 1945, Until Discontinued, For Immediate Post Use Only. Give after delivery of placenta. Bag 1 of 2: Bolus for bag to infuse at 999 ml/hour for 15 minutes (15 units in 250cc). After initial bolus then decrease rate to 250cc/hr for 1 hour. Then discontinue., Multiphase Phase of Care 1800 (New Bag - Provider: Lynda Elizabeth RN)1940 (Stopped - Provider: Mary Castro RN) oxytocin (PITOCIN) 30 units in 500 mL infusion (CANCELED) 1-20 anju-units/min (1-20 mL/hr), IntraVENous, CONTINUOUS, Starting on 03/28/22 at 0900, Until Tue03/28/22 at 1929, Begin infusion at 1 anju-unit/min (1 anju-unit per min = 1 mL per hour) and increase by 1 anju-unit/min after 30 minutes. Then increase by 2 anju-units/min as needed, no faster than every 30 minutes, until labor is achieved. Labor is defined as contractions every 2-3 minutes with cervical changes or Winslow units (MVU) greater than 200 in a 10-minute window. Maximum infusion rate: 20 anju-unit/min. Contact provider if maximum rate does not achieve desired response. Provider may order alternative titration goal or other clinically appropriate goal of titration rate (s). Smaller titration increments of 1 anju-units/min, not faster than every 30 minutes, may be used when approaching therapeutic goal. 1012 (New Bag - Provider: Lynda Elizabeth RN)192 (Stopped - Provider: Lynda Elizabeth RN) ropivacaine 0.2% in sodium chloride 0.9% (OB) epidural syringe(Linked Group 1) Epidural, CONTINUOUS, Starting on 03/28/22 at 1445, PCEA patient controlled syringe Pt. Controlled Dose: 5 ml Lockout Interval: 10 min One Hour Limit: 15 mL, Labor and Delivery 1445 (Due) ropivacaine 0.2% in sodium chloride 0.9% 200mL (OB) epidural(Linked Group 1) 10 mL/hr, Epidural, CONTINUOUS, Starting on 03/28/22 at 1445, Until Discontinued, PCEA Basal Infusion, Labor and Delivery 1445 (Due) PRN Medication Order 03/27/2022 03/28/2022 03/29/2022 0.9 % sodium chloride infusion 25 mL, IntraVENous, at 100 mL/hr, PRN, If patient receiving piggyback infusions without ordered maintenance IV fluids or with frequent/long duration piggyback infusions, Starting on 03/28/22 at 0830, Administer at the same rate as the piggyback being infused., Labor and Delivery 0.9 % sodium chloride infusion IntraVENous, at 5-250 mL/hr, PRN, if patient receiving piggyback infusions and maintenance fluids are not ordered OR KVO fluids to protect IV site / prevent frequent line interruptions/ long duration, Starting on 03/28/22 at 1923, For piggyback infusion, administer at same rate as piggyback for a total of 25 mL. Enter 25 mL into dose field and piggyback rate into rate field of order. If piggyback is infusing at a rate less than 100 mL/hr, enter 25 mL into dose field and 100 mL/hr into rate field of order. For KVO fluids, enter rate of 20 mL/hr or less into rate field of order., acetaminophen (TYLENOL) tablet 650 mg (CANCELED) 650 mg, Oral, EVERY 4 HOURS PRN, Starting on 03/28/22 at 0830, Until 03/28/22 at 1929, Pain Mild (1-3), Fever, Fever >100.5 F (38 C), Maximum dose of acetaminophen is 4000 mg from all sources in 24 hours., Labor and Delivery 1011 (Given - Provider: Lynda Elizabeth RN) acetaminophen (TYLENOL) tablet 650 mg 650 mg, Oral, EVERY 6 HOURS PRN, Starting on 03/28/22 at 1923, Until Discontinued, Other, Pain (1-10), Give in addition to any other pain medication ordered at same time for any pain indication. Maximum dose of acetaminophen is 4000mg from all sources in 24 hours. Alternate ibuprofen and acetaminophen every 3 hours., 1939 (Given - Provider: Mary Castro, TEJINDER) 0547 (Given - Provider: Mary Castro, RN)1223 (Given - Provider: Zaina Chilel RN) benzocaine-benzethonium (DERMOPLAST) 20-0.2 % spray Topical, PRN, Pain, Starting on 03/28/22 at 1923, Apply to perineal area. Patient is capable and may self administer at bedside., calcium carbonate (TUMS) chewable tablet 500 mg 500 mg, Oral, 4 TIMES DAILY PRN, Starting on 03/28/22 at 1409, Until Discontinued, Heartburn 1513 (Given - Provider: Lynda Elizabeth RN) 1000 (Given - Provider: Shey Bashir RN - Comment: Given by Fabiola) docusate sodium (COLACE) capsule 100 mg 100 mg, Oral, 2 TIMES DAILY PRN, Starting on 03/28/22 at 1923, Until Discontinued, Constipation, Do not crush or break., 1009 (Given - Provid er: Shey Bashir RN - Comment: Given by Fabiola) ibuprofen (ADVIL;MOTRIN) tablet 600 mg 600 mg, Oral, EVERY 6 HOURS PRN, Starting on 03/28/22 at 1923, Until Discontinued, Pain Mild (1-3), If patient has been ordered Toradol, it may be discontinued prior to the 4th dose if pain is well controlled and patient is tolerating PO. Begin ibuprofen 8 hours after the final dose of Toradol. Alternate ibuprofen and acetaminophen every 3 hours., 0547 (Given - Provid er: Mary Castro RN)1223 (Given - Provider: Zaina Chilel RN) lactated ringers bolus(Linked Group 2) 500 mL, IntraVENous, at 2,000 mL/hr, Administer over 15 Minutes, PRN, Intrauterine resuscitation for hypertonus, tachysystole, non-reassuring status, or as prescribed by the physician. Every hour as needed, nurse may repeat bolus., Starting on 03/28/22 at 0830, Labor and Delivery lactated ringers bolus(Linked Group 2) 1,000 mL, IntraVENous, at 1,935.5 mL/hr, Administer over 31 Minutes, PRN, Give prior to epidural placement. May be repeated if a second epidural/spinal procedure is performed., Starting on 03/28/22 at 0830, Labor and Delivery lansinoh lanolin ointment Topical, PRN, Dry Skin, nipple discomfort, Starting on 03/28/22 at 1923, naloxone 0.4 mg in 10 mL sodium chloride syringe IntraVENous, PRN, Opioid Reversal, PRN if respiratory rate is less than 6 breaths per minute and patient is difficult to arouse., Starting on 03/28/22 at 1419, Notify provider STAT. Mix 9 mL of sodium chloride 0.9% with 0.4 mg (1 mL) of naloxone (NARCAN) in 10 mL syringe. (Note: dilution is 0.04 mg/mL) Give 0.08 mg (2 mL of special dilution), slow IV push, repeat up to 0.4 mg (10 mL) or until patient is responsive to physical stimulation and respiratory rate is equal to or greater than 6 breaths/min. Continue to observe, if no response within 3 minutes of administration of 0.4 mg (10 mL) total, repeat dose (0.4 mg as administered previously). Concentration 0.04 mg/mL, Labor and Delivery ondansetron (ZOFRAN) injection 4 mg 4 mg, IntraVENous, EVERY 6 HOURS PRN, Starting on 03/28/22 at 1923, Until Discontinued, Nausea, oxytocin (PITOCIN) 30 units in 500 mL infusion 125 anju-units/min (125 mL/hr), IntraVENous, CONTINUOUS PRN, Starting on Tue03/28/22 at 1923, Until Tue03/28/22 at 2322, Bleeding, For Immediate Post Use Only. Give after delivery of placenta and initial 30 unit bolus. Bag 2 of 2: 125cc/hr (125 mu/min) for an additional infusion of 500cc (30 units)., Multiphase Phase of Care 1939 (New Bag - Provider: Mary Castro RN) simethicone (MYLICON) chewable tablet 80 mg 80 mg, Oral, EVERY 6 HOURS PRN, Starting on 03/28/22 at 1923, Until Discontinued, Cramping, Flatulence, sodium chloride flush 0.9 % injection 5-40 mL 5-40 mL, IntraVENous, PRN, Starting on 03/28/22 at 1923, Until Discontinued, Line Care, After every IV line use, For Line Patency: Peripheral IV = 5 mL; Midline or Central Line = 10 mL/lumen. If following IV push medication, administer flush at same rate as the IV push. Flush volume is determined by type of infusion therapy being given. For non-viscous solutions use: Peripheral IV = 5 mL Midline or Central Line = 10 mL/lumen For viscous solutions (i.e. blood components, parenteral nutrition, contrast media, or after obtaining blood sample) use: Peripheral IV = 10 mL Midline or Central Line = 20 mL/lumen, witch gladis-glycerin (TUCKS) pad Topical, PRN, Hemorrhoids, For perineal pain or discomfort, Starting on Tue03/28/22 at 1923, Apply to perineal area. Patient is capable and may self administer at bedside., No Frequency Medication Order 03/27/2022 03/28/2022 03/29/2022 lidocaine PF 1 % injection (COMPLETED) 1 dose, Starting on Tue03/28/22 at 1802, Until Tue03/29/22 at 0614, Dyana Syed: cabinet override, Dyana Syed: cabinet override 1842 (Given - Provider: Thor Syed, RN) mineral oil liquid (COMPLETED) 1 dose, Starting on Tue03/28/22 at 1740, Until Tue03/29/22 at 0544, Dyana Syed: cabinet override, Dyana Syed: cabinet override 1842 (Given - Provider: Thor Syed, RN) Linked Groups Order Group 1: ropivacaine 0.2% in sodium chloride 0.9% 200mL (OB) epiduralJump to med 10 mL/hr, Epidural, CONTINUOUS, Starting on 03/28/22 at 1445, Until Discontinued
PCEA Basal Infusion
Labor and Delivery And ropivacaine 0.2% in sodium chloride 0.9% (OB) epidural syringeJump to med Epidural, CONTINUOUS, Starting on Tue03/28/22 at 1445
PCEA patient controlled syringe Pt. Controlled Dose: 5 ml Lockout Interval: 10 min One Hour Limit: 15 mL
Labor and Delivery Group 2: lactated ringers bolusJump to med 500 mL, IntraVENous, at 2,000 mL/hr, Administer over 15 Minutes, PRN, Intrauterine resuscitation for hypertonus, tachysystole, non-reassuring status, or as prescribed by the physician. Every hour as needed, nurse may repeat bolus., Starting on Tue03/28/22 at 0830, Labor and Delivery Or lactated ringers bolusJump to med 1,000 mL, IntraVENous, at 1,935.5 mL/hr, Administer over 31 Minutes, PRN, Give prior to epidural placement. May be repeated if a second epidural/spinal procedure is performed., Starting on 03/28/22 at 0830, Labor and Delivery Source Comments (unrecognize d section and content) In the event this informatio n is protected by the Federal Confidentiality of Alcohol and Drug Abuse Patient Records regulations: The Federal rules restrict any use of the information to criminally investigate or prosecute any alcohol or drug abuse patient.[facility] Care Teams (unrecognized sec tion and content) Finance Administrator Relationship Specialty Start Date End Date Yumiko Mendez MD [address] [place] [address] PCP - General Internal Medicine 09/07/22 Finance Administrator Relationship Specialty Start Date End Date Yumiko Mendez MD [address] [place] [address] PCP - General Internal Medicine 09/07/22 Estella Herzog MD [address] [address] Consulting Physician Hematology and Oncology 10/15/22 Finance Administrator Relationship Specialty Start Date End Date Yumiko Mendez MD [address] [place] [address] PCP - General Internal Medicine 09/07/22 Estella Herzog MD [address] [facility] [address] [place], [place] [id number] Consulting Physician Hematology and Oncology 10/15/22 Finance Administrator Relationship Specialty Start Date End Date Yumiko Mendez MD [address] [place] [address] [address] [place] [address] PCP - General Internal Medicine 09/07/22 Estella Herzog MD [address] [facility] [address] [place] [address] Consulting Physician Hematology and Oncology 10/15/22 Finance Administrator Relationship Specialty Start Date End Date Yumiko Mendez MD [address] [place] [address] [address] [place] [address] PCP - General Internal Medicine 09/07/22 Estella Herzog MD [address] [facility] [address] [place] [address] Consulting Physician Hematology and Oncology 10/15/22 Finance Administrator Relationship Specialty Start Date End Date Yumiko Mendez MD [address] [place] [address] [address] [place] [address] PCP - General Internal Medicine 09/07/22 Estella Herzog MD [address] [facility] [address] [place] [address] Consulting Physician Hematology and Oncology 10/15/22 Finance Administrator Relationship Specialty Start Date End Date Yumiko Mendez MD [address] [place] [address] [address] [place] [address] PCP - General Internal Medicine 09/07/22 Estella Herzog MD [address] [facility] [address] [place] [address] Consulting Physician Hematology and Oncology 10/15/22 Finance Administrator Relationship Specialty Start Date End Date Emerson Jacinto MD [address] [facility] [address] [place] [address] PCP - General Maternal Medicine 06/27/23 Dennise Vides, ENTRY LEVEL PROJECT ENGINEER-SESSIONS CLERK [address] [place] [address] Obstetrics Gynecology 04/14/23 FOR RECORDS PERTAINING TO PATIENTS WHO ARE OR HAVE BEEN ENROLLED IN A CHEMICAL DEPENDENCY/SUBSTANCEABUSE PROGRAM, SOME INFORMATION MAY BE OMITTED. This clinical summary was aggregated from multiple sources. Caution should be exercised in using it in the provision of clinical care. This summary normalizes information from multiple sources, and as a consequence, information in this document may materially change the coding, format and clinical context of patient data. In addition, data may be omitted in some cases. CLINICAL DECISIONS SHOULD BE BASED ON THE PRIMARY CLINICAL RECORDS. [facility]. provides no warranty or guarantee of the accuracy or completeness of information in this document.
== END | disposition home or self-care (01) ==
LOC: LABSPEC 11:16
PROVIDERS: Referring Provider Nurse Practitioner Women's Health; Visit Provider Nurse Practitioner Women's Health
DX: N76.0 Acute vaginitis (principal)
CPT/HCPCS: 87070; 87205

== ENCOUNTER 2023-08-01 18:15 | Outpatient (CLI) | payer MEDICAID, SELFPAY ==
--- OUTSIDE RECORDS SUMMARY | 2023-08-01 18:26 | XMS RPT_ITS | CCD ---
Author Name Unknown Address [address] [place] [address] Organization [facility] Care Team Providers Care [employer] Clerk Name Role Phone CHARY AVILES Unavailable Unavailable SHEELA, AMEE Unavailable Unavailable SHEELA AMEE Unavailable Unavailable SMELCER, MYLA Unavailable Unavailable MARIA DE JESUS BRANHAM Admitting Unavailable MARIA DE JESUS BRANHAM Attending Unavailable AA UNKNOWN PCP, UNKNOWN Primary Care Unavaila ble Kem Malik Primary Care Provider [phone] Kem Malik Primary Care Provider Kem Malik DO Primary Care Provider Unavailable Primary Care Provider Unavailabl e SILVERIO CARTER Attending Unavailable HOMER RICO Consulting Unavailable SILVERIO CARTER Admitting Unavailable DICK MARTINEZ Admitting Unavailable DICK MARTINEZ Attending Unavailable PROVIDER, UNKNOWN Referring Unavailable MARIBELL SAN Attending Unavailable No, PCP Primary Care Unavailable Rosemarie Mcmullne Attending Unavailable No, PCP Primary Care Unavailable [...] PROVIDER, UNKNOWN Referring Unavailable Abdulaziz ARMENTA MD, Gurjit Andrade Primary Care Provider Audu Yumiko Wayne Primary Care Provider Estella Herzog MD Unavailable Chucho Coburn Unavailable Unavailable Unavailable Dowd , Mr. Dane Borja Referring Unava naeem Dowd Jr, Mr. Vela Jonh Attending Unava niurkaable Almas, Dr. Chucho Roberts Primary Care Unavailable AUDU, [facility] Primary Care Unavailable SUBICHIN II, [facility] Primary Care Unavailab le AUDU, YUMIKO M Primary Care Unavailable SUBICHIN II, [facility] Primary Care Unavailab le AUDU, [facility] Primary Care Unavailable VALENTIN CHAMBERS Referring Unavailable AUDU, [facility] Primary Care Unavailable Audu Yumiko Primary Care Provider Estella Herzog MD Unavailable AUDU, YUMIKO Attending Unavailable AUDU, [facility] Primary Care Unavailable AUDU, YUMIKO Attending Unavailable AUDU, [facility] Primary Care Unavailable INA DENG Attending Unavailable INA DENG Attending Unavailable AUDU, [facility] Primary Care Unavailable AUDU, YUMIKO Attending Unavailable AUDU, [facility] Primary Care Unavailable ESTELLA HERZOG Attending Unavailable AUDU, [facility] Primary Care Unavailable LIZZIE HARE Attending Unavailable AUDU, [facility] Primary Care Unavailable AUDU, YUMIKO Attending Unavailable AUDU, [facility] Primary Care Unavailable AUDU, YUMIKO Attending Unavailable AUDU, [facility] Primary Care Unavailable AUDU, YUMIKO Attending Unavailable AUDU, YUMIKO Referring Unavailable AUDU, [facility] Primary Care Unavailable SOPHIA ARZATE Attending Unavailable AUDU, [facility] Primary Care Unavailable Dennise Rehman Unavailable Emerson Jacinto MD Primary Care Provider NO PRIMARY CARE, Primary Care Unavailable HUNTER OZUNA Attending Unavailabl e DENNISE VIDES Referring Unavailable EMERSON JACINTO Primary Care Unavailable EMERSON JACINTO Attending Unavailable KATELYNN NIÑO Referring Unavailab le EMERSON JACINTO Primary Care Unavailable EMERSON JACINTO Attending Unavailable EMERSON JACINTO Referring Unavailable NO PRIMARY CARE, Primary [...] Drug Allergy 2 Swelling, Other: See Comments [facility] (20 sources) Latex; Translations: [LATEX] Propensity to adverse reactions (disorder) 7 Hives, Anaphylaxis, Swelling [facility] Medications Current Medications Medication Drug Class(es) Dates Sig (Normalized) Sig (Original) acetaminophen 325 mg oral tablet (4 sources) Start: 03-28-2022 acetaminophen (TYLENOL) tablet 650 mg Completed/Discontinued Medications Medication Drug Class(es) Dates Sig (Normalized) Sig (Original) [id number] 200 actuat albuterol 0.09 mg/actuat metered dose [...] 09-07-2022 Episodic Other aftercare (2 sources) Other 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 executive (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; Translations: [Other chief executive (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] Onset: 08-30-2021 Episodic Other [...] 157.5 cm Lizzie Aguero NP Work Phone: [employer] 04-25-2023 09:44-0400 Body mass index (BMI) [Ratio] 36.4 kg/m2 Lizzie Aguero NP Work Phone: [employer] 04-25-2023 09:44-0400 Body temperature 97.2 [degF] Lizzie Aguero NP Work Phone: [facility] [employer] 04-25-2023 09:44-0400 Body weight 90.27 kg Lizzie Aguero NP Work Phone: [facility] [employer] 04-25-2023 09:44-0400 Diastolic blood pressure 76 mm[Hg] Lizzie Aguero NP Work Phone: [facility] [employer] 04-25-2023 09:44-0400 Heart rate 91 /min Lizzie Villagranazar INSPECTOR STRUCTURAL BONDING - LINE CLOSER Work Phone: [facility] [employer] 04-25-2023 09:44-0400 SaO2% (BldA) [Mass fraction] 98 % Lizzie Villagranazar INSPECTOR STRUCTURAL BONDING - LINE CLOSER Work Phone: [facility] [employer] 04-25-2023 09:44-0400 Systolic blood pressure 118 mm[Hg] Lizzie Payam INSPECTOR STRUCTURAL BONDING - LINE CLOSER Work Phone: [facility] [employer] 04-12-2023 09:26-0400 Body height 157.5 cm Yumiko Mendez MD Work Phone: [facility] [employer] 04-12-2023 09:26-0400 Body mass index (BMI) [Ratio] 36.21 kg/m2 Yumiko Mendez MD Work Phone: [facility] [employer] 04-12-2023 09:26-0400 Body temperature 96.91 [degF] Yumiko Mendez MD Work Phone: [facility] [employer] 04-12-2023 09:26-0400 Body weight 89.81 kg Yumiko Mendez MD Work Phone: [facility] [employer] 04-12-2023 09:26-0400 Diastolic blood pressure 66 mm[Hg] Yumiko Mendez MD Work Phone: [facility] [employer] 04-12-2023 09:26-0400 Heart rate 106 /min Yumiko Mendez MD Work Phone: [facility] [employer] 04-12-2023 09:26-0400 Respiratory rate 16 /min Yumiko Mendez MD Work Phone: [facility] [employer] 04-12-2023 09:26-0400 SaO2% (BldA) [Mass fraction] 98 % Yumiko Mendez MD Work Phone: [facility] [employer] 04-12-2023 09:26-0400 Systolic blood pressure 121 mm[Hg] Yumiko Mendez MD Work Phone: [facility] [employer] 02-03-2023 13:02-0400 Body mass index (BMI) [Ratio] 36.65 kg/m2 Ina Deng APRN - CNM Work Phone: [facility] [employer] 02-03-2023 13:02-0400 Body weight 90.9 kg Ina Deng INSPECTOR STRUCTURAL BONDING - CNM Work Phone: [facility] [employer] 02-03-2023 13:02-0400 Diastolic blood pressure 75 mm[Hg] Ina Deng INSPECTOR STRUCTURAL BONDING - CNM Work Phone: [facility] [employer] 02-03-2023 13:02-0400 Heart rate 101 /min Ina Deng APRN - CNM Work Phone: [facility] [employer] 02-03-2023 13:02-0400 Systolic blood pressure 106 mm[Hg] Ina Deng APRN - CNM Work Phone: [facility] [employer] 01-25-2023 11:13-0400 Body height 157.5 cm Yumkio Mendez MD Work Phone: [facility] [employer] 01-25-2023 11:13-0400 Body mass index (BMI) [Ratio] 36.43 kg/m2 Yumiko Mendez MD Work Phone: [facility] [employer] 01-25-2023 11:13-0400 Body temperature 97.7 [degF] Yumiko Mendez MD Work Phone: [facility] [employer] 01-25-2023 11:13-0400 Body weight 90.36 kg Yumiko Mendez MD Work Phone: [facility] [employer] 01-25-2023 11:13-0400 Diastolic blood pressure 80 mm[Hg] Yumiko Mendez MD Work Phone: [facility] [employer] 01-25-2023 11:13-0400 Heart rate 101 /min Yumiko Mendez MD Work Phone: [facility] [employer] 01-25-2023 11:13-0400 SaO2% (BldA) [Mass fraction] 96 % Yumiko Mendez MD Work Phone: [facility] [employer] 01-25-2023 11:13-0400 Systolic blood pressure 124 mm[Hg] Yumiko Mendez MD Work Phone: [facility] [employer] 12-28-2022 11:05-0400 Body mass index (BMI) [Ratio] 36.1 kg/m2 Yumiko Mendez MD Work Phone: [facility] [employer] 12-28-2022 11:05-0400 Body temperature 97.3 [degF] Yumiko Mendez MD Work Phone: [facility] [employer] 12-28-2022 11:05-0400 Body weight 89.54 kg Yumiko Mendez MD Work Phone: [facility] [employer] 12-28-2022 11:05-0400 Diastolic blood pressure 74 mm[Hg] Yumiko Mendez MD Work Phone: [facility] [employer] 12-28-2022 11:05-0400 Heart rate 103 /min Yumiko Mendez MD Work Phone: [facility] [employer] 12-28-2022 11:05-0400 SaO2% (BldA) [Mass fraction] 96 % Yumiko Mendez MD Work Phone: [facility] [employer] 12-28-2022 11:05-0400 Systolic blood pressure 104 mm[Hg] Yumiko Mendez MD Work Phone: [facility] [employer] 10-15-2022 11:42-0400 Body height 157.5 cm Estella Herzog MD Work Phone: [facility] [employer] 10-15-2022 11:42-0400 Body mass index (BMI) [Ratio] 36.23 kg/m2 Estella Herzog MD Work Phone: [facility] [employer] 10-15-2022 11:42-0400 Body temperature 95.9 [degF] Estella Herzog MD Work Phone: [facility] [employer] 10-15-2022 11:42-0400 Body weight 89.86 kg Estella Herzog MD Work Phone: [facility] [employer] 10-15-2022 11:42-0400 Diastolic blood pressure 66 mm[Hg] Estella Herzog MD Work Phone: [facility] [employer] 10-15-2022 11:42-0400 Heart rate 69 /min Estella Herzog MD Work Phone: [facility] [employer] 10-15-2022 11:42-0400 Respiratory rate 16 /min Estella Herzog MD Work Phone: [facility] [employer] 10-15-2022 11:42-0400 SaO2% (BldA) [Mass fraction] 99 % Estella Herzog MD Work Phone: [facility] [employer] 10-15-2022 11:42-0400 Systolic blood pressure 104 mm[Hg] Estella Herzog MD Work Phone: [facility] [employer] 09-29-2022 15:35-0400 Body height 157.5 cm Yumiko Mendez MD Work Phone: [facility] [employer] 09-29-2022 15:35-0400 Body mass index (BMI) [Ratio] 35.85 kg/m2 Yumiko Mendez MD Work Phone: [facility] [employer] 09-29-2022 15:35-0400 Body weight 88.91 kg Yumiko Mendez MD Work Phone: [facility] [employer] 03-29-2022 08:33-0400 Body temperature 97.7 [degF] Lee Chaudhari MD Work Phone: [facility] 03-29-2022 08:33-0400 Diastolic blood pressure 71 mm[Hg] Lee Chaudhari MD Work Phone: [facility] 03-29-2022 08:33-0400 Heart rate 84 /min Lee Chaudhari MD Work Phone: [facility] 03-29-2022 08:33-0400 Respiratory rate 18 /min Lee Chaudhari MD Work Phone: [facility] 03-29-2022 08:33-0400 Systolic blood pressure 97 mm[Hg] Lee Chaudhari MD Work Phone: [facility] 03-29-2022 05:47-0400 SaO2% (BldA) [Mass fraction] 99 % Lee Chaudhari MD Work Phone: [facility] 03-28-2022 06:10-0400 Body height 152.4 cm Lee Chaudhari MD Work Phone: [facility] 03-28-2022 06:10-0400 Body mass index (BMI) [Ratio] 39.06 kg/m2 Lee Chaudhari MD Work Phone: [facility] 03-28-2022 06:10-0400 Body weight 90.72 kg Lee Chaudhari MD Work Phone: [facility] 02-28-2022 20:10-0400 Body height 152.4 cm Sophiachelsey Cissell INSPECTOR STRUCTURAL BONDING - BIOMEDICAL ENGINEERING TECHNICIAN Work Phone: [facility] 02-28-2022 20:10-0400 Body mass index (BMI) [Ratio] 38.47 kg/m2 Sophia Saffell INSPECTOR STRUCTURAL BONDING - BIOMEDICAL ENGINEERING TECHNICIAN Work Phone: [facility] 02-28-2022 20:10-0400 Body weight 89.36 kg Sophia Hyattfell INSPECTOR STRUCTURAL BONDING - BIOMEDICAL ENGINEERING TECHNICIAN Work Phone: [facility] 01-28-2022 17:56-0400 Body height 152.4 cm Silverio Carter MD Work Phone: [employer] 01-28-2022 17:56-0400 Body mass index (BMI) [Ratio] 37.89 kg/m2 Silverio Carter MD Work Phone: [employer] 01-28-2022 17:56-0400 Body temperature 98.1 [degF] Silverio Carter MD Work Phone: [employer] 01-28-2022 17:56-0400 Body weight 88 kg Silverio Carter MD Work Phone: [employer] 01-28-2022 17:56-0400 Diastolic blood pressure 54 mm[Hg] Silverio Carter MD Work Phone: [facility] [employer] 01-28-2022 17:56-0400 Heart rate 94 /min Silverio Carter MD Work Phone: [facility] [employer] 01-28-2022 17:56-0400 Respiratory rate 18 /min Silverio Carter MD Work Phone: [facility] [employer] 01-28-2022 17:56-0400 Systolic blood pressure 109 mm[Hg] Silverio Carter MD Work Phone: [facility] [employer] 01-25-2022 19:40-0400 Heart rate 82 /min Shala Noble MD Work Phone: [facility] 01-25-2022 16:28-0400 Body height 152.4 cm Shala Noble MD Work Phone: [facility] 01-25-2022 16:28-0400 Body mass index (BMI) [Ratio] 37.89 kg/m2 Shala Noble MD Work Phone: [facility] 01-25-2022 16:28-0400 Body temperature 98.2 [degF] Shala Noble MD Work Phone: [facility] 01-25-2022 16:28-0400 Body weight 88 kg Shala Noble MD Work Phone: [facility] 01-25-2022 16:28-0400 Diastolic blood pressure 67 mm[Hg] Shala Noble MD Work Phone: [facility] 01-25-2022 16:28-0400 Respiratory rate 18 /min Shala Noble MD Work Phone: [facility] 01-25-2022 16:28-0400 Systolic blood pressure 110 mm[Hg] Shala Noble MD Work Phone: [facility] 12-24-2021 18:03-0400 Body temperature 98.2 [degF] Dick Nance MD Work Phone: [facility] 12-24-2021 18:03-0400 Diastolic blood pressure 62 mm[Hg] Dick Nance MD Work Phone: [facility] 12-24-2021 18:03-0400 Heart rate 100 /min Dick Nance MD Work Phone: [facility] 12-24-2021 18:03-0400 Respiratory rate 18 /min Dick Nance MD Work Phone: [facility] 12-24-2021 18:03-0400 Systolic blood pressure 106 mm[Hg] Dick Nance MD Work Phone: [facility] 12-20-2021 22:00-0400 Heart rate 74 /min Lee Chauhdari MD Work Phone: [facility] 12-20-2021 20:52-0400 Body height 152.4 cm Lee Chaudhari MD Work Phone: [facility] 12-20-2021 20:52-0400 Body mass index (BMI) [Ratio] 36.91 kg/m2 Lee Chaudhari MD Work Phone: [facility] 12-20-2021 20:52-0400 Body temperature 98.6 [degF] Lee Chaudhari MD Work Phone: [facility] 12-20-2021 20:52-0400 Body weight 85.73 kg Lee Chaudhari MD Work Phone: [facility] 12-20-2021 20:52-0400 Diastolic blood pressure 61 mm[Hg] Lee Cahudhari MD Work Phone: [facility] 12-20-2021 20:52-0400 Respiratory rate 16 /min Lee Chaudhari MD Work Phone: [facility] 12-20-2021 20:52-0400 Systolic blood pressure 115 mm[Hg] Lee Chaudhari MD Work Phone: [facility] 12-19-2021 12:39-0400 Body temperature 97.9 [degF] Maribell San MD Work Phone: [facility] 12-19-2021 12:39-0400 Diastolic blood pressure 66 mm[Hg] Maribell San MD Work Phone: [facility] 12-19-2021 12:39-0400 Heart rate 110 /min Maribell San MD Work Phone: [facility] 12-19-2021 12:39-0400 Respiratory rate 20 /min Maribell San MD Work Phone: [facility] 12-19-2021 12:39-0400 SaO2% (BldA) [Mass fraction] 96 % Maribell San MD Work Phone: [facility] 12-19-2021 12:39-0400 Systolic blood pressure 119 mm[Hg] Maribell San MD Work Phone: [facility] 12-15-2021 16:14-0400 Body temperature 98.01 [degF] Stuart Barajas MD Work Phone: [facility] 12-15-2021 16:14-0400 Diastolic blood pressure 66 mm[Hg] Stuart Barajas MD Work Phone: [facility] 12-15-2021 16:14-0400 Heart rate 110 /min Stuart Braajas MD Work Phone: [facility] 12-15-2021 16:14-0400 Respiratory rate 16 /min Stuart Barajas MD Work Phone: [facility] 12-15-2021 16:14-0400 Systolic blood pressure 113 mm[Hg] Stuart Barajas MD Work Phone: [facility] 11-16-2021 23:19-0400 Body height 152.4 cm Sha Ramos MD Work Phone: [facility] 11-16-2021 23:19-0400 Body mass index (BMI) [Ratio] 37.5 kg/m2 Sha Ramos MD Work Phone: [facility] 11-16-2021 23:19-0400 Body temperature 97.39 [degF] Sha Ramos MD Work Phone: [facility] 11-16-2021 23:19-0400 Body weight 87.09 kg Sha Ramos MD Work Phone: [facility] 11-16-2021 23:19-0400 Diastolic blood pressure 68 mm[Hg] Sha Ramos MD Work Phone: [facility] 11-16-2021 23:19-0400 Heart rate 81 /min Sha Ramos MD Work Phone: [facility] 11-16-2021 23:19-0400 Respiratory rate 18 /min Sha Ramos MD Work Phone: [facility] 11-16-2021 23:19-0400 SaO2% (BldA) [Mass fraction] 100 % Sha Ramos MD Work Phone: [facility] 11-16-2021 23:19-0400 Systolic blood pressure 107 mm[Hg] Sha Ramos MD Work Phone: [facility] 06-23-2021 21:40-0500 Body temperature 98.71 [degF] Auroranavin West DO Work Phone: [facility] 06-23-2021 21:40-0500 Diastolic blood pressure 71 mm[Hg] Auroranavin West DO Work Phone: [facility] 06-23-2021 21:40-0500 Heart rate 86 /min Auroranavin West DO Work Phone: [facility] 06-23-2021 21:40-0500 Respiratory rate 14 /min Aurora West DO Work Phone: [facility] 06-23-2021 21:40-0500 SaO2% (BldA) [Mass fraction] 99 % Auroranavin West DO Work Phone: [facility] 06-23-2021 21:40-0500 Systolic blood pressure 102 mm[Hg] Auroranavin West DO Work Phone: [facility] 04-25-2021 21:14-0400 Diastolic blood pressure 67 mm[Hg] Usama Plata MD Work Phone: [facility] Work Phone: 04-25-2021 21:14-0400 Heart rate 61 /min Usama Plata MD Work Phone: [facility] Work Phone: 04-25-2021 21:14-0400 Respiratory rate 16 /min Usama Plata MD Work Phone: [facility] Work Phone: 04-25-2021 21:14-0400 SaO2% (BldA) [Mass fraction] 100 % Usama Plata MD Work Phone: [facility] Work Phone: 04-25-2021 21:14-0400 Systolic blood pressure 94 mm[Hg] Usama Plata MD Work Phone: [facility] Work Phone: 04-25-2021 20:15-0400 Body height 152.4 cm Usama Plata MD Work Phone: [facility] Work Phone: 04-25-2021 20:15-0400 Body mass index (BMI) [Ratio] 37.69 kg/m2 Usama Plata MD Work Phone: [facility] Work Phone: 04-25-2021 20:15-0400 Body temperature 98.01 [degF] Usama Plata MD Work Phone: [facility] Work Phone: 04-25-2021 20:15-0400 Body weight 87.54 kg Usama Plata MD Work Phone: [facility] Work Phone: 02-06-2021 20:38-0400 Body height 152.4 [...] 20 /min Sangita Rangel MD Work Phone: [facility] Work Phone: 02-06-2021 20:38-0400 SaO2% (BldA) [Mass fraction] 97 % Sangita Rangel MD Work Phone: [facility] Work Phone: 02-06-2021 20:38-0400 Systolic blood pressure 104 mm[Hg] Sangita Rangel MD Work Phone: [facility] Work Phone: 09-08-2020 08:06-0500 Body Temperature 98.49 [degF] Alexia O'Winchester [facility] Work Phone: 09-08-2020 08:06-0500 BP Diastolic 65 mm[Hg] Alexia O'Winchester [facility] Work Phone: 09-08-2020 08:06-0500 BP Systolic 104 mm[Hg] Alexia O'Winchester [facility] Work Phone: 09-08-2020 08:06-0500 Pulse (Heart Rate) 87 /min Alexia MOSS Work Phone: 09-08-2020 08:06-0500 Pulse Oximetry 97 % Alexia MOSS Work Phone: 09-08-2020 08:06-0500 Respiratory Rate 16 /min Alexia MOSS Work Phone: 09-07-2020 07:09-0500 BMI (Body Mass Index) 38.67 kg/m2 Alexia OMSS Work Phone: 09-07-2020 07:09-0500 Body weight 89.81 kg Alexia MOSS Work Phone: 09-07-2020 07:09-0500 Height 152.4 cm Alexia MOSS Work Phone: 09-06-2020 01:50-0500 BMI (Body Mass Index) 38.67 kg/m2 Amee MOSS Work Phone: 09-06-2020 01:50-0500 Body Temperature 98.2 [degF] Amee MOSS Work Phone: 09-06-2020 01:50-0500 Body weight 89.81 kg Amee MOSS Work Phone: 09-06-2020 01:50-0500 BP Diastolic 70 mm[Hg] Amee HOOKSA Work Phone: 09-06-2020 01:50-0500 BP Systolic 114 mm[Hg] Amee HOOKSA Work Phone: 09-06-2020 01:50-0500 Height 152.4 cm Amee HOOKSA Work Phone: 09-06-2020 01:50-0500 Pulse (Heart Rate) 105 /min Amee HOOKSA Work Phone: 09-06-2020 01:50-0500 Respiratory Rate 18 /min Amee MOSS Work Phone: 07-20-2020 23:05-0500 Body Temperature 97.9 [degF] Robert Brito [facility] [place], [place] 07-20-2020 23:05-0500 BP Diastolic 64 mm[Hg] [facility] [place] 07-20-2020 23:05-0500 BP Systolic 115 mm[Hg] Robert Schneider [facility] [place] 07-20-2020 23:05-0500 Pulse (Heart Rate) 89 /min [facility] [place] [place] 07-20-2020 23:05-0500 Respiratory Rate 16 /min Robert Brito [facility], [place] 07-20-2020 21:32-0500 BMI (Body Mass Index) 38.08 kg/m2 Robert Adame [facility], [place] 07-20-2020 21:32-0500 Body weight 88.45 kg Robert Brito [employer] [facility] [place] 07-20-2020 21:32-0500 Height 152.4 cm Robert Brito [employer], [place] 07-20-2020 21:32-0500 Pulse Oximetry 99 % Robert Brito [employer], [place] 06-23-2020 15:25-0500 Pulse (Heart Rate) 92 /min [facility]e Parker [facility] [place] 06-23-2020 14:52-0500 BP Diastolic 65 mm[Hg] Amee Parker [facility] [place] , [place] 06-23-2020 14:52-0500 BP Systolic 96 mm[Hg] Amee Parker [facility] [place] 06-23-2020 14:51-0500 Body Temperature 97.9 [degF] Amee Adame [facility], [place] 06-23-2020 14:49-0500 BMI (Body Mass Index) 36.91 kg/m2 Amee Adame [facility], [place] 06-23-2020 14:49-0500 Body weight 85.73 kg Amee Parker [facility] [employer] [place] , [place] 06-23-2020 14:49-0500 Height 152.4 cm Amee Parker [facility], [place] 01-21-2020 02:03-0400 Pulse (Heart Rate) 52 /min Kem Malik [facility], [place] 01-20-2020 23:30-0400 BMI (Body Mass Index) 36.13 kg/m2 Kem Adame [facility], [place] 01-20-2020 23:30-0400 Body weight 83.92 kg [facility] [place] 01-20-2020 23:30-0400 BP Diastolic 66 mm[Hg] [facility] [place] 01-20-2020 23:30-0400 BP Systolic 124 mm[Hg] [facility] [place] 01-20-2020 23:30-0400 Height 152.4 cm [facility] [place] 01-20-2020 23:29-0400 Body Temperature 97.7 [degF] [facility] [place] 01-20-2020 23:29-0400 Pulse Oximetry 98 % [facility] [place] 01-20-2020 23:29-0400 Respiratory Rate 16 /min Kem Malik [facility], [place] 03-28-2019 19:54-0400 BMI (Body Mass Index) 34.18 kg/m2 Kem Aadme [facility], [place] 03-28-2019 19:54-0400 Body Temperature 98.01 [degF] [facility] [place] 03-28-2019 19:54-0400 Body weight 79.38 kg [facility] [place] 03-28-2019 19:54-0400 BP Diastolic 77 mm[Hg] [facility] [place] 03-28-2019 19:54-0400 BP Systolic 128 mm[Hg] [facility] [place] 03-28-2019 19:54-0400 Height 152.4 cm [facility] [place] 03-28-2019 19:54-0400 Pulse (Heart Rate) 77 /min [facility], [place] 03-28-2019 19:54-0400 Pulse Oximetry 98 % Kem Adame [facility] , [place] 03-28-2019 19:54-0400 Respiratory Rate 16 /min Kem Adame [facility], [place] 03-08-2019 13:08-0400 BMI (Body Mass Index) 34.18 kg/m2 Lee Adame [facility], [place] 03-08-2019 13:08-0400 Body Temperature 97.39 [degF] Lee Yin [place] [place] 03-08-2019 13:08-0400 Body weight 79.38 kg [place] 03-08-2019 13:08-0400 BP Diastolic 78 mm[Hg] [place] 03-08-2019 13:08-0400 BP Systolic 99 mm[Hg] [place] 03-08-2019 13:08-0400 Height 152.4 cm [place] 03-08-2019 13:08-0400 Pulse (Heart Rate) 97 /min [place] 03-08-2019 13:08-0400 Pulse Oximetry 97 % [place] 03-08-2019 13:08-0400 Respiratory Rate 16 /min [place] Encounters Encounter Date Encounter Type Care Provider Facility Start: 06-27-2023 End: 06-28-2023 ambulatory [facility] Start: 06-27-2023 End: 06-27-2023 ambulatory [facility] Start: 06-27-2023 End: 06-27-2023 Subsequent [...] [facility] Start: 01-28-2022 MONITORING CHANDRAKANT Lara GOSIA Start: 01-28-2022 Iadna multiple organ isms amplified probe tq [facility] Start: 01-28-2022 PLACE IN OUTPATIENT IN A BED SILVERIO GOSIA Start: 01-28-2022 IP CONSULT TO MATERN AL MEDICINE/ [facility] Start: 01-28-2022 Ftl fibronectin cerv icovag secretions semi-saad SILVERIO GOSIA Start: 01-28-2022 Urinalysis microscop ic only SILVERIO [...] iv surg pathol ogy gross&microscopic exam SILVERIO SNYDERIEN Start: 06-19-2021 DISCHARGE PATIENT PAO CARTER Start: 06-19-2021 DIET NPO SILVERIO SNYDERIEN Start: 06-19-2021 INSERT PERIPHERAL IV JA JUSTYNA [facility] Start: 06-19-2021 TREATMENT CONSENT PAO CARTER Start: 06-19-2021 Continuous pulse oximetry SILVERIO SNYDERIEN Start: 06-19-2021 BEDREST SILVERIO SNYDERIEN Start: 06-19-2021 ENCOURAGE DEEP BREAT RAMANDEEP AND COUGHING SILVERIO SNYDERIEN Start: 06-19-2021 INITIATE OXYGEN THER APY PROTOCOL SILVERIO ALVAREZ GOSIA Start: 06-19-2021 NOTIFY PHYSICIAN (SPECIFY) [facility] Start: 06-19-2021 NURSING COMMUNICATION Lupe BUTTERFIELD [facility] Start: 06-19-2021 VITAL SIGNS SILVERIOPAM SNYDERIEN Start: 06-19-2021 Blood count complete automated [facility] Start: 06-19-2021 TYPE AND SCREEN SILVERIO SNYDERIEN Start: 06-19-2021 BEDREST SILVERIO CARTER Start: 06-19-2021 Continuous pulse oximetry [facility] Start: 06-19-2021 ENCOURAGE DEEP BREAT RAMANDEEP AND COUGHING [facility] Start: 06-19-2021 INITIATE OXYGEN THER APY PROTOCOL [facility] Start: 06-19-2021 NASAL CANNULA OXYGEN JA GERRYXUAN [facility] Start: 06-19-2021 NOTIFY PHYSICIAN (SPECIFY) SILVERIO GOSIA Start: 06-19-2021 NURSING COMMUNICATION Lupe BUTTERFIELD [facility] Start: 06-19-[address] [facility] Start: 06-19-2021 COVID-19, RAPID [facility] Start: 04-25-2021 Blood count complete auto&auto difrntl [...] of 2) Zoster Vaccines (1 of 2) [facility] Start: 02-11-2032 DTaP/Tdap/Td vaccine (10 - Td or Tdap) DTaP/Tdap/Td vaccine (10 - Td or Tdap) [facility] Start: 02-11-2032 DTaP/Tdap/Td Vaccines (10 - Td or Tdap) DTaP/Tdap/Td Vaccines (10 - Td or Tdap) [facility] Start: 08-07-2030 DTaP/Tdap/Td vaccine (9 - Td or Tdap) DTaP/Tdap/Td vaccine (9 - Td or Tdap) [facility] Start: 04-12-2027 DTaP/Tdap/Td vaccine (8 - Td) DTaP/Tdap/Td vaccine (8 - Td) [place] Start: 04-07-2023 End: 04-07-2023 Patient encounter procedure 04/07/2023 Office Visit Internal Medicine Yumiko Mendez MD [address] [facility] [address] [place] [address] [facility] Internal Medicine Start: 03-11-2023 Influenza vaccination [facility] Start: 03-07-2023 Depresssion Monitoring Depresssion Monitoring [facility] Start: 02-18-2023 End: 02-18-2023 Patient encounter procedure 02/18/2023 2:20 PM EDT Office Visit [facility] Obstetrics & Gynecology [address] [place] [id number] Sophia Arzate, INSPECTOR STRUCTURAL BONDING - BIOMEDICAL ENGINEERING TECHNICIAN [address] [place] [address] [address] [place] [address] [facility]stetrics [facility] Gyne[facility] Start: 02-18-2023 End: 02-18-2023 Professional / ancillary services management 02/18/2023 1:30 PM EDT Ancillary Procedure [facility] [address] [facility] [address] [place] [id number] [facility] Start: 02-03-2023 End: 02-04-2024 hCG, quantitative hCG, quantitative Lab Routine Encounter to determine viability of , single or unspecified fetus Expected: 02/03/2023 (Approximate), Expires: 02/04/2024 [facility] Work Phone: Immunizations Immunization Date Immunization Notes Care Provider Cade chaves 02-10-2022 tetanus toxoid, redu edinson diphtheria toxoid, and acellular pertussis vaccine, adsorbed Sophia Arzate INSPECTOR STRUCTURAL BONDING - BIOMEDICAL ENGINEERING TECHNICIAN Work Phone: [facility] 09-07-2020 diphtheria, tetanus toxoids and acellular pertussis vaccine, unspecified formulation [facility] Work Phone: 09-07-2020 measles, mumps and rubella virus vaccine [facility] Work Phone: 08-07-2020 tetanus toxoid, redu edinson diphtheria toxoid, and acellular pertussis vaccine, adsorbed Sangita Rangel MD Work Phone: [facility] Work Phone: 06-13-2020 influenza virus vaccine, unspecified formulation Sangita Rangel MD Work Phone: [facility] Work Phone: 04-12-2017 tetanus toxoid, redu edinson diphtheria toxoid, and acellular pertussis vaccine, adsorbed Sangita Rangel MD Work Phone: [facility] Work Phone: 01-01-2011 human papilloma viru s vaccine, quadrivalent Sangita Rangel MD Work Phone: [facility] Work Phone: 01-01-2011 meningococcal polysaccharide (groups A, C, Y and W-135) diphtheria toxoid conjugate vaccine (MCV4P) Sangita Rangel MD Work Phone: [facility] Work Phone: 01-01-2011 tetanus toxoid, redu edinson diphtheria toxoid, and acellular pertussis vaccine, adsorbed Sangita Rangel MD Work Phone: [facility] Work Phone: 01-01-2011 HPV, unspecified formulation Yumiko Mendez MD Work Phone: [facility] 03-18-2004 diphtheria, tetanus toxoids and acellular pertussis vaccine Sangita Rangel MD Work Phone: [facility] Work Phone: 03-18-2004 measles, mumps and rubella virus vaccine Sangita Rangel MD Work Phone: [facility] Work Phone: 03-18-2004 poliovirus vaccine, inactivated Sangita Rangel MD Work Phone: [facility] Work Phone: 04-18-2000 diphtheria, tetanus toxoids and acellular pertussis vaccine Emerson Jacinto MD Work Phone: [facility] 04-18-2000 diphtheria, tetanus toxoids and acellular pertussis vaccine, unspecified formulation Sangita Rangel MD Work Phone: [facility] Work Phone: 04-18-2000 haemophilus influenz ae type b vaccine, PRP-T conjugate Sangita Rangel MD Work Phone: [facility] Work Phone: 04-18-2000 hepatitis A vaccine, pediatric/adolescent dosage, 2 dose schedule Sangita Rangel MD Work Phone: [facility] Work Phone: 04-18-2000 hepatitis B vaccine, pediatric or pediatric/adolescent dosage Sangita Rangel MD Work Phone: [facility] Work Phone: 04-18-2000 hepatitis A and hepatitis B vaccine Yumiko Mendez MD Work Phone: [facility] 12-29-1999 measles, mumps and rubella virus vaccine Sangita Rangel MD Work Phone: [facility] Work Phone: 12-29-1999 varicella virus vaccine Ar Rangel MD Work Phone: [facility] Work Phone: 06-22-1999 diphtheria, tetanus toxoids and acellular pertussis vaccine Emerson Jacinto MD Work Phone: [facility] 06-22-1999 diphtheria, tetanus toxoids and acellular pertussis vaccine, unspecified formulation Sangita Rangel MD Work Phone: [facility] Work Phone: 06-22-1999 poliovirus vaccine, inactivated Sangita Rangel MD Work Phone: [facility] Work Phone: 05-12-1999 diphtheria, tetanus toxoids and acellular pertussis vaccine Emerson Jacinto MD Work Phone: [facility] 05-12-1999 diphtheria, tetanus toxoids and acellular pertussis vaccine, unspecified formulation Sangita Rangel MD Work Phone: [facility] Work Phone: 05-12-1999 haemophilus influenz ae type b vaccine, PRP-T conjugate Sangita Rangel MD Work Phone: [facility] Work Phone: 05-12-1999 poliovirus vaccine, inactivated Sangita Rangel MD Work Phone: [facility] Work Phone: 02-06-1999 diphtheria, tetanus toxoids and acellular pertussis vaccine Emerson Jacinto MD Work Phone: [facility] 02-06-1999 diphtheria, tetanus toxoids and acellular pertussis [...] mumps and rubella virus vaccine Lee Yin [facility] Payers Date Payer Category Payer Private Health Insurance 2022 Private Health Insurance [id number] 2016 Medicaid [id number] 2016 Private Health Insurance [facility] xxxxxxxxx 2016-Present [phone] [address] [place] [address] xxxxxxxxx [id number] 2016 Private Health Insurance [facility] [id number] 2016-Present [phone] [address] [place] [address] [id number] 1998 Unknown [id number] [id number]. 598 1998 Unknown [id number] [id number]. 204 1998 Unknown [id number] [id number]. 204 1998 Unknown [id number] [id number]. 668 1998 Unknown [id number] 2.16.840.1.716496.3.579.2. 668 1998 Unknown [id number] 2.16.840.1.210497.3.579.2. 668 1998 Unknown [id number] 2.16.840.1.225093.3.579.2. 8 1998 Unknown [id number] 2.16.840.1.746992.3.579.2. 66 1998 Unknown [id number] [id number]. 668 1998 Unknown [id number] 2.16.840.1.979226.3.579.2. 668 1998 Unknown [id number] 2.16840.1.328314.3.579.2. 356 1998 Unknown [id number] 2.16840.1.427900.3.579.2. 1998 Unknown [id number] 2.16840.1.395371.3.579.2. 1998 Unknown [id number] [id number] 1998 Unknown [id number] [id number] 1998 Unknown [id number] [id number] 1998 Unknown [id number] [id number] 1998 Unknown [id number] [id number]. 479 1961 Medicaid [id number] Unknown [facility] Social History Date Type Detail Facility Start: 03-28-2019 End: 06-27-2023 Tobacco smoking status PAIS Current every day smoker [place] Start: 06-07-2011 History of tobacco use Cigarette Smo ker [place] Start: 03-28-2019 End: 06-27-2023 Cigarettes smoked current (pack per day) - [facility] [place] Start: 03-28-2019 End: 06-27-2023 Alcohol intake [place] Start: 2000 [facility] [place] Start: 01-21-2020 End: 06-27-2023 Tobacco use and exposure [facility] Start: 01-21-2020 End: 04-25-2023 Alcohol intake Current non-drinker of alcohol (finding) [place] Start: 11-06-2021 End: 02-03-2023 Exposure to SARS-CoV-2 (event) [place] sure [place] Start: 01-03-2020 [place] Start: 10-05-2021 History SDOH Alcohol Frequency 1 [employer] Work Phone: Start: 10-05-2021 History SDOH Social Connections Phone 5 [employer] Work Phone: Start: 10-05-2021 History SDOH Social Connections Pentecostal 3 [employer] Work Phone: Start: 10-05-2021 History SDOH Social Connections Membership 2 [employer] Work Phone: Start: 10-05-2021 History SDOH Social Connections Living 7 [employer] Work Phone: Start: 10-05-2021 History SDOH Physica l Activity DPW 0 [employer] Work Phone: Adolescent depressio n screening assessment 17 [facility] Within the last year , have you been afraid of your partner or ex-partner? No [facility] How often to you hav e a drink containing alcohol? Never [facility] How hard is it for y ou to pay for the very basics like food, housing, medical care, and heating Not very hard [facility] Do you feel stress - tense, restless, nervous, or anxious, or unable to sleep at night because your mind is troubled all the time - these days [OSQ] Not at all [facility] (I/We) worried wheth er (my/our) food would run out before (I/we) got money to buy more. Never true [facility] Start: 06-27-2023 Alcohol intake Ex-drinker (finding) [facility] Start: 10-29-2014 Alcohol Comment last use was awhile ago [facility] Clinical Notes 04-20-2017 to 04-25-2023 TIGRE Luciano NP - 04/25/2023 9:40 AM EDTPatient InstructionsSergio Mendez MD - 04/12/2023 9:40 AM TIGRE Urban CNM - 02/03/2023 1:00 PM EDTPatient Instructions Note Date & Type Note Facility 04-25-2023 History of Presen t illness Narrative Images from the original note were not included. [facility] [address] [facility] [address] Dept: [phone] Dept Loc: [phone] Subjective Lauren Nesbitt is a 22 y.o. year old who [...] 04/25/2023 10:06 AM documented in this encounter [facility] 04-25-2023 Instructions TIGRE Luciano NP - 04/25/2023 [...] sent through Care Everywhere.Wound Care Discharge Instructions (Citizen Of [place])documented in this encounter [facility] 04-12-2023 History of Presen t illness Narrative Images from the original note were not included. . [facility] [address] [facility] [address] Dept: [phone] Dept Visit type: Established patient Reason for [...] CURETTAGE performed by Dick Martinez MD at [facility] OR DILATION AND CURETTAGE OF UTERUS 06/19/21, [...] Yumiko Mendez MD documented in this encounter [facility] 02-03-2023 History of Presen t illness Narrative Lauren Nesbitt 02/03/2025 22 y.o. 02/03/2023 HPI - She [...] CURETTAGE performed by Dick Martinez MD at [facility] OR DILATION AND CURETTAGE OF UTERUS 06/19/21, [...] us and fu. documented in this encounter [facility] 01-25-2023 History of Presen t illness Narrative Images from the original note were not included. . [facility] [address] [place] [address] [address] [facility] [address] Dept: [phone] Dept Visit type: Established patient Reason for Visit: Follow-up Assessment and Plan 1. Depression, unspecified depression type - sertraline (Zoloft) 25 MG tablet; Take 1 tablet (25 mg) by mouth daily., Starting e 01/25/2023, Normal We will continue Zoloft to [...] at this time. Has a follow-up with TRAFFIC OBSERVER Review of Systems Constitutional: Negative for activity [...] CURETTAGE performed by Dick Martinez MD at [facility] OR DILATION AND CURETTAGE OF UTERUS 06/19/21, [...] Yumiko Mendez MD documented in this encounter [facility] 12-28-2022 History of Presen t illness Narrative Images from the original note were not included. . [facility] [address] [place] [address] [address] [place] [address] Dept: [phone] Dept Visit type: Established patient Reason for [...] CURETTAGE performed by Dick Martinez MD at [facility] OR DILATION AND CURETTAGE OF UTERUS 06/19/21, [...] Yumiko Mendez MD documented in this encounter [facility] 12-04-2022 Note HNO ID: [id number] Author: Aurora Pablo PA-C Service: ? Author Type: Physician Medicare Coordinator Type: Progress Notes Filed: 12/04/2022 12:16 PM Note Text: This note was created using [employer]. Subjective Lauren Nesbitt is a 22 year old female. HPI [...] CULTURE WITH GRAM STAIN Aurora Pablo PA-C [facility] 11-25-2022 Note HNO ID: [id number] Author: Valentin Chambers APRN.BIOMEDICAL ENGINEERING TECHNICIAN Service: ? Author Type: Nurse Practitioner Type: Progress Notes Filed: 11/25/2022 6:40 PM Note Text: Subjective HPI HPI Lauren Nesbitt is a 21 year old female who [...] VEIN DVT UNL VAS LAB Valentin Chambers APRN.BIOMEDICAL ENGINEERING TECHNICIAN [facility] 10-20-2022 History of Presen t illness Narrative Patient complains of sore throat times concern for last 2 to 3 days. No sick contacts, no complaints of fever, cough, chest pain, shortness of breath, nausea or vomiting. [facility] Work Phone: 10-15-2022 History of Presen t illness Narrative Patient ID: Lauren Nesbitt is a 21 y.o. female. Referring Physician: [...] matching plan found] documented in this encounter [facility] 09-29-2022 Telephone encount er Note thanks [facility] 09-29-2022 Miscellaneous Notes Formattin g of this note might be different from the original. thanks Order change Name of caller: Susy Contact phone number: [phone] Relationship to Patient: [facility] Provider: Dr. Mendez Practice: [facility] Chief Complaint/Reason for Call: Susy states she would like the patient's [facility]AST [facility] (L) orders revised and refaxed to her at fax number: [phone] by this afternoon, 09/29/22. Susy states the [...] their call: No documented in this encounter [facility] 09-29-2022 Telephone encount er Note Order change [facility] 09-29-2022 Telephone encount er Note Name of caller: Susy Contact phone number: [phone] Relationship to Patient: [facility] Provider: Dr. Mendez Practice: Kat [...] business hours to return their call: No [facility] 07-09-2022 Note HNO ID: [id number] Author: Tarsha Garrett APRN.BIOMEDICAL ENGINEERING TECHNICIAN Service: ? Author Type: Nurse Practitioner Type: Progress Notes Filed: 07/09/2022 2:29 PM Note Text: Subjective Sore Throat Associated symptoms include abdominal pain, congestion and headaches. Pertinent negatives include no diarrhea or vomiting. Lauren Nesbitt is a 21 year old female who [...] Discussed expected course of illness Tarsha Garrett APRN.[facility] 07-09-2022 History of Presen t illness Narrative Subjective Sore Throat Associated symptoms include abdominal pain, congestion and headaches. Pertinent negatives include no diarrhea or vomiting. Lauren Nesbitt is a 21 year old female who [...] Discussed expected course of illness Tarsha Garrett APRN.BIOMEDICAL ENGINEERING TECHNICIAN documented in this encounter [facility] 07-09-2022 Instructions Tarsha Garrett APRN.[facility] - 07/09/2022 [...] Discussed expected course of illness Tarsha Garrett, INSPECTOR STRUCTURAL BONDING.BIOMEDICAL ENGINEERING TECHNICIAN OTITIS MEDIA GENERAL INFORMATION: Otitis media is [...] even if the symptoms go away. 2. Slhs-[id number]-[id number] pain medication may be taken or other [...] him or her). documented in this encounter [facility] 03-29-2022 Note Obstetric Discharge Summary Admitting Diagnosis [...] NOT CHANGED Details Mom to be Belts [facility] Starting 02/10/2022, Disp-1 each, R-0, Print famotidine [...] . Discharge Date: 03/29/22 Time: Comments [facility] 03-29-2022 History of Presen t illness [...] delivery Plan: PPD #1 s/p Patient viewed [facility] discharge / education video. Oriented to A Guide to Caring for Yourself and Baby booklet. Verbalizes understanding of video content and denies any questions. Comfortable without epidural Cat one tracing Contractions q 3-4 minutes 3cm 80 -2 vertex Amniotomy clear fluid Epidural prn Continue care documented in this encounter [facility] Work Phone: 02-28-2022 History of Presen t [...] CURETTAGE performed by Dick Martinez MD at [facility] OR SOCIAL HISTORY: reports that she has [...] 1 gummy Historical Provider, CARE: Complicated by: see above REVIEW OF [...] a premature baby. documented in this encounter [employer] Work Phone: 01-28-2022 History of Presen t [...] ,NO BLEEDING NOTED documented in this encounter [employer] Phone: 01-28-2022 Hospital Discharg e instructions Jana Dubois RN - 01/28/2022 7:46 PM EDT Drink plenty of fluids Resume normal activity unless otherwise instructed Call your physician if you experience any of the following: Leakage of fluid Vaginal bleeding Cramping/ Contractions Decreased movement Your baby should move at least 10 times in 2 hours documented in this encounter [employer] Phone: 01-25-2022 History of Presen t illness [...] CURETTAGE performed by Dick Martinez MD at [facility] OR SOCIAL HISTORY: reports that she has [...] Take by mouth daily 1 safia Historical ProviderMD CARE: Complicated by: Short cervix - on [...] Spec exam neg x3 for ROM. Cx 60/-3. Vtx per US. Will recheck in 2 hours as patient is changed from office exam and from exam in office 01/06. As well as hx of short cervix. On recheck, SVE remains 0-1cm and pt comfortable. FHT cat I on monitor. Will discharge home with strict return precautions. IMPRESSION: Threatened Pre-Term Labor Pain assessment and plan: None DISCUSSED WITH PNC PROVIDER: Dr. Noble DISPOSITION: Discharge to Home Associated attestation - Darline Gould DO - 01/25/2022 8:21 PM EDT Hospital Care (Independent): I independently saw and evaluated the patient. I agree with the findings and plan of care as documented in the resident's note. documented in this encounter [facility] Work Phone: 12-24-2021 Hospital Discharg Kiaar Tamayo MD - 12/24/2021 Follow up appointment with your doctor/enrollment nurse - Call office for appointment tomorrow Activity - Normal Activity Call your doctor/enrollment nurse if you have: - leaking fluid - [...] and changing your position. Treatment Verification: Lauren Nesbitt was assessed on Labor and Delivery for a related visit on 12/24/21. Kiara Drake MD [facility] documented in this encounter [facility] Work Phone: [...] CURETTAGE performed by Dick Martinez MD at [facility] OR SOCIAL HISTORY: reports that she has [...] MG CHEW Take by mouth daily 1 gumaura STOP taking these medications progesterone (PROMETRIUM) 200 [...] MFM Discharge Summar y Patient Name: Lauren Nesbitt Patient : 2000 Primary Care Physician: No [...] Consultations: MFM Pertinent Findings & Procedures: Lauren Nesbitt is a 21 y.o. female , the patient was previously seen at [facility] for short cervix but went home prior to getting a cerclage placed. She returned for repeat US and possible cervical cerclage. After the ultrasound (12/16) findings and treatment options including cerclage were reviewed with the patient by MFM the patient elected to proceed with vaginal [...] Demetrius Mendoza MD 12/16/2021, 11:55 AM [facility] 12-15-2021 Note Department of Obstet rics [...] if cervix remains short. Due problems with child and adolescent psychologist, patient would like to leave and return [...] short cervix Instructions to Patient:: Call your doctor/enrollment nurse if you have: - leaking fluid - [...] in first trimester ? Short cervix Sandi Barriosjaceaudie DO on 12/15/2021 at 6:11 PM [facility] 12-15-2021 Hospital course Narrative Images from [...] if cervix remains short. Due problems with child and adolescent psychologist, patient would like to leave and return [...] short cervix Instructions to Patient:: Call your doctor/enrollment nurse if you have: - leaking fluid - [...] CURETTAGE performed by Dick Martinez MD at [facility] OR SOCIAL HISTORY: reports that she has [...] through five 11/03/21 Leo Sanchez APRN - BIOMEDICAL ENGINEERING TECHNICIAN MV & Min w/FA-DHA ( ADULT GUMMY/DHA/FA) [...] ability. Patient cannot stay tonight due to child and adolescent psychologist but will try to drive her daughter to her mother's house and return tonight for admission. If patient unable to return tonight, will attempt to have patient follow up in outpatient setting [facility]. Patient understands that cerclage cannot be done after 24 wks. Plan discussed with M attending, Dr. Blair as well as Dr. [...] - 12/15/2021 Follow up appointment with your doctor/enrollment nurse - Keep next scheduled appointment Activity - Normal Activity Call your doctor/enrollment nurse if you have: - leaking fluid - [...] and changing your position. Treatment Verification: Lauren Nesbitt was assessed on Labor and Delivery for a related visit on 12/15/21. Lynda Patton DO [facility] documented in this encounter [facility] Work Phone: 04-25-2021 [facility] Discharg e instructions Usama Plata MD - 04/25/2021 Return for fever or vomiting The following attachments cannot be sent through Care Everywhere.UTI (Urinary Tract Infection): Female (Citizen Of [place])documented in this encounter [facility] Work Phone: documented as of this encounter (statuses as of 07/14/2022) [facility] Labial irritation- Primary Other specified [...] of , antepartum documented in this encounter [facility] Work Phone: Evaluation note* Diagnosis with 29 completed weeks gestation- Primary documented in this encounter [facility] ELEN[facility] Work Phone: evaluation note* Diagnosis Abnormal heart rate affecting Vaginal delivery Normal delivery documented [facility] Work Phone: Evaluation note* Diagnosis Sore throat- Primary Acute pharyngitis Other acute nonsuppurative otitis media of right ear, recurrence not specified Viral illness Unspecified viral infection, in conditions classified elsewhere and of unspecified site [facility] Diagnosis Mass of left breast, unspecified quadrant [facility] Diagnosis Family history of CVA- Primary [facility] Diagnosis Physical exam, pre-employment- Primary Health examination of defined subpopulation Persistent depressive disorder [facility] Depression, unspecified depression type [facility] Diagnosis Encounter to determine viability of , single or unspecified fetus- Primary [facility] Diagnosis Viral upper respiratory tract infection- Primary Acute upper respiratory infections of unspecified site [facility] Diagnosis Puncture wound of left foot, initial encounter- Primary 16 weeks gestation of [facility]* Diagnosis Screening, , for malformation by ultrasound Encounter for routine screening for malformation using ultrasonics Abnormal ultrasound Abnormal findings on screening [facility]* Attachments The following attachments cannot be sent through Care Everywhere. * Tick Bite (Citizen [place]) [facility]* Attachments The following attachments cannot be sent through Care Everywhere. * (Citizen Of [place]) * : Vaginal Delivery (Citizen Of [place]) [facility] Summary Purpose Family History No [...] FoundDocuments on File Type Date Recorded Patient Emergency Specialist Expl anation ACP-Advance Directive 01/09/2017 2:54 PM [...] Documents on File Type Date Recorded Patient Emergency Specialist Expl anation Advance Directives and Livin g Will Advance Directives and Livin g Will 01/09/2017 2:54 PM Power of Health Aide Latest Code Status on File Code Status Date Activated Date Inactivated Comments Full Code 06/17/2017 6:43 PM 06/19/2017 3:25 PM Full Code 06/17/2017 12:16 AM 06/17/2017 6:43 PM Documents on File Type Date Recorded Patient Emergency Specialist Expl anation ACP-Advance Directive ACP-Advance Directive 01/09/2017 2:54 PM ACP-Power of Health Aide Latest Code Status on File Code Status Date Activated Date Inactivated Comments Full Code 09/07/2020 6:56 PM Full Code 09/07/2020 6:37 AM 09/07/2020 6:56 PM Full Code 06/17/2017 6:43 PM 06/19/2017 3:25 PM Documents on File Type Date Recorded Patient Emergency Specialist Expl anation ACP-Advance Directive ACP-Power of Health Aide ACP-Advance Directive 01/09/2017 2:54 PM Latest Code [...] sent through Care Everywhere. * Tooth: Abscessed (Citizen [place]) documented in this encounter* Attachments The following attachments cannot be sent through Care Everywhere. * : Weeks 6 to 10 (Citizen Of [place]) documented in this encounter* Instructions* Radha Fitzgerald MD - 06/23/2020 Follow up appointment with your doctor/enrollment nurse - Keep next scheduled appointment Activity - Normal Activity Call your doctor/enrollment nurse if you have: - leaking fluid - [...] and changing your position. Treatment Verification: Lauren Nesbitt was assessed on Labor and Delivery for a related visit on 06/23/20. Radha Fitzgerald MD [facility] If you are Covid-19 positive or a [...] clean your hands with an alcohol-based hand retail marketing specialist that contains at least 60% alcohol. Clean your hands often Wash your hands often with soap and water for at least 20 seconds, especially after blowing your nose, coughing, or sneezing; going to the bathroom; and before eating or preparing food. If soap and water are not readily available, use an alcohol-based hand retail marketing specialist with at least 60% alcohol, covering all [...] isolation precautions should be made on a ufeg-uf-taqf basis, in consultation with healthcare providers and [facility]. Information on Covid-19 for all [...] respiratory tract signs and symptoms. Ways to Lando with Anxiety & Stress It is normal [...] an illness that was first found in [facility], in June 2019. It has since spread [...] seen in people before. This virus spreads jmsmna-je-frrjhk through droplets from coughing and sneezing. It [...] water aren't available, use an alcohol-based hand retail marketing specialist. Call 911 anytime you think you may [...] of: October 10, 2019 Content Version: 12. [employer]. Care instructions adapted under license by your healthcare professional. If you have questions about a medical condition or this instruction, always ask your healthcare professional. [employer] disclaims any warranty or liability for your use of this information. General Recommendations for Routine Cleaning and Disinfection of Households Community members can practice routine cleaning of frequently touched surfaces (for example: tables, doorknobs, light switches, handles, desks, toilets, faucets, sinks) with household oreman and EPA-registered disinfectants that are appropriate for [...] appropriate. These supplies include tissues, paper towels, oreman and EPA-registered disinfectants (see list link at [...] be used for other purposes. Consult the prenatal genetic counselor's instructions for cleaning and disinfection products used. [...] used if appropriate for the surface. Follow prenatal genetic counselor's instructions for application and proper ventilation. Check [...] o Products with EPA-approved emerging viral pathogens [facility] iconexternal icon are expected to be effective against COVID-19 based on data for harder to kill viruses. Follow the prenatal genetic counselor's instructions for all cleaning and disinfection products (e.g., concentration, application method and contact time, etc.). Soft (porous) surfaces such as carpeted floor, rugs, and drapes Remove visible contamination if present and clean with appropriate oreman indicated for use on these surfaces. After cleaning: Launder items as appropriate in accordance with the prenatal genetic counselor's instructions. If possible, launder items using the [...] items as appropriate in accordance with the prenatal genetic counselor's instructions. If possible, launder items using the warmest appropriate water setting for the items and dry items completely. Dirtylaundry from an ill person can be washed with other people's items. o Clean and disinfect clothes hampers according to guidance above for surfaces. If possible, consider placing a baggage and mail agent that is either disposable (can be thrown away) or can be laundered. CDC has a list of EPA approved cleaning products on their website - https://www.cdc.gov/coronavirus/ 2019-ncov/community/home/cleaning-disinfection.html https://www.[employer].HipClub/Hwjeh-Tyblreabtem-Gsxucdtc-Products-List.pdf [place] Stores with delivery and orange picking supervisor services: [employer]: Free orange picking supervisor at locations Delivery is $12.95 a month Website - [employer] [place]: Vehicle Monitor Technician $2.95 (1st order is free) Delivery is $14.95 Website - [employer] [place]: bit and shank department supervisor is free Delivery is $5.95 [employer] Kroger: bit and shank department supervisor is $4.95 Delivery is $9.95 Way[employer] Meijer: bit and shank department supervisor is $4.95 Delivery is $9.95 [employer]B Systems Whole [employer] Market: Can be ordered for delivery and orange picking supervisor with Sobrr Website - www.Mobile Theory Aldi: Free deliver for first 3 orders of $35 or more Website Modumetal Will deliver from CVS, Meijer, Pet[employer], and Target. Annual membership is $99 Monthly membership is $14 boudreaux documented in this encounter* Instructions* Kiara Drake MD - 09/06/2020 Follow up appointment with your doctor/enrollment nurse - Keep next scheduled appointment Activity - Normal Activity Call your doctor/enrollment nurse if you have: - leaking fluid - [...] and changing your position. Treatment Verification: Lauren Nesbitt was assessed on Labor and Delivery for a related visit on 09/06/20. Kiara Drake MD [facility] If you are Covid-19 positive or a [...] clean your hands with an alcohol-based hand retail marketing specialist that contains at least 60% alcohol. Clean your hands often Wash your hands often with soap and water for at least 20 seconds, especially after blowing your nose, coughing, or sneezing; going to the bathroom; and before eating or preparing food. If soap and water are not readily available, use an alcohol-based hand retail marketing specialist with at least 60% alcohol, covering all [...] to call the local or [facility] health department. Persons who are placed underactive [...] isolation precautions should be made on a cjzc-ph-boto basis, in consultation with healthcare providers and [facility]. Information on Covid-19 for all [...] respiratory tract signs and symptoms. Ways to Lando with Anxiety & Stress It is normal [...] an illness that was first found in [facility], in June 2019. It has since spread [...] seen in people before. This virus spreads cjicyt-yq-qpbluq through droplets from coughing and sneezing. It [...] water aren't available, use an alcohol-based hand retail marketing specialist. Call 911 anytime you think you may [...] of: October 10, 2019 Content Version: 12.4 [employer]. Care instructions adapted under license by your healthcare professional. If you have questions about a medical condition or this instruction, always ask your healthcare professional. [employer] disclaims any warranty or liability for your use of this information. General Recommendations for Routine Cleaning and Disinfection of Households Community members can practice routine cleaning of frequently touched surfaces (for example: tables, doorknobs, light switches, handles, desks, toilets, faucets, sinks) with household oreman and EPA-registered disinfectants that are appropriate for [...] appropriate. These supplies include tissues, paper towels, oreman and EPA-registered disinfectants (see list link at [...] be used for other purposes. Consult the prenatal genetic counselor's instructions for cleaning and disinfection products used. [...] used if appropriate for the surface. Follow prenatal genetic counselor's instructions for application and proper ventilation. Check [...] o Products with EPA-approved emerging viral pathogens [facility] iconexternal icon are expected to be effective against COVID-19 based on data for harder to kill viruses. Follow the prenatal genetic counselor's instructions for all cleaning and disinfection products (e.g., concentration, application method and contact time, etc.). Soft (porous) surfaces such as carpeted floor, rugs, and drapes Remove visible contamination if present and clean with appropriate oreman indicated for use on these surfaces. After cleaning: Launder items as appropriate in accordance with the prenatal genetic counselor's instructions. If possible, launder items using the [...] items as appropriate in accordance with the prenatal genetic counselor's instructions. If possible, launder items using the warmest appropriate water setting for the items and dry items completely. Dirtylaundry from an ill person can be washed with other people's items. o Clean and disinfect clothes hampers according to guidance above for surfaces. If possible, consider placing a baggage and mail agent that is either disposable (can be thrown away) or can be laundered. CDC has a list of EPA approved cleaning products on their website - https://www.cdc.gov/coronavirus/ 2019-ncov/community/home/cleaning-disinfection.html https://www.[employer].HipClub/Slobg-Zwpbedorwah-Gtfaknyc-Products-List.pdf [employer] with delivery and orange picking supervisor services: [employer]: Free orange picking supervisor at locations Delivery is $12.95 a month Website - [employer] [place]: Vehicle Monitor Technician $2.95 (1st order is free) Delivery is $14.95 Website [employer] [place]: bit and shank department supervisor is free Delivery is $5.95 [employer] Kroger: bit and shank department supervisor is $4.95 Delivery is $9.95 Website [employer] Meijer: bit and shank department supervisor is $4.95 Delivery is $9.95 [employer] Whole [employer] Market: Can be ordered for delivery and orange picking supervisor with Sobrr Website - [email or web address] Aldi: Free deliver for first 3 orders of $35 or more Website [email or web address] Will deliver from [employer], Meijer, Pet[employer], and [employer]. Annual membership is $99 Monthly membership is $14 [place] documented in this encounter* Attachments The following attachments cannot be sent through Care Everywhere. * UTI (Urinary Tract Infection): Female (Citizen [place]) * Vaginitis (Citizen [place]) documented in this encounter* Instructions* Amee Parker MD - 09/08/2020 After Your Delivery (the Period): Your Care Instructions Thank you for allowing us to care of you at [facility]. This time can be one of many [...] over the next few weeks. Bleeding may orange picking supervisor and then decrease again around 7-10 days [...] avoid constipation you may take a mild figw-wbd-qnmruqq stool softener (such as colace) as recommended [...] clean your hands with an alcohol-based hand retail marketing specialist that contains at least 60% alcohol. Clean your hands often Wash your hands often with soap and water for at least 20 seconds, especially after blowing your nose, coughing, or sneezing; going to the bathroom; and before eating or preparing food. If soap and water are not readily available, use an alcohol-based hand retail marketing specialist with at least 60% alcohol, covering all [...] to call the local or [facility] health department. Persons who are placed underactive [...] isolation precautions should be made on a uqfq-wp-rayc basis, in consultation with healthcare providers and [facility] health [facility]. Information on COVID-19 for all [...] respiratory tract signs and symptoms. Ways to Lando with Anxiety & Stress It is normal [...] an illness that was first found in [facility], in June 2019. It has since spread [...] seen in people before. This virus spreads zcbxhy-qq-dqtqth through droplets from coughing and sneezing. It [...] water aren't available, use an alcohol-based hand retail marketing specialist. Call 911 anytime you think you may [...] of: October 10, 2019 Content Version: 12.4 [employer]. Care instructions adapted under license by your healthcare professional. If you have questions about a medical condition or this instruction, always ask your healthcare professional. [employer] disclaims any warranty or liability for your use of this information. General Recommendations for Routine Cleaning and Disinfection of Households Community members can practice routine cleaning of frequently touched surfaces (for example: tables, doorknobs, light switches, handles, desks, toilets, faucets, sinks) with household oreman and EPA-registered disinfectants that are appropriate for [...] appropriate. These supplies include tissues, paper towels, oreman and EPA-registered disinfectants (see list link at [...] be used for other purposes. Consult the prenatal genetic counselor's instructions for cleaning and disinfection products used. [...] used if appropriate for the surface. Follow prenatal genetic counselor's instructions for application and proper ventilation. Check [...] o Products with EPA-approved emerging viral pathogens [facility] iconexternal icon are expected to be effective against COVID-19 based on data for harder to kill viruses. Follow the prenatal genetic counselor's instructions for all cleaning and disinfection products (e.g., concentration, application method and contact time, etc.). Soft (porous) surfaces such as carpeted floor, rugs, and drapes Remove visible contamination if present and clean with appropriate oreman indicated for use on these surfaces. After cleaning: Launder items as appropriate in accordance with the prenatal genetic counselor's instructions. If possible, launder items using the [...] items as appropriate in accordance with the prenatal genetic counselor's instructions. If possible, launder items using the warmest appropriate water setting for the items and dry items completely. Dirtylaundry from an ill person can be washed with other people's items. o Clean and disinfect clothes hampers according to guidance above for surfaces. If possible, consider placing a baggage and mail agent that is either disposable (can be thrown away) or can be laundered. CDC has a list of EPA approved cleaning products on their website - https://www.cdc.gov/coronavirus/ 2019-ncov/community/home/cleaning-disinfection.html https://www.Restaro/Dwaft-Thhlskruumn-Prsazasw-Products-List.pdf Grocery Stores with delivery and orange picking supervisor services: [employer]: Free orange picking supervisor at locations Delivery is $12.95 a month Website - [employer] [place]: Vehicle Monitor Technician $2.95 (1st order is free) Delivery is $14.95 Website [employer] [place]: bit and shank department supervisor is free Delivery is $5.95 Website TranSwitcheagleGoAlbert Kroger: bit and shank department supervisor is $4.95 Delivery is $9.95 Rede[employer]Get KrogerGoAlbert Meijer: bit and shank department supervisor is $4.95 Delivery is $9.95 [employer]B Systems [employer] Market: Can be ordered for delivery and orange picking supervisor with Sobrr Website - [email or web address] Aldi: Free deliver for first 3 orders of $35 or more Website [email or web address] Will deliver from CVS, Meijer, Petco, and [...] tablet by mouth 2 times daily 03/10/20 TIGRE Rouse CNM CARE: Complicated by: Obesity, Hx Vaccuum [...] to triage after being transferred from the [place] ED. Please see HPI for events of [...] return precautions. IMPRESSION: Maternal Injury DISCUSSED WITH [facility] PROVIDER: Dr. Elizabeth DISPOSITION: Discharge to Home documented in this encounter* Ashley Null MS, RD, [place] - 09/08/2020 12:03 PM EST Nutrition Note PPD # 1 s/p . Currently on General diet and tolerating well. RD sign off to DT. Contact: pager [phone] * Amee Parker MD - 09/08/2020 6:17 AM EST I reviewed and agree with the care provided by the resident during or immediately following the visit including the patient's medical history, the resident's findings in the physical exam, patient's diagnosis and treatment plan. Doing very well, desires d/c home today. DAY # 1 Lauren Nesbitt, 19 y.o. This patient was seen & [...] FVL+Prothrombin (heterozygous), Antithrombin III, APLS Assessment/Plan: Lauren Nesbitt is PPD # 1 s/p 1. Care [...] Date: 09/07/2020 Time: 7:37 AM Subjective: Lauren Nesbitt is a 19 y.o. female at 37w3d admitted for AOL-PROM - GBS negative - Desires epidural - Declines LARC Cx: /-3 FHP: defer FHT: cat I [place]: none A/P: 1. AOL-PROM. Patient comfortable. Plan to start pitocin for augmentation. BP's normotensive. CCM. Cx: defer FHP: defer FHT: cat I [place]: q 2-3 min A/P: 1. AOL-PROM. Pit at 8cc/hr, continue to titrate per protocol. BP's normotensive. CCM. Cx: Unchanged FHP: defer FHT: cat I [place]: q 2 min A/P: 1. AOL-PROM. Pit at 14cc/hr, continue to titrate per protocol. Patient overall comfortable. BP's normotensive. CCM. Cx: defer FHT: Cat I [place]: q2-3m A/P: 1. AOL-PROM. Pit at 16cc/hr, have had difficulty titrating due to frequency of contractions. If unchanged at next exam, will place IUPC. Patient now s/p epidural. VSS and wnl. Cx: 10/100/0 FHP: defer FHT: cat II [place]: q 1-3 min A/P: 1. AOL-PROM. Pit at 18cc/hr, continue to titrate per protocol. FHT cat II for intermittent variable decels. Overall reassuring with moderate variability and accels. Dr. Shaw updated at this time but in a delivery at [facility]. Will try to hold off but patient [...] Delivery: Was patient delivered between 37w0d - 29s2mzenac? YES: This patient delivered between [id number]-24e5u for the following acceptable indication(s) for delivery: [...] Procedures: Information for the patient's : Aida Nesbitt [[id number]] female Weight: 6 lb 13.4 oz (3.1 kg) Apgars: Information for the patient's : Aida Nesbitt [[id number]] One Minute : 8 Five Minute : 9 Course: Uncomplicated : Female infant Blood Type/Rh: O POS Antibody Screen: Antibody Screen Date Value Ref Range Status 09/07/2020 NEG NA Final Rubella: Lab Results Component Value Date RUBELLAIGG immune 11/02/2016 Contraception: to be discussed at appointment : yes VTE Prophylaxis: Not Indicated Meds: Lauren Nesbitt Home Medication Instructions ELDA:[id number] Printed on:09/08/20 1206 Medication Information ibuprofen (ADVIL;MOTRIN) 600 MG tablet Take 1 tablet by mouth every 6 hours multivitamin (ANIMAL SHAPES) with C & FA CHEW chewable tablet Take 1 tablet by mouth 2 times daily Activity: Activity as tolerated Diet: Regular diet Follow up Care: Follow up appointment in 6 weeks with [facility] Condition on discharge: Stable Discharge to: Home [...] DATE CREATED AUTHOR AUTHOR'S ORGANIZ ATION 01/03/2018 [facility] DATE CREATED AUTHOR AUTHOR'S ORGANIZ ATION 03/03/2019 [facility] DATE CREATED AUTHOR AUTHOR'S ORGANIZ ATION 02/02/2020 [facility] DATE CREATED AUTHOR AUTHOR'S ORGANIZ ATION 01/30/2022 [facility] DATE CREATED AUTHOR AUTHOR'S ORGANIZ ATION 03/04/2022 [facility] DATE CREATED AUTHOR AUTHOR'S ORGANIZ ATION 04/13/2022 [facility] DATE CREATED AUTHOR AUTHOR'S ORGANIZ ATION 10/22/2022 [facility] ical Center DATE CREATED AUTHOR AUTHOR'S ORGANIZ ATION 10/22/2022 [facility] DATE CREATED AUTHOR AUTHOR'S ORGANIZ ATION 10/30/2022 [facility] dical Center DATE CREATED AUTHOR AUTHOR'S ORGANIZ ATION 12/17/2022 [facility] DATE CREATED AUTHOR AUTHOR'S ORGANIZ ATION 04/26/2023 [facility] DATE CREATED AUTHOR AUTHOR'S ORGANIZ ATION 07/03/2023 [facility] Reason for Visit (unrecogniz ed section and [...] yesterday. Specialty Diagnoses / Procedures Referred By Charlie t Referred To Contact Lab Diagnoses Screening, , for malformation by ultrasound Abnormal ultrasound Procedures Genetic Sendout: Crystal Genetic Sendout Emerson Jacinto MD [address] [facility] [address] [place] [address] Referral ID Status Reason Start Date Expiration Date Visits Re quested Visits Authorized [id number] Open 06/27/2023 06/26/2024 1 1 Ordered Prescriptions [...] (COMPLETED) Routine, CONTINUOUS, Starting on 04/25/21 at 2029, Until Specified And sodium chloride flush 0.9 [...] Infection 0046 (Given - Provid er: Jodee Barerra RN) Scheduled Medication Order 12/13/2021 12/14/2021 12/15/2021 fluconazole (DIFLUCAN) tablet 150 mg 150 mg, Oral, ONCE, 1 dose, On Tue12/15/21 at 1730, Antimicrobial Indications: telemetry nurse Infection 173 (Due) vitamin 27-1 MG tablet [...] TIMES DAILY PRN, Starting on Tue12/15/21 at 7, Until Discontinued, Constipation, Do not crush or [...] mL, IntraVENous, PRN, Starting on Tue12/15/21 at 7, Until Discontinued, Line Care, After every IV [...] Wendy 01/28/22 at 1945, For 1 dose 1945 (Due) Continuous Medication Order 01/26/2022 01/27/2022 01/28/2022 lactated ringers infusion IntraVENous, at 100 mL/hr, CONTINUOUS, Starting on Wendy 01/28/22 at 1945 1945 (Due) lactated ringers infusion IntraVENous, at 125 mL/hr, CONTINUOUS, Starting on Wendy 01/28/22 at 1945 1945 (Due) Scheduled Medication Order 03/27/2022 03/28/2022 03/29/2022 ibuprofen (ADVIL;MOTRIN) tablet 600 mg (COMPLETED) 600 mg, Oral, ONCE, 1 dose, On Tue03/28/22 at 0900, IMMEDIATE . Do not crush or chew. DO NOT GIVE IBUPROFEN PRIOR TO DELIVERY., Post Delivery 1939 (Given - Provider: Mary Castro RN) lactated ringers bolus (COMPLETED) 1,000 mL, IntraVENous, at 1,000 mL/hr, Administer over 1 Hours, ONCE, On [place] 03/28/22 at 0645, For 1 dose 0701 (New Bag - Provider: Maribell Finnegan, RN)0928 (Stopped - Provider: Dyana Syed RN) sodium chloride flush 0.9 % injection 5-40 mL 5-40 mL, IntraVENous, EVERY 12 HOURS SCHEDULED (2 times per day), First dose on [place] 03/28/22 at 2100, Until Discontinued, For Line [...] Castro RN - Reason: IV Fluid Infusing) 0728 (Not Given - Provider: Zaina Chilel RN - Reason: Loss of IV access)2100 (Due) Continuous Medication Order 03/27/2022 03/28/2022 03/29/2022 lactated ringers infusion IntraVENous, at 125 mL/hr, CONTINUOUS, Starting on [place] 03/28/22 at 0900, Labor and Delivery 0801 (New Bag - Provider: Dyana Syed, RN)175 (Stopped - Provider: Lynda Elizabeth RN) oxytocin (PITOCIN) 10 unit bolus from the bag 500 mL (30 Units), IntraVENous, TITRATED, Starting on [place] 03/28/22 at 1945, Until Discontinued, For Immediate [...] every 2-3 minutes with cervical changes or Dundas units (MVU) greater than 200 in a [...] 1012 (New Bag - Provider: Lynda Elizabeth RN)1922 (Stopped - Provider: Lynda Elizabeth RN) ropivacaine [...] with frequent/long duration piggyback infusions, Starting on Tue03/28/22 at 0830, Administer at the same rate [...] (125 mL/hr), IntraVENous, CONTINUOUS PRN, Starting on 03/28/22 at 1923, Until 03/28/22 at 2322, Bleeding, For Immediate Post Use [...] Central Line = 20 mL/lumen, witch gladis-glycerin (HOLLICKS) pad Topical, PRN, Hemorrhoids, For perineal pain or discomfort, Starting on 03/28/22 at 1923, Apply to perineal area. Patient is capable and may self administer at bedside., No Frequency Medication Order 03/27/2022 03/28/2022 03/29/2022 lidocaine PF 1 % injection (COMPLETED) 1 dose, Starting on 03/28/22 at 1802, Until Tue03/29/22 at 0614, Dyana Syed: cabinet override, Dyana Syed: cabinet override 184 (Given - Provider: Thor Syed, RN) mineral oil liquid (COMPLETED) 1 dose, Starting on 03/28/22 at 1740, Until Tue03/29/22 at 0544, Dyana Syed: cabinet overrideKunal Laureen: cabinet override 1842 (Given - Provider: Thor Syed, RN) Linked Groups Order Group 1: ropivacaine 0.2% in sodium chloride 0.9% 200mL (OB) epiduralJump to med 10 mL/hr, Epidural, CONTINUOUS, Starting on 03/28/22 at 1445, Until Discontinued
[facility] Basal Infusion
Labor and Delivery And ropivacaine 0.2% in sodium chloride 0.9% (OB) epidural syringeJump to med Epidural, CONTINUOUS, Starting on 03/28/22 at 1445
PCEA patient controlled syringe Pt. [...] on 03/28/22 at 0830, Labor and Delivery Or lactated [...] or prosecute any alcohol or drug abuse patient.[facility] Care Teams (unrecognized sec tion and content) [employer] Relationship Specialty Start Date End Date Yumiko Mendez MD [address] [address] PCP - General Internal Medicine 09/07/22 [employer] Clerk Relationship Specialty Start Date End Date Yumiko Mendez MD [address] [address] PCP - General Internal Medicine 09/07/22 Estella Herzog MD [address] [address] Consulting Physician Hematology and Oncology 10/15/22 [employer] Clerk Relationship Specialty Start Date End Date Yumiko Mendez MD [address] [facility] [address] [place] [id number] PCP - General Internal Medicine 09/07/22 Estella Herzog MD [address] [facility] [address] [place] [address] Consulting Physician Hematology and Oncology 10/15/22 [employer] Clerk Relationship Specialty Start Date End Date Yumiko Mendez MD [address] [address] PCP - General Internal Medicine 09/07/22 Estella Herzog MD [address] [place] [address] Consulting Physician Hematology and Oncology 10/15/22 [employer] Clerk Relationship Specialty Start Date End Date Yumiko Mendez MD [address] [facility] [address] [place] [address] PCP - General Internal Medicine 09/07/22 Estella Herzog MD [address] [place] [address] Consulting Physician Hematology and Oncology 10/15/22 [employer] Clerk Relationship Specialty Start Date End Date Yumiko Mendez MD [address] [facility] [address] [place] [address] PCP - General Internal Medicine 09/07/22 Estella Herzog MD [address] [facility] [place] [address] Consulting Physician Hematology and Oncology 10/15/22 [employer] Clerk Relationship Specialty Start Date End Date Yumiko Mendez MD [address] [facility] [address] [place] [address] PCP - General Internal Medicine 09/07/22 Estella Herzog MD [address] [place] [address] Consulting Physician Hematology and Oncology 10/15/22 [employer] Clerk Relationship Specialty Start Date End Date Emerson Jacinto MD [address] [facility] [address] [place] [address] PCP - General Maternal Medicine 06/27/23 Dennise Vides, INSPECTOR STRUCTURAL BONDING-BIOMEDICAL ENGINEERING TECHNICIAN [address] [address] Obstetrics Gynecology 04/14/23 FOR RECORDS PERTAINING TO [...] BE BASED ON THE PRIMARY CLINICAL RECORDS. [facility]. provides no warranty or guarantee of the accuracy or completeness of information in this document.
[2023-08-01 18:42] VITALS: BP 107/64; PULSE 90; TEMP 36.9
[2023-08-01 18:46] VITALS: BMI 40.4
--- NOTE | 2023-08-01 19:03 | OB.TRI.HP_ITS ---
HPI - General General Chief Complaint: elevated glucose HPI Narrative ANDRZEJ KOO, is a 22 F who presents at 30+4 with elevated glucose today. per pt, has had 5 trinidadian fries today and glucose was 243 at home, decreased to 108 2 hours later. presented to for assistance. +FM, no ctx/lof/vb. notes glucose has ranged 95-140 in the morning and 108-140s during the day. Maternal Data Information ARYA Calculator Estimated Delivery Date Method Current WG Current Estimate 10/06/23 Ultrasound #1 30w 4d Other Estimates 09/27/23 LMP (Certain) 31w 6d [facility] Medical History (Updated 08/01/23 @ 19:08 by Estefani Kumar CNM) Abnormal glucose affecting Home Medications multivitamin no.47-iron fum 27 mg-folate no.1 1 mg-dha 300 mg capsule (PNV-DHA) 1 cap PO 02/17/23 [History Last Taken Unknown] sertraline 25 mg tablet (Zoloft) 25 mg PO DAILY PRN anxiety 07/07/23 [History Last Taken Unknown] blood sugar diagnostic (Blood Glucose Test strips) #120 ea 07/20/23 [Rx Last Taken Unknown] blood-glucose meter #1 ea 07/20/23 [Rx Last Taken Unknown] lancets #200 ea 07/20/23 [Rx Last Taken Unknown] metformin 500 mg tablet 500 mg PO DAILY #30 tabs 08/01/23 [Rx Last Taken Unknown] Allergy/AdvReac Type Severity Reaction Status Date / Time latex Allergy Mild Hives Verified 08/01/23 18:46 Social History household members: spouse and children Smoking Status: Never smoker alcohol intake: never substance use type: does not use seatbelt use: always do you feel safe at home: Yes additional social history: Luis History 7 Elective abortions Hx Para 3 Spontaneous abortions 3 Hx # Term Pregnancies Ectopic pregnancies Hx # Pregnancies Multiple births # of living children 3 Past Pregnancies Del. Date Name GA/Weeks Outcome Route Bth Weight Infant Gen Labor Lgth Anesthesia Del Locatn Provider FOB Unknown 2014 spontaneous Unknown spontaneous 06/17/17 fadia live - full term 7lbs 14 oz Male [address] Amee Velez 09/07/20 Allison 37 live - full term 6lbs 14oz Female [address] [address] Cornelia Ruvalcaba 06/19/21 spontaneous 03/28/22 Emily Jacqueline 38 live - full term 7lbs 4 oz Fema le 7 hrs epidural ishaankai Smith Delivery Date: 03/28/22 Last Updated by: Katelynn Saldivar, DO short cervix, decels. h/o steroid use Visit Details Expected Delivery Route/Plan Labor Preferences- CB/BF classes: no labor support person: Luis labor intervention preferences: [] pain management options preferred: limited cut cord/dad catch: cord : bottle PP control planned: DESIRES TUBAL PP discussed possible routes of delivery and associated risks: [] special requests: [] Plans Covid status: [] Flu vaccine: declines Tdap vaccine: Rhogam: NA LARC form signed: yes Problem list reviewed and updated with the most current plan of care details and appropriate orders placed. Relevant counseling for the gestational age provided. Continue routine care and follow up unless otherwise noted in visit notes/problem list details OB Flowsheet Initial Weight: Not Recorded Date -?-?-?-?-?-?-?-?-?-?-?-?- EGA Weight BP Urine Prot -?-?-?-?-?-?-?-?-?--?-?-?- Glucose FHR FuHt Pres Dilation -?-?-?-?-?-?-?-?-?-?-?-?- Effaced St Visit Note 02/17/23 -?-?-?-?-?-?-?-?-?-?-?-?- 7w 0d 220 lb 4 oz 108/61 Nega tive -?-?-?-?-?-?-?-?-?-?-?-?- Negative 173 -?-?-?-?-?-?-?-?-?-?-?-?- JV- CRL is off b y 9 days from LMP. arya 10/06/23 desires NIPT. 03/18/23 -?-?-?-?-?-?-?-?-?-?-?-?- 11w 1d 198 lb 6 oz 107/67 -?-?-?-?-?-?-?-?-?-?-?-?- -?-?-?-?-?-?-?-?-?-?-?-?- KW-FHT visualize d on handheld US. desires tubal PP-in hospital if possible. KW-FHT visualized on handhel d US. desires tubal PP-in hospital if possible- needs Title 19. 04/11/23 -?-?-?-?-?-?-?-?-?-?-?-?- 14w 4d 200 lb 2 oz 108/66 Nega tive -?-?-?-?-?-?-?-?-?-?-?-?- Negative 155 -?-?-?-?-?-?-?-?-?-?-?-?- MH-No Vb or cram ping. Nausea improved. Still needs MFM consult for hx short cx. New order sent 05/09/23 -?-?-?-?-?-?-?-?-?-?-?-?- 18w 4d 197 lb 8 oz 98/60 Nega tive -?-?-?-?-?-?-?-?-?-?-?-?- Negative 128 -?-?-?-?-?-?-?-?-?-?-?-?- JV- no lof, vagi nal bleeding, or cramping. wants flu shot today. pt states that she did a dry run to the hospital and it took 2 hours to drop off the kids and get here she wants to be induced at 39 weeks. agree with plan. hemorrhoid treatment discussed today. continue q 2 week vag scans of CL until 24 weeks. 06/08/23 -?-?-?--?-?-?-?-?-?-?-?-?- 22w 6d 200 lb 91/63 Negative -?-?-?-?-?-?-?-?-?-?-?-?- Negative 132 0 -?-?-?-?-?-?-?-?-?-?-?-?- 50 JV- pt s cl was 30.6 mm, placenta no longer low lying. rpt us on 06/13. plan is for 3 hr gtt, due to h/o failing 1 hour. JV- pt s cl was 30.6 mm, placenta no longer low lying. rpt us on 06/13. plan is for 3 hr gtt, due to h/o failing 1 hour. wants tubal ligation. will need title 19 next visit. 07/07/23 -?-?-?-?-?-?-?-?-?-?-?-?- 27w 0d 201 lb 124/70 Trace -?-?-?-?-?-?-?-?-?-?-?-?- Negative 138 28 -?-?-?-?-?-?-?-?-?-?-?-?- MH-No VB, LOF. H aving vaginal burning X 3 days. No STD concerns. See exam, culture pending. Larc, 28 wk labs 07/20/23 -?-?-?-?-?-?-?-?-?-?-?-?- 28w 6d 206 lb 4 oz 103/70 Nega tive -?-?-?-?-?-?-?-?-?-?-?-?- Negative 135 28 -?-?-?-?-?-?-?-?-?-?-?-?- LC- no vb/ctx/lo f. good fm. aunt , does not have time for 3 hour glucose, lab refused . will obtain 2 week glucose monitoring NST FHR Rate Baby A Baseline: 140 Variability:: Moderate Accelerations:: 10 x 10 Decelerations:: None NST Reactive:: Yes FHR Category:: Category I Assessment & Plan (1) Abnormal glucose affecting : COMMENT: passed 3 hr. GTT; will repeat 3hr instead of doing 1 hour at 28 wk pt refuses 3 hour glucose- will obtain 4x daily glucose readings. supplies ordered. (2) Gestational diabetes mellitus (GDM): COMMENT: consistently elevated fasting glucose and PP. LC-started on Metformin 500mg 08/01/2023 from triage- consulted with KEYUR who agrees with plan. PLAN: Plan Patient presents for triage evaluation secondary to elevated glucose FHT: Moderate variability reactive no decelerations category I tracing [place]: no Contractions Assessment and plan: Reactive NST, reassuring maternal and status patient discharged to home to follow-up in the office this week. See problem list details for additional plan information. Charges/Coding Procedures Urinary/Genital [id number]: [id number] non-stress test Interp
[2023-08-01 19:08] LABS: Bedside Glucose 90 mg/dL (74-106)
== END 2023-08-01 19:09 | disposition home or self-care (01) ==
LOC: WPOUT 18:21 → WP 18:21
PROVIDERS: Visit Provider Obstetrics & Gynecology
DX: O24.419 Gestational diabetes mellitus in pregnancy, unspecified control (principal); Z3A.30 30 weeks gestation of pregnancy
CPT/HCPCS: 59025; 59050; 82962

== ENCOUNTER 2023-08-08 12:57 | Outpatient (RCR) | payer MEDICAID, SELFPAY | END 2023-08-10 23:59 | LOC: DC 12:57 | PROVIDERS: Referring Provider Nurse Practitioner Women's Health; Visit Provider Nurse Practitioner Women's Health | DX: O24.419 Gestational diabetes mellitus in pregnancy, unspecified control (principal); O99.210 Obesity complicating pregnancy, unspecified trimester | CPT/HCPCS: 97802 ==

== ENCOUNTER 2023-08-15 11:06 | Outpatient (RCR) | payer MEDICAID, SELFPAY | END 2023-09-08 23:59 | LOC: DC 11:06 | PROVIDERS: Referring Provider Nurse Practitioner Women's Health; Visit Provider Nurse Practitioner Women's Health | DX: O24.419 Gestational diabetes mellitus in pregnancy, unspecified control (principal); O99.210 Obesity complicating pregnancy, unspecified trimester | CPT/HCPCS: 97803 ==

== ENCOUNTER 2023-08-24 16:25 | Outpatient (CLI) | payer MEDICAID, SELFPAY ==
[2023-08-24 16:35] VITALS: BMI 37.8
[2023-08-24 16:42] VITALS: BP 109/62; PULSE 113
[2023-08-24 16:50] VITALS: BP 110/57; PULSE 104
[2023-08-24 17:00] VITALS: BP 101/59; PULSE 106
[2023-08-24 17:10] VITALS: BP 99/57; PULSE 98
[2023-08-24 17:10] LABS: Hematocrit 34.4 % (37-47); Mean Corp Hgb Conc 34.9 g/dL (32-36); Mean Corpuscular Hgb 30.6 pg (27.0-32.0); Mean Corpuscular Volume 87.8 fL (81-99); Mean Platelet Vol. 9.8 fl (6.2-12.0); Platelet Count 281 K/mm3 (150-450); RBC Distribution Width CV 13.4 % (11.6-14.6); RBC Distribution Width SD 42.5 fl (35.1-43.9); Red Blood Count 3.92 M/mm3 (4.2-5.4); White Blood Count 14.5 K/mm3 (4.4-11.0)
[2023-08-24 17:12] LABS: Protein, Urine (Random) 15.1 mg/dL (<11.9); Protein:Creat Ratio 73 mg/g CRE (0-200)
[2023-08-24 17:20] VITALS: BP 101/59; PULSE 94
[2023-08-24 17:30] VITALS: BP 100/56; PULSE 101
[2023-08-24 17:35] LABS: AST(SGOT) 10 U/L (15-37); Alanine Aminotransfer ALT/SGPT 11 U/L (13-56); Creatinine, Serum 0.44 mg/dL (0.55-1.02); EST Glomerular Filtration Rate 184 mL/min (>60); Est Glom Filt Rate - Afr Amer 223 mL/min (>60); Estimated Creatinine Clearance 210.45 ml/min
--- OUTSIDE RECORDS SUMMARY | 2023-08-24 19:35 | XMS RPT_ITS | CCD ---
Author Name Unknown Address [address] [place] [address] Organization [facility] Care Team Providers Care Engineer Technician Name Role Phone CHARY AVILES Unavailable Unavailable KEITH AMEE Unavailable Unavailable BRENDA PARKERARY Unavailable Unavailable MYLA STINSON Unavailable Unavailable MARIA DE JESUS BRANHAM Admitting Unavailable MARIA DE JESUS BRANHAM Attending Unavailable AA UNKNOWN PCP, UNKNOWN Primary Care Unavaila ble Kem Malik Primary Care Provider Kem Malik Primary Care Provider Kem Malik DO Primary Care Provider Unavailable Primary Care Provider Unavailshoaib e SILVERIO CARTER Attending Unavailable HOMER RICO [...] Unavailable Chucho Coburn Unavailable Unavailable Unavailable Dowd Jr, Mr. Dane Borja Referring Unava naeem Dowd Jr, Mr. Dane Borja Attending Unava naeem Coburn, Dr. Chucho Roberts Primary Care Unavailable AUDU, [facility] Primary Care Unavailable SUBICHIN II, GURJIT Andrade Primary Care Unavailab le AUDU, [facility] Primary Care Unavailable SUBICHIN II, GURJIT Andrade Primary Care Unavailab le AUDU, [facility] Primary Care Unavailable VALENTIN CHAMBERS Referring Unavailable AUDU, [facility] Primary Care Unavailable Audu Yumiko Primary Care Provider Estella Herzog MD Unavailable AUDU, YUMIKO Attending Unavailable AUDU, [facility] Primary Care Unavailable AUDU, YUMIKO Attending Unavailable AUDU, [facility] Primary Care Unavailable INA DENG Attending Unavailable INA DENG Attending Unavailable AUDU, [facility] Primary Care Unavailable AUDU, YUMIKO Attending Unavailable AUDU, [facility] Primary Care Unavailable ESTELLA HERZOG Attending Unavailable AUDU, [facility] Primary Care Unavailable LIZZIE HARE Attending Unavailable AUDU, [facility] Primary Care Unavailable AUDU, YUMIKO Attending Unavailable AUDU, [facility] Primary Care Unavailable AUDU, YUMIKO Attending Unavailable AUDU, [facility] Primary Care Unavailable AUDU, YUMIKO Attending Unavailable AUDU, YUMIKO Referring Unavailable AUDU, [facility] Primary Care Unavailable SOPHIA ARZATE Attending Unavailable AUDU, [facility] Primary Care Unavailable Dennise Rehman S Unavailable Emerson Jacinto MD Primary Care Provider [phone] NO PRIMARY CARE, Primary Care Unavailable JENNIFER DAY Attending Unavailable DENNISE VIDES Referring Unavailable NO PRIMARY CARE, Primary Care Unavailable LENNY ROJAS Referring UnavailKATELYNN Navarrete Attending Unavailab le NO PRIMARY CAREMD Primary Care Unavailable JENNIFER DAY Attending Unavailable LENNY ROJAS Referring Unavailabl jennifer JACINTO, EMERSON A Attending Unavailable KATELYNN NIÑO Referring Unavailab le JACINTO, EMERSON A Primary Care Unavailable JENNIFER DAY Attending Unavailable KATELYNN NIÑO Referring Unavailab le JACINTO, EMERSON A Primary Care Unavailable NO PRIMARY CARE, Primary Care Unavailable HUNTER OZUNA Attending Unavailshoaib rodriguez DENNISE VIDES Referring Unavailable JACINTO, EMERSON A Attending Unavailable JACINTO, EMERSON A Referring Unavailable JACINTO, EMERSON A Primary Care Unavailable NO PRIMARY CARE, Primary Care Unavailable DENNISE VIDES Referring Unavailable STEVIE OZUNA Attending Unavailable Allergies Allergy Classification Reported Allergen(s) Allergy Type Date of Onset Reaction(s) Facility Cinnamon Preparation (1 source) Cinnamon Preparation Drug Allergy 2 Swelling [facility] Latex (1 source) Latex Substance Allergy 7 Hives [facility] (20 sources) cinnamon preparation; Translations: [CINNAMON] Drug Allergy 2 Swelling, Other: See Comments [facility] (20 sources) Latex; Translations: [LATEX] Propensity to adverse reactions (disorder) 7 Hives, Anaphylaxis, Swelling [facility] Medications Current Medications Medication Drug Class(es) Dates Sig (Normalized) Sig (Original) acetaminophen 325 mg oral tablet (4 sources) Start: 03-28-2022 acetaminophen (TYLENOL) tablet 650 mg Completed/Discontinued Medications Medication Drug Class(es) Dates Sig (Normalized) Sig (Original) [id number] 200 actuat albuterol 0.09 mg/actuat metered dose [...] 09-07-2022 Episodic Other aftercare (2 sources) Other jail (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; Translations: [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] Onset: 08-30-2021 Episodic Other [...] 157.5 cm Lizzie Aguero NP Work Phone: [facility] 04-25-2023 09:44-0400 Body mass index (BMI) [Ratio] 36.4 kg/m2 Lizzie Aguero NP Work Phone: [facility] 04-25-2023 09:44-0400 Body temperature 97.2 [degF] Lizzie Aguero NP Work Phone: [facility] 04-25-2023 09:44-0400 Body weight 90.27 kg Lizzie Aguero NP Work Phone: [facility] 04-25-2023 09:44-0400 Diastolic blood pressure 76 mm[Hg] Lizzie Hare COLOR TESTER - SENIOR SOFTWARE DEVELOPMENT MANAGER Work Phone: [facility] 04-25-2023 09:44-0400 Heart rate 91 /min Lizzie Hare COLOR TESTER - SENIOR SOFTWARE DEVELOPMENT MANAGER Work Phone: [facility] 04-25-2023 09:44-0400 SaO2% (BldA) [Mass fraction] 98 % Lizziebianca Hare COLOR TESTER - SENIOR SOFTWARE DEVELOPMENT MANAGER Work Phone: [facility] 04-25-2023 09:44-0400 Systolic blood pressure 118 mm[Hg] Lzizie Hare COLOR TESTER - SENIOR SOFTWARE DEVELOPMENT MANAGER Work Phone: [facility] 04-12-2023 09:26-0400 Body height 157.5 cm Yumiko Mendez MD Work Phone: [facility] 04-12-2023 09:26-0400 Body mass index (BMI) [Ratio] 36.21 kg/m2 Yumiko Mendez MD Work Phone: [facility] 04-12-2023 09:26-0400 Body temperature 96.91 [degF] Yumiko Mendez MD Work Phone: [facility] 04-12-2023 09:26-0400 Body weight 89.81 kg Yumiko Mendez MD Work Phone: [facility] 04-12-2023 09:26-0400 Diastolic blood pressure 66 mm[Hg] Yumiko Mendez MD Work Phone: [facility] 04-12-2023 09:26-0400 Heart rate 106 /min Yumiko Mendez MD Work Phone: [facility] 04-12-2023 09:26-0400 Respiratory rate 16 /min Yumiko Mendez MD Work Phone: [facility] 04-12-2023 09:26-0400 SaO2% (BldA) [Mass fraction] 98 % Yumiko Mendez MD Work Phone: [facility] 04-12-2023 09:26-0400 Systolic blood pressure 121 mm[Hg] Yumiko Mendez MD Work Phone: [facility] 02-03-2023 13:02-0400 Body mass index (BMI) [Ratio] 36.65 kg/m2 Ina Deng COLOR TESTER - CNM Work Phone: [facility] 02-03-2023 13:02-0400 Body weight 90.9 kg Ina Deng COLOR TESTER - CNM Work Phone: [facility] 02-03-2023 13:02-0400 Diastolic blood pressure 75 mm[Hg] Ina Deng COLOR TESTER - CNM Work Phone: [facility] 02-03-2023 13:02-0400 Heart rate 101 /min Ina Deng COLOR TESTER - CNM Work Phone: [facility] 02-03-2023 13:02-0400 Systolic blood pressure 106 mm[Hg] Ina Youngk COLOR TESTER - CNM Work Phone: [facility] 01-25-2023 11:13-0400 Body height 157.5 cm Yumiko Mendez MD Work Phone: [facility] 01-25-2023 11:13-0400 Body mass index (BMI) [Ratio] 36.43 kg/m2 Yumiko Mendez MD Work Phone: [facility] 01-25-2023 11:13-0400 Body temperature 97.7 [degF] Yumiko Mendez MD Work Phone: [facility] 01-25-2023 11:13-0400 Body weight 90.36 kg Yumiko Mendez MD Work Phone: [facility] 01-25-2023 11:13-0400 Diastolic blood pressure 80 mm[Hg] Yumiko Mendez MD Work Phone: [facility] 01-25-2023 11:13-0400 Heart rate 101 /min Yumiko Mendez MD Work Phone: [facility] 01-25-2023 11:13-0400 SaO2% (BldA) [Mass fraction] 96 % Yumiko Mendez MD Work Phone: [facility] 01-25-2023 11:13-0400 Systolic blood pressure 124 mm[Hg] Yumiko Mendez MD Work Phone: [facility] 12-28-2022 11:05-0400 Body mass index (BMI) [Ratio] 36.1 kg/m2 Yumiko Mendez MD Work Phone: [facility] 12-28-2022 11:05-0400 Body temperature 97.3 [degF] Yumiko Mendez MD Work Phone: [facility] 12-28-2022 11:05-0400 Body weight 89.54 kg Yumiko Mendez MD Work Phone: [facility] 12-28-2022 11:05-0400 Diastolic blood pressure 74 mm[Hg] Yumiko Mendez MD Work Phone: [facility] 12-28-2022 11:05-0400 Heart rate 103 /min Yumiko Mendez MD Work Phone: [facility] 12-28-2022 11:05-0400 SaO2% (BldA) [Mass fraction] 96 % Yumiko Mendez MD Work Phone: [facility] 12-28-2022 11:05-0400 Systolic blood pressure 104 mm[Hg] Yumiko Mendez MD Work Phone: [facility] 10-15-2022 11:42-0400 Body height 157.5 cm Estella Herzog MD Work Phone: [facility] 10-15-2022 11:42-0400 Body mass index (BMI) [Ratio] 36.23 kg/m2 Estella Herzog MD Work Phone: [facility] 10-15-2022 11:42-0400 Body temperature 95.9 [degF] Estella Herzog MD Work Phone: [facility] 10-15-2022 11:42-0400 Body weight 89.86 kg Estella Herzog MD Work Phone: [facility] 10-15-2022 11:42-0400 Diastolic blood pressure 66 mm[Hg] Estella Herzog MD Work Phone: [facility] 10-15-2022 11:42-0400 Heart rate 69 /min Estella Herzog MD Work Phone: [facility] 10-15-2022 11:42-0400 Respiratory rate 16 /min Estella Herzog MD Work Phone: [facility] 10-15-2022 11:42-0400 SaO2% (BldA) [Mass fraction] 99 % Estella Herzog MD Work Phone: [facility] 10-15-2022 11:42-0400 Systolic blood pressure 104 mm[Hg] Estella Herzog MD Work Phone: [facility] 09-29-2022 15:35-0400 Body height 157.5 cm Yumiko Mendez MD Work Phone: [facility] 09-29-2022 15:35-0400 Body mass index (BMI) [Ratio] 35.85 kg/m2 Yumiko Mendez MD Work Phone: [facility] 09-29-2022 15:35-0400 Body weight 88.91 kg Yumiko Mendez MD Work Phone: [facility] 03-29-2022 08:33-0400 Body temperature 97.7 [degF] Lee Chaudhari MD Work Phone: [facility] 03-29-2022 08:33-0400 Diastolic blood pressure 71 mm[Hg] Lee Chaudhari MD Work Phone: [facility] 03-29-2022 08:33-0400 Heart rate 84 /min Lee Chaudhari MD Work Phone: [facility] 03-29-2022 08:33-0400 Respiratory rate 18 /min Lee Chaudhari MD Work Phone: [facility] 03-29-2022 08:33-0400 Systolic blood pressure 97 mm[Hg] Lee Chaudhari MD Work Phone: [facility] 03-29-2022 05:47-0400 SaO2% (BldA) [Mass fraction] 99 % Lee Chaudhari MD Work Phone: [facility] 03-28-2022 06:10-0400 Body height 152.4 cm Lee Chaudhari MD Work Phone: [facility] 03-28-2022 06:10-0400 Body mass index (BMI) [Ratio] 39.06 kg/m2 Lee Chaudhari MD Work Phone: [facility] 03-28-2022 06:10-0400 Body weight 90.72 kg Lee Chaudhari MD Work Phone: [facility] 02-28-2022 20:10-0400 Body height 152.4 cm Sophia Arzate COLOR TESTER - 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 Work Phone: [facility] 02-28-2022 20:10-0400 Body mass index (BMI) [Ratio] 38.47 kg/m2 Sophia Cissell COLOR TESTER - 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 Work Phone: [facility] 02-28-2022 20:10-0400 Body weight 89.36 kg Sophia Cissell COLOR TESTER - 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 Work Phone: [facility] 01-28-2022 17:56-0400 Body height 152.4 cm Silverio Carter MD Work Phone: [facility] [employer] 01-28-2022 17:56-0400 Body mass index (BMI) [Ratio] 37.89 kg/m2 Silverio Carter MD Work Phone: [email or web address] 01-28-2022 17:56-0400 Body temperature 98.1 [degF] Silverio Carter MD Work Phone: [facility] [employer] 01-28-2022 17:56-0400 Body weight 88 kg Silverio Carter MD Work Phone: [facility] [employer] 01-28-2022 17:56-0400 Diastolic blood pressure 54 mm[Hg] Silverio Carter MD Work Phone: [facility] [employer] 01-28-2022 17:56-0400 Heart rate 94 /min Silverio Carter MD Work Phone: [facility] [employer] 01-28-2022 17:56-0400 Respiratory rate 18 /min Silverio Carter MD Work Phone: [facility] [employer] 01-28-2022 17:56-0400 Systolic blood pressure 109 mm[Hg] Silverio Carter MD Work Phone: [facility] [employer] 01-25-2022 19:40-0400 Heart rate 82 /min Shala Noble MD Work Phone: [facility] 01-25-2022 16:28-0400 Body height 152.4 cm Shala Noble MD Work Phone: [facility] 01-25-2022 16:28-0400 Body mass index (BMI) [Ratio] 37.89 kg/m2 Shala Noble MD Work Phone: [facility] 01-25-2022 16:28-0400 Body temperature 98.2 [degF] Shala Noble MD Work Phone: [facility] 01-25-2022 16:28-0400 Body weight 88 kg Shala Noble MD Work Phone: [facility] 01-25-2022 16:28-0400 Diastolic blood pressure 67 mm[Hg] Shala Noble MD Work Phone: [facility] 01-25-2022 16:28-0400 Respiratory rate 18 /min Shala Noble MD Work Phone: [facility] 01-25-2022 16:28-0400 Systolic blood pressure 110 mm[Hg] Shala Noble MD Work Phone: [facility] 12-24-2021 18:03-0400 Body temperature 98.2 [degF] Dick Nance MD Work Phone: [facility] 12-24-2021 18:03-0400 Diastolic blood pressure 62 mm[Hg] Dick Nance MD Work Phone: [facility] 12-24-2021 18:03-0400 Heart rate 100 /min Dick Nance MD Work Phone: [facility] 12-24-2021 18:03-0400 Respiratory rate 18 /min Dick Nance MD Work Phone: [facility] 12-24-2021 18:03-0400 Systolic blood pressure 106 mm[Hg] Dick Nance MD Work Phone: [facility] 12-20-2021 22:00-0400 Heart rate 74 /min Lee Chaudhari MD Work Phone: [facility] 12-20-2021 20:52-0400 Body height 152.4 cm Lee Chaudhari MD Work Phone: [facility] 12-20-2021 20:52-0400 Body mass index (BMI) [Ratio] 36.91 kg/m2 Lee Chaudhari MD Work Phone: [facility] 12-20-2021 20:52-0400 Body temperature 98.6 [degF] Lee Chaudhari MD Work Phone: [facility] 12-20-2021 20:52-0400 Body weight 85.73 kg Lee Chaudhari MD Work Phone: [facility] 12-20-2021 20:52-0400 Diastolic blood pressure 61 mm[Hg] Lee Chaudhari MD Work Phone: [facility] 12-20-2021 20:52-0400 Respiratory rate 16 /min Lee Chaudhari MD Work Phone: [facility] 12-20-2021 20:52-0400 Systolic blood pressure 115 mm[Hg] Lee Chaudhari MD Work Phone: [facility] 12-19-2021 12:39-0400 Body temperature 97.9 [degF] Maribell San MD Work Phone: [facility] 12-19-2021 12:39-0400 Diastolic blood pressure 66 mm[Hg] Maribell San MD Work Phone: [facility] 12-19-2021 12:39-0400 Heart rate 110 /min Maribell San MD Work Phone: [facility] 12-19-2021 12:39-0400 Respiratory rate 20 /min Maribell San MD Work Phone: [facility] 12-19-2021 12:39-0400 SaO2% (BldA) [Mass fraction] 96 % Maribell San MD Work Phone: [facility] 12-19-2021 12:39-0400 Systolic blood pressure 119 mm[Hg] Maribell San MD Work Phone: [facility] 12-15-2021 16:14-0400 Body temperature 98.01 [degF] Stuart Barajas MD Work Phone: [facility] 12-15-2021 16:14-0400 Diastolic blood pressure 66 mm[Hg] Stuart Barajas MD Work Phone: [facility] 12-15-2021 16:14-0400 Heart rate 110 /min Stuart Barajas MD Work Phone: [facility] 12-15-2021 16:14-0400 Respiratory rate 16 /min Stuart Barajas MD Work Phone: [facility] 12-15-2021 16:14-0400 Systolic blood pressure 113 mm[Hg] Stuart Barajas MD Work Phone: [facility] 11-16-2021 23:19-0400 Body height 152.4 cm Sha Ramos MD Work Phone: [facility] 11-16-2021 23:19-0400 Body mass index (BMI) [Ratio] 37.5 kg/m2 Sha Ramos MD Work Phone: [facility] 11-16-2021 23:19-0400 Body temperature 97.39 [degF] Sha Ramos MD Work Phone: [facility] 11-16-2021 23:19-0400 Body weight 87.09 kg Sha Ramos MD Work Phone: [facility] 11-16-2021 23:19-0400 Diastolic blood pressure 68 mm[Hg] Sha Ramos MD Work Phone: [facility] 11-16-2021 23:19-0400 Heart rate 81 /min Sha Ramos MD Work Phone: [facility] 11-16-2021 23:19-0400 Respiratory rate 18 /min Sha Ramos MD Work Phone: [facility] 11-16-2021 23:19-0400 SaO2% (BldA) [Mass fraction] 100 % Sha Ramos MD Work Phone: [facility] 11-16-2021 23:19-0400 Systolic blood pressure 107 mm[Hg] Sha Ramos MD Work Phone: [facility] 06-23-2021 21:40-0500 Body temperature 98.71 [degF] Aurora West DO Work Phone: [facility] 06-23-2021 21:40-0500 Diastolic blood pressure 71 mm[Hg] Aurora West DO Work Phone: [facility] 06-23-2021 21:40-0500 Heart rate 86 /min Aurora West DO Work Phone: [facility] 06-23-2021 21:40-0500 Respiratory rate 14 /min Aurora West DO Work Phone: [facility] 06-23-2021 21:40-0500 SaO2% (BldA) [Mass fraction] 99 % Aurora West DO Work Phone: [facility] 06-23-2021 21:40-0500 Systolic blood pressure 102 mm[Hg] Aurora West DO Work Phone: [facility] 04-25-2021 21:14-0400 Diastolic blood pressure 67 mm[Hg] Us[facility] Plata MD [facility] Work Phone: 04-25-2021 21:14-0400 Heart rate 61 /min Usama Plata MD [facility] Work Phone: 04-25-2021 21:14-0400 Respiratory rate 16 /min Usama Plata MD Work Phone: [facility] Work Phone: 04-25-2021 21:14-0400 SaO2% (BldA) [Mass fraction] 100 % Usama Plata MD Work Phone: [facility] Work Phone: 04-25-2021 21:14-0400 Systolic blood pressure 94 mm[Hg] Usama Plata MD [facility]: [facility] Work Phone: 04-25-2021 20:15-0400 Body height 152.4 cm Usama Plata MD [facility]: [facility] Work Phone: 04-25-2021 20:15-0400 Body mass index (BMI) [Ratio] 37.69 kg/m2 Usama Plata MD [facility] Phone: [facility] Work Phone: 04-25-2021 20:15-0400 Body temperature 98.01 [degF] Usama Plata MD Work Phone: [facility] Work Phone: 04-25-2021 20:15-0400 Body weight 87.54 kg Usama Plata MD [facility]: [facility] Work Phone: 02-06-2021 20:38-0400 Body [...] 08:06-0500 BP Diastolic 65 mm[Hg] Alexia O'W[place]ster [employer] Work Phone: 09-08-2020 08:06-0500 BP Systolic 104 mm[Hg] Alexia HOOKSA Work Phone: 09-08-2020 08:06-0500 Pulse (Heart Rate) 87 /min Alexia MOSS Work Phone: 09-08-2020 08:06-0500 Pulse Oximetry 97 % Alexia MOSS Work Phone: 09-08-2020 08:06-0500 Respiratory Rate 16 /min Alexia MOSS Work Phone: 09-07-2020 07:09-0500 BMI (Body Mass Index) 38.67 kg/m2 Alexia MOSS Work Phone: 09-07-2020 07:09-0500 Body weight 89.81 kg Alexia MOSS Work Phone: 09-07-2020 07:09-0500 Height 152.4 cm Alexia HOOKSA Work Phone: 09-06-2020 01:50-0500 BMI (Body Mass [...] 01:50-0500 Pulse (Heart Rate) 105 /min Amee MOSS Work Phone: 09-06-2020 01:50-0500 Respiratory Rate 18 /min Amee MOSS Work Phone: 07-20-2020 23:05-0500 Body Temperature 97.9 [degF] [facility] [place] [place] [facility] 23:05-0500 BP Diastolic 64 mm[Hg] [facility] 07-20-2020 23:05-0500 BP Systolic 115 mm[Hg] Robert Brito [facility] [place] 07-20-2020 23:05-0500 Pulse (Heart Rate) 89 /min [facility] [place] [facility]-2020 23:05-0500 Respiratory Rate 16 /min [facility] [place] [place] 07-20-2020 21:32-0500 BMI (Body Mass Index) 38.08 kg/m2 Robert Adame [facility], [place] 07-20-2020 21:32-0500 Body weight 88.45 kg Robert Adame [facility] [place] [facility] [place] 07-20-2020 21:32-0500 Height 152.4 cm Robert Adame [facility] [place] 07-20-2020 21:32-0500 Pulse Oximetry 99 % Robert Adame [facility], [place] 06-23-2020 15:25-0500 Pulse (Heart Rate) 92 /min Amee Parker [facility], [place] 06-23-2020 14:52-0500 BP Diastolic 65 mm[Hg] Amee Parker [facility] 06-23-2020 14:52-0500 BP Systolic 96 mm[Hg] Amee Nava [facility] [place] 06-23-2020 14:51-0500 Body Temperature 97.9 [degF] Amee Parker [facility], [place] 06-23-2020 14:49-0500 BMI (Body Mass Index) 36.91 kg/m2 [facility] [place] 06-23-2020 14:49-0500 Body weight 85.73 kg [facility], [place] 06-23-2020 14:49-0500 Height 152.4 cm [facility], [place] 01-21-2020 02:03-0400 Pulse (Heart Rate) 52 /min Kem Malik [facility], [place] 01-20-2020 23:30-0400 BMI (Body Mass Index) 36.13 kg/m2 Kem Adame [facility] [place] 01-20-2020 23:30-0400 Body weight 83.92 kg [facility] [place] 01-20-2020 23:30-0400 BP Diastolic 66 mm[Hg] [facility] [place] 01-20-2020 23:30-0400 BP Systolic 124 mm[Hg] [facility] [place] 01-20-2020 23:30-0400 Height 152.4 cm [facility] [place] 01-20-2020 23:29-0400 Body Temperature 97.7 [degF] [facility] [place] 01-20-2020 23:29-0400 Pulse Oximetry 98 % [facility] [place] 01-20-2020 23:29-0400 Respiratory Rate 16 /min [facility] [place] 03-28-2019 19:54-0400 BMI (Body Mass Index) 34.18 kg/m2 Kem Adame [facility], [place] 03-28-2019 19:54-0400 Body Temperature 98.01 [degF] [facility] [place] 03-28-2019 19:54-0400 Body weight 79.38 kg [facility] [place] 03-28-2019 19:54-0400 BP Diastolic 77 mm[Hg] [facility] [place] [facility]-28-2019 19:54-0400 BP Systolic 128 mm[Hg] [facility] [place] 03-28-2019 19:54-0400 Height 152.4 cm [facility] , [place] 03-28-2019 19:54-0400 Pulse (Heart Rate) 77 /min [facility]ik [facility] 03-28-2019 19:54-0400 Pulse Oximetry 98 % Kem Adame [facility] , [place] 03-28-2019 19:54-0400 Respiratory Rate 16 /min Kem Malik [facility], [place] 03-08-2019 13:08-0400 BMI (Body Mass Index) 34.18 kg/m2 Lee Adame [facility], [place] 03-08-2019 13:08-0400 Body Temperature 97.39 [degF] Lee Yin [facility], [place] 03-08-2019 13:08-0400 Body weight 79.38 kg Lee Yni [place], [place] 03-08-2019 13:08-0400 BP Diastolic 78 mm[Hg] Lee Yin [place] 03-08-2019 13:08-0400 BP Systolic 99 mm[Hg] Lee Yin [place] 03-08-2019 13:08-0400 Height 152.4 cm Lee Yin [place] 03-08-2019 13:08-0400 Pulse (Heart Rate) 97 /min Lee Yin [place], [place] 03-08-2019 13:08-0400 Pulse Oximetry 97 % Lee Yin [place] 03-08-2019 13:08-0400 Respiratory Rate 16 /min Lee Yin [place], [place] Encounters Encounter Date Encounter Type Care Provider Facility Start: 08-22-2023 End: 08-22-2023 ambulatory JENNIFER FUENTESYDER [facility] Start: 06-27-2023 End: 06-28-2023 ambulatory [facility] Start: 06-27-2023 End: 06-27-2023 ambulatory [facility] Start: 06-27-2023 End: 06-27-2023 Subsequent hospital visit by physician Emerson Jacinto MD Work Phone: [facility] Procedures Date Procedure Procedure Detail Performing Clinician Start: 09-29-2022 Us breast uni real t cristina with image limited Yumiko Mendez MD Work Phone: Start: 07-09-2022 STREP A MOLECULAR (POC) Tarsha Garrett APRN.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 Work Phone: Start: 03-28-2022 Antibody screen Lee Chaudhari MD Work Phone: Start: 03-28-2022 Blood count complete automated Shanteelan Yanez DO Work Phone: Start: 03-28-2022 Blood typing serologic abo Shanteelan Yanez DO Work Phone: Start: 03-28-2022 ADD ON LAB TEST Shante Shena Ynaez DO Work Phone: Start: 03-28-2022 Culture bacterial quanttative colony count urine Shante Shena Yanez DO Work Phone: Start: 03-28-2022 Urnls dip stick/tabl et rgnt auto w/o microscopy Shante Shena Yanez DO Work Phone: Start: 01-28-2022 DISCHARGE PATIENT PAO CARTER Start: 01-28-2022 MONITORING CHANDRAKANT S [facility] Start: 01-28-2022 Iadna multiple organ isms amplified probe tq [facility] Start: 01-28-2022 PLACE IN OUTPATIENT IN A BED [facility] Start: 01-28-2022 IP CONSULT TO MATERN AL MEDICINE/ [facility] Start: 01-28-2022 Ftl fibronectin cerv icovag secretions semi-saad [facility] Start: 01-28-2022 Urinalysis microscop ic only SILVERIO CARTER Start: 01-28-2022 Urnls dip stick/tabl et rgnt auto w/o microscopy [facility] Start: 01-28-2022 Urinalysis microscop ic only Silverio [...] iv surg pathol ogy gross&microscopic exam [facility] Start: 06-19-2021 DISCHARGE PATIENT PAO MYLES [facility] Start: 06-19-2021 DIET NPO [facility] Start: 06-19-2021 INSERT PERIPHERAL IV JA JUSTYNA [facility] Start: 06-19-2021 TREATMENT CONSENT PAO MYLES [facility] Start: 06-19-2021 Continuous pulse oximetry [facility] Start: 06-19-2021 BEDREST [facility] Start: 06-19-2021 ENCOURAGE DEEP BREAT RAMANDEEP AND COUGHING [facility] Start: 06-19-2021 INITIATE OXYGEN THER APY PROTOCOL [facility] Start: 06-19-2021 NOTIFY PHYSICIAN (SPECIFY) [facility] Start: 06-19-2021 NURSING COMMUNICATION Lupe [facility]FIELD [facility] Start: 06-19-2021 VITAL SIGNS [facility] Start: 06-19-2021 Blood count complete automated [facility] Start: 06-19-2021 TYPE AND SCREEN [facility] Start: 06-19-2021 BEDREST [facility] Start: 06-19-2021 Continuous pulse oximetry [facility] Start: 06-19-2021 ENCOURAGE DEEP BREAT RAMANDEEP AND COUGHING [facility] Start: 06-19-2021 INITIATE OXYGEN THER APY PROTOCOL [facility] Start: 06-19-2021 NASAL CANNULA OXYGEN JA GERRYXUAN CARTER Start: 06-19-2021 NOTIFY PHYSICIAN (SPECIFY) [facility] CAR[facility] Start: 06-19-2021 NURSING COMMUNICATION Lupe [facility] Start: 06-19-2021 VITAL SIGNS SIL[facility]IO CARTER Start: 06-19-2021 COVID-19, RAPID [facility]IL[facility]IO CARTER Start: 04-25-2021 Blood count complete auto&auto difrntl [...] stick/tabl et rgnt auto w/o microscopy Lee Humphrey Work Phone: Plan of Treatment Date Care Activity Detail Author Start: 2048 Zoster Vaccines (1 of 2) Zoster Vaccines (1 of 2) [facility] Start: 02-11-2032 DTaP/Tdap/Td vaccine (10 - Td or Tdap) DTaP/Tdap/Td vaccine (10 - Td or Tdap) [facility] Start: 02-11-2032 DTaP/Tdap/Td Vaccines (10 - Td or Tdap) DTaP/Tdap/Td Vaccines (10 - Td or Tdap) [facility] Start: 08-07-2030 DTaP/Tdap/Td vaccine (9 - Td or Tdap) DTaP/Tdap/Td vaccine (9 - Td or Tdap) [facility] Start: 04-12-2027 DTaP/Tdap/Td vaccine (8 - Td) DTaP/Tdap/Td vaccine (8 - Td) [place] Start: 04-07-2023 End: 04-07-2023 Patient encounter procedure 04/07/2023 Office Visit Internal Medicine Yumiko Mendez MD [address] [place] [address] [facility] Start: 03-11-2023 Influenza vaccination [facility] Start: 03-07-2023 Depresssion Monitoring Depresssion Monitoring [facility] Start: 02-18-2023 End: 02-18-2023 Patient encounter procedure 02/18/2023 2:20 PM EDT Office Visit [facility] [address] [facility] [address] [place] [id number] Sophia Arzate APRN - 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 [address] [place] [address] [address] [place] [address] [facility] Start: 02-18-2023 End: 02-18-2023 Professional / ancillary services management 02/18/2023 1:30 PM EDT Ancillary Procedure [facility] [address] [place] [address] [facility] Start: 02-03-2023 End: 02-04-2024 hCG, quantitative hCG, quantitative Lab Routine Encounter to determine viability of , single or unspecified fetus Expected: 02/03/2023 (Approximate), Expires: 02/04/2024 [facility] Work Phone: Immunizations Immunization Date Immunization Notes Care Provider Fa andie 02-10-2022 tetanus toxoid, redu edinson diphtheria toxoid, and acellular pertussis vaccine, adsorbed Sophia Arzate COLOR TESTER - 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 Work Phone: [facility] 09-07-2020 diphtheria, tetanus toxoids and acellular pertussis vaccine, unspecified formulation [facility] Work Phone: 09-07-2020 measles, mumps and rubella virus vaccine [facility] Work Phone: 08-07-2020 tetanus toxoid, redu edinson diphtheria toxoid, and acellular pertussis vaccine, adsorbed Sangita Rangel MD Work Phone: [facility] Work Phone: 06-13-2020 influenza virus vaccine, unspecified formulation Sangita Rangel MD Work Phone: [facility] Work Phone: 04-12-2017 tetanus toxoid, redu edinson diphtheria toxoid, and acellular pertussis vaccine, adsorbed Sangita Rangel MD Work Phone: [facility] Work Phone: 01-01-2011 human papilloma viru s vaccine, quadrivalent Sangita Rangel MD Work Phone: [facility] Work Phone: 01-01-2011 meningococcal polysaccharide (groups A, C, Y and W-135) diphtheria toxoid conjugate vaccine (MCV4P) Sangita Rangel MD Work Phone: [facility] Work Phone: 01-01-2011 tetanus toxoid, redu edinson diphtheria toxoid, and acellular pertussis vaccine, adsorbed Sangita Rangel MD Work Phone: [facility] Work Phone: 01-01-2011 HPV, unspecified formulation Yumiko Mendez MD Work Phone: [facility] 03-18-2004 diphtheria, tetanus toxoids and acellular pertussis vaccine Sangita Rangel MD Work Phone: [facility] Work Phone: 03-18-2004 measles, mumps and rubella virus vaccine Sangita Rangel MD Work Phone: [facility] Work Phone: 03-18-2004 poliovirus vaccine, inactivated Sangita Rangel MD Work Phone: [facility] Work Phone: 04-18-2000 diphtheria, tetanus toxoids and acellular pertussis vaccine Emerson Jacinto MD Work Phone: [facility] 04-18-2000 diphtheria, tetanus toxoids and acellular pertussis vaccine, unspecified formulation Sangita Rangel MD Work Phone: [facility] Work Phone: 04-18-2000 haemophilus influenz ae type b vaccine, PRP-T conjugate Sangita Rangel MD Work Phone: [facility] Work Phone: 04-18-2000 hepatitis A vaccine, pediatric/adolescent dosage, 2 dose schedule Sangita Rangel MD Work Phone: [facility] Work Phone: 04-18-2000 hepatitis B vaccine, pediatric or pediatric/adolescent dosage Sangita Rangel MD Work Phone: [facility] Work Phone: 04-18-2000 hepatitis A and hepatitis B vaccine Yumiko Mendez MD Work Phone: [facility] 12-29-1999 measles, mumps and rubella virus vaccine Sangita Rangel MD Work Phone: [facility] Work Phone: 12-29-1999 varicella virus vaccine Ar Rangel MD Work Phone: [facility] Work Phone: 06-22-1999 diphtheria, tetanus toxoids and acellular pertussis vaccine Emerson Jacinto MD Work Phone: [facility] 06-22-1999 diphtheria, tetanus toxoids and acellular pertussis vaccine, unspecified formulation Sangita Rangel MD Work Phone: [facility] Work Phone: 06-22-1999 poliovirus vaccine, inactivated Sangita Rangel MD Work Phone: [facility] Work Phone: 05-12-1999 diphtheria, tetanus toxoids and acellular pertussis vaccine Emerson Jacinto MD Work Phone: [facility] 05-12-1999 diphtheria, tetanus toxoids and acellular pertussis vaccine, unspecified formulation Sangita Rangel MD Work Phone: [facility] Work Phone: 05-12-1999 haemophilus influenz ae type b vaccine, PRP-T conjugate Sangita Rangel MD Work Phone: [facility] Work Phone: 05-12-1999 poliovirus vaccine, inactivated Sangita Rangel MD Work Phone: [facility] Work Phone: 02-06-1999 diphtheria, tetanus toxoids and acellular pertussis vaccine Emerson Jacinto MD Work Phone: [facility] 02-06-1999 diphtheria, tetanus toxoids and [...] measles, mumps and rubella virus vaccine Lee Humphrey [facility] Payers Date Payer Category Payer Private Health Insurance 2022 Private Health Insurance [id number] 2016 Medicaid [id number] 2016 Private Health Insurance [facility] PLAN xxxxxxxxx 2016-Present [phone] [place] [address] xxxxxxxxx [id number] 2016 Private Health Insurance [facility] [id number] 2016-Present [phone] [address] [place] [address] [id number] 1998 Unknown [id number] [id number]. 598 1998 Unknown [id number] 2.16.840.1.504021.3.579.2. 204 1998 Unknown [id number] 2.16.840.1.203895.3.579.2. 204 1998 Unknown [id number] 2.16.840.1.308000.3.579.2. 668 1998 Unknown [id number] 2.16.840.1.813683.3.579.2. 1998 Unknown [id number] 2.16.840.1.556123.3.579.2. 66 1998 Unknown [id number] 2.16.840.1.429786.3.579.2. 1998 Unknown [id number] 2.16.840.1.480367.3.579.2. 1998 Unknown [id number] 2.16.840.1.995017.3.579.2. 1998 Unknown [id number] 2.16.840.1.189745.3.579.2. 1998 Unknown [id number] 2.16.840.1.632575.3.579.2. [facility] 1998 Unknown [id number] 2.16.840.1.849983.3.579.2 1998 Unknown [id number] 2.16.840.1.481991.3.579.2 1998 Unknown [id number] 2.16.840.1.681867.3.579.2 1998 Unknown [id number] 2.16.840.1.500110.3.579.2 1998 Unknown [id number] 2.16.840.1.998005.3.579.2 1998 Unknown [id number] 2.16.840.1.633748.3.579.2 1998 Unknown [id number] 2.16.840.1.499333.3.579.2 47 1998 Unknown [id number] [id number] 1959 Medicaid [id number] Unknown [facility] PLAN Social History Date Type Detail Facility Start: 03-28-2019 End: 06-27-2023 Tobacco smoking status NHIS Current every day smoker [place], [place] Start: 06-07-2011 History of tobacco use Cigarette Smo ker [place] Start: 03-28-2019 End: 06-27-2023 Cigarettes smoked current (pack per day) - Reported [place] Start: 03-28-2019 End: 06-27-2023 Alcohol intake No [place] Start: 1998 Sex Assigned At Not on file M [place] Start: 01-21-2020 End: 06-27-2023 Tobacco use and exposure Never used [place] Start: 01-21-2020 End: 04-25-2023 Alcohol intake Current non-drinker of alcohol (finding) [place] Start: 11-06-2021 End: 02-03-2023 Exposure to SARS-CoV-2 (event) Not sure [place] Start: 01-03-2020 [facility] [place] Start: 10-05-2021 History SDOH Alcohol Frequency 1 [facility] Work Phone: Start: 10-05-2021 History SDOH Social Connections Phone 5 [facility] Work Phone: Start: 10-05-2021 History SDOH Social Connections Pentecostal 3 [facility] Work Phone: Start: 10-05-2021 History SDOH Social Connections Membership 2 [facility] Work Phone: Start: 10-05-2021 History SDOH Social Connections Living 7 [facility] Work Phone: Start: 10-05-2021 History SDOH Physica l Activity DPW 0 [facility] Work Phone: Adolescent depressio n screening assessment 17 [facility] [employer] Within the last year , have you been afraid of your partner or ex-partner? No [facility] How often to you hav e a drink containing alcohol? Never [facility] [employer] How hard is it for y ou to pay for the very basics like food, housing, medical care, and heating Not very hard [facility] Do you feel stress - tense, restless, nervous, or anxious, or unable to sleep at night because your mind is troubled all the time - these days [OSQ] Not at all [facility] Health (I/We) worried wheth er (my/our) food would run out before (I/we) got money to buy more. Never true [facility] Start: 06-27-2023 Alcohol intake Ex-drinker (finding) [facility] Start: 10-29-2014 Alcohol Comment last use was awhile ago [facility] Clinical Notes 04-20-2017 to 04-25-2023 TIGRE Luciano NP - 04/25/2023 9:40 AM EDTPatient InstructionsAttaLore Mendez MD - 04/12/2023 9:40 AM TIGRE Urban CNM - 02/03/2023 1:00 PM EDTPatient Instructions Note Date & Type Note Facility 04-25-2023 History of Presen t illness Narrative Images from the original note were not included. [facility] [address] [facility] [address] Dept: [phone] Dept Loc: [phone] Subjective Lauren Nesbitt is a 22 y.o. [...] 04/25/2023 10:06 AM documented in this encounter [facility] 04-25-2023 Instructions TIGRE Luciano NP - 04/25/2023 [...] sent through Care Everywhere.Wound Care Discharge Instructions ([facility])documented in this encounter [facility] 04-12-2023 History of Presen t illness Narrative Images from the original note were not included. . [facility] [address] [facility] [address] Dept: [phone] Dept Visit type: Established patient Reason for [...] CURETTAGE performed by Dick Martinez MD at [facility] OR DILATION AND CURETTAGE OF UTERUS [...] Yumiko Mendez MD documented in this encounter [facility] 02-03-2023 History of Presen t illness Narrative Lauren Ricarda 02/03/[birth year]23 22 y.o. 02/03/2023 HPI - She [...] CURETTAGE performed by Dick Martinez MD at [facility] OR DILATION AND CURETTAGE OF UTERUS [...] us and fu. documented in this encounter [facility] 01-25-2023 History of Presen t illness Narrative Images from the original note were not included. . [facility] [address] [facility] [address] [facility] [address] Dept: [phone] Dept Visit type: Established patient Reason for [...] at this time. 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 . [facility] [address] [place] [address] Dept: [phone] Dept Visit type: Established patient Reason for [...] CURETTAGE performed by Dick Martinez MD at [facility] OR DILATION AND CURETTAGE OF UTERUS [...] Yumiko Mendez MD documented in this encounter [facility] 12-04-2022 Note HNO ID: [id number] Author: Aurora Pablo PA-C Service: ? Author Type: Physician [employer]ting [employer] Feeder Type: Progress Notes Filed: 12/04/2022 12:16 PM Note Text: This note was created using [employer]. Subjective Lauren Nesbitt is a 22 year [...] AND WOUND CULTURE WITH GRAM STAIN Aurora R Athy, PA-C [facility] 11-25-2022 Note HNO ID: [id number] Author: Valentin Chambers APRN.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 Service: ? Author Type: Nurse Practitioner Type: [...] SURGICAL HISTORY Procedure Laterality Date CHOLECYSTECTOMY 2012 CHOLECYSTECTOMY HX NONE ALLERGIES Cinnamon and Latex [...] VEIN DVT UNL VAS LAB Valentin Chambers APRN.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 [facility] 10-20-2022 History of Presen t illness Narrative Patient complains of sore throat times concern for last 2 to 3 days. No sick contacts, no complaints of fever, cough, chest pain, shortness of breath, nausea or vomiting. [facility] Work Phone: 10-15-2022 History of Presen t [...] matching plan found] documented in this encounter [facility] 09-29-2022 Telephone encount er Note thanks [facility] 09-29-2022 Miscellaneous Notes Formattin g of this note might be different from the original. thanks Order change Name of caller: Susy Contact phone number: [phone] Relationship to Patient: [facility] Provider: Dr. Mendez Practice: [facility] Chief Complaint/Reason for Call: Susy states she would like the patient's BI US BREAST LIMITED (L) orders revised and refaxed to her at fax number: [phone] by this afternoon, 09/29/22. Susy states the [...] their call: No documented in this encounter [facility] 09-29-2022 Telephone encount er Note Order change [facility] 09-29-2022 Telephone encount er Note Name of caller: Susy Contact phone number: [phone] Relationship to Patient: [facility] Provider: Dr. Mendez Practice: [facility] Chief Complaint/Reason for Call: Susy states she would like the patient's BI US BREAST LIMITED (L) orders revised and refaxed to her at fax number: [phone] by this afternoon, 09/29/22. Susy states the [...] business hours to return their call: No [facility] 07-09-2022 Note HNO ID: [id number] Author: Tarsha Garrett APRN.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 Service: ? Author Type: Nurse Practitioner Type: [...] Discussed expected course of illness Tarsha Garrett APRN.[facility] 07-09-2022 History of Presen t illness [...] Discussed expected course of illness Tarsha Garrett APRN.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 documented in this encounter [facility] 07-09-2022 Instructions Tarsha Garrett APRN.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 - 07/09/2022 2:05 PM EST ASSESSMENT/PLAN: 1. [...] Discussed expected course of illness Tarsha Garrett APRN.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 OTITIS MEDIA GENERAL INFORMATION: Otitis media is [...] even if the symptoms go away. 2. Injo-isv-iihzxtk pain medication may be taken or other [...] him or her). documented in this encounter [facility] 03-29-2022 Note Obstetric Discharge Summary Admitting [...] NOT CHANGED Details Mom to be Belts MISC Starting 02/10/2022, Disp-1 each, R-0, Print famotidine [...] by . Discharge Date: 03/29/22 Time: Comments [facility] 03-29-2022 History of Presen t illness Narrative [...] delivery Plan: PPD #1 s/p Patient viewed [facility] discharge / education video. Oriented to A Guide to Caring for Yourself and Baby booklet. Verbalizes understanding of video content and denies any questions. Comfortable without epidural Cat one tracing Contractions q 3-4 minutes 3cm 80 -2 vertex Amniotomy clear fluid Epidural prn Continue care documented in this encounter [facility] Work Phone: 02-28-2022 History of Presen t [...] CURETTAGE performed by Dick Martinez MD at [facility] OR SOCIAL HISTORY: reports that she [...] MISC by Does not apply route 02/10/22 Sophia Arzate APRN - [place] famotidine (PEPCID) 20 MG tablet Take 1 [...] Take by mouth daily 1 gummy Historical MD Durga CARE: Complicated by: see above REVIEW OF [...] a premature baby. documented in this encounter [facility] Work Phone: 01-28-2022 History of Presen t [...] ,NO BLEEDING NOTED documented in this encounter [facility] Phone: 01-28-2022 Hospital Discharg e instructions Jana Dubois RN - 01/28/2022 7:46 PM EDT Drink plenty of fluids Resume normal activity unless otherwise instructed Call your physician if you experience any of the following: Leakage of fluid Vaginal bleeding Cramping/ Contractions Decreased movement Your baby should move at least 10 times in 2 hours documented in this encounter [facility] Work Phone: 01-25-2022 History of Presen t illness [...] CURETTAGE performed by Dick Martinez MD at [facility] OR SOCIAL HISTORY: reports that she [...] Patient not taking: No sig reported 01/06/22 Sophia TIGRE Arzate CNP Mom to be Belts MISC by Does not apply route Patient not taking: No sig reported 12/20/21 Kiara Drake MD MV & Min w/FA-DHA ( ADULT GUMMY/DHA/FA) 0.4-25 MG CHEW Take by mouth daily 1 gummy Bob Calixto MD CARE: Complicated by: Short cervix - on [...] no pathogens heart rate: Category I Cervix: 60/-3 Contraction frequency: irritability Membranes: Intact RESULTS: GENERAL [...] Pain assessment and plan: None DISCUSSED WITH [facility] PROVIDER: Dr. Noble DISPOSITION: Discharge to Home [...] - 12/24/2021 Follow up appointment with your doctor/cupola tapper helper - Call office for appointment tomorrow Activity - Normal Activity Call your doctor/cupola tapper helper if you have: - leaking fluid - [...] related visit on 12/24/21. Kiara Drake MD [facility] documented in this encounter [facility] Work [...] CURETTAGE performed by Dick Martinez MD at [facility] OR SOCIAL HISTORY: reports that she [...] , the patient was previously seen at [facility] for short cervix but went home [...] reviewed. Demetrius Mendoza MD 12/16/2021, 11:55 AM [facility] 12-15-2021 Note Department of Obstet rics and [...] if cervix remains short. 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 Short cervix Sandi Mcpherson DO on 12/15/2021 at 6:11 PM [facility] 12-15-2021 Hospital course Narrative Images from the [...] if cervix remains short. 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 Lynda Patton DO [facility] documented in this encounter [facility] Work Phone: 04-25-2021 Hospital Discharg e Usama Reinoso MD - 04/25/2021 Return for fever or vomiting The following attachments cannot be sent through Care Everywhere.UTI (Urinary Tract Infection): Female ([place])documented in this encounter [facility] Work Phone: documented as of this encounter (statuses as of 07/14/2022) [facility] Labial irritation- Primary Other [...] of unspecified site documented in this encounter [employer] Work Phone: Evaluation note* Diagnosis Vaginal discharge [...] of , antepartum documented in this encounter [employer] Work Phone: Evaluation note* Diagnosis with 29 completed weeks gestation- Primary documented in this encounter [facility] [employer] Work Phone: evaluation note* Diagnosis Abnormal heart rate affecting Vaginal delivery Normal delivery documented in this encounter [employer] Phone: Evaluation note* Diagnosis Sore throat- Primary Acute pharyngitis Other acute nonsuppurative otitis media of right ear, recurrence not specified Viral illness Unspecified viral infection, in conditions classified elsewhere and of unspecified site [facility] Diagnosis Mass of left breast, unspecified quadrant documented in this encounter [facility] note* Diagnosis Family history of CVA- Primary documented in this encounter [facility]* Diagnosis Physical exam, pre-employment- Primary Health examination of defined subpopulation Persistent depressive disorder [facility] Depression, unspecified depression type documented in this encounter [facility]* Diagnosis Encounter to determine viability of , single or unspecified fetus- Primary documented in this encounter [facility] note* Diagnosis Viral upper respiratory tract infection- Primary Acute upper respiratory infections of unspecified site documented in this encounter [facility]* Diagnosis Puncture wound of left foot, initial encounter- Primary 16 weeks gestation of documented in this encounter [facility]* Diagnosis Screening, , for malformation by ultrasound Encounter for routine screening for malformation using ultrasonics Abnormal ultrasound Abnormal findings on screening [facility] Attachments The following attachments cannot be sent through Care Everywhere. * Tick Bite ([place]) [facility]* Attachments The following attachments cannot be sent through Care Everywhere. * ([place]) * : Vaginal Delivery ([place]) [facility] Summary Purpose Family History No [...] FoundDocuments on File Type Date Recorded Patient Planer Tailer Expl anation ACP-Advance Directive 01/09/2017 2:54 PM [...] Documents on File Type Date Recorded Patient Planer Tailer Expl anation Advance Directives and Livin g Will Advance Directives and Livin g Will 01/09/2017 2:54 PM Power of Accounting Practice Manager Latest Code Status on File Code Status Date Activated Date Inactivated Comments Full Code 06/17/2017 6:43 PM 06/19/2017 3:25 PM Full Code 06/17/2017 12:16 AM 06/17/2017 6:43 PM Documents on File Type Date Recorded Patient Planer Tailer Expl anation ACP-Advance Directive ACP-Advance Directive 01/09/2017 2:54 PM ACP-Power of Accounting Practice Manager Latest Code Status on File Code Status Date Activated Date Inactivated Comments Full Code 09/07/2020 6:56 PM Full Code 09/07/2020 6:37 AM 09/07/2020 6:56 PM Full Code 06/17/2017 6:43 PM 06/19/2017 3:25 PM Documents on File Type Date Recorded Patient Planer Tailer Expl anation ACP-Advance Directive ACP-Power of Accounting Practice Manager ACP-Advance Directive 01/09/2017 2:54 PM Latest Code [...] sent through Care Everywhere. * Tooth: Abscessed ([place]) documented in this encounter* Attachments The following attachments cannot be sent through Care Everywhere. * : Weeks 6 to 10 ([place]) documented in this encounter* Instructions* Radha Fitzgerald MD - 06/23/2020 Follow up appointment with your doctor/cupola tapper helper - Keep next scheduled appointment Activity - Normal Activity Call your doctor/cupola tapper helper if you have: - leaking fluid - [...] related visit on 06/23/20. Radha Fitzgerald MD [facility] If you are Covid-19 positive or [...] clean your hands with an alcohol-based hand trim die maker that contains at least 60% alcohol. Clean your hands often Wash your hands often with soap and water for at least 20 seconds, especially after blowing your nose, coughing, or sneezing; going to the bathroom; and before eating or preparing food. If soap and water are not readily available, use an alcohol-based hand trim die maker with at least 60% alcohol, covering all [...] waiting room from getting infected or exposed. [place] healthcare provider to call the local or [facility] health [facility]. Persons who are placed underactive [...] isolation precautions should be made on a aczy-li-qbtd basis, in consultation with healthcare providers and [facility] health departments. Information on Covid-19 [...] respiratory tract signs and symptoms. Ways to [place] with Anxiety & Stress It is normal [...] an illness that was first found in [facility], in June 2019. It has since spread [...] seen in people before. This virus spreads agwjda-ui-lqcjmd through droplets from coughing and sneezing. It [...] water aren't available, use an alcohol-based hand trim die maker. Call 911 anytime you think you may [...] of: October 10, 2019 Content Version: 12.4 listedplaces. Care instructions adapted under license by your healthcare professional. If you have questions about a medical condition or this instruction, always ask your healthcare professional. listedplaces disclaims any warranty or liability for your use of this information. General Recommendations for Routine Cleaning and Disinfection of Households Community members can practice routine cleaning of frequently touched surfaces (for example: tables, doorknobs, light switches, handles, desks, toilets, faucets, sinks) with household interface designer and EPA-registered disinfectants that are appropriate for [...] appropriate. These supplies include tissues, paper towels, interface designer and EPA-registered disinfectants (see list link at [...] be used for other purposes. Consult the business intelligence director's instructions for cleaning and disinfection products used. [...] used if appropriate for the surface. Follow business intelligence director's instructions for application and proper ventilation. Check [...] o Products with EPA-approved emerging viral pathogens [facility] iconexternal icon are expected to be effective against COVID-19 based on data for harder to kill viruses. Follow the business intelligence director's instructions for all cleaning and disinfection products (e.g., concentration, application method and contact time, etc.). Soft (porous) surfaces such as carpeted floor, rugs, and drapes Remove visible contamination if present and clean with appropriate interface designer indicated for use on these surfaces. After cleaning: Launder items as appropriate in accordance with the business intelligence director's instructions. If possible, launder items using the [...] items as appropriate in accordance with the business intelligence director's instructions. If possible, launder items using the warmest appropriate water setting for the items and dry items completely. Dirtylaundry from an ill person can be washed with other people's items. o Clean and disinfect clothes hampers according to guidance above for surfaces. If possible, consider placing a bag loader that is either disposable (can be thrown away) or can be laundered. CDC has a list of EPA approved cleaning products on their website - https://www.cdc.gov/coronavirus/ 2019-ncov/community/home/cleaning-disinfection.html https://www.IPS Game Farmers.beSUCCESS/Etgwj-Zxcomqgtask-Xjfmikug-Products-List.pdf [employer] with delivery and supervisor opening and picking services: [employer]: Free supervisor opening and picking at locations Delivery is $12.95 a month Website - [employer] [place]: Wood Barker $2.95 (1st order is free) Delivery is $14.95 Website [employer] [place]: global supply chain vice president is free Delivery is $5.95 Website [employer] giantnandogljenniferCard [employer]anning [employer] Kroger: global supply chain vice president is $4.95 Delivery is $9.95 Livestation KrogerCard [employer] Meijer: global supply chain vice president is $4.95 Delivery is $9.95 Livestation MeijerCard [employer]anning [employer] Whole Foods Market: Can be ordered for delivery and supervisor opening and picking with [employer] Website - Intela Aldi: Free deliver for first 3 orders of $35 or more Website [employer] [place] [employer] Will deliver from CVS, Me[employer], [employer], and Target. Annual membership is $99 Monthly membership is $14 [place] documented in this encounter* Instructions* Kiara Drake MD - 09/06/2020 Follow up appointment with your doctor/cupola tapper helper - Keep next scheduled appointment Activity - Normal Activity Call your doctor/cupola tapper helper if you have: - leaking fluid - [...] related visit on 09/06/20. Kiara Drake MD [facility] If you are Covid-19 positive or [...] clean your hands with an alcohol-based hand trim die maker that contains at least 60% alcohol. Clean your hands often Wash your hands often with soap and water for at least 20 seconds, especially after blowing your nose, coughing, or sneezing; going to the bathroom; and before eating or preparing food. If soap and water are not readily available, use an alcohol-based hand trim die maker with at least 60% alcohol, covering all [...] healthcare provider to call the local or [facility] health department. Persons who are placed underactive [...] isolation precautions should be made on a pfwj-yl-ukzj basis, in consultation with healthcare providers and [facility] health departments. Information on Covid-19 for [...] respiratory tract signs and symptoms. Ways to [place] with Anxiety & Stress It is normal [...] an illness that was first found in [facility], in June 2019. It has since spread [...] seen in people before. This virus spreads onzvdj-ht-yqmtps through droplets from coughing and sneezing. It [...] water aren't available, use an alcohol-based hand trim die maker. Call 911 anytime you think you may [...] as of: October 10, 2019 Content Version: 06.13 listedplaces. Care instructions adapted under license by your healthcare professional. If you have questions about a medical condition or this instruction, always ask your healthcare professional. listedplaces disclaims any warranty or liability for your use of this information. General Recommendations for Routine Cleaning and Disinfection of Households Community members can practice routine cleaning of frequently touched surfaces (for example: tables, doorknobs, light switches, handles, desks, toilets, faucets, sinks) with household interface designer and EPA-registered disinfectants that are appropriate for [...] appropriate. These supplies include tissues, paper towels, interface designer and EPA-registered disinfectants (see list link at [...] be used for other purposes. Consult the business intelligence director's instructions for cleaning and disinfection products used. [...] used if appropriate for the surface. Follow business intelligence director's instructions for application and proper ventilation. Check [...] o Products with EPA-approved emerging viral pathogens [facility] iconexternal icon are expected to be effective against COVID-19 based on data for harder to kill viruses. Follow the business intelligence director's instructions for all cleaning and disinfection products (e.g., concentration, application method and contact time, etc.). Soft (porous) surfaces such as carpeted floor, rugs, and drapes Remove visible contamination if present and clean with appropriate interface designer indicated for use on these surfaces. After cleaning: Launder items as appropriate in accordance with the business intelligence director's instructions. If possible, launder items using the [...] items as appropriate in accordance with the business intelligence director's instructions. If possible, launder items using the warmest appropriate water setting for the items and dry items completely. Dirtylaundry from an ill person can be washed with other people's items. o Clean and disinfect clothes hampers according to guidance above for surfaces. If possible, consider placing a bag loader that is either disposable (can be thrown away) or can be laundered. CDC has a list of EPA approved cleaning products on their website - https://www.cdc.gov/coronavirus/ 2019-ncov/community/home/cleaning-disinfection.html https://www.IPS Game Farmers.com/Jxdvu-Iritokmpxve-Eojvassn-Products-List.pdf [employer] Stores with delivery and supervisor opening and picking services: [employer]: Free supervisor opening and picking at locations Delivery is $12.95 a month Website - [employer] [place]: Wood Barker $2.95 (1st order is free) Delivery is $14.95 Website - [employer] [place]: global supply chain vice president is free Delivery is $5.95 [employer] - [employer] Kroger: global supply chain vice president is $4.95 Delivery is $9.95 Website [employer] Meijer: global supply chain vice president is $4.95 Delivery is $9.95 Website Hexa[employer]rCard Scanning [employer] Whole Foods Market: Can be ordered for delivery and supervisor opening and picking with [employer] Website - PAAY.Oxtex Aldi: Free deliver for first 3 orders of $35 or more Website aldiReformTech [place] [employer] Will deliver from CVS, Meijer, [employer], and Target. Annual membership is $99 Monthly membership is $14 [employer] documented in this encounter* Attachments The following attachments cannot be sent through Care Everywhere. * UTI (Urinary Tract Infection): Female ([place]) * Vaginitis ([place]) documented in this encounter* Instructions* Amee Parker MD - 09/08/2020 After Your Delivery (the Period): Your Care Instructions Thank you for allowing us to care of you at [facility]. This time can be one of many [...] over the next few weeks. Bleeding may supervisor opening and picking and then decrease again around 7-10 days [...] avoid constipation you may take a mild yzdp-pav-pwzyxki stool softener (such as colace) as recommended [...] clean your hands with an alcohol-based hand trim die maker that contains at least 60% alcohol. Clean your hands often Wash your hands often with soap and water for at least 20 seconds, especially after blowing your nose, coughing, or sneezing; going to the bathroom; and before eating or preparing food. If soap and water are not readily available, use an alcohol-based hand trim die maker with at least 60% alcohol, covering all [...] healthcare provider to call the local or [facility] health department. Persons who are placed underactive [...] isolation precautions should be made on a stcd-kn-cdal basis, in consultation with healthcare providers and [facility] health departments. Information on COVID-19 [...] respiratory tract signs and symptoms. Ways to [place] with Anxiety & Stress It is normal [...] an illness that was first found in [facility], in June 2019. It has since spread [...] seen in people before. This virus spreads fpqvey-tx-pbssct through droplets from coughing and sneezing. It [...] water aren't available, use an alcohol-based hand trim die maker. Call 911 anytime you think you may [...] of: October 10, 2019 Content Version: 12. listedplaces. Care instructions adapted under license by your healthcare professional. If you have questions about a medical condition or this instruction, always ask your healthcare professional. listedplaces disclaims any warranty or liability for your use of this information. General Recommendations for Routine Cleaning and Disinfection of Households Community members can practice routine cleaning of frequently touched surfaces (for example: tables, doorknobs, light switches, handles, desks, toilets, faucets, sinks) with household interface designer and EPA-registered disinfectants that are appropriate for [...] appropriate. These supplies include tissues, paper towels, interface designer and EPA-registered disinfectants (see list link at [...] be used for other purposes. Consult the business intelligence director's instructions for cleaning and disinfection products used. [...] used if appropriate for the surface. Follow business intelligence director's instructions for application and proper ventilation. Check [...] o Products with EPA-approved emerging viral pathogens [facility] iconexternal icon are expected to be effective against COVID-19 based on data for harder to kill viruses. Follow the business intelligence director's instructions for all cleaning and disinfection products (e.g., concentration, application method and contact time, etc.). Soft (porous) surfaces such as carpeted floor, rugs, and drapes Remove visible contamination if present and clean with appropriate interface designer indicated for use on these surfaces. After cleaning: Launder items as appropriate in accordance with the business intelligence director's instructions. If possible, launder items using the [...] items as appropriate in accordance with the business intelligence director's instructions. If possible, launder items using the warmest appropriate water setting for the items and dry items completely. Dirtylaundry from an ill person can be washed with other people's items. o Clean and disinfect clothes hampers according to guidance above for surfaces. If possible, consider placing a bag loader that is either disposable (can be thrown away) or can be laundered. CDC has a list of EPA approved cleaning products on their website - https://www.cdc.gov/coronavirus/ 2019-ncov/community/home/cleaning-disinfection.html https://www.HauteLook/Axgmc-Coukgbpuaev-Dcwecpzz-Products-List.pdf Wifi.comcerKobojo Stores with delivery and supervisor opening and picking services: [employer]: Free supervisor opening and picking at locations Delivery is $12.95 a month Website - [employer] [place]: Wood Barker $2.95 (1st order is free) Delivery is $14.95 Website [employer] [place]: global supply chain vice president is free Delivery is $5.95 walkby KrReblsr: global supply chain vice president is $4.95 Delivery is $9.95 [employer]: global supply chain vice president is $4.95 Delivery is $9.95 Sangart Whole Foods Market: Can be ordered for delivery and supervisor opening and picking with [employer]Ovation Website - www.Oxtex Aldi: Free deliver for first 3 orders of $35 or more Website aldiReformTech [place] [employer] Will deliver from CVS, Meijer, Pet[employer], and [...] to triage after being transferred from the [place] ED. Please see HPI for events of [...] return precautions. IMPRESSION: Maternal Injury DISCUSSED WITH [facility] PROVIDER: Dr. Elizabeth DISPOSITION: Discharge to Home documented in this encounter* Ashley Null MS, RD, URBANO - 09/08/2020 12:03 PM EST Nutrition Note PPD # 1 s/p . Currently on General diet and tolerating well. RD sign off to DT. Contact: pager [phone] * Amee Parker MD - 09/08/2020 6:17 [...] Care - Doing well, VSS - Female infant - Breast feeding - Contraception: Per private [...] - Desires epidural - Declines LARC Cx: /- FHP: defer FHT: cat I [place]: none A/P: 1. AOL-PROM. Patient comfortable. Plan to start pitocin for augmentation. BP's normotensive. CCM. Cx: defer FHP: defer FHT: cat I [place]: q 2-3 min A/P: 1. AOL-PROM. Pit at 8cc/hr, continue to titrate per protocol. BP's normotensive. CCM. Cx: Unchanged FHP: defer FHT: cat I [place]: q 2 min A/P: 1. AOL-PROM. Pit at 14cc/hr, continue to titrate per protocol. Patient overall comfortable. BP's normotensive. CCM. Cx: defer FHT: Cat I [place]: q2-3m A/P: 1. AOL-PROM. Pit at 16cc/hr, have had difficulty titrating due to frequency of contractions. If unchanged at next exam, will place IUPC. Patient now s/p epidural. VSS and wnl. Cx: 10100/0 FHP: defer FHT: cat II [place]: q 1-3 min A/P: 1. AOL-PROM. Pit at 18cc/hr, continue to titrate per protocol. FHT cat II for intermittent variable decels. Overall reassuring with moderate variability and accels. Dr. Shaw updated at this time but in a delivery at [facility]. Will try to hold off but patient [...] Delivery: Was patient delivered between 37w0d - 42v4pqigna? YES: This patient delivered between [id number] for the following acceptable indication(s) for delivery: [...] Procedures: Information for the patient's : Aida Nesbittrosalindakole [[id number]] female Weight: 6 lb 13.4 oz (3.1 kg) Apgars: Information for the patient's : Aida Nesbitt [[id number]] One Minute : 8 Five Minute : 9 Course: Uncomplicated Infant: Female infant Blood Type/Rh: O POS Antibody Screen: Antibody Screen Date Value Ref Range Status 09/07/2020 NEG NA Final Rubella: Lab Results Component Value Date RUBELLAIGG immune 11/02/2016 Contraception: to be discussed at appointment : yes VTE Prophylaxis: Not Indicated Meds: Lauren Nesbitt Home Medication Instructions ELDA:[id number] Printed on:09/08/20 1206 Medication Information ibuprofen (ADVIL;MOTRIN) 600 MG tablet Take 1 tablet by mouth every 6 hours multivitamin (ANIMAL SHAPES) with C & FA CHEW chewable tablet Take 1 tablet by mouth 2 times daily Activity: Activity as tolerated Diet: Regular diet Follow up Care: Follow up appointment in 6 weeks with [facility] Condition on discharge: Stable Discharge to: Home [...] DATE CREATED AUTHOR AUTHOR'S ORGANIZ ATION 01/03/2018 [facility] DATE CREATED AUTHOR AUTHOR'S ORGANIZ ATION 03/03/2019 [facility] DATE CREATED AUTHOR AUTHOR'S ORGANIZ ATION 02/02/2020 [facility] DATE CREATED AUTHOR AUTHOR'S ORGANIZ ATION 01/30/2022 [facility] DATE CREATED AUTHOR AUTHOR'S ORGANIZ ATION 03/04/2022 [facility] DATE CREATED AUTHOR AUTHOR'S ORGANIZ ATION 04/13/2022 [facility] DATE CREATED AUTHOR AUTHOR'S ORGANIZ ATION 10/22/2022 [facility] DATE CREATED AUTHOR AUTHOR'S ORGANIZ ATION 10/22/2022 [employer] DATE CREATED AUTHOR AUTHOR'S ORGANIZ ATION 10/30/2022 [facility] DATE CREATED AUTHOR AUTHOR'S ORGANIZ ATION 12/17/2022 [facility] DATE CREATED AUTHOR AUTHOR'S ORGANIZ ATION 04/26/2023 [facility] DATE CREATED AUTHOR AUTHOR'S ORGANIZ ATION 08/23/2023 [facility] Reason for Visit (unrecogniz ed [...] Specialty Diagnoses / Procedures Referred By Charlie sam Referred To Contact Lab Diagnoses Screening, , for malformation by ultrasound Abnormal ultrasound Procedures Genetic Sendout: [facility] Genetic Sendout Emerson Jaicnto MD [address] [facility] [address] [place] [address] Referral ID Status Reason Start Date Expiration Date Visits Re quested Visits Authorized [id number] Open 06/27/2023 06/26/2024 1 1 Ordered Prescriptions [...] lock IV (COMPLETED) Routine, CONTINUOUS, Starting on Tue04/25/21 at 2030, Until Specified And sodium chloride flush 0.9 % injection 3 mLJump to med 3 mL, IntraVENous, EVERY 8 HOURS, First dose on Tue04/25/21 at 2020
Flush line with 3-5 mL
Scheduled Medication [...] dose, On Tue12/15/21 at 1730, Antimicrobial Indications: clinical trial coordinator Infection 1730 (Due) vitamin 27-1 MG tablet 1 tablet [...] 4 HOURS PRN, Starting on Tue12/15/21 at 7, Until Discontinued, Pain Mild (1-3), Fever, Fever >100.5 (38 C), Use suppository if NPO or unable to tolerate oral medications. acetaminophen (TYLENOL) tablet 650 mg(Linked Group 1) 650 mg, Oral, EVERY 4 HOURS PRN, Starting on Tue12/15/21 at 7, Until Discontinued, Pain Mild (1-3), Fever, Fever >100.5 (38 C), Do not use if NPO. albuterol sulfate HFA (PROVENTIL;VENTOLIN;PROAIR) 108 (90 Base) MCG/ACT inhaler 2 puff 2 puff, Inhalation, EVERY 4 HOURS PRN, Starting on Tue12/15/21 at 1656, Until Discontinued, Wheezing, Shortness of Breath, cough, Initiate RT Bronchodilator Protocol: No docusate sodium (COLACE) capsule 100 mg 100 mg, Oral, 2 TIMES DAILY PRN, Starting on Tue12/15/21 at 1656, Until Discontinued, Constipation, Do not crush or break. ondansetron (ZOFRAN) injection 4 mg(Linked Group 2) 4 mg, IntraVENous, EVERY 6 HOURS PRN, Starting on Tue12/15/21 at 1656, Until Discontinued, Nausea, Vomiting, Administer if oral route cannot be used. ondansetron (ZOFRAN-ODT) disintegrating tablet 4 mg(Linked Group 2) 4 mg, Oral, EVERY 8 HOURS PRN, Starting on Tue12/15/21 at 7, Until Discontinued, Nausea, Vomiting sodium chloride flush 0.9 % injection 10 mL 10 mL, IntraVENous, PRN, Starting on Tue12/15/21 at 1656, Until Discontinued, Line Care, After every IV line use Linked Groups Order Group 1: acetaminophen (TYLENOL) tablet 650 mgJump to med 650 mg, Oral, EVERY 4 HOURS PRN, Starting on Tue12/15/21 at 1656, Until Discontinued, Pain Mild (1-3), Fever, Fever [...] 12 mg, IntraMUSCular, ONCE, 1 dose, On 12/19/21 at 1315, For labor >> 2nd Dose [...] 600 mg, Oral, ONCE, 1 dose, On [place] 03/28/22 at 0900, IMMEDIATE . Do not crush or chew. DO NOT GIVE IBUPROFEN PRIOR TO DELIVERY., Post Delivery 193 (Given - Provider: Mary Castro, TEJINDER) lactated ringers bolus (COMPLETED) 1,000 mL, IntraVENous, at 1,000 mL/hr, Administer over 1 Hours, ONCE, On [place] 03/28/22 at 0645, For 1 dose 0701 (New Bag - Provider: Maribell Finnegan RN)0928 (Stopped - Provider: Dyana Syed RN) sodium chloride flush 0.9 % injection 5-40 mL 5-40 mL, IntraVENous, EVERY 12 HOURS SCHEDULED (2 times per day), First dose on [place] 03/28/22 at 2100, Until Discontinued, For Line [...] IntraVENous, at 125 mL/hr, CONTINUOUS, Starting on [place] 03/28/22 at 0900, Labor and Delivery 0801 (New Bag - Provider: Dyana Syed RN)1754 (Stopped - Provider: Lynda Elizabeth RN) oxytocin [...] 1800 (New Bag - Provider: Lynda Elizabeth RN)1939 (Stopped - Provider: Mary Castro RN) oxytocin (PITOCIN) 30 units in 500 mL infusion (CANCELED) 1-20 anju-units/min (1-20 mL/hr), IntraVENous, CONTINUOUS, Starting on Tue03/28/22 at 0900, Until Tue03/28/22 at 1929, Begin infusion at 1 anju-unit/min (1 anju-unit per min = 1 mL per hour) and increase by 1 anju-unit/min after 30 minutes. Then increase by 2 anju-units/min as needed, no faster than every 30 minutes, until labor is achieved. Labor is defined as contractions every 2-3 minutes with cervical changes or [place] units (MVU) greater than 200 in a [...] 1012 (New Bag - Provider: Lynda Elizabeth RN)1921 (Stopped - Provider: Lynda Elizabeth RN) ropivacaine 0.2% in sodium chloride 0.9% (OB) epidural syringe(Linked Group 1) Epidural, CONTINUOUS, Starting on Tue03/28/22 at 1445, PCEA patient controlled syringe Pt. Controlled Dose: 5 ml Lockout Interval: 10 min One Hour Limit: 15 mL, Labor and Delivery 1445 (Due) ropivacaine 0.2% in sodium chloride 0.9% 200mL (OB) epidural(Linked Group 1) 10 mL/hr, Epidural, CONTINUOUS, Starting on Tue03/28/22 at 1445, Until Discontinued, PCEA Basal Infusion, [...] Castro, TEJINDER) 0547 (Given - Provider: Mary Castro RN)1223 (Given - Provider: Zaina [...] PRN, Dry Skin, nipple discomfort, Starting on Tue03/28/22 at 1923, naloxone 0.4 mg in 10 mL sodium chloride syringe IntraVENous, PRN, Opioid Reversal, PRN if respiratory rate is less than 6 breaths per minute and patient is difficult to arouse., Starting on Tue03/28/22 at 1419, Notify provider STAT. Mix 9 [...] IntraVENous, EVERY 6 HOURS PRN, Starting on Tue03/28/22 at 192, Until Discontinued, Nausea, oxytocin (PITOCIN) 30 units in 500 mL infusion 125 anju-units/min (125 mL/hr), IntraVENous, CONTINUOUS PRN, Starting on Tue03/28/22 at 192, Until Tue03/28/22 at 2322, Bleeding, For Immediate Post Use Only. Give after delivery of placenta and initial 30 unit bolus. Bag 2 of 2: 125cc/hr (125 mu/min) for an additional infusion of 500cc (30 units)., Multiphase Phase of Care 1939 (New Bag - Provider: Mary Castro RN) simethicone (MYLICON) chewable tablet 80 mg 80 mg, Oral, EVERY 6 HOURS PRN, Starting on Tue03/28/22 at 1923, Until Discontinued, Cramping, Flatulence, sodium chloride flush 0.9 % injection 5-40 mL 5-40 mL, IntraVENous, PRN, Starting on Tue03/28/22 at 1923, Until Discontinued, Line Care, After [...] cabinet override 1842 (Given - Provider: Thor Syed RN) mineral oil liquid (COMPLETED) 1 dose, Starting on 03/28/22 at 1740, Until Tue03/29/22 at 0544, Dyana Syed: cabinet overrKunal espino Laureen: cabinet override 1842 (Given - Provider: Thor Syed RN) Linked Groups Order Group 1: ropivacaine 0.2% in sodium chloride 0.9% 200mL (OB) epiduralJump to med 10 mL/hr, Epidural, CONTINUOUS, Starting on [place] 03/28/22 at 1445, Until Discontinued
PCEA Basal Infusion
Labor and Delivery And ropivacaine 0.2% in sodium chloride 0.9% (OB) epidural syringeJump to med Epidural, CONTINUOUS, Starting on [place] 03/28/22 at 1445
PCEA patient controlled syringe [...] needed, nurse may repeat bolus., Starting on [place] 03/28/22 at 0830, Labor and Delivery Or lactated ringers bolusJump to med 1,000 mL, IntraVENous, at 1,935.5 mL/hr, Administer over 31 Minutes, PRN, Give prior to epidural placement. May be repeated if a second epidural/spinal procedure is performed., Starting on [place] 03/28/22 at 0830, Labor and Delivery Source Comments (unrecognize d section and content) In the event this informatio n is protected by the Federal Confidentiality of Alcohol and Drug Abuse Patient Records regulations: The Federal rules restrict any use of the information to criminally investigate or prosecute any alcohol or drug abuse patient.[facility] Care Teams (unrecognized sec tion and content) Engineer Technician Relationship Specialty Start Date End Date Yumiko Mendez MD [address] [address] PCP - General Internal Medicine 09/07/22 Engineer Technician Relationship Specialty Start Date End Date Yumiko Mendez MD [address] [address] PCP - General Internal Medicine 09/07/22 Estella Herzog MD [address] [address] Consulting Physician Hematology and Oncology 10/15/22 Engineer Technician Relationship Specialty Start Date End Date Yumiko Mendez MD [address] [place] [address] PCP - General Internal Medicine 09/07/22 Estella Herzog MD [address] [facility] [address] [place] [address] Consulting Physician Hematology and Oncology 10/15/22 Engineer Technician Relationship Specialty Start Date End Date Yumiko Mendez MD [address] [place] [address] PCP - General Internal Medicine 09/07/22 Estella Herzog MD [address] [facility] [address] [place] [address] Consulting Physician Hematology and Oncology 10/15/22 Engineer Technician Relationship Specialty Start Date End Date Yumiko Mendez MD [address] [place] [address] PCP - General Internal Medicine 09/07/22 Estella Herzog MD [address] [email or web address] [address] [place] [address] Consulting Physician Hematology and Oncology 10/15/22 Engineer Technician Relationship Specialty Start Date End Date Yumiko Mendez MD [address] [place] [address] PCP - General Internal Medicine 09/07/22 Estella Herzog MD [address] [email or web address] [address] [place] [address] Consulting Physician Hematology and Oncology 10/15/22 Engineer Technician Relationship Specialty Start Date End Date Yumiko Mendez MD [address] [place] [address] PCP - General Internal Medicine 09/07/22 Estella eHrzog MD [address] [facility] [place] [address] Consulting Physician Hematology and Oncology 10/15/22 Engineer Technician Relationship Specialty Start Date End Date Emerson Jacinto MD [address] [facility] [address] [place], [place] [id number] PCP - General Maternal Medicine 06/27/23 Dennise Vides, COLOR TESTER-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 [address] [facility] [address] [place], [place] [id number] Obstetrics Gynecology 04/14/23 FOR RECORDS PERTAINING TO [...] BE BASED ON THE PRIMARY CLINICAL RECORDS. [employer] provides no warranty or guarantee of the accuracy or completeness of information in this document.
--- NOTE | 2023-08-24 21:30 | OB.TRI.HP_ITS ---
HPI - General HPI Narrative ANDRZEJ KOO, is a 22 y/o @ 33 weeks who presents to L&D with headache x 2 days and to rule out pre-eclampsia. Maternal Data Information ARYA Calculator Estimated Delivery Date Method Current WG Current Estimate 10/06/23 Ultrasound #1 34w 6d Other Estimates 09/27/23 LMP (Certain) 36w 1d PFSH PFS Medical History Abnormal glucose affecting Home Medications multivitamin no.47-iron fum 27 mg-folate no.1 1 mg-dha 300 mg capsule (PNV-DHA) 1 cap PO 02/17/23 [History Last Taken Unknown] sertraline 25 mg tablet (Zoloft) 25 mg PO DAILY PRN anxiety 07/07/23 [History Last Taken Unknown] blood-glucose meter #1 ea 07/20/23 [Rx Last Taken Unknown] lancets #200 ea 07/20/23 [Rx Last Taken Unknown] blood sugar diagnostic (Blood Glucose Test strips) #120 ea 08/05/23 [Rx Last Taken Unknown] metformin 500 mg tablet 500 mg PO DAILY #30 tabs 08/29/23 [Rx Last Taken Unknown] ondansetron 4 mg disintegrating tablet 4 mg PO TID PRN nausea and vomiting #21 tabs 08/31/23 [Rx Last Taken Unknown] Allergy/AdvReac Type Severity Reaction Status Date / Time latex Allergy Mild Hives Verified 08/31/23 00:27 Social History household members: spouse and children Smoking Status: Never smoker alcohol intake: never substance use type: does not use seatbelt use: always do you feel safe at home: Yes additional social history: Luis History 7 Elective abortions Hx Para 3 Spontaneous abortions 3 Hx # Term Pregnancies Ectopic pregnancies Hx # Pregnancies Multiple births # of living children 3 Past Pregnancies Del. Date Name GA/Weeks Outcome Route Bth Weight Gen Labor Lgth Anesthesia Del Locatn Provider FOB Unknown 2014 spontaneous Unknown spontaneous 06/17/17 fadia live - full term 7lbs 14 oz Male [address] Amee Velez 09/07/20 Allison 37 live - full term 6lbs 14oz Female [address] Cornelia Ruvalcaba 06/19/21 spontaneous 03/28/22 Emilyousmane Phillips 38 live - full term 7lbs 4 oz Fema le 7 hrs epidural ishaankai Smith Delivery Date: 03/28/22 Last Updated by: Katelynn Saldivar, DO short cervix, decels. h/o steroid use Visit Details Expected Delivery Route/Plan Labor Preferences- CB/BF classes: no labor support person: Luis labor intervention preferences: [] pain management options preferred: limited cut cord/dad catch: cord : bottle PP control planned: DESIRES TUBAL PP discussed possible routes of delivery and associated risks: [] special requests: [] Plans Covid status: [] Flu vaccine: declines Tdap vaccine: Rhogam: NA LARC form signed: yes Problem list reviewed and updated with the most current plan of care details and appropriate orders placed. Relevant counseling for the gestational age provided. Continue routine care and follow up unless otherwise noted in visit notes/problem list details OB Flowsheet Initial Weight: Not Recorded Date -?-?-?-?-?-?-?-?-?-?-?-?- EGA Weight BP Urine Prot -?-?-?-?-?-?-?-?-?-?-?-?- Glucose FHR FuHt Pres Dilation -?-?-?-?-?-?-?-?-?-?-?-?- Effaced St Visit Note 02/17/23 -?-?-?-?-?-?-?-?-?-?-?-?- 7w 0d 220 lb 4 oz 108/61 Nega tive -?-?-?-?-?-?-?-?-?-?-?-?- Negative 173 -?-?-?-?-?-?-?-?-?-?-?-?- JV- CRL is off b y 9 days from LMP. arya 10/06/23 desires NIPT. 03/18/23 -?-?-?-?-?-?-?-?-?-?-?-?- 11w 1d 198 lb 6 oz 107/67 -?-?-?-?-?-?-?-?-?-?-?-?- -?-?-?-?-?-?-?-?-?-?-?-?- KW-FHT visualize d on handheld US. desires tubal PP-in hospital if possible. KW-FHT visualized on handhel d US. desires tubal PP-in hospital if possible- needs Title 19. 04/11/23 -?-?-?-?-?-?-?-?-?-?-?-?- 14w 4d 200 lb 2 oz 108/66 Nega tive -?-?-?-?-?-?-?-?-?-?-?-?- Negative 155 -?-?-?-?-?-?-?-?-?-?-?-?- MH-No Vb or cram ping. Nausea improved. Still needs MFM consult for hx short cx. New order sent 05/09/23 -?-?-?-?-?-?-?-?-?-?-?-?- 18w 4d 197 lb 8 oz 98/60 Nega tive -?-?-?-?-?-?-?-?-?--?-?-?- Negative 128 -?-?-?-?-?-?-?-?-?-?-?-?- JV- no lof, vagi nal bleeding, or cramping. wants flu shot today. pt states that she did a dry run to the hospital and it took 2 hours to drop off the kids and get here she wants to be induced at 39 weeks. agree with plan. hemorrhoid treatment discussed today. continue q 2 week vag scans of CL until 24 weeks. 06/08/23 -?-?-?-?-?-?-?-?-?-?-?-?- 22w 6d 200 lb 91/63 Negative -?-?-?-?-?-?-?-?-?-?-?-?- Negative 132 0 -?-?-?-?-?-?-?-?-?-?-?-?- 50 JV- pt s cl was 30.6 mm, placenta no longer low lying. rpt us on 06/13. plan is for 3 hr gtt, due to h/o failing 1 hour. JV- pt s cl was 30.6 mm, placenta no longer low lying. rpt us on 06/13. plan is for 3 hr gtt, due to h/o failing 1 hour. wants tubal ligation. will need title 19 next visit. 07/07/23 -?-?-?-?-?-?-?-?-?-?-?-?- 27w 0d 201 lb 124/70 Trace -?-?-?-?-?-?-?-?-?-?-?-?- Negative 138 28 -?-?-?-?-?-?-?-?-?-?-?-?- MH-No VB, LOF. H aving vaginal burning X 3 days. No STD concerns. See exam, culture pending. Larc, 28 wk labs 07/20/23 -?-?-?-?-?-?-?-?-?-?-?-?- 28w 6d 206 lb 4 oz 103/70 Nega tive -?-?-?-?-?-?-?-?-?-?-?-?- Negative 135 28 -?-?-?-?-?-?-?-?-?-?-?-?- LC- no vb/ctx/lo f. good fm. aunt , does not have time for 3 hour glucose, lab refused . will obtain 2 week glucose monitoring 08/05/23 -?-?-?-?-?-?-?-?-?-?-?-?- 31w 1d 207 lb 8 oz 102/71 Nega tive -?-?-?-?-?-?-?-?-?-?-?-?- Negative 160 31 -?-?-?-?-?-?-?-?-?-?-?-?- LC-no vb/ctx/lof . good fm. see in [place] on tuesday with high glucose. diagnosed with GDM. fasting glucose since starting metformin at 95 and under. working on diet- has nutrition appt on tuesday. handout provided and reviewed gestational diabetes. 08/12/23 -?-?-?-?-?-?-?-?-?-?-?-?- 32w 1d 207 lb 6 oz 106/72 Nega tive -?-?-?-?-?-?-?-?-?-?-?-?- Negative 135 -?-?-?-?-?-?-?-?-?-?-?-?- LC- no vb/ctx/lo f/good fm. fastings mostly under 95, having trouble with diet- still having 3 mountain dews/day. discussed must be diet pop, ideally water. risk of elevated sugars reviewed including stillbirth, shoulder dystocia, increased risk of child having DM2. LC- no vb/ctx/lof/good fm. f astings mostly under 95, having trouble with diet- still having 3 mountain dews/day. discussed must be diet pop, ideally water. risk of elevated sugars reviewed including stillbirth, shoulder dystocia, increased risk of child having DM2. if glucose not controlled by next visit will refer to Dr. Chambers for insulin management. 08/16/23 -?-?-?-?-?-?-?-?-?-?-?-?- 32w 5d Negative -?-?-?-?-?-?-?-?-?-?-?-?- Negative 145 140 -?-?-?-?-?-?-?-?-?-?-?-?- kw- no vb/lof/ct x. good fm. cut out soda and numbers over the last few days are better. Fastings under 95. most PP BS under range. to continue tracking and bring to office with next visit. NST today 08/26/23 -?-?-?-?-?-?-?-?-?-?-?-?- 34w 1d 206 lb 6 oz 94/67 Nega tive -?-?-?-?-?-?-?-?-?-?-?-?- Negative 140 -?-?-?-?-?-?-?-?-?-?-?-?- SM- discussed ne ashantig to track BS more, may need to increase metformin ROS Constitutional Constitutional: Reports systems reviewed and no addt'l complaints, except as documented Gastrointestinal Gastrointestinal: Denies bloating, constipation, cramping, diarrhea, nausea or vomiting Genitourinary Genitourinary: Reports other Details: Denies vaginal odor, vaginal bleeding, or vaginal discharge ; Denies difficulty urinating or flank pain NST FHR Rate Baby A Baseline: 140 Variability:: Moderate Accelerations:: 15 x 15 Decelerations:: None NST Reactive:: Yes FHR Category:: Category I Assessment & Plan (1) Headache in : PLAN: pih labs are normal a is blood pressure recommend hydration ,tylenol and rest recommended pre-e precautions discussed Charges/Coding Multi Select Codes Urinary/Genital Urinary/Genital CPT Codes: 43728-33 non-stress test Interp
== END 2023-08-24 17:48 | disposition home or self-care (01) ==
LOC: WPOUT 16:31 → WP 16:33
PROVIDERS: Referring Provider Obstetrics & Gynecology; Visit Provider Obstetrics & Gynecology
DX: O99.891 Other specified diseases and conditions complicating pregnancy (principal); R51.9 Headache, unspecified; Z3A.33 33 weeks gestation of pregnancy
CPT/HCPCS: 36415; 59025; 59050; 82565; 82570; 84156; 84450; 84460; 84550; 85027; 99221; G0378

== ENCOUNTER 2023-08-31 00:24 | Emergency (ER) | payer MEDICAID, SELFPAY ==
[2023-08-31 00:24] VITALS: BP 109/80; PULSE 95; RESP 14; TEMP 35.6; O2SAT 93; BMI 37.3
--- OUTSIDE RECORDS SUMMARY | 2023-08-31 00:58 | XMS RPT_ITS | CCD ---
Author Name Unknown Address [address] [place] [address] Organization [facility] Care Team Providers Care Transverse Abdominal Muscle Surgeon Name Role Phone CHARY AVILES Unavailable Unavailable KEITH, AMEE Unavailable Unavailable KEITH AMEE Unavailable Unavailable SMELCER, MYLA Unavailable Unavailable MARIA DE JESUS BRANHAM Admitting Unavailable MARIA DE JESUS BRANHAM Attending Unavailable AA UNKNOWN PCP, UNKNOWN Primary Care Unavaila ble Kem Malik Primary Care Provider [phone] Kem Malik Primary Care Provider Kem Malik [...] Estella Herzog MD Unavailable Chucho Coburn Unavailable [phone] Unavailable Unavailable Nile , Mr. Dane Borja Referring Unava naeem Dowd Jr, Mr. Dane Borja Attending Unava niurkaable Almas, Dr. Chucho Roberts Primary Care Unavailable AUDU, YUMIKO M Primary Care Unavailable SUBICHIN II, GURJIT J Primary Care Unavailab le AUDU, YUMIKO M Primary Care Unavailable SUBICHIN II, [facility] Primary Care Unavailab le AUDU, [facility] Primary Care Unavailable VALENTIN CHAMBERS Referring Unavailable AUDU, [facility] Primary Care Unavailable Audu Yumiko Primary Care Provider Estella Herzog MD Unavailable AUDU, YUMIKO Attending Unavailable AUDU, [facility] Primary Care Unavailable AUDU, YUMIKO Attending Unavailable AUDU, [facility] Primary Care Unavailable INA DENG Attending Unavailable INA DENG Attending Unavailable AUDU, [facility] Primary Care Unavailable AUDU, YUMIKO Attending Unavailable AUDU, [facility] Primary Care Unavailable ESTELLA HERZOG Attending Unavailable AUDU, [facility] Primary Care Unavailable LIZZIE HARE Attending Unavailable AUDU, [facility] Primary Care Unavailable AUDU, YUMIKO Attending Unavailable AUDU, [facility] Primary Care Unavailable AUDU, YUMIKO Attending Unavailable AUDU, [facility] Primary Care Unavailable AUDU, YUMIKO Attending Unavailable AUDU, YUMIKO Referring Unavailable AUDU, [facility] Primary Care Unavailable SOPHIA ARZATE Attending Unavailable AUDU, [facility] Primary Care Unavailable Dennise Rehman S Unavailable Emerson Jacinto MD Primary Care Provider NO PRIMARY CARE, Primary Care Unavailable JENNIFER DAY Attending Unavailable DENNISE VIDES Referring Unavailable NO PRIMARY CARE, Primary Care Unavailable LENNY ROJAS Referring UnavailKATELYNN Navarrete Attending Unavailab le NO PRIMARY CAREMD Primary Care Unavailable JENNIFER DAY Attending Unavailable LENNY ROJAS Referring Unavailabl e JACINTO, EMERSON A Attending Unavailable KATELYNN NIÑO Referring Unavailab le JACINTO, EMERSON A Primary Care Unavailable JENNIFER DAY Attending Unavailable KATELYNN NIÑO Referring Unavailab le JACINTO, EMERSON A Primary Care Unavailable NO PRIMARY CAREMD Primary Care Unavailable HUNTER OZUNA Attending UnavailDENNISE Moreno Referring Unavailable JACINTO, EMERSON A Attending Unavailable JACINTO, EMERSON A Referring Unavailable JACINTO, EMERSON A Primary Care Unavailable NO PRIMARY CARE, Primary Care Unavailable DENNISE VIDES Referring Unavailable STEVIE OZUNA Attending Unavailable Yumiko Smith MD Primary Care Provider YUMIKO SMITH Primary Care Unavailable CORETTA JIMENEZ Attending Unavailable Allergies Allergy Classification Reported Allergen(s) Allergy Type Date of Onset Reaction(s) Facility Cinnamon Preparation (1 source) Cinnamon Preparation Drug Allergy 2 Swelling [facility] Latex (1 source) Latex Substance Allergy 7 Hives [facility] (20 sources) cinnamon preparation; Translations: [CINNAMON] Drug Allergy 2 Swelling, Other: See Comments [facility] (20 sources) Latex; Translations: [LATEX] Propensity to adverse reactions (disorder) 7 Hives, Anaphylaxis, Swelling [facility] Medications Current Medications Medication Drug Class(es) Dates Sig (Normalized) Sig (Original) acetaminophen 325 mg oral tablet (4 sources) Start: 03-28-2022 acetaminophen (TYLENOL) tablet 650 mg Completed/Discontinued Medications Medication Drug Class(es) Dates Sig (Normalized) Sig (Original) [id number] 200 actuat albuterol 0.09 mg/actuat metered dose [...] disorder, unspecified; Translations: [Anxiety] Onset: 03-28-2022 Chronic Chronic obstructive pulmonary disease and bronchiectasis (1 source) Bronchitis, not specified as acute or chronic; Translations: [Sinobronchitis] Onset: 08-27-2023 Episodic Diabetes mellitus without complication (20 sources) Abnormal [...] Onset: 10-28-2022 Episodic Other upper respiratory infections (2 sources) Chronic sinusitis; Translations: [Chronic sinusitis, unspecified] Onset: 08-27-2023 08-27-2023 Chronic Other upper respiratory infections (6 sources) Sore [...] 09-07-2022 Episodic Other aftercare (2 sources) 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; Translations: [Other usp (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] Onset: 08-30-2021 Episodic Other [...] transmitted disease)] Onset: 12-12-2018 Resolved: 01-11-2019 01-11-2019 NEGATED: Highlighted row has been ruled out!Unclassified (1 source) No known active problems 08-27-2023 Results Test Name Value Interpretation Reference Range Facil ity Vital Signs Date Time Vital Sign Value Performing Clinician Facility 08-27-2023 14:31-0500 Body temperature 97.7 [degF] Coretta Jimenez APRN.CFD ENGINEER Work Phone: [facility] 08-27-2023 14:31-0500 Body weight 93.44 kg Coretta Jimenez POURING CRANE OPERATOR.CFD ENGINEER Work Phone: [facility] 08-27-2023 14:31-0500 Diastolic blood pressure 81 mm[Hg] Coretta Jimenez POURING CRANE OPERATOR.CFD ENGINEER Work Phone: [facility] 08-27-2023 14:31-0500 Heart rate 107 /min Coretta Jimenez POURING CRANE OPERATOR.CFD ENGINEER Work Phone: [facility] 08-27-2023 14:31-0500 Respiratory rate 18 /min Coretta Jimenez POURING CRANE OPERATOR.CFD ENGINEER Work Phone: [facility] 08-27-2023 14:31-0500 SaO2% (BldA) [Mass fraction] 95 % Coretta Jimenez POURING CRANE OPERATOR.CFD ENGINEER Work Phone: [facility] 08-27-2023 14:31-0500 Systolic blood pressure 123 mm[Hg] Coretta Jimenez POURING CRANE OPERATOR.CFD ENGINEER Work Phone: [facility] 04-25-2023 09:44-0400 Body height 157.5 cm Lizzie Aguero ROLLER SHOP SUPERVISOR Work Phone: [facility] [employer] 04-25-2023 09:44-0400 Body mass index (BMI) [Ratio] 36.4 kg/m2 Lizzie Hare APRN - ROLLER SHOP SUPERVISOR Work Phone: [facility] 04-25-2023 09:44-0400 Body temperature 97.2 [degF] Lizzie Hare APRN - ROLLER SHOP SUPERVISOR Work Phone: [facility] [employer] 04-25-2023 09:44-0400 Body weight 90.27 kg Lizzie Hare APRN - ROLLER SHOP SUPERVISOR Work Phone: [facility] 04-25-2023 09:44-0400 Diastolic blood pressure 76 mm[Hg] Lizzie Hare APRN - ROLLER SHOP SUPERVISOR Work Phone: [facility] [employer] 04-25-2023 09:44-0400 Heart rate 91 /min Lizzie Payam LANDEROS - ROLLER SHOP SUPERVISOR Work Phone: [facility] [employer] 04-25-2023 09:44-0400 SaO2% (BldA) [Mass fraction] 98 % Lizzie Payam LANDEROS - ROLLER SHOP SUPERVISOR Work Phone: [facility] [employer] 04-25-2023 09:44-0400 Systolic blood pressure 118 mm[Hg] Lizzie Aguero ROLLER SHOP SUPERVISOR Work Phone: [facility] [employer] 04-12-2023 09:26-0400 Body height 157.5 cm Yumiko Smith MD Work Phone: [facility] [employer] 04-12-2023 09:26-0400 Body mass index (BMI) [Ratio] 36.21 kg/m2 Yumiko Smith MD Work Phone: [facility] [employer] 04-12-2023 09:26-0400 Body temperature 96.91 [degF] Yumiko Smith MD Work Phone: [facility] [employer] 04-12-2023 09:26-0400 Body weight 89.81 kg Yumiko Smith MD Work Phone: [employer] 04-12-2023 09:26-0400 Diastolic blood pressure 66 mm[Hg] Yumiko Smith MD Work Phone: [employer] 04-12-2023 09:26-0400 Heart rate 106 /min Yumiko Smith MD Work Phone: [facility] [employer] 04-12-2023 09:26-0400 Respiratory rate 16 /min Yumiko Smith MD Work Phone: [employer] 04-12-2023 09:26-0400 SaO2% (BldA) [Mass fraction] 98 % Yumiko Smith MD Work Phone: [employer] 04-12-2023 09:26-0400 Systolic blood pressure 121 mm[Hg] Yumiko Smith MD Work Phone: [facility] [employer] 02-03-2023 13:02-0400 Body mass index (BMI) [Ratio] 36.65 kg/m2 Ina Deng APRN - CNM Work Phone: [facility] [employer] 02-03-2023 13:02-0400 Body weight 90.9 kg Ina Deng APRN - CNM Work Phone: [facility] [employer] 02-03-2023 13:02-0400 Diastolic blood pressure 75 mm[Hg] Ina Deng APRN - CNM Work Phone: [facility] [employer] 02-03-2023 13:02-0400 Heart rate 101 /min Ina Deng APRN - CNWayne Work Phone: [facility] [employer] 02-03-2023 13:02-0400 Systolic blood pressure 106 mm[Hg] Ina Deng APRN - CNM Work Phone: [facility] [employer] 01-25-2023 11:13-0400 Body height 157.5 cm Yumiko Smith MD Work Phone: [facility] [employer] 01-25-2023 11:13-0400 Body mass index (BMI) [Ratio] 36.43 kg/m2 Yumiko Smith MD Work Phone: [facility] [employer] 01-25-2023 11:13-0400 Body temperature 97.7 [degF] Yumiko Smith MD Work Phone: [facility] [employer] 01-25-2023 11:13-0400 Body weight 90.36 kg Yumiko Smith MD Work Phone: [facility] [employer] 01-25-2023 11:13-0400 Diastolic blood pressure 80 mm[Hg] Yumiko Smith MD Work Phone: [facility] [employer] 01-25-2023 11:13-0400 Heart rate 101 /min Yumiko Smith MD Work Phone: [facility] [employer] 01-25-2023 11:13-0400 SaO2% (BldA) [Mass fraction] 96 % Yumiko Smith MD Work Phone: [facility] [employer] 01-25-2023 11:13-0400 Systolic blood pressure 124 mm[Hg] Yumiko Smith MD Work Phone: [facility] [employer] 12-28-2022 11:05-0400 Body mass index (BMI) [Ratio] 36.1 kg/m2 Yumiko Smith MD Work Phone: [facility] [employer] 12-28-2022 11:05-0400 Body temperature 97.3 [degF] Yumiko Smith MD Work Phone: [facility] [employer] 12-28-2022 11:05-0400 Body weight 89.54 kg Yumiko Smith MD Work Phone: [facility] [employer] 12-28-2022 11:05-0400 Diastolic blood pressure 74 mm[Hg] Yumiko Smith MD Work Phone: [facility] [employer] 12-28-2022 11:05-0400 Heart rate 103 /min Yumiko Smith MD Work Phone: [facility] [employer] 12-28-2022 11:05-0400 SaO2% (BldA) [Mass fraction] 96 % Yumiko Smith MD Work Phone: [facility] [employer] 12-28-2022 11:05-0400 Systolic blood pressure 104 mm[Hg] Yumiko Smith MD Work Phone: [facility] [employer] 10-15-2022 11:42-0400 Body height 157.5 cm Estella Herzog MD Work Phone: [facility] [employer] 10-15-2022 11:42-0400 Body mass index (BMI) [Ratio] 36.23 kg/m2 Estella Herzog MD Work Phone: [facility] [employer] 10-15-2022 11:42-0400 Body temperature 95.9 [degF] Estella Herzog MD Work Phone: [facility] [employer] 10-15-2022 11:42-0400 Body weight 89.86 kg Estella Herzog MD Work Phone: [facility] [employer] 10-15-2022 11:42-0400 Diastolic blood pressure 66 mm[Hg] Estella Herzog MD Work Phone: [facility] [employer] 10-15-2022 11:42-0400 Heart rate 69 /min Estella Herzog MD Work Phone: [facility] [employer] 10-15-2022 11:42-0400 Respiratory rate 16 /min Estella Herzog MD Work Phone: [facility] [employer] 10-15-2022 11:42-0400 SaO2% (BldA) [Mass fraction] 99 % Estella Herzog MD Work Phone: [facility] [employer] 10-15-2022 11:42-0400 Systolic blood pressure 104 mm[Hg] Estella Herzog MD Work Phone: [facility] [employer] 09-29-2022 15:35-0400 Body height 157.5 cm Yumiko Smith MD Work Phone: [facility] [employer] 09-29-2022 15:35-0400 Body mass index (BMI) [Ratio] 35.85 kg/m2 Yumiko Smith MD Work Phone: [facility] [employer] 09-29-2022 15:35-0400 Body weight 88.91 kg Yumiko Smith MD Work Phone: [facility] [employer] 03-29-2022 08:33-0400 Body temperature 97.7 [degF] Lee Chaudhari MD Work Phone: [facility] 03-29-2022 08:33-0400 Diastolic blood pressure 71 mm[Hg] Lee Chaudhari MD Work Phone: [facility] 03-29-2022 08:33-0400 Heart rate 84 /min Lee Chaudhari MD Work Phone: [facility] 03-29-2022 08:33-0400 Respiratory rate 18 /min Lee Chaudhari MD Work Phone: [facility] 03-29-2022 08:33-0400 Systolic blood pressure 97 mm[Hg] Lee Chaudhari MD Work Phone: [facility] 03-29-2022 05:47-0400 SaO2% (BldA) [Mass fraction] 99 % Lee Chaudhari MD Work Phone: [facility] 03-28-2022 06:10-0400 Body height 152.4 cm Lee Chaudhari MD Work Phone: [facility] 03-28-2022 06:10-0400 Body mass index (BMI) [Ratio] 39.06 kg/m2 Lee Chaudhari MD Work Phone: [facility] 03-28-2022 06:10-0400 Body weight 90.72 kg Lee Chaudhari MD Work Phone: [facility] 02-28-2022 20:10-0400 Body height 152.4 cm Sophiachelsey Arzate POURING CRANE OPERATOR - CFD ENGINEER Work Phone: [facility] 02-28-2022 20:10-0400 Body mass index (BMI) [Ratio] 38.47 kg/m2 Sophia Saffell POURING CRANE OPERATOR - CFD ENGINEER Work Phone: [facility] 02-28-2022 20:10-0400 Body weight 89.36 kg Sophia Saffell POURING CRANE OPERATOR - CFD ENGINEER Work Phone: [facility] 01-28-2022 17:56-0400 Body height 152.4 cm Silverio Carter MD Work Phone: [facility] [employer] 01-28-2022 17:56-0400 Body mass index (BMI) [Ratio] 37.89 kg/m2 Silverio Carter MD Work Phone: [employer] 01-28-2022 17:56-0400 Body temperature 98.1 [degF] Silverio Carter MD Work Phone: [facility] [employer] 01-28-2022 17:56-0400 Body weight 88 kg Silverio Carter MD Work Phone: [facility] [employer] 01-28-2022 17:56-0400 Diastolic blood pressure 54 mm[Hg] Silverio Carter MD Work Phone: [facility] [employer] 01-28-2022 17:56-0400 Heart rate 94 /min Silverio Carter MD Work Phone: [facility] [employer] 01-28-2022 17:56-0400 Respiratory rate 18 /min Silverio Carter MD Work Phone: [facility] [employer] 01-28-2022 17:56-0400 Systolic blood pressure 109 mm[Hg] Silverio Carter MD Work Phone: [facility] [employer] 01-25-2022 19:40-0400 Heart rate 82 /min Shala Noble MD Work Phone: [facility] 01-25-2022 16:28-0400 Body height 152.4 cm Shala Noble MD Work Phone: [facility] 01-25-2022 16:28-0400 Body mass index (BMI) [Ratio] 37.89 kg/m2 Shala Noble MD Work Phone: [facility] 01-25-2022 16:28-0400 Body temperature 98.2 [degF] Shala Noble MD Work Phone: [facility] 01-25-2022 16:28-0400 Body weight 88 kg Shala Noble MD Work Phone: [facility] 01-25-2022 16:28-0400 Diastolic blood pressure 67 mm[Hg] Sahla Noble MD Work Phone: [facility] 01-25-2022 16:28-0400 Respiratory rate 18 /min Shlaa Noble MD Work Phone: [facility] 01-25-2022 16:28-0400 Systolic blood pressure 110 mm[Hg] Shala Noble MD Work Phone: [facility] 12-24-2021 18:03-0400 Body temperature 98.2 [degF] Dick Nance MD Work Phone: [facility] 12-24-2021 18:03-0400 Diastolic blood pressure 62 mm[Hg] Dick Nance MD Work Phone: [facility] 12-24-2021 18:03-0400 Heart rate 100 /min Dick Nance MD Work Phone: [facility] 12-24-2021 18:03-0400 Respiratory rate 18 /min Dick Nance MD Work Phone: [facility] 12-24-2021 18:03-0400 Systolic blood pressure 106 mm[Hg] Dick Nance MD Work Phone: [facility] 12-20-2021 22:00-0400 Heart rate 74 /min Lee Chaudhari MD Work Phone: [facility] 12-20-2021 20:52-0400 Body height 152.4 cm Lee Chaudhari MD Work Phone: [facility] 12-20-2021 20:52-0400 Body mass index (BMI) [Ratio] 36.91 kg/m2 Lee Chaudhari MD Work Phone: [facility] 12-20-2021 20:52-0400 Body temperature 98.6 [degF] Lee Chaudhari MD Work Phone: [facility] 12-20-2021 20:52-0400 Body weight 85.73 kg Lee Chaudhari MD Work Phone: [facility] 12-20-2021 20:52-0400 Diastolic blood pressure 61 mm[Hg] Lee Chaudhari MD Work Phone: [facility] 12-20-2021 20:52-0400 Respiratory rate 16 /min Lee Chaudhari MD Work Phone: [facility] 12-20-2021 20:52-0400 Systolic blood pressure 115 mm[Hg] Lee Chaudhari MD Work Phone: [facility] 12-19-2021 12:39-0400 Body temperature 97.9 [degF] Maribell San MD Work Phone: [facility] 12-19-2021 12:39-0400 Diastolic blood pressure 66 mm[Hg] Maribell San MD Work Phone: [facility] 12-19-2021 12:39-0400 Heart rate 110 /min Maribell San MD Work Phone: [facility] 12-19-2021 12:39-0400 Respiratory rate 20 /min Maribell San MD Work Phone: [facility] 12-19-2021 12:39-0400 SaO2% (BldA) [Mass fraction] 96 % Maribell San MD Work Phone: [facility] 12-19-2021 12:39-0400 Systolic blood pressure 119 mm[Hg] Maribell San MD Work Phone: [facility] 12-15-2021 16:14-0400 Body temperature 98.01 [degF] Stuart Barajas MD Work Phone: [facility] 12-15-2021 16:14-0400 Diastolic blood pressure 66 mm[Hg] Stuart Barajas MD Work Phone: [facility] 12-15-2021 16:14-0400 Heart rate 110 /min Stuart Barajas MD Work Phone: [facility] 12-15-2021 16:14-0400 Respiratory rate 16 /min Stuart Barajas MD Work Phone: [facility] 12-15-2021 16:14-0400 Systolic blood pressure 113 mm[Hg] Stuart Barajas MD Work Phone: [facility] 11-16-2021 23:19-0400 Body height 152.4 cm Sha Ramos MD Work Phone: [facility] 11-16-2021 23:19-0400 Body mass index (BMI) [Ratio] 37.5 kg/m2 Sha Ramos MD Work Phone: [facility] 11-16-2021 23:19-0400 Body temperature 97.39 [degF] Sha Ramos MD Work Phone: [facility] 11-16-2021 23:19-0400 Body weight 87.09 kg Sha Ramos MD Work Phone: [facility] 11-16-2021 23:19-0400 Diastolic blood pressure 68 mm[Hg] Sah Ramos MD Work Phone: [facility] 11-16-2021 23:19-0400 Heart rate 81 /min Sha Ramos MD Work Phone: [facility] 11-16-2021 23:19-0400 Respiratory rate 18 /min Sha Ramos MD Work Phone: [facility] 11-16-2021 23:19-0400 SaO2% (BldA) [Mass fraction] 100 % Sha Ramos MD Work Phone: [facility] 11-16-2021 23:19-0400 Systolic blood pressure 107 mm[Hg] Sha Ramos MD Work Phone: [facility] 06-23-2021 21:40-0500 Body temperature 98.71 [degF] Aurora West DO Work Phone: [facility] 06-23-2021 21:40-0500 Diastolic blood pressure 71 mm[Hg] Aurora West DO Work Phone: [facility] 06-23-2021 21:40-0500 Heart rate 86 /min Aurora West DO Work Phone: [facility] 06-23-2021 21:40-0500 Respiratory rate 14 /min Aurora West DO Work Phone: [facility] 06-23-2021 21:40-0500 SaO2% (BldA) [Mass fraction] 99 % Aurora West DO Work Phone: [facility] 06-23-2021 21:40-0500 Systolic blood pressure 102 mm[Hg] Aurora West DO Work Phone: [facility] 04-25-2021 21:14-0400 Diastolic blood pressure 67 mm[Hg] Usama Plata MD Work Phone: [facility] Work Phone: 04-25-2021 21:14-0400 Heart rate 61 /min Usama Plata MD Work Phone: [facility] Work Phone: 04-25-2021 21:14-0400 Respiratory rate 16 /min Usama Plata MD Work Phone: [facility] Work Phone: 04-25-2021 21:14-0400 SaO2% (BldA) [Mass fraction] 100 % Usama Plata MD Work Phone: [facility] Work Phone: 04-25-2021 21:14-0400 Systolic blood pressure 94 mm[Hg] Usama Plata MD Work Phone: [facility] Work Phone: 04-25-2021 20:15-0400 Body height 152.4 cm Usama Plata MD Work Phone: [facility] Work Phone: 04-25-2021 20:15-0400 Body mass index (BMI) [Ratio] 37.69 kg/m2 Usama Plata MD Work Phone: [facility] Work Phone: 04-25-2021 20:15-0400 Body temperature 98.01 [degF] Usama Plata MD Work Phone: [facility] Work Phone: 04-25-2021 20:15-0400 Body weight 87.54 kg Usama Plata MD Work Phone: [facility] Work Phone: 02-06-2021 20:38-0400 Body height 152.4 cm Sangita Rangel MD Work Phone: [facility] Work Phone: 02-06-2021 20:38-0400 Body mass index [...] 09-08-2020 08:06-0500 Pulse Oximetry 97 % Alexia HOOKSA Work Phone: 09-08-2020 08:06-0500 Respiratory Rate 16 [...] 09-06-2020 01:50-0500 Respiratory Rate 18 /min Amee HOOKSA Work Phone: 07-20-2020 23:05-0500 Body Temperature 97.9 [degF] Robert Adame [facility] [place] [place] 07-20-2020 23:05-0500 BP Diastolic 64 mm[Hg] [facility] [place] 07-20-2020 23:05-0500 BP Systolic 115 mm[Hg] [facility] [place] 07-20-2020 23:05-0500 Pulse (Heart Rate) 89 /min [facility] [place] 07-[facility]-2020 23:05-0500 Respiratory Rate 16 /[facility] [place] [place] 07-20-2020 21:32-0500 BMI (Body Mass Index) 38.08 kg/m2 Robert Adame [facility], [place] 07-20-2020 21:32-0500 Body weight 88.45 kg Robert Adame [facility], [place] 07-20-2020 21:32-0500 Height 152.4 cm [facility] [place] [place] 07-20-2020 21:32-0500 Pulse Oximetry 99 % Robertmarcella Adame [facility], [place] 06-23-2020 15:25-0500 Pulse (Heart Rate) 92 /min Ameekelly Parker [facility], [place] 06-23-2020 14:52-0500 BP Diastolic 65 mm[Hg] Amee Keith [facility] [place] [facility] [place] 06-23-2020 14:52-0500 BP Systolic 96 mm[Hg] [facility], [place] 06-23-2020 14:51-0500 Body Temperature 97.9 [degF] Amee Keith [facility], [place] 06-23-2020 14:49-0500 BMI (Body Mass Index) 36.91 kg/m2 [facility] [place] [place] 06-23-2020 14:49-0500 Body weight 85.73 kg Ameekelly Parker [facility], [place] 06-23-2020 14:49-0500 Height 152.4 cm Amee Keith [facility], [place] 01-21-2020 02:03-0400 Pulse (Heart Rate) 52 /min [facility] [place] 01-20-2020 23:30-0400 BMI (Body Mass Index) 36.13 kg/m2 Kem Adame [facility], [place] 01-20-2020 23:30-0400 Body weight 83.92 kg [facility] [place] [facility] [place] 01-20-2020 23:30-0400 BP Diastolic 66 mm[Hg] [facility] [place] 01-20-2020 23:30-0400 BP Systolic 124 mm[Hg] [facility] [place] 01-20-2020 23:30-0400 Height 152.4 cm Kem Malik [facility] , [place] 01-20-2020 23:29-0400 Body Temperature 97.7 [degF] [facility] [place] 01-20-2020 23:29-0400 Pulse Oximetry 98 % [facility] [place] 01-20-2020 23:29-0400 Respiratory Rate 16 /min [facility] [place] 03-28-2019 19:54-0400 BMI (Body Mass Index) 34.18 kg/m2 Kem Adame [facility], [place] 03-28-2019 19:54-0400 Body Temperature 98.01 [degF] [facility] [place] 03-28-2019 19:54-0400 Body weight 79.38 kg [facility] [place] 03-28-2019 19:54-0400 BP Diastolic 77 mm[Hg] [facility] [place] 03-28-2019 19:54-0400 BP Systolic 128 mm[Hg] [facility] [place] 03-28-2019 19:54-0400 Height 152.4 cm [facility] [place] 03-28-2019 19:54-0400 Pulse (Heart Rate) 77 /min Kem Malik [facility], [place] 03-28-2019 19:54-0400 Pulse Oximetry 98 % Kem Malik [facility] , [place] 03-28-2019 19:54-0400 Respiratory Rate 16 /min [facility], [place] 03-08-2019 13:08-0400 BMI (Body Mass Index) 34.18 kg/m2 Lee Adame [facility], [place] 03-08-2019 13:08-0400 Body Temperature 97.39 [degF] Lee Yin [facility], [place] 03-08-2019 13:08-0400 Body weight 79.38 kg Lee [facility] , [place] 03-08-2019 13:08-0400 BP Diastolic 78 mm[Hg] Lee [facility] , [place] 03-08-2019 13:08-0400 BP Systolic 99 mm[Hg] Lee [facility] , [place] 03-08-2019 13:08-0400 Height 152.4 cm Lee [place], [place] 03-08-2019 13:08-0400 Pulse (Heart Rate) 97 /min Lee [facility], [place] 03-08-2019 13:08-0400 Pulse Oximetry 97 % Lee [facility] , [place] 03-08-2019 13:08-0400 Respiratory Rate 16 /min Lee [place], [place] Encounters Encounter Date Encounter Type Care Provider Facility Start: 08-27-2023 End: 08-27-2023 ambulatory YUMIKO SMITH Facility:[id number] Start: 08-27-2023 End: 08-27-2023 Patient encounter procedure Coretta Jimenez APRN.CFD ENGINEER Work Phone: [facility] Procedures Date Procedure Procedure Detail Performing Clinician Start: 09-29-2022 Us breast uni real t cristina with image limited Yumiko Smith MD Work Phone: Start: 07-09-2022 STREP A MOLECULAR (POC) Tarsha Garrett APRN.CFD ENGINEER Work Phone: Start: 03-28-2022 Antibody screen Lee [...] [facility] Start: 01-28-2022 MONITORING CHANDRAKANT Marco CARTER Start: 01-28-2022 Iadna multiple organ isms [...] Start: 06-19-2021 INSERT PERIPHERAL IV JA JUSTYNA SNYDERIEN Start: 06-19-2021 TREATMENT CONSENT PAO CARTER Start: 06-19-2021 Continuous pulse oximetry SILVERIO SNYDERIEN Start: 06-19-2021 BEDREST SILVERIO SYNDERIEN Start: 06-19-2021 ENCOURAGE DEEP BREAT RAMANDEEP AND COUGHING SILVERIO ALVAREZ [facility] Start: 06-19-2021 INITIATE OXYGEN THER APY PROTOCOL SILVERIO [facility] Start: 06-19-2021 NOTIFY PHYSICIAN (SPECIFY) SILVERIO [facility] Start: 06-19-2021 NURSING COMMUNICATION Lupe [facility] Start: 06-19-2021 VITAL SIGNS SILVERIO [facility] Start: 06-19-2021 Blood count complete automated SILVERIO GOSIA Start: 06-19-2021 TYPE AND SCREEN SILVERIO CARTER Start: 06-19-2021 BEDREST SILVERIO CARTER Start: 06-19-2021 Continuous pulse oximetry SILVERIO CARTER Start: 06-19-2021 ENCOURAGE DEEP BREAT RAMANDEEP AND COUGHING SILVERIO SNYDERIEN Start: 06-19-2021 INITIATE OXYGEN THER APY PROTOCOL SILVERIO [facility] Start: 06-19-2021 NASAL CANNULA OXYGEN JA JUSTYNA [facility] Start: 06-19-2021 NOTIFY PHYSICIAN (SPECIFY) SILVERIO [facility] Start: 06-19-2021 NURSING COMMUNICATION Lupe [facility] [facility] Start: 06-19-2021 VITAL SIGNS SILVERIO [facility] Start: 06-19-2021 COVID-19, RAPID SILVERIO ALVAREZ [facility] Start: 04-25-2021 Blood count complete auto&auto [...] of 2) Zoster Vaccines (1 of 2) [facility] Start: 07-20-2033 Urine microalbumin profile DTaP,Tdap,Td Vaccine (11 - Td or Tdap) [facility] Start: 02-11-2032 DTaP/Tdap/Td vaccine (10 - Td or Tdap) DTaP/Tdap/Td vaccine (10 - Td or Tdap) [facility] Start: 02-11-2032 DTaP/Tdap/Td Vaccines (10 - Td or Tdap) DTaP/Tdap/Td Vaccines (10 - Td or Tdap) [facility] Start: 08-07-2030 DTaP/Tdap/Td vaccine (9 - Td or Tdap) DTaP/Tdap/Td vaccine (9 - Td or Tdap) [facility] Start: 04-12-2027 DTaP/Tdap/Td vaccine (8 - Td) DTaP/Tdap/Td vaccine (8 - Td) [place] Start: 07-11-2023 Depression Assessment Depression Assessment [facility] Start: 04-07-2023 End: 04-07-2023 Patient encounter procedure 04/07/2023 Office Visit Internal Medicine Yumiko Smith MD [address] [place] [address] [facility] Internal Medicine Start: 03-11-2023 Influenza vaccination [facility] Start: 03-07-2023 Depresssion Monitoring Depresssion Monitoring [facility] Start: 02-18-2023 End: 02-18-2023 Patient encounter procedure 02/18/2023 2:20 PM EDT Office Visit [facility] Obstetrics & Gynecology [address] [place] [id number] Sophia Arzate, TIGRE - CFD ENGINEER [address] [place] [address] [address] [place] [address] [facility]etric[facility] Start: 02-18-2023 End: 02-18-2023 Professional / ancillary services management 02/18/2023 1:30 PM EDT Ancillary Procedure [facility]etric[facility] [address] [place] [address] [facility] Start: 02-03-2023 End: 02-04-2024 hCG, quantitative hCG, quantitative Lab Routine Encounter to determine viability of , single or unspecified fetus Expected: 02/03/2023 (Approximate), Expires: 02/04/2024 [facility] Work Phone: Immunizations Immunization Date Immunization Notes Care Provider Cade chaves 02-10-2022 tetanus toxoid, redu edinson diphtheria toxoid, and acellular pertussis vaccine, adsorbed Sophia Arzate POURING CRANE OPERATOR - CFD ENGINEER Work Phone: [facility] 09-07-2020 diphtheria, tetanus toxoids and acellular pertussis vaccine, unspecified formulation [facility] Work Phone: 09-07-2020 measles, mumps and rubella virus vaccine [facility] Work Phone: 08-07-2020 tetanus toxoid, redu edinson diphtheria toxoid, and acellular pertussis vaccine, adsorbed Sangita Rangel MD Work Phone: [facility] Work Phone: 06-13-2020 influenza virus vaccine, unspecified formulation Sangita Rangel MD Work Phone: [facility] Work Phone: 04-12-2017 tetanus toxoid, redu edinson diphtheria toxoid, and acellular pertussis vaccine, adsorbed Sangita Rangel MD Work Phone: [facility] Work Phone: 01-01-2011 human papilloma viru s vaccine, quadrivalent Sangita Rangel MD Work Phone: [facility] Work Phone: 01-01-2011 meningococcal polysaccharide (groups A, C, Y and W-135) diphtheria toxoid conjugate vaccine (MCV4P) Sangita Rangel MD Work Phone: [facility] Work Phone: 01-01-2011 tetanus toxoid, redu edinson diphtheria toxoid, and acellular pertussis vaccine, adsorbed Sangita Rangel MD Work Phone: [facility] Work Phone: 01-01-2011 HPV, unspecified formulation Yumiko Smith MD Work Phone: [facility] 03-18-2004 diphtheria, tetanus toxoids and acellular pertussis vaccine Sangita Rangel MD Work Phone: [facility] Work Phone: 03-18-2004 measles, mumps and rubella virus vaccine Sangita Rangel MD Work Phone: [facility] Work Phone: 03-18-2004 poliovirus vaccine, inactivated Sangita Rangel MD Work Phone: [facility] Work Phone: 04-18-2000 diphtheria, tetanus toxoids and acellular pertussis vaccine Emerson Jacinto MD Work Phone: [facility] 04-18-2000 diphtheria, tetanus toxoids and acellular pertussis vaccine, unspecified formulation Sangita Rangel MD Work Phone: [facility] Work Phone: 04-18-2000 haemophilus influenz ae type b vaccine, PRP-T conjugate Sangita Rangel MD Work Phone: [facility] Work Phone: 04-18-2000 hepatitis A vaccine, pediatric/adolescent dosage, 2 dose schedule Sangita Rangel MD Work Phone: [facility] Work Phone: 04-18-2000 hepatitis B vaccine, pediatric or pediatric/adolescent dosage Sangita Rangel MD Work Phone: [facility] Work Phone: 04-18-2000 hepatitis A and hepatitis B vaccine Yumiko Smith MD Work Phone: [facility] 12-29-1999 measles, mumps and rubella virus vaccine Sangita Rangel MD Work Phone: [facility] Work Phone: 12-29-1999 varicella virus vaccine Ar Rangel MD Work Phone: [facility] Work Phone: 06-22-1999 diphtheria, tetanus toxoids and acellular pertussis vaccine Emerson Jacinto MD Work Phone: [facility] 06-22-1999 diphtheria, tetanus toxoids and acellular pertussis vaccine, unspecified formulation Sangita Rangle MD Work Phone: [facility] Work Phone: 06-22-1999 poliovirus vaccine, inactivated Sangita Rangel MD Work Phone: [facility] Work Phone: 05-12-1999 diphtheria, tetanus toxoids and acellular pertussis vaccine Emerson Jacinto MD Work Phone: [facility] 05-12-1999 diphtheria, tetanus toxoids and acellular pertussis vaccine, unspecified formulation Sangita Rangel MD Work Phone: [facility] Work Phone: 05-12-1999 haemophilus influenz ae type b vaccine, PRP-T conjugate Sangita Rangel MD Work Phone: [facility] Work Phone: 05-12-1999 poliovirus vaccine, inactivated Sangita Rangel MD Work Phone: [facility] Work Phone: 02-06-1999 diphtheria, tetanus toxoids and acellular pertussis vaccine Emerson Jacinto MD Work Phone: [facility] 02-06-1999 diphtheria, tetanus toxoids and acellular pertussis [...] mumps and rubella virus vaccine Lee Yin [facility] Payers Date Payer Category Payer Private Health Insurance 2022 Private Health Insurance [id number] 2016 Medicaid [id number] 2016 Private Health Insurance [facility] xxxxxxxxx 2016-Present [phone] [address] [place] [address] xxxxxxxxx [id number] 2016 Private Health Insurance [facility] [id number] 2016-Present [phone] [address] [place] [address] [id number] 1998 Unknown [id number] 1998 Unknown [id number]. 204 1998 Unknown [id number] [id number]. 204 1998 Unknown [id number] [id number]. 668 1998 Unknown [id number] [id number]. 668 1998 Unknown [id number] [id number]. 668 1998 Unknown [id number] [id number]. 668 1998 Unknown [id number] [id number]. 668 1998 Unknown [id number] [id number]. 66 1998 Unknown [id number] [id number]. 668 1998 Unknown [id number] [id number]. 356 1998 Unknown [id number] [id number] 1998 Unknown [id number] 2.840.1.109830.3.579.2. 1998 Unknown [id number] 2.16840.1.948233.3.579.2. 47 1998 Unknown [id number] [id number] 1998 Unknown [id number] [id number] 47 1998 Unknown [id number] [id number] 1998 Unknown [id number] [id number] 47 1998 Unknown [id number]. 479 1959 Medicaid [id number] Unknown [facility] Social History Date Type Detail Facility Start: 03-28-2019 End: 10-29-2022 Tobacco smoking status CTIS Current every day smoker [place] Start: 06-07-2011 History of tobacco use Cigarette Smo ker [place] Start: 03-28-2019 End: 10-29-2022 Cigarettes smoked current (pack per day) - Reported [place] Start: 03-28-2019 End: 10-29-[address] Start: 1998 Sex Assigned At Not on file [place], [place] Start: 01-21-2020 End: 10-29-2022 Tobacco use and exposure Never used [facility] Start: 01-21-2020 End: 08-27-2023 Alcohol intake Current non-drinker of alcohol (finding) [place] Start: 11-06-2021 End: 02-03-2023 Exposure to SARS-CoV-2 (event) Not sure [place] Start: 01-03-2020 [place] Start: 10-05-2021 History SDOH Alcohol Frequency 1 [employer] Work Phone: Start: 10-05-2021 History SDOH Social Connections Phone 5 [employer] Work Phone: Start: 10-05-2021 History SDOH Social Connections Quaker 3 [facility] Work Phone: Start: 10-05-2021 History SDOH Social Connections Membership 2 [facility] Work Phone: Start: 10-05-2021 History SDOH Social Connections Living 7 [facility] Work Phone: Start: 10-05-2021 History SDOH Physica l Activity DPW 0 [facility] Work Phone: Adolescent depressio n screening assessment 17 [facility] [employer] Within the last year , have you been afraid of your partner or ex-partner? No [facility] How often to you hav e a drink containing alcohol? Never [facility] How hard is it for y ou to pay for the very basics like food, housing, medical care, and heating Not very hard [facility] Do you feel stress - tense, restless, nervous, or anxious, or unable to sleep at night because your mind is troubled all the time - these days [OSQ] Not at all [facility] (I/We) worried wheth er (my/our) food would run out before (I/we) got money to buy more. Never true [facility] [employer] Start: 06-27-2023 Alcohol intake Ex-drinker (finding) [facility] Start: 10-29-2014 Alcohol Comment last use was awhile ago [facility] Clinical Notes 04-20-2017 to 08-27-2023 Patient InstructionsCoretta Jimenez APRN.CNP - 08/27/2023 2:34 PM TIGRE Mejia NP - 04/25/2023 9:40 AM EDTPatient InstructionsSergio Smith MD - 04/12/2023 9:40 AM EDT Note Date & Type Note Facility 08-27-2023 Note HNO ID: [id number] Author: CORETTA JIMENEZ APRN.CNP Service: ? Author Type: Nurse Practitioner Type: Progress Notes Filed: 08/27/2023 14:51 Note Text: Lauren KOO is a 22 year old female who presents with Cough (Chest pain, duration 6 days, no interventions ) Duration: 6 days Cough: Yes Coughing up anything: No Coughing up blood: No Wheezing: No Trouble breathing at rest while sitting: No Trouble breathing with activity: Yes Chest pain: No If so, is chest pain pleuritic: No Heart racing: No Shortness of breath when lying flat: No Waking up at night with trouble breathing: No Swelling in legs: No Ear pain: yes Fever: no Runny nose: Yes Nasal Congestion: yes Sore throat: Yes Sinus pressure: Yes Post-nasal drip: Yes Heartburn: No Nausea: No Vomiting: No Abdominal pain: No No over the counter medication Patient is 8 months PAST MEDICAL HISTORY Diagnosis Date IBS (irritable bowel syndrome) NEGATIVE MEDICAL HISTORY ACTIVE PROBLEM LIST (none) - all problems resolved or deleted Current Outpatient Medications Medication Sig Dispense Refill metFORMIN (GLUCOPHAGE) 500 mg tablet Take 1 tablet by mouth every afternoon. 21/IRON FU/FOLIC ACID ( COMPLETE ORAL) Take 1 tablet by mouth once daily. No current facility-administered medications for this visit. Social History Tobacco Use Smoking status: Every Day Packs/day: 0.50 Years: 7.00 Additional pack years: 0.00 Total pack years: 3.50 Types: Cigarettes Smokeless tobacco: Never Vaping Use Vaping Use: Never used Substance Use Topics Alcohol use: No Drug use: No Alcohol Use: No Tobacco Use: 0.5 packs/day, for 7 years. Types: Cigarettes FAMILY HISTORY Family history unknown: Yes Review of Systems Constitutional: Positive for chills and malaise/fatigue. Negative for fever. HENT: Positive for congestion, sinus pain and sore throat. Negative for ear pain and nosebleeds. Respiratory: Positive for cough. Negative for sputum production, shortness of breath, wheezing and stridor. Cardiovascular: Negative for chest pain and palpitations. Gastrointestinal: Negative for abdominal pain, nausea and vomiting. Neurological: Negative for dizziness and headaches. BP 123/81 Pulse 107 Temp 97.7 Resp 18 Wt 206 lb (93.4kg) SpO2 95% LMP 11/22/2022 Physical Exam Vitals and nursing note reviewed. Constitutional: Appearance: Normal appearance. HENT: Head: Normocephalic and atraumatic. Ears: Comments: Ears: Tympanic membrane's pearly jack, + light reflex, external canal with erythema , no edema.. Nose: Comments: Nose: Turbinates with erythema, edema, and discharge, no complete obstructions, boggy nasal, mucus membranes pink, sinus tenderness to percussion Mouth/Throat: Mouth: Mucous membranes are moist. Pharynx: Oropharynx is clear. Posterior oropharyngeal erythema present. No oropharyngeal exudate. Eyes: Extraocular Movements: Extraocular movements intact. Conjunctiva/sclera: Conjunctivae normal. Pupils: Pupils are equal, round, and reactive to light. Cardiovascular: Rate and Rhythm: Normal rate and regular rhythm. Pulses: Normal pulses. Heart sounds: Normal heart sounds. Pulmonary: Effort: Pulmonary effort is normal. No respiratory distress. Breath sounds: Normal breath sounds. No stridor. No wheezing, rhonchi or rales. Chest: Chest wall: No tenderness. Musculoskeletal: General: Normal range of motion. Cervical back: Normal range of motion and neck supple. Skin: General: Skin is warm and dry. Neurological: General: No focal deficit present. Mental Status: She is alert. Psychiatric: Mood and Affect: Mood normal. Behavior: Behavior normal. ASSESSMENT/PLAN: 1. Sinobronchitis - ICD9: 473.9, 490, ICD10: J32.9, J40 - Supportive care with plenty of fluids, rest, and analgesia prn. - AMOXICILLIN 500 MG CAPSULE - DIPHENHYDRAMINE 25 MG CAPSULE - Symptomatic treatment with prn analgesia - Supportive care with fluids and rest - The patient may also use OTC decongestants prn, OTC cough and cold meds as needed, Cough syrup warm salt water gargles, throat lozenges and/or OTC throat spray as needed, and nasal saline gtts and suction prn. - Follow up with PCP or IRRIGATION SYSTEM INSTALLER in 2-5 days if symptoms persist or sooner if worsening of symptoms. Patient is a 8 months History and examination consistent with Sinobronchitis . No indication for labs or imaging at this time. No evidence of sepsis, strep pharyngitis, or pneumonia. Counseled patient/family on antibiotic treatment and supportive measures at home. Patient advised to return to clinic or present to ED if symptoms change or worsen. Otherwise Follow up with PCP or IRRIGATION SYSTEM INSTALLER in 2-5 days if symptoms persist or sooner if worsening of symptoms Coretta Jimenez APRN.[facility] 08-27-2023 Instructions Coretta Jimenez APRN.CNP - 08/27/2023 2:43 PM EST Follow up with PCP/ IRRIGATION SYSTEM INSTALLER in 2-5 days Emergency room if symptoms change or worsen. [facility] [address] [place] [address] Emergency Department Diagnosis: Assessment SINUSITIS: You have sinusitis, an infection of the sinus cavities around the nose. This infection usually follows a respiratory illness; it can also be related to allergies, changes in atmospheric pressure (flying, diving), or anything that blocks nasal drainage. Symptoms include: headache, facial pain, a thick nasal discharge, congestion, and cough. The treatment includes antibiotic therapy, increasing oral fluids, and pain medication if needed. Nose spray decongestants (Afrin, Leonardo-Synephrine) and oral decongestants may be needed to reduce congestion and drainage. Rarely the sinus must be irrigated to remove the infected material. Sinusitis can lead to serious complications by spreading to other areas such as the eye or brain. Please call your doctor or return here right away if you have any of the following more serious symptoms: Unusual swelling around the eye or trouble seeing. Increasing pain, severe headache, or toothache. Nausea, vomiting, or unusual drowsiness. documented in this encounter [facility] 08-27-2023 History of Presen t illness Narrative Lauren KOO is a 22 year old female who presents with Cough (Chest pain, duration 6 days, no interventions ) Duration: 6 days Cough: Yes Coughing up anything: No Coughing up blood: No Wheezing: No Trouble breathing at rest while sitting: No Trouble breathing with activity: Yes Chest pain: No If so, is chest pain pleuritic: No Heart racing: No Shortness of breath when lying flat: No Waking up at night with trouble breathing: No Swelling in legs: No Ear pain: yes Fever: no Runny nose: Yes Nasal Congestion: yes Sore throat: Yes Sinus pressure: Yes Post-nasal drip: Yes Heartburn: No Nausea: No Vomiting: No Abdominal pain: No No over the counter medication Patient is 8 months PAST MEDICAL HISTORY Diagnosis Date IBS (irritable bowel syndrome) NEGATIVE MEDICAL HISTORY ACTIVE PROBLEM LIST (none) - all problems resolved or deleted Current Outpatient Medications Medication Sig Dispense Refill metFORMIN (GLUCOPHAGE) 500 mg tablet Take 1 tablet by mouth every afternoon. 21/IRON FU/FOLIC ACID ( COMPLETE ORAL) Take 1 tablet by mouth once daily. No current facility-administered medications for this visit. Social History Tobacco Use Smoking status: Every Day Packs/day: 0.50 Years: 7.00 Additional pack years: 0.00 Total pack years: 3.50 Types: Cigarettes Smokeless tobacco: Never Vaping Use Vaping Use: Never used Substance Use Topics Alcohol use: No Drug use: No Alcohol Use: No Tobacco Use: 0.5 packs/day, for 7 years. Types: Cigarettes FAMILY HISTORY Family history unknown: Yes Review of Systems Constitutional: Positive for chills and malaise/fatigue. Negative for fever. HENT: Positive for congestion, sinus pain and sore throat. Negative for ear pain and nosebleeds. Respiratory: Positive for cough. Negative for sputum production, shortness of breath, wheezing and stridor. Cardiovascular: Negative for chest pain and palpitations. Gastrointestinal: Negative for abdominal pain, nausea and vomiting. Neurological: Negative for dizziness and headaches. BP 123/81 Pulse 107 Temp 97.7 Resp 18 Wt 206 lb (93.4kg) SpO2 95% LMP 11/22/2022 Physical Exam Vitals and nursing note reviewed. Constitutional: Appearance: Normal appearance. HENT: Head: Normocephalic and atraumatic. Ears: Comments: Ears: Tympanic membrane's pearly jack, + light reflex, external canal with erythema , no edema.. Nose: Comments: Nose: Turbinates with erythema, edema, and discharge, no complete obstructions, boggy nasal, mucus membranes pink, sinus tenderness to percussion Mouth/Throat: Mouth: Mucous membranes are moist. Pharynx: Oropharynx is clear. Posterior oropharyngeal erythema present. No oropharyngeal exudate. Eyes: Extraocular Movements: Extraocular movements intact. Conjunctiva/sclera: Conjunctivae normal. Pupils: Pupils are equal, round, and reactive to light. Cardiovascular: Rate and Rhythm: Normal rate and regular rhythm. Pulses: Normal pulses. Heart sounds: Normal heart sounds. Pulmonary: Effort: Pulmonary effort is normal. No respiratory distress. Breath sounds: Normal breath sounds. No stridor. No wheezing, rhonchi or rales. Chest: Chest wall: No tenderness. Musculoskeletal: General: Normal range of motion. Cervical back: Normal range of motion and neck supple. Skin: General: Skin is warm and dry. Neurological: General: No focal deficit present. Mental Status: She is alert. Psychiatric: Mood and Affect: Mood normal. Behavior: Behavior normal. ASSESSMENT/PLAN: 1. Sinobronchitis - ICD9: 473.9, 490, ICD10: J32.9, J40 - Supportive care with plenty of fluids, rest, and analgesia prn. - AMOXICILLIN 500 MG CAPSULE - DIPHENHYDRAMINE 25 MG CAPSULE - Symptomatic treatment with prn analgesia - Supportive care with fluids and rest - The patient may also use OTC decongestants prn, OTC cough and cold meds as needed, Cough syrup warm salt water gargles, throat lozenges and/or OTC throat spray as needed, and nasal saline gtts and suction prn. - Follow up with PCP or IRRIGATION SYSTEM INSTALLER in 2-5 days if symptoms persist or sooner if worsening of symptoms. Patient is a 8 months History and examination consistent with Sinobronchitis . No indication for labs or imaging at this time. No evidence of sepsis, strep pharyngitis, or pneumonia. Counseled patient/family on antibiotic treatment and supportive measures at home. Patient advised to return to clinic or present to ED if symptoms change or worsen. Otherwise Follow up with PCP or IRRIGATION SYSTEM INSTALLER in 2-5 days if symptoms persist or sooner if worsening of symptoms Coretta Jimenez APRN.NYLA documented in this encounter [facility] 04-25-2023 History of Presen t illness Narrative Images from the original note were not included. [facility] [facility] [address] Dept: [phone] Dept Loc: [phone] Subjective Lauren Chowdary is a 22 y.o. [...] 04/25/2023 10:06 AM documented in this encounter [facility] 04-25-2023 Instructions TIGRE Luciano NP - [...] sent through Care Everywhere.Wound Care Discharge Instructions (Honduran)documented in this encounter [facility] 04-12-2023 History of Presen t illness Narrative Images from the original note were not included. . [facility] [address] [place] [address] Dept: [phone] Dept Visit type: Established patient Reason for [...] CURETTAGE performed by Dick Martinez MD at [facility] OR DILATION AND CURETTAGE OF UTERUS [...] Data Reviewed and Summarized Labs: Imaging/Testing: Yumiko Smith MD documented in this encounter [facility] 02-03-2023 History of Presen t illness [...] CURETTAGE performed by Dick Martinez MD at [facility] OR DILATION AND CURETTAGE OF UTERUS [...] us and fu. documented in this encounter [facility] 01-25-2023 History of Presen t illness Narrative Images from the original note were not included. . [facility] [address] [place] [address] [address] [place] [address] Dept: [phone] Dept Visit type: Established patient Reason for [...] at this time. Has a follow-up with IRRIGATION SYSTEM INSTALLER Review of Systems Constitutional: Negative for activity [...] CURETTAGE performed by Dick Martinez MD at [facility] OR DILATION AND CURETTAGE OF UTERUS [...] Data Reviewed and Summarized Labs: Imaging/Testing: Yumiko Smith MD documented in this encounter [facility] 12-28-2022 History of Presen t illness Narrative Images from the original note were not included. . [facility] [address] [place] [address] [address] [place] [address] Dept: [phone] Dept Visit type: Established patient Reason for [...] CURETTAGE performed by Dick Martinez MD at [facility] OR DILATION AND CURETTAGE OF UTERUS [...] Data Reviewed and Summarized Labs: Imaging/Testing: Yumiko Smith MD documented in this encounter [facility] 12-04-2022 Note HNO ID: [id number] Author: Aurora Pablo PA-C Service: ? Author Type: Physician Repairer Type: Progress Notes Filed: 12/04/2022 12:16 PM Note Text: This note was created using Ampio Pharmaceuticalsriter. Subjective Lauren Chowdary is a 22 year [...] CULTURE WITH GRAM STAIN Aurora Pablo PA-C [facility] 11-25-2022 Note HNO ID: [id number] Author: Valentin Chambers APRN.CFD ENGINEER Service: ? Author Type: Nurse Practitioner Type: [...] DVT UNL VAS LAB Valentin Chambers APRN.NYLA [facility] 10-20-2022 History of Presen t illness Narrative Patient complains of sore throat times concern for last 2 to 3 days. No sick contacts, no complaints of fever, cough, chest pain, shortness of breath, nausea or vomiting. [facility] Work Phone: 10-15-2022 History of Presen t illness Narrative Patient ID: Lauren Chowdary is a 21 y.o. female. Referring Physician: No referring provider defined for this encounter. Primary Care Provider: Yumiko Smith MD Assessment and plan 21W, has given [...] visit. Subjective HPI 21W referred by Wayne Smith [phone] in regards to family history [...] matching plan found] documented in this encounter [facility] 09-29-2022 Telephone encounter Note thanks [facility] 09-29-2022 Miscellaneous Notes thanks Order change Name of caller: Susy Contact phone number: [phone] Relationship to Patient: [facility] Breast Center Provider: Dr. Smith Practice: [facility] Chief Complaint/Reason for Call: [...] their call: No documented in this encounter [facility] 09-29-2022 Telephone encounter Note Order change [facility] 09-29-2022 Telephone encounter Note Name of caller: Susy Contact phone number: [phone] Relationship to Patient: [facility] Breast Center Provider: Dr. Smith Practice: [facility] Chief Complaint/Reason for Call: [...] 09/29/22, at 3:00p. Please contact Susy and gerard. Best time of day caller can be reached: Any Patient advised that office/PCP has 24-48 business hours to return their call: No [facility] 07-09-2022 Note HNO ID: [id number] Author: Tarsha Garrett APRN.CFD ENGINEER Service: ? Author Type: Nurse Practitioner Type: [...] Discussed expected course of illness Tarsha Garrett APRN.[facility] 07-09-2022 History of Presen t illness [...] Discussed expected course of illness Tarsha Garrett APRN.CFD ENGINEER documented in this encounter [facility] 07-09-2022 Instructions Tarsha Garrett APRN.CNP - 07/09/2022 2:05 PM EST ASSESSMENT/PLAN: 1. [...] Discussed expected course of illness Tarsha Garrett, POURING CRANE OPERATOR.CFD ENGINEER OTITIS MEDIA GENERAL INFORMATION: Otitis media is [...] even if the symptoms go away. 2. Grty-gnf-mronxlo pain medication may be taken or other [...] him or her). documented in this encounter [facility] 03-29-2022 Note Obstetric Discharge Summary Admitting Diagnosis [...] NOT CHANGED Details [facility] be [facility] Starting 02/10/2022, Disp-1 each, R-0, Print famotidine [...] by . Discharge Date: 03/29/22 Time: Comments [facility] 03-29-2022 History of Presen t illness [...] delivery Plan: PPD #1 s/p Patient viewed [facility] discharge / education video. Oriented to A Guide to Caring for Yourself and Baby booklet. Verbalizes understanding of video content and denies any questions. Comfortable without epidural Cat one tracing Contractions q 3-4 minutes 3cm 80 -2 vertex Amniotomy clear fluid Epidural prn Continue care documented in this encounter AJAY Nogueira Phone: 02-28-2022 History of Presen t illness [...] CURETTAGE performed by Dick Martinez MD at [facility] OR SOCIAL HISTORY: reports that she [...] ,NO BLEEDING NOTED documented in this encounter [facility] Phone: 01-28-2022 Hospital Discharg e instructions Jana Dubois RN - 01/28/2022 7:46 PM EDT Drink plenty of fluids Resume normal activity unless otherwise instructed Call your physician if you experience any of the following: Leakage of fluid Vaginal bleeding Cramping/ Contractions Decreased movement Your baby should move at least 10 times in 2 hours documented in this encounter [facility] Phone: 01-25-2022 History of Presen t illness [...] CURETTAGE performed by Dick Martinez MD at [facility] OR SOCIAL HISTORY: reports that she [...] no pathogens heart rate: Category I Cervix: /60/-3 Contraction frequency: irritability Membranes: Intact RESULTS: GENERAL [...] this encounter [facility] Work Phone: 12-24-2021 Hospital DischKiara Haynes MD - 12/24/2021 Follow up appointment with your doctor/hamper maker machine - Call office for appointment tomorrow Activity - Normal Activity Call your doctor/hamper maker machine if you have: - leaking fluid - [...] related visit on 12/24/21. Kiara Drake MD [facility] documented in this encounter [facility] [...] CURETTAGE performed by Dick Martinez MD at [facility] OR SOCIAL HISTORY: reports that she [...] CHEW Take by mouth daily 1 safia STOP taking these medications progesterone (PROMETRIUM) 200 [...] , the patient was previously seen at [facility] for short cervix but went home prior to getting a cerclage placed. She returned for repeat US and possible cervical cerclage. After the ultrasound (12/16) findings and treatment options including cerclage were reviewed with the patient by [facility] the patient elected to proceed with vaginal [...] reviewed. Demetrius Mendoza MD 12/16/2021, 11:55 AM [facility] 12-15-2021 Note Department of Obstet rics [...] cervix remains short. 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 Short cervix Sandi Barrioskrishna, DO on 12/15/2021 at 6:11 PM [facility] 12-15-2021 Hospital course Narrative Images from [...] cervix remains short. 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, patient would like to leave and return [...] short cervix Instructions to Patient:: Call your doctor/hamper maker machine if you have: - leaking fluid - [...] CURETTAGE performed by Dick Martinez MD at [facility] OR SOCIAL HISTORY: reports that she [...] Patient cannot stay tonight due to child care center assistant director but will try to drive her daughter [...] in this encounter [facility] Work Phone: 12-15-2021 [facility] Discharg e instructions Lynda Patton DO - 12/15/2021 Follow up appointment with your doctor/hamper maker machine - Keep next scheduled appointment Activity - Normal Activity Call your doctor/hamper maker machine if you have: - leaking fluid - [...] related visit on 12/15/21. Lynda Patton DO [facility] documented in this encounter [facility] Work Phone: 04-25-2021 [facility] Discharg Usama Choudhury MD - 04/25/2021 Return for fever or vomiting The following attachments cannot be sent through Care Everywhere.UTI (Urinary Tract Infection): Female (Honduran)documented in this encounter [facility] Work Phone: documented as of this encounter (statuses as of 07/14/2022) [facility]10-[facility]2017 History of Past illness Narrative* Problem Noted Date Diagnosed Date Resolved Date Dysuria 04/20/2017 04/20/2017 Leakage of amniotic fluid 04/20/2017 documented as of this encounter (statuses as of 08/27/2023) [facility] Diagnosis Labial irritation- Primary Other specified [...] of , antepartum documented in this encounter [facility] Work Phone: Evaluation note* Diagnosis with 29 completed weeks gestation- Primary documented in this encounter [facility] Work Phone: evaluation note* Diagnosis Abnormal heart rate affecting Vaginal delivery Normal delivery documented in this encounter [facility] Work Phone: Evaluation note* Diagnosis Sore throat- Primary Acute pharyngitis Other acute nonsuppurative otitis media of right ear, recurrence not specified Viral illness Unspecified viral infection, in conditions classified elsewhere and of unspecified site [facility] Diagnosis Mass of left breast, unspecified quadrant documented in this encounter [facility] [employer] note* Diagnosis Family history of CVA- Primary documented in this encounter [facility] note* Diagnosis Physical exam, pre-employment- Primary Health examination of defined subpopulation Persistent depressive disorder documented in this encounter [facility]* Diagnosis Depression, unspecified depression type documented in this encounter [facility] note* Diagnosis Encounter to determine viability of , single or unspecified fetus- Primary [facility] Diagnosis Viral upper respiratory tract infection- Primary Acute upper respiratory infections of unspecified site [facility] Diagnosis Puncture wound of left foot, initial encounter- Primary 16 weeks gestation of [facility] Screening, , for malformation by ultrasound Encounter for routine screening for malformation using ultrasonics Abnormal ultrasound Abnormal findings on screening [facility] Sinobronchitis- Primary Unspecified sinusitis (chronic) [facility] Attachments The following attachments cannot be sent through Care Everywhere. * Tick Bite (Honduran) [facility] Discharge [facility]* Attachments The following attachments cannot be sent through Care Everywhere. * (Honduran) * : Vaginal Delivery (Honduran) [facility] Summary [...] FoundDocuments on File Type Date Recorded Patient Contracting Support Specialist Expl anation ACP-Advance Directive 01/09/2017 2:54 [...] Documents on File Type Date Recorded Patient Contracting Support Specialist Expl anation Advance Directives and Livin g Will Advance Directives and Livin g Will 01/09/2017 2:54 PM Power of Cold Header Operator Latest Code Status on File Code Status Date Activated Date Inactivated Comments Full Code 06/17/2017 6:43 PM 06/19/2017 3:25 PM Full Code 06/17/2017 12:16 AM 06/17/2017 6:43 PM Documents on File Type Date Recorded Patient Contracting Support Specialist Expl anation ACP-Advance Directive ACP-Advance Directive 01/09/2017 2:54 PM ACP-Power of Cold Header Operator Latest Code Status on File Code Status Date Activated Date Inactivated Comments Full Code 09/07/2020 6:56 PM Full Code 09/07/2020 6:37 AM 09/07/2020 6:56 PM Full Code 06/17/2017 6:43 PM 06/19/2017 3:25 PM Documents on File Type Date Recorded Patient Contracting Support Specialist Expl anation ACP-Advance Directive ACP-Power of Cold Header Operator ACP-Advance Directive 01/09/2017 2:54 PM Latest Code [...] sent through Care Everywhere. * Tooth: Abscessed (Honduran) documented in this encounter* Attachments The following attachments cannot be sent through Care Everywhere. * : Weeks 6 to 10 (Honduran) documented in this encounter* Instructions* Radha Fitzgerald MD - 06/23/2020 Follow up appointment with your doctor/hamper maker machine - Keep next scheduled appointment Activity - Normal Activity Call your doctor/hamper maker machine if you have: - leaking fluid - [...] related visit on 06/23/20. Radha Fitzgerald MD [facility] If you are Covid-19 positive [...] clean your hands with an alcohol-based hand saw straightener that contains at least 60% alcohol. Clean your hands often Wash your hands often with soap and water for at least 20 seconds, especially after blowing your nose, coughing, or sneezing; going to the bathroom; and before eating or preparing food. If soap and water are not readily available, use an alcohol-based hand saw straightener with at least 60% alcohol, covering all [...] healthcare provider to call the local or count includes the [facility] health department. Persons who are placed underactive [...] isolation precautions should be made on a frcc-qa-hmyc basis, in consultation with healthcare providers and count includes the [facility] health departments. Information on Covid-19 for all [...] respiratory tract signs and symptoms. Ways to Ebro with Anxiety & Stress It is normal [...] an illness that was first found in [facility], in June 2019. It has since [...] seen in people before. This virus spreads otucgo-ew-lizljv through droplets from coughing and sneezing. It [...] water aren't available, use an alcohol-based hand saw straightener. Call 911 anytime you think you may [...] of: October 10, 2019 Content Version: 12.4 [employer]. Care instructions adapted under license by your healthcare professional. If you have questions about a medical condition or this instruction, always ask your healthcare professional. [employer] disclaims any warranty or liability for your use of this information. General Recommendations for Routine Cleaning and Disinfection of Households Community members can practice routine cleaning of frequently touched surfaces (for example: tables, doorknobs, light switches, handles, desks, toilets, faucets, sinks) with household cement block maker and EPA-registered disinfectants that are appropriate for [...] appropriate. These supplies include tissues, paper towels, cement block maker and EPA-registered disinfectants (see list link at [...] be used for other purposes. Consult the grizzly worker's instructions for cleaning and disinfection products used. [...] used if appropriate for the surface. Follow grizzly worker's instructions for application and proper ventilation. Check [...] o Products with EPA-approved emerging viral pathogens claimspdf iconexternal icon are expected to be effective against COVID-19 based on data for harder to kill viruses. Follow the grizzly worker's instructions for all cleaning and disinfection products (e.g., concentration, application method and contact time, etc.). Soft (porous) surfaces such as carpeted floor, rugs, and drapes Remove visible contamination if present and clean with appropriate cement block maker indicated for use on these surfaces. After cleaning: Launder items as appropriate in accordance with the grizzly worker's instructions. If possible, launder items using the [...] items as appropriate in accordance with the grizzly worker's instructions. If possible, launder items using the warmest appropriate water setting for the items and dry items completely. Dirtylaundry from an ill person can be washed with other people's items. o Clean and disinfect clothes hampers according to guidance above for surfaces. If possible, consider placing a textile bag sewer that is either disposable (can be thrown away) or can be laundered. CDC has a list of EPA approved cleaning products on their website - https://www.cdc.gov/coronavirus/ 2019-ncov/community/home/cleaning-disinfection.html https://www.Tier 3.Makstr/Wbkuy-Fcwdoyricoo-Rjsioeqj-Products-List.pdf [employer] with delivery and picker machine operator services: [employer]Landing: Free picker machine operator at locations Delivery is $12.95 a month Website - [employer] [place]: Lighter Captain $2.95 (1st order is free) Delivery is $14.95 Website [employer] [facility] Dionicio Chilkoot: surgical supervisor is free Delivery is $5.95 wildcraft gianteagljenniferApprova Kroger: surgical supervisor is $4.95 Delivery is $9.95 Gen[employer] Kroger[employer]va Meijer: surgical supervisor is $4.95 Delivery is $9.95 Website MeijerApprova Whole Foods Market: Can be ordered for delivery and picker machine operator with Ask Ziggy Website - Myfacepage Aldi: Free deliver for first 3 orders of $35 or more Website aldiCelator Pharmaceuticals Will deliver from [facility], [employer], [employer], and [employer]. Annual membership is $99 Monthly membership is $14 boudreaux documented in this encounter* Instructions* Kiara Drake MD - 09/06/2020 Follow up appointment with your doctor/hamper maker machine - Keep next scheduled appointment Activity - Normal Activity Call your doctor/hamper maker machine if you have: - leaking fluid - [...] related visit on 09/06/20. Kiara Drake MD [facility] If you are Covid-19 positive [...] clean your hands with an alcohol-based hand saw straightener that contains at least 60% alcohol. Clean your hands often Wash your hands often with soap and water for at least 20 seconds, especially after blowing your nose, coughing, or sneezing; going to the bathroom; and before eating or preparing food. If soap and water are not readily available, use an alcohol-based hand saw straightener with at least 60% alcohol, covering all [...] healthcare provider to call the local or count includes the [facility] health department. Persons who are placed underactive [...] isolation precautions should be made on a vptz-mj-qsqe basis, in consultation with healthcare providers and [facility] health departments. Information on Covid-19 for [...] respiratory tract signs and symptoms. Ways to Ebro with Anxiety & Stress It is normal [...] an illness that was first found in [facility], in June 2019. It has since [...] seen in people before. This virus spreads tujevl-gv-wmnykw through droplets from coughing and sneezing. It [...] water aren't available, use an alcohol-based hand saw straightener. Call 911 anytime you think you may [...] as of: October 10, 2019 Content Version: . [employer]. Care instructions adapted under license by your healthcare professional. If you have questions about a medical condition or this instruction, always ask your healthcare professional. [employer] disclaims any warranty or liability for your use of this information. General Recommendations for Routine Cleaning and Disinfection of Households Community members can practice routine cleaning of frequently touched surfaces (for example: tables, doorknobs, light switches, handles, desks, toilets, faucets, sinks) with household cement block maker and EPA-registered disinfectants that are appropriate for [...] appropriate. These supplies include tissues, paper towels, cement block maker and EPA-registered disinfectants (see list link at [...] be used for other purposes. Consult the grizzly worker's instructions for cleaning and disinfection products used. [...] used if appropriate for the surface. Follow grizzly worker's instructions for application and proper ventilation. Check [...] o Products with EPA-approved emerging viral pathogens [facility] iconexternal icon are expected to be effective against COVID-19 based on data for harder to kill viruses. Follow the grizzly worker's instructions for all cleaning and disinfection products (e.g., concentration, application method and contact time, etc.). Soft (porous) surfaces such as carpeted floor, rugs, and drapes Remove visible contamination if present and clean with appropriate cement block maker indicated for use on these surfaces. After cleaning: Launder items as appropriate in accordance with the grizzly worker's instructions. If possible, launder items using the [...] items as appropriate in accordance with the grizzly worker's instructions. If possible, launder items using the warmest appropriate water setting for the items and dry items completely. Dirtylaundry from an ill person can be washed with other people's items. o Clean and disinfect clothes hampers according to guidance above for surfaces. If possible, consider placing a textile bag sewer that is either disposable (can be thrown away) or can be laundered. CDC has a list of EPA approved cleaning products on their website - https://www.cdc.gov/coronavirus/ 2019-ncov/community/home/cleaning-disinfection.html https://www.Tier 3.com/Pxbbo-Rxdbmfhqcmr-Bhvqvhoa-Products-List.pdf [employer] Stores with delivery and picker machine operator services: IsabellaGowrie: Free picker machine operator at locations Delivery is $12.95 a month Website - [employer] [place]: Lighter Captain $2.95 (1st order is free) Delivery is $14.95 Website - [employer] Dionicio [place]: surgical supervisor is free Delivery is $5.95 Website - Lifec[employer] Kroger: surgical supervisor is $4.95 Delivery is $9.95 Website SafetySkills Meijer: surgical supervisor is $4.95 Delivery is $9.95 Website PingMDrApprova [employer]: Can be ordered for delivery and picker machine operator with Ask Ziggy Website - Myfacepage Aldi: Free deliver for first 3 orders of $35 or more Website [employer]el[employer]aceuticals Will deliver from [facility], [facility], [employer], and [employer]. Annual membership is $99 Monthly membership is $14 boudreaux documented in this encounter* Attachments The following attachments cannot be sent through Care Everywhere. * UTI (Urinary Tract Infection): Female (Honduran) * Vaginitis (Honduran) documented in this encounter* Instructions* Amee Parker MD - 09/08/2020 After Your Delivery (the Period): Your Care Instructions Thank you for allowing us to care of you at [facility]. This time can be one of [...] over the next few weeks. Bleeding may picker machine operator and then decrease again around 7-10 days [...] avoid constipation you may take a mild bffm-rfz-mrmqunk stool softener (such as colace) as recommended [...] clean your hands with an alcohol-based hand saw straightener that contains at least 60% alcohol. Clean your hands often Wash your hands often with soap and water for at least 20 seconds, especially after blowing your nose, coughing, or sneezing; going to the bathroom; and before eating or preparing food. If soap and water are not readily available, use an alcohol-based hand saw straightener with at least 60% alcohol, covering all [...] healthcare provider to call the local or count includes the [facility] health department. Persons who are placed underactive [...] isolation precautions should be made on a wzvw-ps-dnkq basis, in consultation with healthcare providers and count includes the [facility] health departments. Information on COVID-19 for all [...] respiratory tract signs and symptoms. Ways to [place] with Anxiety & Stress It is normal [...] an illness that was first found in [facility], in June 2019. It has since [...] seen in people before. This virus spreads iiscwc-de-mopesy through droplets from coughing and sneezing. It [...] water aren't available, use an alcohol-based hand saw straightener. Call 911 anytime you think you may [...] of: October 10, 2019 Content Version: 12.4 [employer]. Care instructions adapted under license by your healthcare professional. If you have questions about a medical condition or this instruction, always ask your healthcare professional. [employer] disclaims any warranty or liability for your use of this information. General Recommendations for Routine Cleaning and Disinfection of Households Community members can practice routine cleaning of frequently touched surfaces (for example: tables, doorknobs, light switches, handles, desks, toilets, faucets, sinks) with household cement block maker and EPA-registered disinfectants that are appropriate for [...] appropriate. These supplies include tissues, paper towels, cement block maker and EPA-registered disinfectants (see list link at [...] be used for other purposes. Consult the grizzly worker's instructions for cleaning and disinfection products used. [...] used if appropriate for the surface. Follow grizzly worker's instructions for application and proper ventilation. Check [...] o Products with EPA-approved emerging viral pathogens [facility] iconexternal icon are expected to be effective against COVID-19 based on data for harder to kill viruses. Follow the grizzly worker's instructions for all cleaning and disinfection products (e.g., concentration, application method and contact time, etc.). Soft (porous) surfaces such as carpeted floor, rugs, and drapes Remove visible contamination if present and clean with appropriate cement block maker indicated for use on these surfaces. After cleaning: Launder items as appropriate in accordance with the grizzly worker's instructions. If possible, launder items using the [...] items as appropriate in accordance with the grizzly worker's instructions. If possible, launder items using the warmest appropriate water setting for the items and dry items completely. Dirtylaundry from an ill person can be washed with other people's items. o Clean and disinfect clothes hampers according to guidance above for surfaces. If possible, consider placing a textile bag sewer that is either disposable (can be thrown away) or can be laundered. [facility] has a list of EPA approved cleaning products on their website - https://www.cdc.gov/coronavirus/ 2019-ncov/community/home/cleaning-disinfection.html https://www.[facility] ([facility])/Qrdek-Krpkkzqoffg-Phvmsqat-Products-List.pdf [employer] with delivery and picker machine operator services: [employer]Landing: Free picker machine operator at locations Delivery is $12.95 a month Website - [employer] [place]: Lighter Captain $2.95 (1st order is free) Delivery is $14.95 Website SpeakPhone: surgical supervisor is free Delivery is $5.95 Fluidinfo KrDorsaVIr: surgical supervisor is $4.95 Delivery is $9.95 [employer]b Networksr: surgical supervisor is $4.95 Delivery is $9.95 iStoryTime [employer]: Can be ordered for delivery and picker machine operator with Ask Ziggy Website - www.PacketSled Aldi: Free deliver for first 3 orders of $35 or more Website [employer]el[employer] Pharm[employer] Will deliver from [facility], [facility], [employer], and [...] to triage after being transferred from the [place] [facility]. Please see HPI for events of [...] return precautions. IMPRESSION: Maternal Injury DISCUSSED WITH C PROVIDER: Dr. Elizabeth DISPOSITION: Discharge to Home documented in this encounter* Ashley Null MS, JOHNNIE, URBANO - 09/08/2020 12:03 PM EST Nutrition Note PPD # 1 s/p . Currently on General diet and tolerating well. RD sign off to DT. Contact: pager [phone] * Amee Parker MD - 09/08/2020 6:17 [...] MD Radha Alfonso MD 09/08/2020, 6:17 AM Kiara Sanchez MD - 09/07/2020 7:37 AM EST Labor Progress Note Date: 09/07/2020 Time: 7:37 AM Subjective: Lauren Chowdary is a 19 y.o. female at 37w3d admitted for AOL-PROM - GBS negative - Desires epidural - Declines LARC Cx: 3/70/-3 FHP: defer FHT: cat I [place]: none A/P: 1. AOL-PROM. Patient comfortable. Plan to start pitocin for augmentation. BP's normotensive. CCM. Cx: defer FHP: defer FHT: cat I [place]: q 2-3 min A/P: 1. AOL-PROM. Pit at 8cc/hr, continue to titrate per protocol. BP's normotensive. CCM. Cx: Unchanged FHP: defer FHT: cat I [place]: q 2 min A/P: 1. AOL-PROM. Pit at 14cc/hr, continue to titrate per protocol. Patient overall comfortable. BP's normotensive. CCM. Cx: defer FHT: Cat I [place]: q2-3m A/P: 1. AOL-PROM. Pit at 16cc/hr, have had difficulty titrating due to frequency of contractions. If unchanged at next exam, will place IUPC. Patient now s/p epidural. VSS and wnl. Cx: 10/100/0 FHP: defer FHT: cat II [place]: q 1-3 min A/P: 1. AOL-PROM. Pit at 18cc/hr, continue to titrate per protocol. FHT cat II for intermittent variable decels. Overall reassuring with moderate variability and accels. Dr. Shaw updated at this time but in a delivery at [facility]. Will try to hold off but [...] Delivery: Was patient delivered between 37w0d - [id number]? YES: This patient delivered between [id number] for the following acceptable indication(s) for delivery: [...] Information for the patient's : Aida Chowdary Lauren [[id number]] female Weight: 6 lb 13.4 oz (3.1 kg) Apgars: Information for the patient's : Aida Chowdary [[id number]] One Minute : 8 Five Minute : 9 Course: Uncomplicated : Female Blood Type/Rh: O POS Antibody Screen: Antibody Screen Date Value Ref Range Status 09/07/2020 NEG NA Final Rubella: Lab Results Component Value Date RUBELLAIGG immune 11/02/2016 Contraception: to be discussed at appointment : yes VTE Prophylaxis: Not Indicated Meds: Lauren Chowdary Home Medication Instructions ELDA:[id number] Printed on:09/08/20 1206 Medication Information ibuprofen (ADVIL;MOTRIN) [...] CREATED AUTHOR AUTHOR'S ORGANIZ ATION 01/03/2018 [facility] DATE CREATED AUTHOR AUTHOR'S ORGANIZ ATION 03/03/2019 [facility] DATE CREATED AUTHOR AUTHOR'S ORGANIZ ATION 02/02/2020 [facility] DATE CREATED AUTHOR AUTHOR'S ORGANIZ ATION 01/30/2022 [facility] DATE CREATED AUTHOR AUTHOR'S ORGANIZ ATION 03/04/2022 [facility] DATE CREATED AUTHOR AUTHOR'S ORGANIZ ATION 04/13/2022 [facility] DATE CREATED AUTHOR AUTHOR'S ORGANIZ ATION 10/22/2022 [facility] DATE CREATED AUTHOR AUTHOR'S ORGANIZ ATION 10/22/2022 [facility] DATE CREATED AUTHOR AUTHOR'S ORGANIZ ATION 10/30/2022 [facility] DATE CREATED AUTHOR AUTHOR'S ORGANIZ ATION 12/17/2022 [facility] DATE CREATED AUTHOR AUTHOR'S ORGANIZ ATION 04/26/2023 [facility] [employer] [facility] DATE CREATED AUTHOR AUTHOR'S ORGANIZ ATION 08/23/2023 [facility] DATE CREATED AUTHOR AUTHOR'S ORGANIZ ATION 08/29/2023 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 Do not crush or chew. DO NOT GIVE IBUPROFEN PRIOR TO DELIVERY., Post Delivery 1938 (Given - Provider: Mary Castro, TEJINDER) lactated ringers bolus (COMPLETED) 1,000 mL, IntraVENous, at 1,000 mL/hr, Administer over 1 Hours, ONCE, On 03/28/22 at 0645, For 1 dose 0701 (New Bag - Provider: Maribell Finnegan, TEJINDER)0928 (Stopped - Provider: Dyana Syed RN) sodium [...] 0801 (New Bag - Provider: Dyana Syed, RN)1754 (Stopped - Provider: Lynda Elizabeth, TEJINDER) oxytocin (PITOCIN) 10 unit bolus from the [...] Care 1800 (New Bag - Provider: Lynda Elizabeth, RN)1940 (Stopped - Provider: Mary Castro RN) oxytocin (PITOCIN) 30 units in 500 mL infusion (CANCELED) 1-20 anju-units/min (1-20 mL/hr), IntraVENous, CONTINUOUS, Starting on [place] 03/28/22 at 0900, Until [place] 03/28/22 at 1929, Begin infusion at 1 anju-unit/min (1 anju-unit per min = 1 mL per hour) and increase by 1 anju-unit/min after 30 minutes. Then increase by 2 anju-units/min as needed, no faster than every 30 minutes, until labor is achieved. Labor is defined as contractions every 2-3 minutes with cervical changes or [place] units (MVU) greater than 200 in a [...] goal. 1012 (New Bag - Provider: Lynda Elizabeth, TEJINDER)1922 (Stopped - Provider: Lynda Elizabeth RN) ropivacaine [...] 3 hours., 1939 (Given - Provider: Mary Castro RN) 0547 (Given - Provider: Mary Castro, RN)1223 (Given - Provider: Zaina Chilel, RN) benzocaine-benzethonium (DERMOPLAST) 20-0.2 % spray Topical, [...] Mary Castro RN)1223 (Given - Provider: Zaina Chilel, TEJINDER) lactated ringers bolus(Linked Group 2) 500 mL, [...] second epidural/spinal procedure is performed., Starting on Tue03/28/22 at 0830, Labor and Delivery lansinoh lanolin [...] Starting on Tue03/28/22 at 1923, Until Discontinued, Nausea, oxytocin (PITOCIN) [...] For perineal pain or discomfort, Starting on [place] 03/28/22 at 1923, Apply to perineal area. Patient is capable and may self administer at bedside., No Frequency Medication Order 03/27/2022 03/28/2022 03/29/2022 lidocaine PF 1 % injection (COMPLETED) 1 dose, Starting on [place] 03/28/22 at 1802, Until Tue03/29/22 at 0614, [...] syringeJump to med Epidural, CONTINUOUS, Starting on [place] 03/28/22 at 1445
PCEA patient controlled syringe [...] or prosecute any alcohol or drug abuse patient.[facility] NorthIn the event this information is protected by the Federal Confidentiality of Alcohol and Drug Abuse Patient Records regulations: The Federal rules restrict any use of the information to criminally investigate or prosecute any alcohol or drug abuse patient.[facility] Care Teams (unrecognized sec tion and content) Transverse Abdominal Muscle Surgeon Relationship Specialty Start Date End Date Yumiko Smith MD [address] [place] [address] PCP - General Internal Medicine 09/07/22 Transverse Abdominal Muscle Surgeon Relationship Specialty Start Date End Date Yumiko Smith MD [address] [place] [address] PCP - General Internal Medicine 09/07/22 Estella Herzog MD [address] [place] [address] Consulting Physician Hematology and Oncology 10/15/22 Transverse Abdominal Muscle Surgeon Relationship Specialty Start Date End Date Yumiko Smith MD [address] [place] [address] PCP - General Internal Medicine 09/07/22 Estella Herzog MD [address] [place] [address] Consulting Physician Hematology and Oncology 10/15/22 Transverse Abdominal Muscle Surgeon Relationship Specialty Start Date End Date Yumiko Smith MD [address] [place] [address] PCP - General Internal Medicine 09/07/22 Estella Herzog MD [address] [facility] [address] [place] [address] Consulting Physician Hematology and Oncology 10/15/22 Transverse Abdominal Muscle Surgeon Relationship Specialty Start Date End Date Yumiko Smith MD [address] [facility] [place] [address] PCP - General Internal Medicine 09/07/22 Estella Herzog MD [address] [facility] [address] [place] [address] Consulting Physician Hematology and Oncology 10/15/22 Transverse Abdominal Muscle Surgeon Relationship Specialty Start Date End Date Yumiko Smith MD [address] [place] [address] PCP - General Internal Medicine 09/07/22 Estella Herzog MD [address] [facility] [address] [place] [address] Consulting Physician Hematology and Oncology 10/15/22 Transverse Abdominal Muscle Surgeon Relationship Specialty Start Date End Date Yumiko Smith MD [address] [place] [address] PCP - General Internal Medicine 09/07/22 Estella Herzog MD [address] [facility] [address] [place] [address] Consulting Physician Hematology and Oncology 10/15/22 Transverse Abdominal Muscle Surgeon Relationship Specialty Start Date End Date Emerson Jacinto MD [address] [facility] [facility] [address] [place] [address] PCP - General Maternal Medicine 06/27/23 Dennise Vides, POURING CRANE OPERATOR-CFD ENGINEER [address] [facility] [address] [place] [address] Obstetrics Gynecology 04/14/23 Transverse Abdominal Muscle Surgeon Relationship Specialty Start Date End Date Yumiko Smith MD PCP - General Internal Medicine 10/29/22 FOR RECORDS PERTAINING TO PATIENTS WHO ARE [...] BE BASED ON THE PRIMARY CLINICAL RECORDS. [facility]. provides no warranty or guarantee of the accuracy or completeness of information in this document.
--- NOTE | 2023-08-31 01:36 | NURSING ---
pt arrived to ER with c/o vomiting blood . pt is 34 weeks . SUMANTH Flores aware of her arrival to ER and wanted pt evaluated in ER and OB RN To obtain NST in ER. pt states she was seen in [facility] Labor and Delivery yesterday for rule out SROM and was diagnosed with polyhydramnios via ultrasound per pt report. pt stated she was 3 cm dilated, her head is in my canal and i was thinned out pt states she was monitored for 6 hours and did not make cervical change. pt was placed on EFM at 0058 and monitored until 0125. pt was in semi-fowlers position. reactive NST obtained. FHR baseline 130 with moderate variability and multiple 15x15 accelerations. no decelerations. baby active. audible and palpable movement noted during NST. pt was livier 3-7 mins which palpated mild. pt reports feeling a little in my back . Laura was called and updated on pt status, reactive NST, contraction pattern, and was 3 cm dilated yesterday when seen in [place] (per pt report). New order received for this RN to complete SVE, if not more dilated may discharge to home after cleared by ER. plan for RN to call Laura JULIO with update if pt is more then 3 cm, other campos pt can go home and follow up in office Tuesday for her scheduled NST. 0120 VE 2.5/60/-3 ballotable per this RN
--- NOTE | 2023-08-31 02:15 | EX.ED.DYSGE1 ---
HPI History of Present Illness Chief Complaint: Nausea/Vomiting Informant: patient and spouse/S.O. Narrative Narrative: Patient is a 22-year-old female with past medical history of anxiety and depression who is approximately 34 weeks . She states that she was recently seen at an urgent care and placed on antibiotics and Benadryl secondary to sinus congestion and drainage. She reports that she had a bout of vomiting today and it looked bloody in nature to her which concerned her. She denies any history of bleeding disorder or blood thinner use. She states that she has not any vaginal bleeding or discharge however because of her symptoms she was concerned and presents to the ER for evaluation [facility] Medical History Abnormal glucose affecting Home Medications multivitamin no.47-iron fum 27 mg-folate no.1 1 mg-dha 300 mg capsule (PNV-DHA) 1 cap PO 02/17/23 [History Last Taken Unknown] sertraline 25 mg tablet (Zoloft) 25 mg PO DAILY PRN anxiety 07/07/23 [History Last Taken Unknown] blood-glucose meter #1 ea 07/20/23 [Rx Last Taken Unknown] lancets #200 ea 07/20/23 [Rx Last Taken Unknown] blood sugar diagnostic (Blood Glucose Test strips) #120 ea 08/05/23 [Rx Last Taken Unknown] metformin 500 mg tablet 500 mg PO DAILY #30 tabs 08/29/23 [Rx Last Taken Unknown] ondansetron 4 mg disintegrating tablet 4 mg PO TID PRN nausea and vomiting #21 tabs 08/31/23 [Rx Last Taken Unknown] Allergy/AdvReac Type Severity Reaction Status Date / Time latex Allergy Mild Hives Verified 08/31/23 00:27 Social History household members: spouse and children Smoking Status: Never smoker alcohol intake: never substance use type: does not use seatbelt use: always do you feel safe at home: Yes 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 ROS ED Constitutional Constitutional ED: Denies chills or fever(s) Eyes Eyes: Denies change in vision ENT ENT ED: Denies sore throat Cardiovascular Cardiovascular: Denies chest pain Respiratory/Chest Respiratory/Chest: Denies cough or dyspnea Gastrointestinal Gastrointestinal: Reports nausea, vomiting and other Details: Positive hematemesis ; Denies abdominal pain or diarrhea Genitourinary Genitourinary ED: Reports other Details: Negative vaginal bleeding or discharge ; Denies dysuria or hematuria Musculoskeletal Musculoskeletal: Denies myalgias Integumentary Denies rash Neurologic Neurologic: Denies headache(s) Hematologic/Lymphatic Hematologic/Lymphatic: Denies easy bleeding or easy bruising EXAM Physical Exam Const Vital Signs: 08/31/23 00:24 08/31/23 02:25 Temperature 96.1 F L 97.4 F L Temperature Source Temporal Pulse Rate 95 64 Respiratory Rate 14 12 Blood Pressure 109/80 125/79 H Blood Pressure Mean 89 94 Pulse Ox 93 99 Oxygen Delivery Method Room Air Positive well nourished, well developed and obese General Appearance ED: well developed; Negative for pallor Nutritional Appearance: obese HEENT Reports moist mucous membranes HEENT Narrative: No dried blood or active bleeding noted in the posterior pharynx Eyes PERRL and EOMs intact bilaterally General Eye ED: Negative for pale conjunctiva or scleral icterus Neck supple Neck Narrative: No crepitance palpated No pain with external ambulation of the thyroid cartilage Resp normal respiratory effort and clear to auscultation bilaterally Cardio regular rate and regular rhythm Rate: other Other Details: Radial and carotid pulses are equal and symmetric GI GI Narrative: Abdomen is gravid with fundus consistent with reported gestational age Bowel sounds are hyperactive Extremity normal to inspection Neuro oriented x3, CN's II-XII intact bilaterally and no sensory deficits noted Sensorium / Orientation: alert Motor Exam: strength 5/5 throughout Psych mental status grossly normal Skin no rashes or lesions noted General Skin Exam: Negative for jaundice or pallor MDM MDM MDM Narrative Medical decision making narrative: Patient presented to the ER with stable vitals and reported 1 episode of vomiting that she thought was bloody in nature. Otherwise she denied any fevers or chills or blood per rectum or vaginally. Based on her late gestation upon arrival OB was contacted and they did perform an evaluation of her indicating she had a normal nonfebrile stress test and that her cervix was stable at 3 cm and that her contractions were 5 to 7 minutes apart going against spontaneous/ labor. The patient did take a picture of her emesis and it was not coffee-ground or dark or bright red in color indicating this is not blood and that it is most likely related to the medication she has been taking as well as mixture of the stomach acid. I discussed with patient that differential is for hyperemesis gravidarum versus acute blood loss anemia versus viral gastroenteritis versus pancreatitis versus biliary colic. However as she is only had 1 episode concern for dehydration is low the fact that the picture does not correlate with active bleeding and there is no other findings of bleeding throughout the GI tract such as hematochezia melena or hematuria. The patient therefore does not want any further workup as she knows that her is stable based on OBs evaluation and the fact that there is not true blood that she has been having bouts of emesis with. Therefore she be discharged home and can follow-up on an outpatient basis History & Record Review Discussion w/independent historian: Patient and Significant other Discharge Plan Triage Chief Complaint: Nausea/Vomiting ED Provider: Stuart Lazo Dx/Rx/DC Orders Clinical Impression: Nausea & vomiting, Anxiety and depression, Third trimester Instructions: ED Vomiting (Adult) Prescriptions: New ondansetron 4 mg tablet,disintegrating 4 mg PO TID PRN (Reason: nausea and vomiting) Qty: 21 0RF No Action PNV-DHA 27 mg iron-1 mg -300 mg capsule 1 cap PO sertraline [Zoloft] 25 mg tablet 25 mg PO DAILY PRN (Reason: anxiety) (DME) blood-glucose meter Misc See Rx Instructions .MEDSUPPLY Qty: 1 0RF Rx Instructions: As directed- Test fasting and 2 hours after meals (DME) lancets Misc See Rx Instructions .MEDSUPPLY Qty: 200 4RF Rx Instructions: As directed- fasting & 2 hr post meals(4x/day) (DME) Blood Glucose Test Strip See Rx Instructions .Route Qty: 120 5RF Rx Instructions: As directed-fasting & 2 hrs post meals(4x/day) metformin 500 mg tablet 500 mg PO DAILY Qty: 30 2RF Primary Care Provider: Care Physician,No Primary Referrals: Care Physician,No Primary [Primary Care Provider] - Disposition Disposition: Home, Self Care Discharge Date/Time: 08/31/23 02:31
[2023-08-31 02:25] VITALS: BP 125/79; PULSE 64; RESP 12; TEMP 36.3; O2SAT 99
[2023-08-31] MEDS: Ondansetron ODT 4 MG Tablet PO (02:30)
--- NOTE | 2023-09-06 12:53 | OB.TRI.PN ---
Progress Notes Date of Service: 08/30/23 Progress Note: Patient presents for triage evaluation secondary to vomiting FHT: 130 Moderate variability reactive no decelerations category I tracing Pauline: irregular Contractions Assessment and plan: Reactive NST, reassuring maternal and status patient discharged to home to follow-up in office. See problem list details for additional plan information. Charges/Coding Multi Select Codes Urinary/Genital Urinary/Genital CPT Codes: 39804-44 non-stress test Interp Assessment & Plan (1) Nausea & vomiting: (2) Gestational diabetes mellitus (GDM): COMMENT: consistently elevated fasting glucose and PP. LC-started on Metformin 500mg 08/01/2023 from triage- consulted with JV who agrees with plan. Nutrition referral sent. NST at 32 weeks. (3) Elevated glucose level: (4) Anxiety and depression: COMMENT: no meds. Enc counseling (5) Abnormal cranial ultrasound: COMMENT: some abnormal views on US but others normal. FTC consult ordered, mfm discussed with patient. peds consult recommended Growth US Q4wk (6) History of prior with short cervix, currently : COMMENT: was on progesterone last . consult w MFM ordered to assess length: 35.6mm Rpt w/MFM Q2wk until 24 wk:stable 05/16 30.6 (7) Abnormal glucose affecting : COMMENT: passed 3 hr. GTT; will repeat 3hr instead of doing 1 hour at 28 wk pt refuses 3 hour glucose- will obtain 4x daily glucose readings. supplies ordered. (8) Obesity affecting : QUALIFIERS: Trimester: second trimester Obesity type affecting : severe obesity due to excess calories Qualified Code(s): O99.212 - Obesity complicating , second trimester; E66.01 - Morbid (severe) obesity due to excess calories COMMENT: Per MFM growth US Q4wk. early gct ordered (9) H/O miscarriage, currently : (10) Supervision of high-risk : QUALIFIERS: Trimester: second trimester Qualified Code(s): O09.92 - Supervision of high risk , unspecified, second trimester COMMENT: PRR ARYA 10/04/23 Allison Herring Avalyn. Luis (11) : QUALIFIERS: Weeks of gestation: 35 weeks Qualified Code(s): Z3A.35 - 35 weeks gestation of COMMENT: NIPT low risk, carrier testing neg. 10/12
== END 2023-08-31 02:31 | disposition home or self-care (01) ==
PROVIDERS: Emergency Provider Emergency Medicine; Visit Provider Emergency Medicine
DX: O21.2 Late vomiting of pregnancy (principal); O99.343 Other mental disorders complicating pregnancy, third trimester; Z3A.34 34 weeks gestation of pregnancy; F41.8 Other specified anxiety disorders
CPT/HCPCS: 59025; 59050; 99283; A4216

== ENCOUNTER 2023-09-07 12:36 | Outpatient (CLI) | payer MEDICAID, SELFPAY ==
--- NOTE | 2023-09-07 17:15 | OB.TRI.HP_ITS ---
HPI - General General Date of Admission: 09/07/23 HPI Narrative ANDRZEJ KOO, is a 22 y/p @ 35weeks 6 days who presents to L&D with contractions. She was initially checked by the nurse and found to be 3 cm dilated (unchanged from prior exam). She denies loss of fluid, vaginal bleeding, or dec fm. Maternal Data Information ARYA Calculator Estimated Delivery Date Method Current WG Current Estimate 10/06/23 Ultrasound #1 35w 6d Other Estimates 09/27/23 LMP (Certain) 37w 1d PFSH PFSH Medical History Abnormal glucose affecting Home Medications multivitamin no.47-iron fum 27 mg-folate no.1 1 mg-dha 300 mg capsule (PNV-DHA) 1 cap PO 02/17/23 [History Last Taken Unknown] sertraline 25 mg tablet (Zoloft) 25 mg PO DAILY PRN anxiety 07/07/23 [History Last Taken Unknown] blood-glucose meter #1 ea 07/20/23 [Rx Last Taken Unknown] lancets #200 ea 07/20/23 [Rx Last Taken Unknown] blood sugar diagnostic (Blood Glucose Test strips) #120 ea 08/05/23 [Rx Last Taken Unknown] metformin 500 mg tablet 500 mg PO DAILY #30 tabs 08/29/23 [Rx Last Taken Unknown] ondansetron 4 mg disintegrating tablet 4 mg PO TID PRN nausea and vomiting #21 tabs 08/31/23 [Rx Last Taken Unknown] Allergy/AdvReac Type Severity Reaction Status Date / Time latex Allergy Mild Hives Verified 09/02/23 15:10 Social History household members: spouse and children Smoking Status: Never smoker alcohol intake: never substance use type: does not use seatbelt use: always do you feel safe at home: Yes additional social history: Luis History 7 Elective abortions Hx Para 3 Spontaneous abortions 3 Hx # Term Pregnancies Ectopic pregnancies Hx # Pregnancies Multiple births # of living children 3 Past Pregnancies Del. Date Name GA/Weeks Outcome Route Bth Weight Gen Labor Lgth Anesthesia Del Locatn Provider FOB Unknown 2014 spontaneous Unknown spontaneous 06/17/17 fadia live - full term 7lbs 14 oz Male [address] Amee Velez 09/07/20 Allison 37 live - full term 6lbs 14oz Female [address] Cornelia Ruvalcaba 06/19/21 spontaneous 03/28/22 Emily Phillips 38 live - full term 7lbs 4 oz Fema le 7 hrs epidural aicha Smith Delivery Date: 03/28/22 Last Updated by: Katelynn Saldivar, DO short cervix, decels. h/o steroid use Visit Details Expected Delivery Route/Plan Labor Preferences- CB/BF classes: no labor support person: Luis labor intervention preferences: [] pain management options preferred: limited cut cord/dad catch: cord : bottle PP control planned: DESIRES TUBAL PP discussed possible routes of delivery and associated risks: [] special requests: [] Plans Covid status: [] Flu vaccine: declines Tdap vaccine: Rhogam: NA LARC form signed: yes Problem list reviewed and updated with the most current plan of care details and appropriate orders placed. Relevant counseling for the gestational age provided. Continue routine care and follow up unless otherwise noted in visit notes/problem list details OB Flowsheet Initial Weight: Not Recorded Date -?-?-?-?-?-?-?-?-?-?-?-?- EGA Weight BP Urine Prot -?-?-?-?-?-?-?-?-?-?-?-?- Glucose FHR FuHt Pres Dilation -?-?-?-?-?-?-?-?-?-?-?-?- Effaced St Visit Note 02/17/23 -?-?-?-?-?-?-?-?-?-?-?-?- 7w 0d 220 lb 4 oz 108/61 Nega tive -?-?-?-?-?-?-?-?-?-?-?-?- Negative 173 -?-?-?-?-?-?-?-?-?-?-?-?- JV- CRL is off b y 9 days from LMP. arya 10/06/23 desires NIPT. 03/18/23 -?-?-?-?-?-?-?-?-?-?-?-?- 11w 1d 198 lb 6 oz 107/67 -?-?-?-?-?-?-?-?-?-?-?-?- -?-?-?-?-?-?-?-?-?-?-?-?- KW-FHT visualize d on handheld US. desires tubal PP-in hospital if possible. KW-FHT visualized on handhel d US. desires tubal PP-in hospital if possible- needs Title 19. 04/11/23 -?-?-?-?-?-?-?-?-?-?-?-?- 14w 4d 200 lb 2 oz 108/66 Nega tive -?-?-?-?-?-?-?-?-?-?-?-?- Negative 155 -?-?-?-?-?-?-?-?-?-?-?-?- MH-No Vb or cram ping. Nausea improved. Still needs MFM consult for hx short cx. New order sent 05/09/23 -?-?-?-?-?-?-?-?-?-?-?-?- 18w 4d 197 lb 8 oz 98/60 Nega tive -?-?-?-?-?-?-?-?-?-?-?-?- Negative 128 -?-?-?-?-?-?-?-?-?-?-?-?- JV- no lof, vagi nal bleeding, or cramping. wants flu shot today. pt states that she did a dry run to the hospital and it took 2 hours to drop off the kids and get here she wants to be induced at 39 weeks. agree with plan. hemorrhoid treatment discussed today. continue q 2 week vag scans of CL until 24 weeks. 06/08/23 -?-?-?-?-?-?-?-?-?-?-?-?- 22w 6d 200 lb 91/63 Negative -?-?-?-?-?-?-?-?-?-?-?-?- Negative 132 0 -?-?-?-?-?-?-?-?-?-?-?-?- 50 JV- pt s cl was 30.6 mm, placenta no longer low lying. rpt us on 06/13. plan is for 3 hr gtt, due to h/o failing 1 hour. JV- pt s cl was 30.6 mm, placenta no longer low lying. rpt us on 06/13. plan is for 3 hr gtt, due to h/o failing 1 hour. wants tubal ligation. will need title 19 next visit. 07/07/23 -?-?-?-?-?-?-?-?-?-?-?-?- 27w 0d 201 lb 124/70 Trace -?-?-?-?-?-?-?-?-?-?-?-?- Negative 138 28 -?-?-?-?-?-?-?-?-?-?-?-?- MH-No VB, LOF. H aving vaginal burning X 3 days. No STD concerns. See exam, culture pending. Larc, 28 wk labs 07/20/23 -?-?-?-?-?-?-?-?-?-?-?-?- 28w 6d 206 lb 4 oz 103/70 Nega tive -?-?-?-?-?-?-?-?-?-?-?-?- Negative 135 28 -?-?-?-?-?-?-?-?-?-?-?-?- LC- no vb/ctx/lo f. good fm. aunt , does not have time for 3 hour glucose, lab refused . will obtain 2 week glucose monitoring 08/05/23 -?-?-?-?-?-?-?-?-?-?-?-?- 31w 1d 207 lb 8 oz 102/71 Nega tive -?-?-?-?-?-?-?-?-?-?-?-?- Negative 160 31 -?-?-?-?-?-?-?-?-?-?-?-?- LC-no vb/ctx/lof . good fm. see in [facility] on tuesday with high glucose. diagnosed with GDM. fasting glucose since starting metformin at 95 and under. working on diet- has nutrition appt on tuesday. handout provided and reviewed gestational diabetes. 08/12/23 -?-?-?-?-?-?-?-?-?-?-?-?- 32w 1d 207 lb 6 oz 106/72 Nega tive -?-?-?-?-?-?-?-?-?-?-?-?- Negative 135 -?-?-?-?-?-?-?-?-?-?-?-?- LC- no vb/ctx/lo f/good fm. fastings mostly under 95, having trouble with diet- still having 3 mountain dews/day. discussed must be diet pop, ideally water. risk of elevated sugars reviewed including stillbirth, shoulder dystocia, increased risk of child having DM2. LC- no vb/ctx/lof/good fm. f astings mostly under 95, having trouble with diet- still having 3 mountain dews/day. discussed must be diet pop, ideally water. risk of elevated sugars reviewed including stillbirth, shoulder dystocia, increased risk of child having DM2. if glucose not controlled by next visit will refer to Dr. Chambers for insulin management. 08/16/23 -?-?-?-?-?-?-?-?-?-?-?-?- 32w 5d Negative -?-?-?-?-?-?-?-?-?-?-?-?- Negative 145 140 -?-?-?-?-?-?-?-?-?-?-?-?- kw- no vb/lof/ct x. good fm. cut out soda and numbers over the last few days are better. Fastings under 95. most PP BS under range. to continue tracking and bring to office with next visit. NST today 08/26/23 -?-?-?-?-?-?-?-?-?-?-?-?- 34w 1d 206 lb 6 oz 94/67 Nega tive -?-?-?-?-?-?-?-?-?-?-?-?- Negative 140 -?-?-?-?-?-?-?-?-?-?-?-?- SM- discussed ne eding to track BS more, may need to increase metformin 09/02/23 -?-?-?-?-?-?-?-?-?-?-?-?- 35w 1d 202 lb 6 oz 99/73 Nega tive -?-?-?-?-?-?-?-?-?-?-?-?- Negative 130 36 3 -?-?-?-?-?-?-?-?-?-?-?-?- 50 -3 JV- pt is passing mucous and worried she is dilated more. She was 3 cm dilated last check and is still dilated a tight 3 cm, posterior, 50% and high. NST reactive. ROS Constitutional Constitutional: Reports systems reviewed and no addt'l complaints, except as documented Gastrointestinal Gastrointestinal: Denies bloating, constipation, cramping, diarrhea, nausea or vomiting Genitourinary Genitourinary: Reports other Details: Denies vaginal odor, vaginal bleeding, or vaginal discharge ; Denies difficulty urinating or flank pain NST FHR Rate Baby A Baseline: 140 Variability:: Moderate Accelerations:: 15 x 15 Decelerations:: None NST Reactive:: Yes FHR Category:: Category I Assessment & Plan (1) False labor: (2) Headache in : (3) Third trimester : (4) Nausea & vomiting: (5) Gestational diabetes mellitus (GDM): COMMENT: consistently elevated fasting glucose and PP. LC-started on Metformin 500mg 08/01/2023 from triage- consulted with KEYUR who agrees with plan. Nutrition referral sent. NST at 32 weeks. (6) Elevated glucose level: (7) Anxiety and depression: COMMENT: no meds. Enc counseling (8) Abnormal cranial ultrasound: COMMENT: some abnormal views on US but others normal. FTC consult ordered, mfm discussed with patient. peds consult recommended Growth US Q4wk (9) History of prior with short cervix, currently : COMMENT: was on progesterone last . consult w MFM ordered to assess length: 35.6mm Rpt w/MFM Q2wk until 24 wk:stable / 30.6 (10) Abnormal glucose affecting : COMMENT: passed 3 hr. GTT; will repeat 3hr instead of doing 1 hour at 28 wk pt refuses 3 hour glucose- will obtain 4x daily glucose readings. supplies ordered. (11) Obesity affecting : QUALIFIERS: Trimester: second trimester Obesity type affecting : severe obesity due to excess calories Qualified Code(s): O99.212 - Obesity complicating , second trimester; E66.01 - Morbid (severe) obesity due to excess calories COMMENT: Per MFM growth US Q4wk. early gct ordered (12) H/O miscarriage, currently : (13) Supervision of high-risk : QUALIFIERS: Trimester: second trimester Qualified Code(s): O09.92 - Supervision of high risk , unspecified, second trimester COMMENT: PRR ARYA 10/04/23 Allison Herring Avalyn. Luis (14) : QUALIFIERS: Weeks of gestation: 35 weeks Qualified Code(s): Z3A.35 - 35 weeks gestation of COMMENT: NIPT low risk, carrier testing neg. 10/12 PLAN: Plan No cervical change and contractions are lessening. - false labor and reactive NST. ok to dc to home Charges/Coding Multi Select Codes Urinary/Genital Urinary/Genital CPT Codes: 40456-15 non-stress test Interp
[2023-09-19 10:28] LABS: ROM Internal Control Test YES-OK TO RESULT pt. (Internal QC)
[2023-09-19 10:31] LABS: ROM Patient Test POSITIVE (Negative); Record Kit Lot#, ROM+ K1374
== END 2023-09-07 15:25 | disposition home or self-care (01) ==
LOC: WPOUT 12:36 → WP 12:37
PROVIDERS: Registered Nurse; Referring Provider Obstetrics & Gynecology; Visit Provider Obstetrics & Gynecology
DX: O47.03 False labor before 37 completed weeks of gestation, third trimester (principal); Z3A.35 35 weeks gestation of pregnancy; O99.891 Other specified diseases and conditions complicating pregnancy; R51.9 Headache, unspecified; O21.9 Vomiting of pregnancy, unspecified; O24.415 Gestational diabetes mellitus in pregnancy, controlled by oral hypoglycemic drugs; O99.343 Other mental disorders complicating pregnancy, third trimester; F41.8 Other specified anxiety disorders; O99.213 Obesity complicating pregnancy, third trimester
CPT/HCPCS: 59025; 59050; 84112; 99221; G0378

== ENCOUNTER → 2023-09-09 | Outpatient (CLI) | payer MEDICAID, SELFPAY | END | disposition home or self-care (01) | LOC: LABSPEC 16:32 | PROVIDERS: Referring Provider Advanced Practice Midwife; Visit Provider Advanced Practice Midwife | DX: Z34.90 Encounter for supervision of normal pregnancy, unspecified, unspecified trimester (principal) | CPT/HCPCS: 87081 ==

== ENCOUNTER → 2023-09-15 | Outpatient (CLI) | payer MEDICAID, SELFPAY ==
--- NOTE | 2023-09-15 13:28 | US_ITS ---
STUDY: SECOND AND THIRD TRIMESTER OBSTETRICAL ULTRASOUND - LIMITED REASON FOR EXAM: Female, 22 years old, evaluate OTONIEL LMP: Unknown. PRIOR ULTRASOUND: No relevant prior comparison study available TECHNIQUE: Transabdominal TECHNICAL QUALITY: Adequate. FINDINGS: There is a single intrauterine fetus. The fetus is in a cephalic presentation. There is demonstrated cardiac activity with a heart rate of 133 bpm. There is a normal amniotic fluid volume. The largest amniotic fluid pocket measures 6.7 cm. The amniotic fluid index (OTONIEL) is 15.8 cm. The placenta is posterior in location and is not low lying. There are Grade 2 placental changes. The cervix is not visualized. US/OB Limited (No Biometrics) IMPRESSION: Normal OTONIEL measuring 15.8 cm. Electronically Signed: Arturo Torres MD at 14:29 EST ,
== END | disposition home or self-care (01) ==
LOC: US 13:27
PROVIDERS: Referring Provider Advanced Practice Midwife; Visit Provider Advanced Practice Midwife
DX: O99.810 Abnormal glucose complicating pregnancy (principal); O09.299 Supervision of pregnancy with other poor reproductive or obstetric history, unspecified trimester; Z3A.00 Weeks of gestation of pregnancy not specified
CPT/HCPCS: 76815

== ENCOUNTER 2023-09-19 10:30 | Inpatient (IN) | payer MEDICAID, SELFPAY ==
[2023-08-01 18:42] VITALS: RESP 16
[2023-09-19] VITALS (15 sets, daily range): BP systolic 97–142; BP diastolic 56–81; PULSE 55–94; RESP 16–18; TEMP 36.1–36.8; O2SAT 93; BMI 37.9
[2023-09-19] MEDS: Lactated Ringers 1,000 ML 50 ML IV (11:15)
[2023-09-19 12:13] LABS: Absolute Lymphocyte Count 2.27 X10^3/uL (0.83-4.51); Absolute Neutrophil Count 10.9 X10^3/uL (2.0-7.7); Basophil# 0.05 X10^3/uL; Basophil% 0.4 % (0-1); Eosinophils% 1.4 % (0-5); Hematocrit 35.8 % (37-47); Lymphocyte # 2.27 X10^3/ul (0.83-4.51); Lymphocyte % 16.2 % (19-41); Mean Corp Hgb Conc 33.5 g/dL (32-36); Mean Corpuscular Hgb 29.5 pg (27.0-32.0); Mean Platelet Vol. 11.1 fl (6.2-12.0); Monocyte# 0.46 X10^3/uL; Monocyte% 3.3 % (0-10); NRBC Flagged by Analyzer 0 % (0-5); Neutrophil # 10.86 X10^3/uL (2.7-7.7); Neutrophil % 77.2 % (47-70); Platelet Count 270 K/mm3 (150-450); RBC Distribution Width CV 13.2 % (11.6-14.6); RBC Distribution Width SD 41.8 fl (35.1-43.9); Red Blood Count 4.07 M/mm3 (4.2-5.4); White Blood Count 14.1 K/mm3 (4.4-11.0)
[2023-09-19 12:45] LABS: Bedside Glucose 69 mg/dL (74-106)
[2023-09-19 12:46] LABS: Bedside Glucose 75 mg/dL (74-106)
[2023-09-19] MEDS: Oxytocin 15 Units/NS 250ml 15 UNITS/250 ML IV.SOLN 2 UNITS IV (13:00)
[2023-09-19 13:13] LABS: Syphilis Antibodies Non-reactive
--- NOTE | 2023-09-19 13:38 | HP.PCM.OB_ITS ---
HPI - General General Date of Admission: 09/19/23 HPI Narrative ANDRZEJ KOO, is a 22 F who [id number] at 37.4 with leaking of fluid at 0700. +fm. irreg ctx. no vb. GBS negative hx significant for GDM on metformin. did not take dose this AM. cranial us abnormalities- possible craniosynostosis possible with pedi follow up recommended after delivery. Maternal Data Information ARYA Calculator Estimated Delivery Date Method Current WG Current Estimate 10/06/23 Ultrasound #1 37w 4d Other Estimates 09/27/23 LMP (Certain) 38w 6d PFSH PFS Medical History (Updated 09/19/23 @ 13:46 by Estefani Kumar CNM) Abnormal glucose affecting Anxiety Cervical incompetence Depression Home Medications multivitamin no.47-iron fum 27 mg-folate no.1 1 mg-dha 300 mg capsule (PNV-DHA) 1 cap PO 02/17/23 [History Last Taken 09/18/23 21:30] sertraline 25 mg tablet (Zoloft) 25 mg PO DAILY PRN anxiety 07/07/23 [History Last Taken Unknown] blood-glucose meter #1 ea 07/20/23 [Rx Last Taken Unknown] lancets #200 ea 07/20/23 [Rx Last Taken Unknown] blood sugar diagnostic (Blood Glucose Test strips) #120 ea 09/15/23 [Rx Last Taken Unknown] metformin 500 mg tablet 500 mg PO BID 09/19/23 [History Last Taken 09/18/23 21:30] Allergy/AdvReac Type Severity Reaction Status Date / Time latex Allergy Mild Hives Verified 09/19/23 10:09 Surgical History (Updated 09/19/23 @ 11:33 by Jana Phillips) History of gynecologic surgery History of surgery Social History household members: spouse and children Smoking Status: Heavy Smoker (>10/day) alcohol intake: never substance use type: does not use seatbelt use: always do you feel safe at home: Yes additional social history: Luis History 7 Elective abortions Hx Para 3 Spontaneous abortions 3 Hx # Term Pregnancies Ectopic pregnancies Hx # Pregnancies Multiple births # of living children 3 Past Pregnancies Del. Date Name GA/Weeks Outcome Route Bth Weight Gen Labor Lgth Anesthesia Del Locatn Provider FOB Unknown 2014 spontaneous Unknown spontaneous 06/17/17 fadia live - full term 7lbs 14 oz Male [address] Amee Velez 09/07/20 Allison 37 live - full term 6lbs 14oz Female [address] Cornelia Ruvalcaba 06/19/21 spontaneous 03/28/22 Emilyousmane Phillips 38 live - full term 7lbs 4 oz Fema le 7 hrs epidural aicha Smith Delivery Date: 03/28/22 Last Updated by: Katelynn Saldivar, DO short cervix, decels. h/o steroid use Visit Details Expected Delivery Route/Plan Labor Preferences- CB/BF classes: no labor support person: Luis labor intervention preferences: [] pain management options preferred: limited cut cord/dad catch: cord : bottle PP control planned: DESIRES TUBAL PP discussed possible routes of delivery and associated risks: [] special requests: [] Plans Covid status: [] Flu vaccine: declines Tdap vaccine: Rhogam: NA LARC form signed: yes Problem list reviewed and updated with the most current plan of care details and appropriate orders placed. Relevant counseling for the gestational age provided. Continue routine care and follow up unless otherwise noted in visit notes/problem list details OB Flowsheet Initial Weight: Not Recorded Date -?-?-?-?-?-?-?-?-?-?-?-?- EGA Weight BP Urine Prot -?-?-?-?-?-?-?-?-?--?-?-?- Glucose FHR FuHt Pres Dilation -?-?-?-?-?-?-?-?-?-?-?-?- Effaced St Visit Note 02/17/23 -?-?-?-?-?-?-?-?-?-?-?-?- 7w 0d 220 lb 4 oz 108/61 Nega tive -?-?-?-?-?-?-?-?-?-?-?-?- Negative 173 -?-?-?-?-?-?-?-?-?-?-?-?- JV- CRL is off b y 9 days from LMP. arya 10/06/23 desires NIPT. 03/18/23 -?-?-?-?-?-?-?-?-?-?-?-?- 11w 1d 198 lb 6 oz 107/67 -?-?-?-?-?-?-?-?-?-?-?-?- -?-?-?-?-?-?-?-?-?-?-?-?- KW-FHT visualize d on handheld US. desires tubal PP-in hospital if possible. KW-FHT visualized on handhel d US. desires tubal PP-in hospital if possible- needs Title 19. 04/11/23 -?-?-?-?-?-?-?-?-?-?-?-?- 14w 4d 200 lb 2 oz 108/66 Nega tive -?-?-?-?-?-?-?-?-?-?-?-?- Negative 155 -?-?-?-?-?-?-?-?-?-?-?-?- -No Vb or cram ping. Nausea improved. Still needs MFM consult for hx short cx. New order sent 05/09/23 -?-?-?-?-?-?-?-?-?-?-?-?- 18w 4d 197 lb 8 oz 98/60 Nega tive -?-?-?-?-?-?-?-?-?-?-?-?- Negative 128 -?-?-?-?-?-?-?-?-?-?-?-?- JV- no lof, vagi nal bleeding, or cramping. wants flu shot today. pt states that she did a dry run to the hospital and it took 2 hours to drop off the kids and get here she wants to be induced at 39 weeks. agree with plan. hemorrhoid treatment discussed today. continue q 2 week vag scans of CL until 24 weeks. 06/08/23 -?-?-?--?-?-?-?-?-?-?-?-?- 22w 6d 200 lb 91/63 Negative -?-?-?-?-?-?-?-?-?-?-?-?- Negative 132 0 -?-?-?-?-?-?-?-?-?-?-?-?- 50 JV- pt s cl was 30.6 mm, placenta no longer low lying. rpt us on 06/13. plan is for 3 hr gtt, due to h/o failing 1 hour. JV- pt s cl was 30.6 mm, placenta no longer low lying. rpt us on 06/13. plan is for 3 hr gtt, due to h/o failing 1 hour. wants tubal ligation. will need title 19 next visit. 07/07/23 -?-?-?-?-?-?-?-?-?-?-?-?- 27w 0d 201 lb 124/70 Trace -?-?-?-?-?-?-?-?-?-?-?-?- Negative 138 28 -?-?-?-?-?-?-?-?-?-?-?-?- MH-No VB, LOF. H aving vaginal burning X 3 days. No STD concerns. See exam, culture pending. Larc, 28 wk labs 07/20/23 -?-?-?-?-?-?-?-?-?-?-?-?- 28w 6d 206 lb 4 oz 103/70 Nega tive -?-?-?-?-?-?-?-?-?-?-?-?- Negative 135 28 -?-?-?-?-?-?-?-?-?-?-?-?- LC- no vb/ctx/lo f. good fm. aunt , does not have time for 3 hour glucose, lab refused . will obtain 2 week glucose monitoring 08/05/23 -?-?-?-?-?-?-?-?-?-?-?-?- 31w 1d 207 lb 8 oz 102/71 Nega tive -?-?-?-?-?-?-?-?-?-?-?-?- Negative 160 31 -?-?-?-?-?-?-?-?-?-?-?-?- LC-no vb/ctx/lof . good fm. see in [facility] on tuesday with high glucose. diagnosed with GDM. fasting glucose since starting metformin at 95 and under. working on diet- has nutrition appt on tuesday. handout provided and reviewed gestational diabetes. 08/12/23 -?-?-?-?-?-?-?-?-?-?-?-?- 32w 1d 207 lb 6 oz 106/72 Nega tive -?-?-?-?-?-?-?-?-?-?-?-?- Negative 135 -?-?-?-?-?-?-?-?-?-?-?-?- LC- no vb/ctx/lo f/good fm. fastings mostly under 95, having trouble with diet- still having 3 mountain dews/day. discussed must be diet pop, ideally water. risk of elevated sugars reviewed including stillbirth, shoulder dystocia, increased risk of child having DM2. LC- no vb/ctx/lof/good fm. f astings mostly under 95, having trouble with diet- still having 3 mountain dews/day. discussed must be diet pop, ideally water. risk of elevated sugars reviewed including stillbirth, shoulder dystocia, increased risk of child having DM2. if glucose not controlled by next visit will refer to Dr. Chambers for insulin management. 08/16/23 -?-?-?-?-?-?-?-?-?-?-?-?- 32w 5d Negative -?-?-?-?-?-?-?-?-?-?-?-?- Negative 145 140 -?-?-?-?--?-?-?-?-?-?-?-?- kw- no vb/lof/ct x. good fm. cut out soda and numbers over the last few days are better. Fastings under 95. most PP BS under range. to continue tracking and bring to office with next visit. NST today 08/26/23 -?-?-?-?-?-?-?-?-?-?-?-?- 34w 1d 206 lb 6 oz 94/67 Nega tive -?-?-?-?-?-?-?-?-?-?-?-?- Negative 140 -?-?-?-?-?-?-?-?-?-?-?-?- SM- discussed ne ashantig to track BS more, may need to increase metformin 09/02/23 -?-?-?-?-?-?-?-?-?-?-?-?- 35w 1d 202 lb 6 oz 99/73 Nega tive -?-?-?-?-?-?-?-?-?-?-?-?- Negative 130 36 3 -?-?-?-?-?-?-?-?-?-?-?-?- 50 -3 JV- pt is passing mucous and worried she is dilated more. She was 3 cm dilated last check and is still dilated a tight 3 cm, posterior, 50% and high. NST reactive. 09/09/23 -?-?-?-?-?-?-?-?-?-?-?-?- 36w 1d 204 lb 2 oz 109/74 Nega tive -?-?-?-?-?-?-?-?-?-?-?-?- Negative 135 Cephalic 3 -?-?-?-?-?-?-?-?-?-?-?-?- 70 -2 KW- NST re active. no vb/lof/reg ctx. good fm. reports good BS. discussed POC for infant post delivery. gbs today. 09/15/23 -?-?-?-?-?-?-?-?-?-?-?-?- 37w 0d 207 lb 6 oz 103/70 Nega tive -?-?-?-?-?-?-?-?-?-?-?-?- Negative 125 38 4 -?-?-?-?-?-?-?-?-?-?-?-?- 80 -2 KW-NST mendel ctive. WOrk in today for uncontrolled BS x 3 days. fastings normal but PP are 200+ with same diet. Discussed with SM increase Metformin to BID and OTONIEL today. RTO tues for appt and NST. IOL on . NST FHR Rate Baby A Baseline: 120-130 Variability:: Moderate Accelerations:: 15 x 15 Decelerations:: None NST Reactive:: Yes FHR Category:: Category I Uterine Activity:: irregular ROS Cardiovascular Cardiovascular: Denies abdominal pain, chest pain, diaphoresis or dyspnea Respiratory/Chest Respiratory/Chest: Denies change in mental status, chest congestion, chest tightness, cough, shortness of breath at rest, shortness of breath with exertion, breast mass, breast pain, breast skin changes, breast swelling, change in breast shape or nipple discharge Genitourinary Genitourinary: Reports change in urinary stream Musculoskeletal Musculoskeletal: Reports none Integumentary Integumentary: Reports none Neurologic Neurologic: Reports none Psychiatric Psychiatric: Reports none Endocrine Endocrinology: Reports none Hematologic/Lymphatic Hematologic/Lymphatic: Reports none Allergic/Immunologic Allergic/Immunologic: Reports none Vital Signs Vital Signs Vital Signs: 09/19/23 10:05 09/19/23 10:05 09/19/23 10:05 Temperature Temperature Source Temporal Pulse Rate 94 Respiratory Rate Blood Pressure 118/67 BP Systolic 118 BP Diastolic 67 09/19/23 10:05 09/19/23 10:05 09/19/23 12:19 Temperature 97.0 F L Temperature Source Pulse Rate Respiratory Rate 16 Blood Pressure 116/70 BP Systolic 116 BP Diastolic 70 09/19/23 12:19 09/19/23 12:19 09/19/23 12:19 Temperature Temperature Source Temporal Pulse Rate 75 Respiratory Rate 16 Blood Pressure BP Systolic BP Diastolic 09/19/23 12:19 Temperature 97.1 F L Temperature Source Pulse Rate Respiratory Rate Blood Pressure BP Systolic BP Diastolic Weight Weight: 207 lb 3.2 oz Body Mass Index (BMI) 37.9 Physical Exam Const alert, oriented x3 and no apparent distress General Appearance: cooperative, comfortable and well kempt Orientation / Consciousness: awake and oriented to person Exam Limitations: no limitations HEENT normocephalic Neck full ROM Chest inspection of chest normal Resp normal respiratory effort, normal air movement and no retractions Effort and Inspection: able to speak in complete sentences and symmetric chest movement Cardio regular rate Peripheral Pulses: pulses 2+ throughout GI normal to inspection, nondistended, normoactive bowel sounds Inspection: gravid no CVA tenderness and appearance of the vagina normal External Female Exam: normal appearance of the urethra; Negative for external lesion OB / External & Speculum: external exam normal Manual OB Exam: estimated gestational size appropriate and presentation cephalic Uterus Palpation: Negative for uterus tender Extremity normal to inspection Skin no rashes or lesions noted Neuro deep tendon reflexes 2+ bilaterally and gait normal Motor Exam: strength 5/5 throughout and clonus absent Psych Activity / Motor Behavior: appropriate eye contact Speech: normal speech Labs Labs Labs: Blood Type O POSITIVE Antibody Screen NEGATIVE Hct 35.8 % (37-47) L Hgb 12.0 g/dL (12.0-15.0) Obstetrics Ultrasound Syphilis Total Ab Non-reactive Rubella IgG Antibody Reactive (Nonreactive) Hep Bs Antigen Non-Reactive (Nonreactive) Hepatitis C Antibody Non-Reactive (Nonreactive) Chlamydia DNA (MARTIN) Negative (Negative) N.gonorrhoeae DNA (MARTIN) Negative (Negative) HIV 1&2 Antibody Non-Reactive (Nonreactive) Glucose 1 Hr 50 gm 136 mg/dL (70-140) Gest Glucose Tolerance MG/DL Assessment & Plan (1) SROM (spontaneous rupture of membranes): COMMENT: SROM clear fluid 0700. afebrile. (2) Gestational diabetes mellitus (GDM): COMMENT: consistently elevated fasting glucose and PP. LC-started on Metformin 500mg 08/01/2023 from triage- consulted with JV who agrees with plan. Nutrition referral sent. NST at 32 weeks. (3) Anxiety and depression: COMMENT: no meds. Enc counseling (4) Abnormal cranial ultrasound: COMMENT: some abnormal views on US but others normal. FTC consult ordered, mfm discussed with patient. peds consult recommended Growth US Q4wk (5) Obesity affecting : QUALIFIERS: Trimester: second trimester Obesity type affecting : severe obesity due to excess calories Qualified Code(s): O99.212 - Obesity complicating , second trimester; E66.01 - Morbid (severe) obesity due to excess calories COMMENT: Per MFM growth US Q4wk. early gct ordered (6) : QUALIFIERS: Weeks of gestation: 37 weeks Qualified Code(s): Z3A.37 - 37 weeks gestation of COMMENT: GBS neg, NIPT low risk, carrier testing neg. 10/12 (7) Abnormal glucose affecting : COMMENT: passed 3 hr. GTT; will repeat 3hr instead of doing 1 hour at 28 wk pt refuses 3 hour glucose- will obtain 4x daily glucose readings. supplies ordered. PLAN: -glucose per protocol. currently stable. PLAN: Plan - admit to [facility] -start pitocin for augmentation -GBs negative. -reviewed case with pedi- willl exam per routine. does not need to be present at delivery. -Dr. Skinner updated on admission, exam and poc and agrees with co-management for GDM
[2023-09-19 15:45] LABS: Bedside Glucose 76 mg/dL (74-106)
--- NOTE | 2023-09-19 17:24 | OP.PCM_ITS ---
Assessment & Plan (1) (spontaneous vaginal delivery): COMMENT: LC SROM, GDM 37.5. girl:alesia Maternal Data Information ARYA Calculator Estimated Delivery Date Method Current WG Current Estimate 10/06/23 Ultrasound #1 37w 4d Other Estimates 09/27/23 LMP (Certain) 38w 6d Gestational age: 37.4 Vaginal Delivery Maternal Presentation Maternal Presentation: Spontaneous Rupture of Membranes Maternal Presentation: SROM at 0700, augmented for no change in cervical exam. proceeded to fully with urge to push. unmedicated. Type of Induction: Pitocin Operative Information Date of Procedure: 09/19/23 Surgery / Procedure Performed: Spontaneous Vaginal Delivery Type of Anesthesia: Local with 1% Lidocaine Estimated Blood Loss: 200 Time of Delivery: 16:48 Findings Description of Procedure: Patient began pushing and delivered the head in the CHAY presentation. The head was delivered atraumatically. The anterior and posterior shoulders delivered without complication followed by the rest of the and the infant was placed on the maternal abdomen. Delayed cord clamping was employed for approximately 60 seconds. Cord was clamped and cut and gentle traction was applied to the cord and the placenta delivered spontaneously immediately following it was noted to be intact with three-vessel cord. The perineum and vagina were inspected and noted to have 1st degree laceration, repaired with 3.0. EBL was 200cc. Patient and tolerated delivery well. Presentation: Vertex Amniotic Membrane Rupture Type: Spontaneous Time of Membrane Rupture: 0700 Amniotic Fluid Description: Clear Placental Delivery Description: Spontaneous Placenta Disposition: [facility] Cord Vessel Description: 3 Vessels Cord Entanglement: None A Gender: Female (1 minute): 8 (5 minute): 9 Delayed Cord Clamping: Yes Post Vaginal Delivery Medications Given After Delivery: IV Pitocin Episiotomy Description: None Laceration: 1st degree Complication Complications: None Procedures Urinary/Genital [id number]: [id number] Vaginal Delivery [facility]
[2023-09-19] MEDS: Oxytocin 15 Units/NS 250ml 15 UNITS/250 ML IV.SOLN 83 UNITS IV (17:30)
--- NOTE | 2023-09-19 17:30 | DCINST_ITS ---
Discharge Instructions Diet Discharge Diet: No restrictions Activity Discharge Activity: May Not Drive and May Shower May resume sexual activity in: 6 weeks Weight Bearing Status: Full weight bearing Dressing / Incision Call your doctor if your incision/area has: Sudden Increased Bleeding, Increased Pain/ Swelling and Foul Smelling Discharge Call your doctor if you observe: Fever of 101 or Higher, Numbness or Tingling, Change in Color, Inability to urinate, Inability to have a bowel movement, Using more than 1 pad per hour, Shortness of breath, Dizziness, Fainting spells, Chest pain, Calf discomfort and Uncontrolled pain Follow Up Care Please Follow Up With: Estefani Kumar CNM When: 6 weeks , please call office to make an appointment. Congratulations on the of your baby! Test Results: Test results from this visit will be discussed in further detail at your follow- up appointment, if applicable. Discharge Plan Admission Admit Date/Time: 09/19/23 10:30 Attending Provider: Estefani Kumar Primary Care Provider: Care Physician,Daxa Primary Discharge Orders/Prescriptions Prescriptions: No Action PNV-DHA 27 mg iron-1 mg -300 mg capsule 1 cap PO sertraline [Zoloft] 25 mg tablet 25 mg PO DAILY PRN (Reason: anxiety) Hold Instructions: stop taking at end of (DME) blood-glucose meter Misc See Rx Instructions .MEDSUPPLY Qty: 1 0RF Rx Instructions: As directed- Test fasting and 2 hours after meals (DME) lancets Misc See Rx Instructions .MEDSUPPLY Qty: 200 4RF Rx Instructions: As directed- fasting & 2 hr post meals(4x/day) (DME) Blood Glucose Test Strip See Rx Instructions .Route Qty: 120 5RF Rx Instructions: As directed-fasting & 2 hrs post meals(4x/day) metformin 500 mg tablet 500 mg PO BID Referrals / Follow Up: Care Physician,No Primary [Primary Care Provider] -
[2023-09-19 17:43] LABS: Bedside Glucose 95 mg/dL (74-106)
[2023-09-19] MEDS: Lidocaine 1% (20 ml mdv) 20 ML Vial INFILT (17:48)
[2023-09-19] MEDS: Naproxen 500 MG Tablet PO (18:33)
[2023-09-19] MEDS: Acetaminophen 500 MG Tablet 1000 MG PO (19:47)
[2023-09-19] MEDS: Benzocaine/Lanolin/Aloe Vera 1 SPRAY EACH TOPICAL (19:48)
[2023-09-19] MEDS: Senna/Docusate Sodium 1 Tablet PO (20:55)
[2023-09-20 00:32] VITALS: BP 94/51; PULSE 63; RESP 16; TEMP 36.9; O2SAT 98
[2023-09-20] MEDS: Acetaminophen 500 MG Tablet 1000 MG PO ×2 (01:35→11:12)
[2023-09-20 03:27] VITALS: BP 98/76; PULSE 80; RESP 16; TEMP 36.2; O2SAT 97
[2023-09-20] MEDS: Naproxen 500 MG Tablet PO ×2 (05:07→14:10)
[2023-09-20 05:28] LABS: Bedside Glucose 75 mg/dL (74-106)
--- NOTE | 2023-09-20 07:50 | PCM.PN.OB ---
Subjective Subjective Patient doing well without complaints. Tolerating PO. Ambulating and voiding without difficulty. Feeding well. Denies chest pain, shortness of breath, calf pain/swelling, fevers, chills, lightheadedness. Objective Data Objective Data Vital Signs: Vital Signs Temp Pulse Resp BP Pulse Ox O2 Del Method 97.2 F L 80 16 98/76 97 Room Air 09/20/23 03:27 09/20/23 03:27 09/20/23 03:27 09/20/23 03:27 09/20/23 03:27 09/20/23 03:27 Oxygen Delivery Method Room Air Weight: 207 lb 3.2 oz Body Mass Index (BMI) 37.9 Intake & Output: Intake and Output for Last 24 Hours 09/18/23 09/19/23 09/20/23 23:59 23:59 23:59 Intake Total 729.87 / 729.87 Output Total 200 / 200 600 / 600 Balance 529.87 / 529.87 -600 / -600 Lab / Micro Data Attestation: I reviewed the patient's lab results. 09/19/23 11:15 Labs: Laboratory Results - last 24 hr 09/19/23 11:15: WBC 14.1 H, RBC 4.07 L, Hgb 12.0, Hct 35.8 L, MCV 88.0, MCH 29.5, MCHC 33.5, RDW Std Deviation 41.8, RDW Coeff of Em 13.2, Plt Count 270, MPV 11.1, Immature Gran % (Auto) 1.500 H, Neut % (Auto) 77.2 H, Lymph % (Auto) 16.2 L, Traill % (Auto) 3.3, Eos % (Auto) 1.4, Baso % (Auto) 0.4, Absolute Neuts (auto) 10.9 H, Absolute Lymphs (auto) 2.27, Nucleated RBC % 0, Syphilis Total Ab Non-reactive, Blood Type O POSITIVE, Antibody Screen NEGATIVE 09/19/23 11:21: POC Glucose 69 L 09/19/23 12:20: POC Glucose 75 09/19/23 15:27: POC Glucose 76 09/19/23 17:12: POC Glucose 95 09/20/23 05:06: POC Glucose 75 ROS Constitutional Constitutional: Reports systems reviewed and no addt'l complaints, except as documented; Denies anorexia or headache(s) Cardiovascular Cardiovascular: Reports systems reviewed and no addt'l complaints, except as documented; Denies dizziness, dyspnea, nausea or tachypnea Respiratory/Chest Respiratory/Chest: Reports systems reviewed and no addt'l complaints, except as documented; Denies cough, dyspnea, shortness of breath at rest or tachypnea Gastrointestinal Gastrointestinal: Reports systems reviewed and no addt'l complaints, except as documented; Denies abdominal pain, constipation or nausea Genitourinary Genitourinary: Reports systems reviewed and no addt'l complaints, except as documented; Denies burning urination, difficulty urinating, dysuria, urinary frequency or urinary incontinence Musculoskeletal Musculoskeletal: Reports systems reviewed and no addt'l complaints, except as documented Integumentary Integumentary: Reports systems reviewed and no addt'l complaints, except as documented Neurologic Neurologic: Reports systems reviewed and no addt'l complaints, except as documented; Denies abnormal speech, dizziness or headache(s) Psychiatric Psychiatric: Reports systems reviewed and no addt'l complaints, except as documented Endocrine Endocrinology: Reports systems reviewed and no addt'l complaints, except as documented Hematologic/Lymphatic Hematologic/Lymphatic: Reports systems reviewed and no addt'l complaints, except as documented Physical Exam Const alert, oriented x3 and no apparent distress Neck full ROM Resp normal respiratory effort, normal air movement and no retractions Effort and Inspection: able to speak in complete sentences and symmetric chest movement GI soft to palpation Bladder / Kidney Exam: bladder normal to palpation Uterus Palpation: uterus fundus firm Extremity normal to inspection and full ROM Psych mental status grossly normal, thought process normal and cooperative Assessment & Plan (1) (spontaneous vaginal delivery): COMMENT: LC SROM, GDM 37.5. girl:adley PLAN: s/p PPD # 1 1. routine post delivery care 2. breast feeding- support given 3. rh positive 4. rubella immune 5. Discharge Home (2) Headache in : (3) Gestational diabetes mellitus (GDM): COMMENT: consistently elevated fasting glucose and PP. LC-started on Metformin 500mg 08/01/2023 from triage- consulted with JV who agrees with plan. Nutrition referral sent. NST at 32 weeks. (4) Anxiety and depression: COMMENT: no meds. Enc counseling (5) Obesity affecting : QUALIFIERS: Trimester: second trimester Obesity type affecting : severe obesity due to excess calories Qualified Code(s): O99.212 - Obesity complicating , second trimester; E66.01 - Morbid (severe) obesity due to excess calories COMMENT: Per MFM growth Q4wk. early gct ordered (6) Supervision of high-risk : QUALIFIERS: Trimester: second trimester Qualified Code(s): O09.92 - Supervision of high risk , unspecified, second trimester COMMENT: PRR ARYA 10/04/23 Allison Herring Avalyn. Luis (7) : QUALIFIERS: Weeks of gestation: 37 weeks Qualified Code(s): Z3A.37 - 37 weeks gestation of COMMENT: GBS neg, NIPT low risk, carrier testing neg. 10/12 Charges/Coding Multi Select Codes Urinary/Genital Urinary/Genital CPT Codes: No Charge
[2023-09-20 08:37] VITALS: BP 96/45; PULSE 90; RESP 16; TEMP 36.3; O2SAT 98
--- NOTE | 2023-09-20 11:16 | CASEMGMT ---
Social Work Assessment Labor and Delivery Unit [address] [facility] [place] [address] Phone number: [phone] Date of Referral: 09/19/23 Time of Referral:? 1849 Referred By: Estefani Kumar Date of Intervention: ?09/20/23? Time of Intervention:? 1044 Reason for Referral:? anxiety and depression Sw completed chart review and acknowledges social work consult due to maternal history of anxiety and depression. Sw presented to bedside and introduced self to mother of baby (MOB- Lauren) and father of baby (FOB- Luis). Sw explained reason for sw involvement and completed psychosocial assessment. History obtained from: medical records, MOB and FOB Household composition: Currently residing in the family home is MOB, ANGELINA, MOB's two older children (Colin, Allison and Emily), and now baby. Child Emily is other child both parents share together. Patient's parent/guardian status:? ?MOB states that she and ANGELINA have been together for three years, after they met on an online dating alan. DUGLAS states that ANGELINA is one of her biggest supports and no concerns reported of domestic violence or intimate partner violence at this time. Medical History: ?DUGLAS is 22 year old female who is 7, para 3- now 4 following labor and delivery. DUGLAS received routine care during with [facility]. DUGLAS presented to hospital and delivered baby on 09/19/23 at 37 weeks gestation via vaginal delivery. Baby girl, named Betsy Díaz, was born weighing 6lb and her apgars were 8 and 9 at one and five minutes of life, respectfully. Baby will be followed by Dr. Gresham. DUGLAS states that she is bottle feeding and has all feeding supplies. Educational Status:? Both parents obtained their GED's, MOB states that she attended some college, but did not graduate. No concerns regarding reading, learning or comprehension. 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 FOChin states that he is able to take some time off of work now that baby has been born. Supplies:?? MOB states that she has everything that she needs for baby, including: car seat, safe sleep space, clothes, diapers and wipes. Childcare/Caregiver(s):? MOB will be the primary caregiver to baby, along with FOB when he is not at work. MOB states that paternal grandma is helping to care for other children while they are at the hospital. Transportation:?? Both parents have their drivers license and reliable means of transportation. Programs/Agencies Involved: MOB is connected to insurance through [employer]?, is receptive to getting connected to [facility]. MOB states that she was previously connected to [facility] and plans on calling to get reconnected. Information regarding [employer] provided, parents considering getting connected to them. ? Children Services/Legal Issues:?No history of involvement, no issues or concerns warranting referral at this time. ?? Behavioral Health Issues: ??Mental Health History: FOB denies mental health history. MOB states that she has been diagnosed with anxiety and depression. MOB denies any history with depression/ anxiety or baby blues. ??? Substance Use History: MOB denies substance use prior to or during . MOB states that she does not drink or do drugs, due to family history she does not want alcohol in the home.?? Family History:??MOB states that her mom is an alcoholic??? Drug Screens: No drug screens observed during chart review. ?? Family/Social Stressors:? MOB denies any issues or concerns at this time. Support Systems: Parents state that both sets of grandmas are supportive. Depression/Shaken Baby/Safe Sleeping:? Sw educated parents on signs and symptoms of baby blues, depression and anxiety. Parents express understanding. Sw educated parents on shaken baby prevention and ABCs of safe sleep. Parents express understanding. ASSESSMENT:? MOB and baby are admitted following labor and delivery of . Parents are both engaged and talkative during psychosocial assessment. Parents made eye contact and were appreciative of sw involvement and support. Parents have obtained all necessary baby supplies, and have adequate supports in place. PLAN:? MOB and baby to be discharged when medically ready. ?No other services requested or indicated. Elly Bruner, CASE MAKER, RESEARCH LEADER
[2023-09-20 12:00] VITALS: BP 102/68; PULSE 88; RESP 16; TEMP 36.6; O2SAT 100
[2023-09-20 17:04] VITALS: BP 106/59; PULSE 77; RESP 16; TEMP 36.1; O2SAT 98
== END 2023-09-20 17:35 | disposition home or self-care (01) | DRG 560 ==
LOC: WPOUT 10:34 → WP 10:34
PROVIDERS: Admitting Provider Registered Nurse; Referring Provider Registered Nurse; Visit Provider Registered Nurse
DX: O24.425 Gestational diabetes mellitus in childbirth, controlled by oral hypoglycemic drugs (principal); Z37.0 Single live birth; O26.23 Pregnancy care for patient with recurrent pregnancy loss, third trimester; E66.01 Morbid (severe) obesity due to excess calories; F32.A Depression, unspecified; F17.200 Nicotine dependence, unspecified, uncomplicated; F41.9 Anxiety disorder, unspecified; O99.334 Smoking (tobacco) complicating childbirth; O99.344 Other mental disorders complicating childbirth; O70.0 First degree perineal laceration during delivery; Z3A.37 37 weeks gestation of pregnancy; O99.214 Obesity complicating childbirth
CPT/HCPCS: 59025; 59050; 82962; 85025; 86780; 86850; 86900; 86901; 99221; J7120; G0378

== ENCOUNTER 2023-12-06 08:20 | Day surgery (SDC) | payer MEDICAID, SELFPAY ==
[2023-11-17 13:22] LABS: Absolute Lymphocyte Count 2.48 X10^3/uL (0.83-4.51); Absolute Neutrophil Count 5.2 X10^3/uL (2.0-7.7); Basophil# 0.06 X10^3/uL; Basophil% 0.7 % (0-1); Eosinophil# 0.35 X10^3/uL; Eosinophils% 4.1 % (0-5); Hemoglobin 12.2 g/dL (12.0-15.0); Lymphocyte # 2.48 X10^3/ul (0.83-4.51); Lymphocyte % 29.2 % (19-41); Mean Corp Hgb Conc 32.1 g/dL (32-36); Mean Corpuscular Hgb 27.8 pg (27.0-32.0); Mean Corpuscular Volume 86.6 fL (81-99); Mean Platelet Vol. 9.2 fl (6.2-12.0); Monocyte# 0.37 X10^3/uL; Monocyte% 4.4 % (0-10); NRBC Flagged by Analyzer 0 % (0-5); Neutrophil # 5.15 X10^3/uL (2.7-7.7); Neutrophil % 60.5 % (47-70); Platelet Count 365 K/mm3 (150-450); RBC Distribution Width CV 12.7 % (11.6-14.6); RBC Distribution Width SD 40.1 fl (35.1-43.9); Red Blood Count 4.39 M/mm3 (4.2-5.4); White Blood Count 8.5 K/mm3 (4.4-11.0)
[2023-11-17 14:28] LABS: HIV - WCH Non-Reactive (Nonreactive); Syphilis Antibodies Non-reactive
[2023-12-06] VITALS (7 sets, daily range): BP systolic 101–123; BP diastolic 65–80; PULSE 68–84; RESP 16; TEMP 36.8–36.9; O2SAT 97–99; BMI 38.3
[2023-12-06 08:58] LABS: Internal QC Validated? YES +Cl - CLEAR BKGD; Pregnancy, Urine Negative Negative; Record Kit Lot#,Urine Preg HCG0000735774
[2023-12-06] MEDS: Lactated Ringers 1,000 ML 15 ML IV (09:12)
--- NOTE | 2023-12-06 09:30 | PCM.HP.BLA ---
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 Is patient in pain?: No Allergies latex Allergy (Mild, Verified 11/14/23 15:37) Hives Medications sertraline 50 mg tablet 50 mg PO DAILY #90 tabs 11/03/23 [Rx Confirmed 11/14/23] Post menopausal: No Patient : No PFSH Medical History Abnormal glucose affecting Abnormal uterine bleeding Anxiety Cervical incompetence Depression Sterilization (spontaneous vaginal delivery) Surgical History History of gynecologic surgery History of surgery Social History household members: spouse and children Smoking Status: Heavy Smoker (>10/day) alcohol intake: never substance use type: does not use seatbelt use: always do you feel safe at home: Yes additional social history: Luis MARQUEZ D&C BS title 19 needs signed Details: ANDRZEJ KOO is a 22 year old who presents for pre-operative exam for a planned laparoscopy bilateral salpingectomy for permanent sterilization. She has also been suffering with heavy periods and endometrium appeared thickened. The plan is for a D&C at the same time. History 7 Elective abortions Hx Para 3 Spontaneous abortions 3 Hx # Term Pregnancies Ectopic pregnancies Hx # Pregnancies Multiple births # of living children 4 Past Pregnancies Del. Date Name GA/Weeks Outcome Route Bth Weight Infant Gen Labor Lgth Anesthesia Del Locatn Provider FOB Unknown 2014 spontaneous Unknown spontaneous 06/17/17 fadia live - full term 7lbs 14 oz Male [address] Amee Velez 09/07/20 Allison 37 live - full term 6lbs 14oz Female [address] Cornelia Ruvalcaba 06/19/21 spontaneous 03/28/22 Emily Phillips 38 live - full term 7lbs 4 oz Female 7 hrs epidural aicha Cody Luis 09/19/23 Adlei 37 live - full term 6lbs Female [facility] Luis Delivery Date: 03/28/22 Last Updated by: Katelynn Saldivar DO short cervix, decels. h/o steroid use Delivery Date: 09/19/23 Last Updated by: Ninoska Kan RN See problem list for complications. ROS Const ROS Unobtainable: All systems reviewed & are unremarkable except as noted in H Resp Resp: Reports system reviewed and no additional complaints, except as documented; Denies cough GI GI: Reports as per HPI Psych Psych: Reports system reviewed and no additional complaints, except as documented Exam Const General: cooperative, healthy appearing, comfortable and no acute distress Resp Effort & Inspection: normal respiratory effort Skin General: no rashes or lesions noted Psych Appearance: grossly normal Speech and Movement: speech and movement normal Coding Level of Care Code Off vis,est,level 4 Diagnoses Sterilization Z30.2 Abnormal uterine bleeding N93.9 Assessment and Plan Assessment and Plan (1) Sterilization: Status: Acute (2) Abnormal uterine bleeding: Status: Acute Orders: Orders CBC W/Diff, Automated Today Z30.2 - Encounter for sterilization Type & Screen Today Z30.2 - Encounter for sterilization Plan After discussing the patient's diagnosis and treatment plan options, patient wishes to proceed with surgical management. I have discussed with the patient the risks, benefits, and alternatives of the procedure which include but are not limited to risks of anesthesia, bleeding, infection, possible damage to bowel, bladder, or surrounding vasculature which could lead to additional surgery to evaluate any complications. Patient agrees to procedure and wishes to proceed. ACOG/uptodate references given for additional information regarding procedure. plan for hysteroscopy D&C, laparoscopic bilateral salpingectomy
--- NOTE | 2023-12-06 09:31 | DCINST_ITS ---
Discharge Instructions Diet Discharge Diet: No restrictions Activity Discharge Activity: Return to Normal Activity, May Not Drive (for two weeks or while taking narcotic pain medications.), May Shower and May Take a Tub Bath (in 7 days) May resume sexual activity in: 1 week Weight Bearing Status: Full weight bearing Dressing / Incision Call your doctor if you observe: Using more than 1 pad per hour, Shortness of breath, Chest pain and Uncontrolled pain Suture Line Care: Avoid Pulling/Pushing and Avoid Pinching/Bending Remove Dressing in: 1 week (if present) Cleanse incision/area with: Soap & Water and Keep Dressing Clean & Dry Follow Up Care Please Follow Up With: Katelynn Saldivar DO When: Call to make an appointment with your doctor for a follow up incision check in 1-2 weeks. Test Results: Test results from this visit will be discussed in further detail at your follow- up appointment, if applicable. Discharge Plan Admission Primary Reason for Your Visit: laparoscopic bilateral salpingectomy, Dilation and curettage Attending Provider: Katelynn Saldivar Primary Care Provider: Care PhysicianDaxa Primary Instructions Print Language: Occitan Discharge Orders/Prescriptions Prescriptions: New ibuprofen 800 mg tablet 800 mg PO Q8H PRN (Reason: pain) Qty: 30 0RF oxycodone-acetaminophen [Percocet] 5-325 mg tablet 1 tab PO Q4H PRN (Reason: pain) 3 Days Qty: 18 0RF Rx Instructions: 1-2 tabs q 4 hrs as needed for pain Continued sertraline 50 mg tablet 50 mg PO DAILY Qty: 90 4RF Referrals / Follow Up: Care PhysicianDaxa Primary [Primary Care Provider] - Disposition Disposition (needs filled in before D/C Order can be placed): Home, Self Care
--- NOTE | 2023-12-06 10:15 | FALS_PTH ---
PATIENT: ANDRZEJ KOO LOC: [facility] U#:[id number] AGE/SX: 23/F ROOM: RE12/06/[address]: Dr. Katelynn Saldivar DO : 2000 BED: DIS: 12/06/2023 SPEC #: [id number] RECD: 12/06/23 12:46 STATUS: ИВАН SAALZAR #: [id number] ALONDRA: 12/06/23 10:[address]: Katelynn Saldivar DEPT: SURGICAL PATHOLOGY RECD BY: Matt Macias ENTERED: 12/06/23 13:30 SP TYPE: FALL TUBES OTHR DR: No Primary Care Phys Tissues: A - Fallopian tube B - Endometrium, NOS Procedures: Surgery Specimen Level II Surgery Specimen Level IV HEADER OPERATION: Hysteroscopy, D&C PRE-OP DIAGNOSIS: Abnormal uterine bleeding TISSUE SUBMITTED: A- Bilateral fallopian tubes, B- Endometrial curettings MICROSCOPIC DIAGNOSIS A. Right and left fallopian tubes, bilateral salpingectomies: One fallopian tube- Complete cross-sections of fallopian tube. Benign paratubal cysts. Minute focus of endometriosis. Second fallopian tube- No pathologic change. B. Endometrium, curettings: Secretory endometrium. Focal squamous morular metaplasia. AM: 12/07/2023 MICROSCOPIC DESCRIPTION Slides are reviewed. GROSS DESCRIPTION A. Received in fixative is one container labeled with the patient's name and designated bilateral fallopian tubes. The specimen consists elongated and irregular fragments of pink-vicente soft tissue ranging in size from 1.5 to 3.0cm. Also present is an irregular fragment of fibrofatty tissue measuring 1.5 x 1.2 x 0.2cm. Two fimbral ends are identified. These are submitted separately in two cassettes along with adjacent tubular segments. Museum Preparator sections are submitted in two cassettes as follows: 1 - one fallopian tube, 2 - the other fallopian tube. B. Received in fixative is one container labeled with the patient's name and designated Endometrial curettings. The specimen consists of multiple irregular fragments of reddish-vicente soft tissue measuring in aggregate 2.5 x 2.0 x 0.2cm. The specimen is submitted in its entirety in one cassette. AM/ 12/06/2023 TC:5 CPT: 69962, [id number]
[2023-12-06] MEDS: Lidocaine 1% /Epi 1:100 (20ml) 20 ML Vial (11:00)
--- NOTE | 2023-12-06 11:32 | PCM.OPRPT ---
Problems Associated Problem List Diagnoses (1) Sterilization: (2) Abnormal uterine bleeding: Report of Operation Date of Procedure: 11/13/21 Pre-Operative Diagnosis: desires permanent sterilization, abnormal uterine bleeding Post-Operative Diagnosis: desires permanent sterilization, abnormal uterine bleeding Surgery/Procedure Performed:: laparoscopic bilateral salpingectomy, hysteroscopy dilation and curettage Description of Surgical Findings:: normal uterus, tubes, ovaries. Omental adhesion to anterior abdominal wall Surgeon: Katelynn Saldivar senior contract specialist: None Type of Anesthesia: General Specimen's removed: bilateral fallopian tubes, endometrial curetting's Estimated Blood Loss (mL): 10cc Description of Procedure: Patient was taken in the operating room and was placed under general anesthesia was prepped and draped in normal sterile fashion in the dorsal lithotomy position. Bladder was drained of clear urine and SCDs were on preoperatively. Uterus was sounded and a uterine manipulator was placed after dilating. Attention was then paid to the abdominal portion of the procedure and the umbilicus was elevated and injected with Marcaine and after a 5 mm incision was made and a 5 mm trocar was inserted into the abdomen under direct visualization using the laparoscope. Abdomen was insufflated with CO2 gas and a 5 mm optical trocar was placed under direct visualization. A left lower quadrant 5 mm port and a mini grasper suprapubically were placed under direct visualization. Uterus was well visualized and bilateral fallopian tubes identified and bilateral tubes were elevated and transecting across the mesosalpinx and the attachment to the uterine corpus bilaterally the tubes were removed without complication. Excellent hemostasis was noted. Fallopian tubes were removed through the lower port sites without complication. Liver and upper abdomen were visualized notably within normal limits and no other gross abnormalities were seen in the abdomen. All instruments removed from the abdomen after gas was desufflated. Port sites were closed with 3-0 Monocryl Steri's and op sites were applied. Next, A weighted speculum was placed in the vagina and the anterior lip of the cervix was grasped with a single-tooth tenaculum. A paracervical block was placed with 1% lidocaine. Cervix was progressively dilated to allow passage of a 5 mm hysteroscope. The lining was fully visualized and noted to have no abnormalities . Uterine sounded to 8 cm. Curettage was performed and scant tissue was passed off for pathology assessment. All instruments were removed from the vagina and excellent hemostasis was noted. Patient was awoken and taken to recovery in stable condition. Admit VTE Documentation VTE Present on Admission: No VTE Mechan Device Prophylaxis: SCD's Multi Select Codes Urinary/Genital Urinary/Genital CPT Codes: 98729 Hysteroscopy,EMC, Polypectomy and 49907 Laproscopic BS/O
== END 2023-12-06 12:23 | disposition home or self-care (01) ==
LOC: SDC 08:21 → AC 08:22
PROVIDERS: Referring Provider Obstetrics & Gynecology; Visit Provider Obstetrics & Gynecology
PROC: 0UDB8ZZ Extraction of Endometrium, Via Natural or Artificial Opening Endoscopic (ICD-10-PCS; CPT 58558; principal; 2023-12-06 10:00)
PROC: (CPT 58661; 2023-12-06 10:00)
DX: Z30.2 Encounter for sterilization (principal); N93.9 Abnormal uterine and vaginal bleeding, unspecified; F17.200 Nicotine dependence, unspecified, uncomplicated; N92.0 Excessive and frequent menstruation with regular cycle; N83.8 Other noninflammatory disorders of ovary, fallopian tube and broad ligament; N80.9 Endometriosis, unspecified
CPT/HCPCS: 58661; 58558; 00840; 36415; 81025; 85025; 86703; 86780; 86850; 86900; 86901; 88302; 88305; J7120; J2405

== ENCOUNTER 2024-02-20 20:31 | Emergency (ER) | payer MEDICAID, SELFPAY ==
[2024-02-20 20:32] VITALS: BP 123/78; PULSE 89; RESP 16; TEMP 36.2; O2SAT 100; BMI 38.2
[2024-02-20 22:31] VITALS: BP 132/113; PULSE 82; RESP 16; O2SAT 95
[2024-02-20 22:44] LABS: Absolute Neutrophil Count 6.5 X10^3/uL (2.0-7.7); Basophil# 0.05 X10^3/uL; Basophil% 0.5 % (0-1); Eosinophil# 0.37 X10^3/uL; Eosinophils% 3.7 % (0-5); Hematocrit 36.8 % (37-47); Lymphocyte % 27.7 % (19-41); Mean Corp Hgb Conc 32.6 g/dL (32-36); Mean Corpuscular Volume 82.9 fL (81-99); Mean Platelet Vol. 9.7 fl (6.2-12.0); Monocyte# 0.36 X10^3/uL; Monocyte% 3.6 % (0-10); NRBC Flagged by Analyzer 0 % (0-5); Neutrophil % 64.3 % (47-70); Platelet Count 334 K/mm3 (150-450); RBC Distribution Width CV 13.5 % (11.6-14.6); RBC Distribution Width SD 40.3 fl (35.1-43.9); Red Blood Count 4.44 M/mm3 (4.2-5.4); White Blood Count 10.1 K/mm3 (4.4-11.0)
[2024-02-20] MEDS: Ondansetron 4 MG/2 ML Vial IV (22:54)
[2024-02-20] MEDS: Morphine 4 MG/ML Syringe IV (22:54)
[2024-02-20] MEDS: 0.9% Normal Saline (1000mL) 1,000 ML 999 ML IV (22:54)
[2024-02-20 23:02] LABS: AST(SGOT) 8 U/L (15-37); Alanine Aminotransfer ALT/SGPT 18 U/L (13-56); Albumin, Serum 3.4 g/dL (3.2-5.0); Alkaline Phosphatase 60 U/L (45-117); Anion Gap 5 (5-15); BUN 9 mg/dL (7-18); BUN/Creat Ratio 14.8 RATIO (10-20); Bilirubin, Direct 0.05 mg/dL (0.00-0.30); Calcium,Total 8.9 mg/dL (8.5-10.1); Chloride 107 mmol/L (98-107); Creatinine, Serum 0.61 mg/dL (0.55-1.02); EST Glomerular Filtration Rate 127 mL/min (>60); Est Glom Filt Rate - Afr Amer 154 mL/min (>60); Estimated Creatinine Clearance 151.22 ml/min; Globulin 3.2 g/dL (2.2-4.2); Glucose 121 mg/dL (74-106); Lipase 21 U/L (13-75); Potassium 3.6 mmol/L (3.5-5.1); Protein, Total 6.6 g/dL (6.4-8.2); Sodium Level 139 mmol/L (136-145)
[2024-02-20 23:08] LABS: Bacteria 0 SEEN /hpf (None Seen); Mucous, Urine 0 SEEN /hpf (<or=2+); Red Blood Cells-Urine 0 SEEN /hpf (0-5); White Blood Cells 0 SEEN /hpf (0-5)
[2024-02-20 23:15] LABS: Color, Urine Yellow (Yellow); Glucose, Dipstick Normal (Normal); Ketone-Dipstick Negative (Negative); Leukocyte Esterase-Dipstick 25 /ul (Negative); Nitrite-Dipstick Negative (Negative); Occult Blood-Urine Negative /ul (Negative); Protein-Dipstick Negative (Negative); Specific Gravity, Urine 1.015 (1.002-1.030); Urine Bilirubin Dipstick Negative (Negative); Urine Clarity Cloudy (Clear); Urine Urobilinogen 1 mg/dl (Normal)
[2024-02-20 23:44] LABS: Squamous Epithelial Cells - UA 5-10 SEEN /hpf (5-10)
[2024-02-20 23:45] LABS: Amorphous Sediment 2+; Internal QC Validated? YES +Cl - CLEAR BKGD; Pregnancy, Urine Negative Negative
--- NOTE | 2024-02-21 00:03 | EX.ED.DYSGE1 ---
HPI History of Present Illness Chief Complaint: Abd Pain Informant: patient and spouse/S.O. Narrative Narrative: Patient is a 23-year-old female with past medical history of anxiety and depression. She reports that a few hours prior to arrival she developed generalized upper abdominal pain with nausea and bouts of diarrhea. She denies any blood or discoloration to the diarrhea. She states has been no known sick contact. She denies any travel outside the country livestock exposure or antibiotic use. However with the recurrent bouts of symptoms she had concern she is coming dehydrated and had a potential infection and therefore comes in for evaluation [facility] Medical History Sterilization Abnormal uterine bleeding (spontaneous vaginal delivery) Cervical incompetence Depression Anxiety Abnormal glucose affecting Home Medications ?Medication ?Instructions ?Recorded ?Last Taken ?Type sertraline 50 mg tablet 50 mg PO DAILY #90 tabs 11/03/23 Unknown Rx dicyclomine 20 mg tablet 20 mg PO 4X/DAY PRN Abdominal 02/21/24 Unknown Rx pain/bloating #28 tabs ondansetron 4 mg disintegrating 4 mg PO TID PRN nausea and 02/21/24 Unknown Rx tablet vomiting #21 tabs Allergy/AdvReac Type Severity Reaction Status Date / Time latex Allergy Mild Hives Verified 02/20/24 20:35 Surgical History History of surgery History of gynecologic surgery Social History household members: spouse and children Smoking Status: Heavy Smoker (>10/day) alcohol intake: never substance use type: does not use seatbelt use: always do you feel safe at home: Yes additional social history: Luis ROS ROS ED Constitutional Constitutional ED: Denies chills or fever(s) Eyes Eyes: Denies blurry vision or change in vision ENT ENT ED: Denies sore throat Cardiovascular Cardiovascular: Denies chest pain Respiratory/Chest Respiratory/Chest: Denies cough or dyspnea Gastrointestinal Gastrointestinal: Reports abdominal pain, diarrhea and nausea; Denies vomiting Genitourinary Genitourinary ED: Denies dysuria or hematuria Musculoskeletal Musculoskeletal: Denies myalgias Integumentary Denies rash Neurologic Neurologic: Denies headache(s) Hematologic/Lymphatic Hematologic/Lymphatic: Denies easy bleeding or easy bruising EXAM Physical Exam Const Vital Signs: 02/20/24 20:32 02/20/24 22:31 02/21/24 00:22 Temperature 97.2 F L Temperature Source Temporal Pulse Rate 89 82 90 Respiratory Rate 16 16 16 Blood Pressure 123/78 H 132/113 H 105/71 Blood Pressure Mean 93 119 82 Pulse Ox 100 95 98 Oxygen Delivery Method Room Air Room Air 02/21/24 00:22 Temperature 97.2 F L Temperature Source Pulse Rate 90 Respiratory Rate 16 Blood Pressure 105/71 Blood Pressure Mean 82 Pulse Ox 98 Oxygen Delivery Method Positive well nourished, well developed and obese General Appearance ED: well developed; Negative for pallor Nutritional Appearance: obese HEENT HEENT Narrative: Mucous membranes are slightly dry intact No secondary findings to suggest infection in the posterior pharynx No tongue or lip swelling no oral lesions no airway edema or compromise Eyes PERRL and EOMs intact bilaterally General Eye ED: Negative for scleral icterus Neck supple Neck Narrative: No nuchal rigidity or meningeal sign Resp normal respiratory effort and clear to auscultation bilaterally Cardio regular rate and regular rhythm Rate: other Other Details: Heart is regular rate and rhythm without murmurs rubs or gallop Radial and carotid pulses are equal and symmetric GI non-distended GI Narrative: Abdomen is soft and nondistended with hyperactive bowel sounds. There is mild pain with palpation in the midepigastric and left upper quadrant region. However no voluntary guarding or rigidity or pulsatile mass Auscultation: hyperactive bowel sounds Palpation: soft Back/Spine no CVA tenderness Extremity normal to inspection Neuro oriented x3, CN's II-XII intact bilaterally and no sensory deficits noted Sensorium / Orientation: alert Motor Exam: strength 5/5 throughout Psych mental status grossly normal Skin no rashes or lesions noted General Skin Exam: Negative for jaundice or pallor MDM MDM MDM Narrative Medical decision making narrative: Patient arrived to ER with stable vitals and a soft nonsurgical abdomen so I felt no need for an emergent CT scan. History and exam is most consistent with viral stomach infection such as Elizabeth virus versus rotavirus. However based on her abdominal pain location there is concern for acute pancreatitis versus colitis versus diverticulitis versus atypical urinary tract infection/pyelonephritis. Secondary to this basic laboratory studies with urine sample were obtained. Lab work revealed no signs of acute kidney injury or electrolyte abnormality. Lipase was normal going against pancreatitis. Urine sample showed no sign of infection to suggest UTI or pyelonephritis. After IV hydration patient reported feeling better and her abdomen remains soft and nonsurgical. Therefore at this time his symptoms are most consistent with viral stomach infection and she does not have ALTAGRACIA or severe electrolyte abnormality there is no need for further workup and she is otherwise safe for discharge History & Record Review Discussion w/independent historian: Patient and Significant other Lab Data Attestation: I reviewed the patient's lab results. Labs: Laboratory Results - last 24 hr 02/20/24 02/20/24 21:19 23:02 WBC 10.1 RBC 4.44 Hgb 12.0 Hct 36.8 L MCV 82.9 MCH 27.0 MCHC 32.6 RDW Std Deviation 40.3 RDW Coeff of Em 13.5 Plt Count 334 MPV 9.7 Immature Gran % (Auto) 0.200 Neut % (Auto) 64.3 Lymph % (Auto) 27.7 [place] % (Auto) 3.6 Eos % (Auto) 3.7 Baso % (Auto) 0.5 Absolute Neuts (auto) 6.5 Absolute Lymphs (auto) 2.80 Nucleated RBC % 0 Sodium 139 Potassium 3.6 Chloride 107 Carbon Dioxide 27.0 Anion Gap 5 BUN 9 Creatinine 0.61 Estim Creat Clear Calc 151.22 Est GFR (MDRD) Af Amer 154 Est GFR (MDRD) Non-Af 127 BUN/Creatinine Ratio 14.8 Glucose 121 H Calcium 8.9 Total Bilirubin 0.20 Direct Bilirubin 0.05 AST 8 L ALT 18 Alkaline Phosphatase 60 Total Protein 6.6 Albumin 3.4 Globulin 3.2 Lipase 21 Urine Color Yellow Urine Clarity Cloudy Urine pH 7.0 Ur Specific [place] 1.015 Urine Protein Negative Urine Glucose (UA) Normal Urine Ketones Negative Urine Occult Blood Negative Urine Nitrite Negative Urine Bilirubin Negative Urine Urobilinogen 1 H Ur Leukocyte Esterase 25 H Urine RBC 0 SEEN Urine WBC 0 SEEN Ur Squamous Epith Cells 5-10 SEEN Amorphous Sediment 2+ Urine Bacteria 0 SEEN Urine Mucus 0 SEEN Urine Test Negative Discharge Plan Triage Chief Complaint: Abd Pain ED Provider: Stuart Lazo Dx/Rx/DC Orders Clinical Impression: Nonspecific abdominal pain, Diarrhea, Mild dehydration, Anxiety and depression Instructions: Abdominal Pain, ED Gastroenteritis, Viral (Adult) Prescriptions: New dicyclomine 20 mg tablet 20 mg PO 4X/DAY PRN (Reason: Abdominal pain/bloating) Qty: 28 0RF ondansetron 4 mg tablet,disintegrating 4 mg PO TID PRN (Reason: nausea and vomiting) Qty: 21 0RF No Action sertraline 50 mg tablet 50 mg PO DAILY Qty: 90 4RF Primary Care Provider: Care Physician,No Primary Referrals: Hadley Burton MD [Med Staff - Active Staff] - Care Physician,No Primary [Primary Care Provider] - Activity Restrictions/Additional Instructions: Please take the prescribed medication as directed to help control your symptoms. Your symptoms should resolve anywhere from 24 hours to 7 days with the average being 3 days. Return to the ER should you have any further concern Print Language: Estonian Disposition Disposition: Home, Self Care Discharge Date/Time: 02/21/24 00:25
[2024-02-21 00:22] VITALS: BP 105/71; PULSE 90; RESP 16; TEMP 36.2; O2SAT 98
== END 2024-02-21 00:25 | disposition home or self-care (01) ==
PROVIDERS: Emergency Provider Emergency Medicine; Visit Provider Emergency Medicine
DX: R10.9 Unspecified abdominal pain (principal); R19.7 Diarrhea, unspecified; E86.0 Dehydration; F41.9 Anxiety disorder, unspecified; F32.A Depression, unspecified; F17.200 Nicotine dependence, unspecified, uncomplicated; Z79.899 Other long term (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
CPT/HCPCS: 80048; 80076; 81001; 81025; 83690; 85025; 96361; 96374; 96375; 99283; J7030; J2405

== ENCOUNTER → 2024-04-04 | Outpatient (CLI) | payer MEDICAID, SELFPAY | END | disposition home or self-care (01) | LOC: LABSPEC 16:14 | PROVIDERS: Referring Provider Nurse Practitioner Family; Visit Provider Nurse Practitioner Family | DX: N89.8 Other specified noninflammatory disorders of vagina (principal) | CPT/HCPCS: 87070; 87205 ==

== ENCOUNTER → 2024-09-13 | Outpatient (CLI) | payer MEDICAID, SELFPAY ==
--- NOTE | 2024-09-13 14:58 | US_ITS ---
PROCEDURE: PELVIC W/ TRANSVAGINAL REASON FOR EXAM: Menorrhagia. LMP: August 25, 2024 TECHNIQUE: Transabdominal and transvaginal pelvic ultrasound COMPARISON: None. FINDINGS: Measurements: Uterus: 9 cm x 5.8 cm x 4.4 cm with a volume of 119.8 mL Endometrial Thickness: 11 mm. Hyperechoic. Right Ovary: 3.7 cm x 2.6 cm x 1.8 cm with a volume of 8.73 mL. Left Ovary: 2.3 cm x 2 cm x 1.6 cm with a volume of 3.9 mL. TRANSABDOMINAL: Uterus: Normal size, myometrial echotexture, and contour. Endometrium: Unremarkable. Right ovary: Normal size and echotexture. Left ovary: Normal size and echotexture. No large pelvic mass identified. Transvaginal sonography was performed to better visualize the endometrium. TRANSVAGINAL: Uterus: Anteverted. Normal contour and myometrial echotexture. Endometrium: Normal echotexture. Right ovary: Normal size and echotexture. Left ovary: Normal size and echotexture. Other adnexal findings: None. Cul-de-sac: No free intraperitoneal fluid identified. No tenderness. US/Pelvic w/ Transvaginal IMPRESSION: NORMAL TRANSABDOMINAL AND TRANSVAGINAL PELVIC ULTRASOUND. Reading Location: [id number]
== END | disposition home or self-care (01) ==
PROVIDERS: Referring Provider Obstetrics & Gynecology; Visit Provider Obstetrics & Gynecology
DX: N92.0 Excessive and frequent menstruation with regular cycle (principal)
CPT/HCPCS: 76830; 76856